=== PATIENT | male | born 1945 | race Caucasian/White ===

== ENCOUNTER 2024-10-10 15:51 | Inpatient (IN) | payer MEDICARE, SELFPAY ==
[2024-10-10] VITALS (13 sets, daily range): BP systolic 137–182; BP diastolic 63–92; PULSE 95–138; RESP 12–20; TEMP 36.1–36.6; O2SAT 92–100
--- NOTE | ~2024-10-10 | XR_ITS ---
EXAMINATION: XR UGI water soluble wo kub DATE: 10/13/2024 11:07 INDICATION: Perforated duodenal ulcer post repair TECHNIQUE: 240 mL of Gastrografin water-soluble contrast was administered due to the patient's existi ng nasogastric tube. A total of 27 fluoroscopic images and 4 radiographs of the stomach, and proximal small bowel were obtained. Fluoroscopy exposure time was 2.0 minutes. Total DAP was 22.171 Gycm^2. COMPARISON: CT dated 10/10/2024 FINDINGS: Initial deputy sheriff lieutenant fluoroscopic image demonstrates nasogastric tube with tip in proximal side port project ing over the region of the stomach. There are couple surgical drains, one extending along the expecte d region of the greater curvature of the stomach with the distal tip in the left upper quadrant and t he second grouping over the region of the stomach but with distal tip seen in the left hemipelvis on subsequent radiographs. Injected contrast fills the stomach which appears normal. There is prompt tra nsit of contrast through the duodenum and into the jejunum. The contrast opacified portions of the sm all bowel appear normal. No extraluminal leakage of contrast. IMPRESSION: 1. No evident obstruction or extra luminal leakage of contrast post recent duodenal ulcer repair. Reviewed, dictated and finalized at location B. NER OPERATOR IMPRESSION: 1. No evident obstruction or extra luminal leakage of contrast post recent duod enal ulcer repair.
--- NOTE | ~2024-10-10 | CT_ITS ---
EXAMINATION: CTA chest PE protocol DATE: 10/10/2024 17:15 BRICK BURNER HEAD INDICATION: Sudden onset of right-sided abdominal pain. TECHNIQUE: Computed tomographic angiography (CTA) of the chest was performed with 100 mL Omnipaque-35 0 intravenous contrast. The dose-length product was 246.05 mGy-cm. Maximum intensity projection 3D-re constructions of the aorta and other arteries were constructed by the technologist on a separate work station. COMPARISON: None. FINDINGS: No filling defects are identified within the main or proximal pulmonary arteries. The thoracic aorta is unremarkable, without aneurysmal dilatation or dissection. Lungs are clear. The heart is of normal size, without pericardial effusion. Within the right upper quadrant of the abdomen, is limited visualization of a hyperemic nondistended gallbladder with surrounding free fluid for which cross-sectional imaging is suggested. Additionally, multiple foci of free air are identified along the anterior lateral margin of the abdomen, limited v isualization on this CTA of the chest IMPRESSION: No pulmonary embolus. No aortic dissection. Findings within the right upper quadrant of the abdomen for which cross-sectional imaging (contrast-e nhanced CT examination of the abdomen and pelvis) for further evaluation. These findings were discussed with Dr. Tellez at 5:25 PM on 10/10/2024 Reviewed, dictated and finalized at location A. K BURNER HEAD IMPRESSION: No pulmonary embolus. No aortic dissection. Findings within the right upper quadrant of the abdomen for which cross-section al imaging (contrast-enhanced CT examination of the abdomen and pelvis) for fur ther evaluation. These findings were discussed with Dr. Tellez at 5:25 PM on 10/10/2024
--- NOTE | ~2024-10-10 | XR_ITS ---
EXAMINATION: XR chest 1V portable DATE: 10/10/2024 17:07 INDICATION: Ripping abdominal pain. TECHNIQUE: A single frontal view of the chest was obtained. COMPARISON: Chest CT 10/10/2024 FINDINGS: There is mild atelectasis in the lower lung zones. No pleural effusion or pneumothorax. The heart size is normal. IMPRESSION: 1. Mild atelectasis in the lower lung zones. Reviewed, dictated and finalized at location A. ESSOR OF HISTORY
--- NOTE | ~2024-10-10 | XR_ITS ---
Exam: Abdomen 1V HISTORY: NG tube replacement COMPARISON: 10/11/2024 TECHNIQUE: Supine images of the lower chest and upper abdomen FINDINGS: Nasogastric tube extends into the left upper quadrant, presumably within the stomach. IMPRESSION: Nasogastric tube in good position and ready for immediate use. Reviewed, dictated and finalized at location A. DER AND HONER OPERATOR AUTOMATIC
--- NOTE | ~2024-10-10 | CT_ITS ---
EXAMINATION: CT abdomen pelvis w con DATE: 10/10/2024 18:22 INDICATION: Free intraperitoneal gas. TECHNIQUE: Computed tomography (CT) of the abdomen and pelvis was performed with 100 mL Omnipaque 350 intravenous contrast. Automated exposure control and iterative reconstruction technique were employe d. The dose-length product was 369.77 mGy-cm. COMPARISON: Chest CT 10/10/24 FINDINGS: The visualized portions of the lung bases demonstrate mild atelectasis. There is mild bronc hiectasis bilaterally. No pleural effusion. The heart size is normal. No pericardial effusion. There is bilateral gynecomastia. The liver, gallbladder, spleen, pancreas, adrenal glands, and left kidney are normal. There are cysts in right kidney measuring up to 12 mm. The prostate is mildly enlarged. T here is diffuse bladder wall thickening, likely secondary to chronic outlet obstruction. The bladder is markedly distended. There is diverticulosis of the colon without evidence of diverticulitis. There is a perforated ulcer of the first portion of the duodenum. There is a small volume of ascites and f ree gas in the right upper quadrant. There are no pathologically enlarged lymph nodes. There is sever e thoracolumbar spondylosis. IMPRESSION: 1. Perforated ulcer of the first portion of the duodenum. 2. Small volume of ascites and free gas in the right upper quadrant of the abdomen. Reviewed, dictated and finalized at location A. ER CHAINSTITCH IMPRESSION: 1. Perforated ulcer of the first portion of the duodenum. 2. Small volume of ascites and free gas in the right upper quadrant of the abdo men.
--- NOTE | ~2024-10-10 | XR_ITS ---
EXAMINATION: XR abdomen gastric tube insert DATE: 10/10/2024 22:13 INDICATION: Nasogastric tube placement. TECHNIQUE: A semierect view of the abdomen was obtained. COMPARISON: CT abdomen and pelvis 10/10/2024 FINDINGS: The lower abdomen is excluded. The nasogastric tube tip is at the gastroesophageal junction . There are surgical drains in the abdomen. Body wall gas is noted. IMPRESSION: 1. Nasogastric tube tip at the gastroesophageal junction. Reviewed, dictated and finalized at location A. NSIC ANALYST
--- NOTE | ~2024-10-10 | XR_ITS ---
Exam: Abdomen 1V HISTORY: tube placement verification, repositioned COMPARISON: 10/10/2024 at 10:05 PM TECHNIQUE: Supine images of the lower chest and upper abdomen FINDINGS: Nasogastric tube extends into the left upper quadrant, presumably within the stomach. Additional drains projecting over the left upper quadrant, and the pelvis, presumably postoperative. IMPRESSION: Nasogastric tube in good position and ready for immediate use. Reviewed, dictated and finalized at location [] MANAGER
--- NOTE | 2024-10-10 16:37 | ECG_ITS ---
Test Date: 2024-10-10 17:12:31 Measurements Intervals [place] Rate: 107 P: 83 MD: 171 QRS: 84 QRSD: 85 T: 69 QT: 331 QTc: 442 Interpretive Statements SINUS TACHYCARDIA WITH OCCASIONAL SUPRAVENTRICULAR PREMATURE COMPLEXES POSSIBLE LEFT ATRIAL ENLARGEMENT [-0.1mV P-WAVE IN V1/V2] No previous ECG available for comparison Electronically Signed On 10-11-2024 15:51:11 [employer]ODUCE [employer]TER by Lesly Schroeder M.D.
--- NOTE | 2024-10-10 16:46 | ED_ITS ---
HPI - General Adult General Chief complaint: Abdominal Pain Stated complaint: abd pain History of Present Illness HPI narrative: This is a 79-year-old male with BPH presenting for repeating abdominal pain. Patient was exercising in his basement when he felt a ripping pain on the right side of his abdomen. He then developed severe abdominal pain and came to the emergency room. Patient denies fevers chills chest pain difficulty breathing or weakness to any extremity. Related Data Home Medications ?Medication ?Instructions ?Recorded ?Confirmed ?Last Taken ?Type aspirin 81 mg capsule 81 mg PO DAILY 10/11/24 10/11/24 Unknown History sulfamethoxazole 800 1 tablet PO Q12H 10/11/24 10/11/24 10/09/24 History mg-trimethoprim 160 mg tablet Allergies Allergy/AdvReac Type Severity Reaction Status Date / Time No Known Allergies Allergy Verified 10/10/24 17:17 [facility] Past Medical History Medical History BPH (benign prostatic hyperplasia) Social History Social History (Updated 10/10/24 @ 20:20 by Christian Corley DO) Smoking status: Never smoker Alcohol intake: never Substance use: never Do You Feel Safe in your Home?: Yes Lack of Transportation: No Lack of Food: Never True Current Housing: I Have Housing Concerned About Future Housing: No Difficulty Paying Gas/Electric Bills: No Difficulty Paying for Meds: No Currently Unemployed: No Education: Master's Degree or Higher Difficulty w/ Childcare or Family Care: No Spiritual care concerns: No Exam 2 Narrative: APPEARANCE: No apparent distress. Head: atraumatic. EYES: EOMI, NOSE: Atraumatic NECK: Trachea midline RESPIRATORY: No increased rate of breathing, CTAB CARDIOVASCULAR: Tachycardic ABDOMINAL: Abdomen is rigid and diffusely tender MUSCULOSKELETAl: No obvious deformities NEURO: Alert. Moving 4/4 extremities SKIN:: Warm, dry. Normal color PSYCHIATRIC: Normal affect Course Vital Signs Vital signs: Vital Signs Pulse Rate 97 10/10/24 16:00 Respiratory Rate 18 10/10/24 16:00 Blood Pressure 182/92 H 10/10/24 16:00 Pulse Oximetry 98 10/10/24 16:00 Temperature 98.0 F 10/11/24 08:01 Pulse Rate 97 10/11/24 08:01 Respiratory Rate 14 10/11/24 08:01 Blood Pressure 144/70 H 10/11/24 08:01 Pulse Oximetry 99 10/11/24 08:01 Oxygen Delivery Room Air 10/11/24 00:22 Oxygen Flow Rate 6 10/10/24 22:25 Medical Decision Making MDM Narrative Medical decision making narrative: -Course: 79-year-old male presenting with a ripping pain in his abdomen. CT abdomen pelvis showed a perforated duodenal ulcer. Patient given fluid resuscitation, pain medication and Zosyn. Dr. Corley was contacted and will take the patient to the OR. When the patient 1st arrived I had attempted to order a CTA - chest/abdomen/pelvis unfortunately selected CTA Chest. A CT abdomen pelvis had to be added and he was rescanned. I explained the error the the patient and apologized for the delay in care. Vital Signs Vital Signs: Vital Signs Pulse Rate 97 10/10/24 16:00 Respiratory Rate 18 10/10/24 16:00 Blood Pressure 182/92 H 10/10/24 16:00 Pulse Oximetry 98 10/10/24 16:00 Temperature 98.0 F 10/11/24 08:01 Pulse Rate 97 10/11/24 08:01 Respiratory Rate 14 10/11/24 08:01 Blood Pressure 144/70 H 10/11/24 08:01 Pulse Oximetry 99 10/11/24 08:01 Oxygen Delivery Room Air 10/11/24 00:22 Oxygen Flow Rate 6 10/10/24 22:25 Lab Data 10/11/24 05:12 10/11/24 05:12 Labs: Lab Results 10/10/24 10/10/24 10/10/24 Range/Units 16:54 16:55 19:33 WBC 6.7 (4.5-10.0) K/mm3 RBC 4.32 L (4.6-6.20) M/mm3 Hgb 13.0 L (14.0-18.0) g/dL Hct 40.0 L (42.0-52.0) % MCV 92.6 (80-100) fl MCH 30.1 (26-34) pg MCHC 32.5 (32-36) g/dl RDW 12.3 (11.5-14.5) % Plt Count 327 (150-375) k/mm3 MPV 9.5 (7.4-10.4) fl Immature Gran % (Auto) 0.3 (0-0.5) % Neut % (Auto) 71.7 (45.5-73.1) % Lymph % (Auto) 18.8 (18.3-44.2) % [place] % (Auto) 6.8 (2.6-8.5) % Eos % (Auto) 1.8 (0-4.4) % Baso % (Auto) 0.6 (0.2-1.2) % Lymph # (Auto) 1.27 (0.9-3.2) K/mm3 [place] # (Auto) 0.5 (0.1-0.6) K/mm3 Eos # (Auto) 0.1 (0-0.3) K/mm3 Baso # (Auto) 0.0 (0.0-0.1) K/mm3 Abs Immat Gran (auto) 0.02 (0.00-0.031) K/mm3 Absolute Neuts (auto) 4.8 (1.3-6.7) K/mm3 Absolute Nucleated RBC 0.000 (0.0-0.012) K/mm3 Nucleated RBC % 0.0 (0.0-0.2) % PT 14.2 (11.1-14.7) Seconds INR 1.1 APTT 22.5 (22.3-36.8) Seconds Sodium 137 (137-145) mmol/L Potassium 4.6 (3.4-5.0) mmol/L Chloride 104 (98-107) mmol/L Carbon Dioxide 26 (22-30) mmol/L Anion Gap 7 (4-12) mmol/L BUN 25 H (9-20) mg/dL Creatinine 1.10 (0.7-1.3) mg/dL Estim Creat Clear Calc 41 ml/min Estimated GFR > 60 (59 - ) Glucose 102 (65-110) mg/dL Lactic Acid 1.5 (0.7-2.0) mmol/L Calcium 8.1 L (8.4-10.2) mg/dL Phosphorus 3.4 (2.5-4.5) mg/dL Magnesium 2.2 (1.6-2.3) mg/dL Total Bilirubin 0.7 (0.2-1.3) mg/dL AST 32 (17-59) U/L ALT 12 (6-50) U/L Alkaline Phosphatase 133 H (38-126) U/L Troponin I < 0.012 (0.000-0.034) ng/mL Total Protein 7.0 (6.3-8.2) g/dL Albumin 3.5 (3.5-5.1) g/dL Lipase 127 (23-300) U/L Urine Color Yellow (Yellow) Urine Appearance Clear (Clear) Urine pH 8.0 (5.0-9.0) Ur Specific [place] 1.043 H (1.001-1.035) Urine Protein Negative (Negative) mg/dL Urine Glucose (UA) Negative (Negative) mg/dL Urine Ketones Trace H (Negative) mg/dL Ur Blood (Man) Negative (Negative) Urine Nitrate Negative (Negative) Urine Bilirubin Negative (Negative) Urine Urobilinogen 0.2 (<2.0) mg/dL Leukocyte Esterase Rfl Negative (Negative) JONAH/UL Salicylates < 1.0 L (2-20) mg/dL Blood Type A Positive Antibody Screen Negative Critical Care Time Critical Care Time Critical Care Time: Yes Total Critical Care Time: 35 Discharge Plan Discharge Clinical Impression: Duodenal ulcer, perforated Patient Disposition: Still a Patient Condition: Guarded Prognosis
[2024-10-10 17:00] LABS: Basophils Percent Auto 0.6 % (0.2-1.2); Eosinophils Absolute Auto 0.1 K/mm3 (0-0.3); Eosinophils Percent Auto 1.8 % (0-4.4); Immature Granulocyte Absolute 0.02 K/mm3 (0.00-0.031); Immature Granulocyte Percent A 0.3 % (0-0.5); Lymphocytes Absolute Auto 1.27 K/mm3 (0.9-3.2); Lymphocytes Percent Auto 18.8 % (18.3-44.2); Mean Corpuscular HGB Conc 32.5 g/dl (32-36); Mean Corpuscular Hemoglobin 30.1 pg (26-34); Mean Corpuscular Volume 92.6 fl (80-100); Mean Platelet Volume 9.5 fl (7.4-10.4); Monocytes Absolute Auto 0.5 K/mm3 (0.1-0.6); Monocytes Percent Auto 6.8 % (2.6-8.5); Neutrophils Absolute Auto 4.8 K/mm3 (1.3-6.7); Neutrophils Percent Auto 71.7 % (45.5-73.1); Platelet Count Result 327 k/mm3 (150-375); Red Blood Count 4.32 M/mm3 (4.6-6.20); Red Cell Distribution Width 12.3 % (11.5-14.5); White Blood Count 6.7 K/mm3 (4.5-10.0)
[2024-10-10 17:10] LABS: Salicylate < 1.0 mg/dL (2-20)
[2024-10-10 17:10] LABS: Lactic Acid Reflex 1.5 mmol/L (0.7-2.0)
[2024-10-10 17:12] LABS: INR 1.1; Prothrombin Time 14.2 Seconds (11.1-14.7)
[2024-10-10 17:13] LABS: Partial Thromboplastin Time 22.5 Seconds (22.3-36.8)
[2024-10-10] MEDS: HYDROmorphone HCL INJ (*CRX) 1 MG/ML SYR IV PUSH (17:16)
[2024-10-10 17:27] LABS: Alanine Aminotransferase 12 U/L (6-50); Albumin Level 3.5 g/dL (3.5-5.1); Alkaline Phosphatase 133 U/L (38-126); Anion Gap 7 mmol/L (4-12); Aspartate Amino Transferase 32 U/L (17-59); Bilirubin,Total 0.7 mg/dL (0.2-1.3); Blood Urea Nitrogen 25 mg/dL (9-20); Calcium 8.1 mg/dL (8.4-10.2); Carbon Dioxide 26 mmol/L (22-30); Chloride 104 mmol/L (98-107); Estimated CRCL calculation 41 ml/min; Estimated Glomerular Filt Rate > 60; Glucose 102 mg/dL (65-110); Lipase 127 U/L (23-300); Magnesium 2.2 mg/dL (1.6-2.3); Phosphorus 3.4 mg/dL (2.5-4.5); Potassium 4.6 mmol/L (3.4-5.0); Sodium 137 mmol/L (137-145)
[2024-10-10 17:39] LABS: Troponin I < 0.012 ng/mL (0.000-0.034)
[2024-10-10] MEDS: SODIUM CHLORIDE 0.9% IV 2,000 ML 999 ML IV CONT (18:45)
[2024-10-10] MEDS: PIPERACILLN/TAZ 3.375GM/NS50ML 3.375 GM/50 ML BAG IVPB (18:45)
--- OUTSIDE RECORDS SUMMARY | 2024-10-10 19:09 | XMS_ITS | Continuity of Care Document ---
Author Organization [facility] Address [address] [facility] [address] [place] [address] Phone Care Team Providers Care Senior Office Assistant Name Role Phone Mary Cabrales Unavailable Unavailable Procedures Procedure Date Eye Exam & Treatment Eye Exam & Treatment Refraction Eye Exam Established Pt SV Plastic Sphcyl Rupert +/-4d, .12-2d De Frames Deluxe Tax - Medical Eye Exam & Treatment Refraction Advance Directives Directive Yes / No Effective Date File Name No Information Encounters Encounter Description Practice Location Reason(s) For Visit Diagnoses Date Provider Providers Copied on Encounter [facility], [address] [place] [address] [address], [place], [place], [id number], tel:[phone] [facility] No Information 2 2-201 0 Samra Leggett [address] [facility] , [address], [place], [address], [place]. tel:[phone] [facility], [address] [place] [address] [address], [place], [place], [address], [place] tel:[phone] [facility] [place] No Information Willis-0 4-200 9 Samra Leggett [address] , [address], [place], [address], [place]. tel:[phone] [facility], [address] [place] [address] [address], [place], [place], [address], [place] tel:[phone] [facility] No Information Aug- 8 Samra Hernandez. [address] [facility] , [address], [place], [address], [place]. tel:[phone] [facility], [address], [place], [place], [id number], [place] tel:[phone] [facility] No Information Aug-0 [address] [employer] [facility] [employer] . [address] [facility] [address], [address], [place], [place], [address], [place]. tel:[phone] Referring Provider: Mary Brown, [address] [place] [address] [address], [place], [place], [facility]. tel:[phone] sulting Provider: Freddie Cruz [address] [place] [address], [place], [place], [facility]. tel:[phone] [facility], [address], [place], [place], [address], [place] tel:[phone] [facility] No Information 8 Samra Hernandez. [address] [place] [address] , [address], [place], [address], [place]. tel:[phone] Family History Family Member Type Diagnosis Age At Onset No Information Payers Payer name Insurance type Covered republican ID Authorrejia tiomar(s) [place] [id number] Social History Type Description Quantity Date Captured Comments Sex Male Smoking Status No Information Chief Complaint And Reason For Visit No Information Reason For Referral Reason For Referral No Information History Of Present Illness Encounter Date Complaint History Of Prese nt Illness No Information Functional Status Date Functional Assessmen t No Information Instructions Date Instruction Additional Infor mation No Information Assessments Type Assessment Date No Information Patient Care Teams Name Effective Dates (start - stop) Status Members No Information
--- OUTSIDE RECORDS SUMMARY | 2024-10-10 19:09 | XMS_ITS | Encounter Summary ---
Author Organization [facility] Address [address] [place] [address] Phone Care Team Providers Care Laborer Golf Course Name Role Phone Keanu Anthony MD Primary Care Provider [phone] Francesco Barahona MD Primary Care Provider Encounter Details Date Type Department Care Team (Latest Contact Info) Description 03/24/2017 Orders Only [facility] CONVERSION Scanning, Provider Social History Tobacco Use Types Packs/Day Years Used Date Smoking Tobacco: Never Sex and Gender Information Value Date Recorded Sex Assigned at Not on file Legal Sex Male 12:31 PM TECHNICAL MGR Gender Identity Male 11/09/2022 8:29 PM TECHNICAL MGR Sexual Orientation Straight 11/09/2022 8: 29 PM TECHNICAL MGR documented as of this encounter Plan of Treatment Not on file documented as of this encounter Procedures Procedure Name Priority Date/Time Associated Diagnosis Comments VASCULAR LABORATORY REPORT 03/24/2017 8:37 AM CDT documented in this encounter Results * VASCULAR LABORATORY REPORT (03/24/2017 8:37 AM CDT) Anatomical Region Laterality Modality Ultrasound us Provider Scanning CV VASCULAR PROCEDURES Final R esult documented in this encounter Visit Diagnoses Not on filedocumented in this encounter Care Teams Laborer Golf Course Relationship Specialty Start Date End Date Keanu Anthony MD [address] [facility] [address] [place] [address] PCP - General 03/30/17 06/15/21 Francesco Barahona MD [address] [address] PCP - General Endocrinology Diabetes & Metabolism 06/16/21 documented as of this encounter
--- OUTSIDE RECORDS SUMMARY | 2024-10-10 19:09 | XMS_ITS | Encounter Summary ---
Author Organization [facility] Address [address] [place] [address] Phone Care Team Providers Care Veterinarian Epidemiologist Name Role Phone Keanu Anthony MD Primary Care Provider [phone] Francesco Barahona MD Primary Care Provider Encounter Details Date Type Department Care Team (Latest Contact Info) Description 05/02/2017 Orders Only [facility] CONVERSION Scanning, Provider Social History Tobacco Use Types Packs/Day Years Used Date Smoking Tobacco: Never Sex and Gender Information Value Date Recorded Sex Assigned at Not on file Legal Sex Male 12:31 PM PARALEGAL INSTRUCTOR Gender Identity Male 11/09/2022 8:29 PM PARALEGAL INSTRUCTOR Sexual Orientation Straight 11/09/2022 8: 29 PM PARALEGAL INSTRUCTOR documented as of this encounter Plan of Treatment Not on file documented as of this encounter Procedures Procedure Name Priority Date/Time Associated Diagnosis Comments VASCULAR LABORATORY REPORT 05/02/2017 10:14 AM CDT documented in this encounter Results * VASCULAR LABORATORY REPORT (05/02/2017 10:14 AM CDT) Anatomical Region Laterality Modality Ultrasound us Provider Scanning CV VASCULAR PROCEDURES Final R esult documented in this encounter Visit Diagnoses Not on filedocumented in this encounter Care Teams Veterinarian Epidemiologist Relationship Specialty Start Date End Date Keanu Anthony MD [address] [facility] [address] [place] [address] PCP - General 03/30/17 06/15/21 Francesco Barahona MD [address] [address] PCP - General Endocrinology Diabetes & Metabolism 06/16/21 documented as of this encounter
--- OUTSIDE RECORDS SUMMARY | 2024-10-10 19:09 | XMS_ITS | Clinical Summary ---
Author Organization [facility] Address [address] [place] [address] Care Team Providers Care Dryland Farmer Name Role Phone Francesco Barahona MD Primary Care Provider Allergies No known active allergies Medications aspirin 81 mg tablet Take 1 tablet (81 mg total) by mouth Active multivitamin tabletIndicatio ns:Vitamin Deficiency Prevention Men's One per Day Active scopolamine 1 mg over 3 days patch 3 day APPLY 1 PATCH TOPICALLY TO THE SKIN EVERY 72 HOURS 4 patch 4 Active sulfamethoxazol e-trimethoprim (BACTRIM DS) 800-160 mg per tablet Take 1 tablet by mouth 2 (two) times a day for 7 days 14 tablet 5 10/16/19 25 Active Active Problems Problem Noted Date Diagnosed Date Imbalance 03/07/2024 PVD (peripheral vascular disease) 01/11/2023 Assessment & Plan (01/11/2023 1:06 PM CDT): Compression socks Venous duplex Vascular Referral Medicare annual wellness visit, subsequent 06/22 Assessment & Plan (07/07/2024 6:42 PM CDT): Overall excellent health. Colonoscopy is due in 2024. I recommended COVID, flu, RSV, and [id number] vaccinations. Assessment & Plan (07/02/2023 10:27 AM CDT): Overall good health. Check PSA today. Colonoscopy due in 2024. I recommended that he get a COVID shot and Kibkacp19 vaccine. He declines a flu shot. Assessment & Plan (06/22/2022 10:00 AM CDT): Overall good health. [place] due in 2024. Recommended the following vaccines: Shingrix New COVID booster Flu shot [id number] Hyperlipidemia 06/22/2022 Assessment & Plan (07/07/2024 6:40 PM CDT): Mildly elevated in the past. Not on statin. Repeat today. Assessment & Plan (07/02/2023 9:49 AM CDT): LDL mildly elevated. No indication for statin at this time. Recommend low fat diet. Assessment & Plan (06/22/2022 10:00 AM CDT): Check lipids. Elevated PSA 06/22/2022 Encounter for preventive care 06/16/2021 Assessment & Plan (06/16/2021 1:10 PM CDT): Continue current healthy lifestyle. Encourage annual flu shot and getting Shingrix vaccine as he had received Zostavax in the past. Next colonoscopy due in 2024 if he chooses to continue screening. Checking PSA today, along with general labs. Screen for HCV per USPSTF guidelines. 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 Sensorineural hearing loss, asymmetrical 018 Assessment & Plan (06/22/2019 2:23 PM CDT): Check MRI to r/o retrocochlear path. Resolved Problems Problem Noted Date Diagnosed Date Resolved Date Dysfunction of both eustachian tubes 04/25/2018 02/11/2022 Assessment & Plan (06/22/2019 2:23 PM CDT): Ok to continue scopalamine patches for vertigo with air travel. Encounters Date Type Department Care Team Description 10/09/2024 Orders Only [facility] [address] [place] [address] [address] [place] [phone] Ubaldo Rose MD 10/05/2024 9:40 AM TAX DIRECTOR Lab [facility] [address] [place] [address] UTI symptoms 10/04/2024 Orders Only [facility] [address] [place] [address] [address] [place] [phone] Ubaldo Rose MD UTI symptoms (Primary Dx) 10/04/2024 Telephone [facility] [address] [place] [address] [address] [place] [phone] Ubaldo Rose MD 09/19/2024 Telephone [facility] [address] [place] [address] [address] [place] [phone] Dina Benitez CMA 09/18/2024 Telephone [facility] [address] [place] [address] [address] [place] [phone] Dina Benitez, WILMER 07/10/2024 [facility] [address] [facility] [address] [facility] [place] [address] Amparo Covarrubias from Last 3 Months Immunizations Name Administration Dates Next Due Tdap 06/16/2021 Surgical History Surgery Date Site/Laterality Comments LASER OF PROSTATE W/ GREEN LIGHT PVP Medical History Medical History Date Comments Retention of urine Urinary reten tion with incomplete bladder emptying - (Added by TW Conv) Retention of urine Urinary reten tion with incomplete bladder emptying - (Added by TW Conv) HL (hearing loss) Family History Medical History Relation Name Comments Heart disease Brother Family history of cardiac disorder - (Added by TW Conv) Heart disease Father Family history of cardiac disorder - (Added by TW Conv) Alzheimer's disease Mother Family h istory of Alzheimer's disease - (Added by TW Conv) Relation Name Status Comments Brother Father Mother Social History Tobacco Use Types Packs/Day Years Used Date Smoking Tobacco: Never Smokeless Tobacco: Never Tobacco Cessation:Counseling Given: Not Answered Alcohol Use Standard Drinks/Week Comments Never 0 (1 standard drink = 0.6 oz pur e alcohol) AUDIT-C Answer Date Recorded Q1: How often do you have a drink containing alc ohol? Never 06/16/2021 Q2: How many drinks containi ng alcohol do you have on a typical day when you are drinking? 1 or 2 06/16/2021 Q3: How often do you have six or more drinks on one occasion? Never 06/16/2021 PHQ-2 Answer Date Recorded PHQ-2 Total Score (If total score is 3 or more points, staff should administer the PHQ-9) 0 07/07/2024 Exercise Vital Sign Answer Date Recorde d On average, how many days pe r week do you engage in moderate to strenuous exercise (like a brisk walk)? 7 days 06/16/2021 On average, how many minutes do you engage in exercise at this level? 40 min 06/16/2021 Personal Safety Answer Date Recorded Getting School Help Needed Not on file 09/09 Sex and Gender Information Value Date Recorded Sex Assigned at Not on file Legal Sex Male 12:31 PM TAX DIRECTOR Gender Identity Male 11/09/2022 8:29 PM TAX DIRECTOR Sexual Orientation Straight 11/09/2022 8: 29 PM TAX DIRECTOR Obstetrics History Last Filed Vital Signs Vital Sign Reading Time Taken Comments Blood Pressure 130/73 07/07/2024 10:10 AM CDT Pulse 66 07/07/2024 10:10 AM CDT Temperature - - Respiratory Rate - - Oxygen Saturation 99% 02/15/2023 1:31 PM CDT Inhaled Oxygen Concentration - - Weight 66.4 kg (146 lb 6.4 oz) 07/07/2024 10:10 AM CDT Height 175.3 cm (5' 9 ) 07/07/2024 10:10 AM CDT Body Mass Index 21.62 07/07/2024 10:10 AM CDT Plan of Treatment Health Maintenance Due Date Last Done Comments Hepatitis B Screening 1963 Zoster Vaccine (1 of 2) 1995 Pneumococcal vaccine 65+ (1 of 1 - PCV) 2010 Covid-19 Vaccine (3 - 2023-2 5 season) 2024 12/09/2020, 11/11/2020 Influenza Vaccine (#1) 2024 Depression Screening 07/07/2025 07/07/2024, 07/02/2023, 06/22/2022, Additional history exists Fall Risk Assessment 07/07/2025 07/07/2024, 07/02/2023, 06/22/2022, Additional history exists Well Visit 65+ 07/07/2025 07/07/2024, 06/14, 06/22/2022, Additional history exists DTaP/Tdap/Td Vaccine (2 - Td or Tdap) 06/16/2031 06/16/2021 Colon Cancer Screening-CT Colonography Discontinued 07/22/2015 Colon Cancer Screening-Colonoscopy Discontinued 07/22/2015 Colon Cancer Screening-DNA Stool Discontinued 07/22/20 Colon Cancer Screening-FIT Discontinued 07/22/2015 Colon Cancer Screening-FOBT Discontinued 07/22/2015 Colon Cancer Screening-Sigmoidoscopy Discontinued 07/22/2015 Colorectal Cancer Screening Discontinued Hepatitis C Screening Completed 06/16/2021 Procedures Procedure Name Priority Date/Time Associated Diagnosis Comments URINE CULTURE Routine 10/05/2024 9:43 AM TAX DIRECTOR UTI symptoms HEPATITIS C ANTIBODY Routine 06/16/2021 10:33 AM CDT Encounter for hepatitis C screening test for low risk patient COLONOSCOPY REPORT 07/22/2015 from Last 3 Months or Most Recently Relevant to Health Maintenance Results * (ABNORMAL) Urine culture Urine, clean voided (10/05/2024 9:43 AM TAX DIRECTOR) Report Final Report: Greater than or equal to 100,000 colonies/mL of Staphylococcus lugdunensis Plus growth of clinically insignificant bacterial alexei. (.) Organism STAPHYLOCOCCUS LUGDUNENSIS [facility] Organism PLUS GROWTH OF CLINICALLY INSIGNIFICANT ALEXEI. [facility] Urine, clean voided 10/05/2024 9:43 AM TAX DIRECTOR 10/05/2024 10:27 AM TAX DIRECTOR Narrative ERMA ALAS - 10/08/2024 1:07 PM TAX DIRECTOR Testing performed by [facility] ([phone]) Organism Antibiotic Method Susceptibility Staphylococcus lugdunensis Vancomycin INTERPRETATION Susceptible Staphylococcus lugdunensis Trimethoprim with Sulfamethoxazole INTERPRETATION Susceptible Staphylococcus lugdunensis Linezolid INTERPRETATION Susceptible Staphylococcus lugdunensis Doxycycline INTERPRETATION Susceptible Staphylococcus lugdunensis Nitrofurantoin INTERPRETATI ON Susceptible Staphylococcus lugdunensis Oxacillin INTERPRETATION Susceptible Staphylococcus lugdunensis Cefazolin INTERPRETATION Susceptible Staphylococcus lugdunensis Ceftriaxone INTERPRETATION Susceptible Ubaldo Rose MD LAB MICROBIOLOGY - G ENERAL ORDERABLES Final Result Performing Organization Address City/State/[facility] Co de Phone Number [facility] [place] Department [place] [address] * Hepatitis C antibody (06/16/2021 10:33 AM CDT) Hep C Ab 0.2 0.0 - 0.9 s/co ratio [facility] - 01 Comment: ?Negative: ? < 0.8 ? Indeterminate: 0.8 - 0.9 ?Positive: ? > 0.9 The CDC recommends that a positive HCV antibody result be followed up with a HCV Nucleic Acid Amplification test ([id number]). Blood specimen (specimen) 06/16/2021 10:33 AM CDT 06/16/2021 Narrative [facility] - 06/17/2021 9:10 AM CDT Performed at: ??01 - [facility] [address] ??[id number] Metal Pickling Equipment Operator: Glenn Aquino PhD, Phone: ??[phone] us Francesco Barahona MD LAB MICROBIOLOGY - GENE RAL ORDERABLES Final Result [facility] - 01 * COLONOSCOPY REPORT (07/22/2015) Anatomical Region Laterality Modality Other Narrative 07/22/2015 Ordered by an unspecified provider. us Historical Provider GI PROCEDURE ORDERABLES F inal Result from Last 3 Months or Most Recently Relevant to Health Maintenance Insurance MEDICARE [employer] MEDICARE [employer] MEDICARE [facility] MEDICARE Advance Directives For more information, please contact: [phone] Documents on File Type Date Recorded Patient History Card Clerk Expl anation ADVANCE DIRECTIVE 10/01/2017 12:18 PM Care Teams Dryland Farmer Relationship Specialty Start Date End Date Francesco Barahona MD [address] [address] PCP - General Endocrinology Diabetes & Metabolism 06/16/21
--- OUTSIDE RECORDS SUMMARY | 2024-10-10 19:09 | XMS_ITS | Encounter Summary ---
Author Organization [facility] Address [address] [place] [address] Phone Care Team Providers Care Model Maker Scale Name Role Phone Francesco Barahona MD Primary Care Provider Encounter Details Date Type Department Care Team (Late st Contact Info) Description 10/09/2024 Orders Only [facility] [address] [facility] Medical Office Building [address] [place] [address] Ubaldo Rose MD [address] [facility]OLOGY, [facility] [address] [place] [address] Social History Tobacco Use Types Packs/Day Years Used Date Smoking Tobacco: Never Smokeless Tobacco: Never Alcohol Use Standard Drinks/Week Comments Never 0 [...] on file Legal Sex Male 12:31 PM AQUATIC CENTRE MANAGER Gender Identity Male 11/09/2022 8:29 PM AQUATIC CENTRE MANAGER Sexual Orientation Straight 11/09/2022 8: 29 PM AQUATIC CENTRE MANAGER documented as of this encounter Ordered Prescriptions Prescription Sig Dispense Quantity Refills Last Filled Start Date End Date sulfamethoxazole-t rimethoprim (BACTRIM DS) 800-160 mg per tablet Take 1 tablet by mouth 2 (two) times a day for 7 days 14 tablet 10/09/2024 10/16/2024 documented in this encounter Plan of Treatment Not on file documented as of this encounter Visit Diagnoses Not on filedocumented in this encounter Care Teams Model Maker Scale Relationship Specialty Start Date End Date Francesco Barahona MD [address] [facility] [address] [place] [address] PCP - General Endocrinology Diabetes & Metabolism 06/16/21 documented as of this encounter
--- OUTSIDE RECORDS SUMMARY | 2024-10-10 19:09 | XMS_ITS | Referral Summary ---
Author Organization [facility] Address [address] [place] [address] Care Team Providers Care Industrial Hygienist Name Role Phone Francesco Barahona MD Primary Care Provider Encounters Date Type Department Care Team Description 10/09/2024 Orders Only [facility] [address] [place] [address] Office [facility] [address] [place] [phone] Ubaldo Rose MD 10/05/2024 9:40 AM BAD CLOTH CHECKER Lab [facility] ([facility]) [address] [place] [phone] UTI symptoms 10/04/2024 Orders Only [facility] [address] [place] [address] Office [facility] [address] [place] [phone] Ubaldo Rose MD UTI symptoms (Primary Dx) 10/04/2024 Telephone [facility] [address] [place] [address] Office [facility] [address] [place] [phone] Ubaldo Rose MD 09/19/2024 Telephone [facility] [address] [place] [address] Office [facility] [address] [place] [phone] Dina Benitez CMA 09/18/2024 Telephone [facility] [address] [facility] Building [address] [place] [phone] Dina Benitez CMA 07/10/2024 [facility] [address] [place] [address] [address] [facility] for [facility] [place] [address] Amparo Covarrubias from Last 3 Months Allergies No known active allergies Medications aspirin [...] for 7 days 14 tablet 5 10/16/19 Active Active Problems Problem Noted Date Diagnosed Date Imbalance 03/07/2024 PVD (peripheral vascular disease) 01/11/2023 Assessment & Plan (01/11/2023 1:06 PM CDT): Compression socks Venous duplex Vascular Referral Medicare annual wellness visit, subsequent 06/22 Assessment & Plan (07/07/2024 6:42 PM CDT): Overall excellent health. Colonoscopy is due in 2024. I recommended COVID, flu, RSV, and [id number] vaccinations. Assessment & Plan (07/02/2023 10:27 AM CDT): Overall good health. Check PSA today. Colonoscopy due in 2024. I recommended that he get a COVID shot and [id number] vaccine. He declines a flu shot. Assessment & Plan (06/22/2022 10:00 AM CDT): Overall good health. Proctor due in 2024. Recommended the following vaccines: Shingrix New COVID booster Flu shot [id number] Hyperlipidemia 06/22/2022 Assessment & Plan (07/07/2024 6:40 [...] scopalamine patches for vertigo with air travel. Immunizations Name Administration Dates Next Due Tdap 06/16/2021 Social History Tobacco Use Types Packs/Day Years [...] on file Legal Sex Male 12:31 PM BAD CLOTH CHECKER Gender Identity Male 11/09/2022 8:29 PM BAD CLOTH CHECKER Sexual Orientation Straight 11/09/2022 8: 29 PM BAD CLOTH CHECKER Last Filed Vital Signs Vital Sign Reading [...] 07/07/2024 10:10 AM CDT Plan of Treatment Not on file Procedures Procedure Name Priority Date/Time Associated Diagnosis Comments URINE CULTURE Routine 10/05/2024 9:43 AM BAD CLOTH CHECKER UTI symptoms HEPATITIS C ANTIBODY Routine 06/16/2021 10:33 AM CDT Encounter for hepatitis C screening test for low risk patient COLONOSCOPY REPORT 07/22/2015 from Last 3 Months or Most Recently Relevant to Health Maintenance Results * (ABNORMAL) Urine culture Urine, clean voided (10/05/2024 9:43 AM BAD CLOTH CHECKER) Report Final Report: Greater than or equal to 100,000 colonies/mL of Staphylococcus lugdunensis Plus growth of clinically insignificant bacterial alexei. (.) Organism STAPHYLOCOCCUS LUGDUNENSIS [facility] Organism PLUS GROWTH OF CLINICALLY INSIGNIFICANT ALEXEI. [facility] Urine, clean voided 10/05/2024 9:43 AM BAD CLOTH CHECKER 10/05/2024 10:27 AM BAD CLOTH CHECKER Narrative [facility] - 10/08/2024 1:07 PM BAD CLOTH CHECKER Testing performed by [facility] ([phone]) Organism Antibiotic Method Susceptibility Staphylococcus lugdunensis Vancomycin INTERPRETATION Susceptible Staphylococcus lugdunensis Trimethoprim with Sulfamethoxazole INTERPRETATION Susceptible Staphylococcus lugdunensis Linezolid INTERPRETATION Susceptible Staphylococcus lugdunensis Doxycycline INTERPRETATION Susceptible Staphylococcus lugdunensis Nitrofurantoin INTERPRETATI ON Susceptible Staphylococcus lugdunensis Oxacillin INTERPRETATION Susceptible Staphylococcus lugdunensis Cefazolin INTERPRETATION Susceptible Staphylococcus lugdunensis Ceftriaxone INTERPRETATION Susceptible Ubaldo Rose MD LAB MICROBIOLOGY - G ENERAL ORDERABLES Final Result [facility] [place] [address] * Hepatitis C antibody (06/16/2021 10:33 AM CDT) Hep C Ab 0.2 0.0 - 0.9 s/co ratio [facility] - 01 Comment: ?Negative: ? < 0.8 ? Indeterminate: 0.8 - 0.9 ?Positive: ? > 0.9 The CDC recommends that a positive HCV antibody result be followed up with a HCV Nucleic Acid Amplification test ([id number]). Blood specimen (specimen) 06/16/2021 10:33 AM CDT 06/16/2021 Narrative [facility] - 06/17/2021 9:10 AM CDT Performed at: ??01 - [facility] [address] ??[id number] Leveling Machine Operator: Glenn Aquino PhD, Phone: ??[phone] Francesco Barahona MD LAB MICROBIOLOGY - GENE RAL ORDERABLES Final Result [facility] - 01 * COLONOSCOPY REPORT (07/22/2015) Anatomical Region Laterality Modality Other Narrative 07/22/2015 Ordered by an unspecified provider. Historical Provider GI PROCEDURE ORDERABLES F inal Result from Last 3 Months or Most Recently Relevant to Health Maintenance Insurance [facility] MEDICARE MEDICARE [employer] MEDIC[facility] Address: [address] [address] [place] [address] MEDICARE [facility]LY [facility] MEDICARE AET MEDICARE Advance Directives For more information, please contact: [phone] Documents on File Type Date Recorded Patient Bar Tender Expl anation ADVANCE DIRECTIVE 10/01/2017 12:18 PM Care Teams Industrial Hygienist Relationship Specialty Start Date End Date Francesco Barahona MD [address] [address] PCP - General Endocrinology Diabetes & Metabolism 06/16/21
[2024-10-10] MEDS: HYDROmorphone HCL INJ (*CRX) 1 MG/ML SYR 0.5 MG IV PUSH (19:22)
[2024-10-10 19:41] LABS: Add Urine Microscopic? NO; Appearance Urine Clear (Clear); Bilirubin Urine Negative (Negative); Blood Urine Negative (Negative); Color Urine Yellow (Yellow); Glucose Urine UA Negative (Negative); Ketones Urine Trace mg/dL (Negative); Leukocyte Esterase Ur Negative LEU/UL (Negative); Nitrate Urine Negative (Negative); Protein Urine Negative (Negative); Specific Grav Ur 1.043 (1.001-1.035); Urobilinogen Urine 0.2 mg/dL (<2.0)
--- NOTE | 2024-10-10 20:11 | WPDANESEPPF ---
Anes - Initial Pre Proc Eval Procedure: Operation Date: 10/10/24 20:30 Proposed Procedures p Lap Repair of Gastric Ulcer - Christian Corley DO Date/Time: 10/10/24 20:11 Pre Op Diagnosis: abd pain Patient Data Age: 79 Gender: M Height: 1.75 m Weight: 60 kg Last Vital Signs Temp 97.6 F 10/10/24 18:58 Pulse 116 H 10/10/24 19:50 Resp 20 10/10/24 19:50 BP 158/77 H 10/10/24 19:50 Pulse Ox 97 10/10/24 19:50 O2 Del Method Room Air 10/10/24 16:09 Allergies Allergy/AdvReac Type Severity Reaction Status Date / Time No Known Allergies Allergy Verified 10/10/24 17:17 Laboratory Tests 10/10/24 10/10/24 10/10/24 16:54 16:55 19:33 WBC 6.7 K/mm3 (4.5-10.0) RBC 4.32 L M/mm3 (4.6-6.20) Hgb 13.0 L g/dL (14.0-18.0) Hct 40.0 L % (42.0-52.0) MCV 92.6 fl (80-100) MCH 30.1 pg (26-34) MCHC 32.5 g/dl (32-36) RDW 12.3 % (11.5-14.5) Plt Count 327 k/mm3 (150-375) MPV 9.5 fl (7.4-10.4) Immature Gran % (Auto) 0.3 % (0-0.5) Neut % (Auto) 71.7 % (45.5-73.1) Lymph % (Auto) 18.8 % (18.3-44.2) [place] % (Auto) 6.8 % (2.6-8.5) Eos % (Auto) 1.8 % (0-4.4) Baso % (Auto) 0.6 % (0.2-1.2) Lymph # (Auto) 1.27 K/mm3 (0.9-3.2) Sherman # (Auto) 0.5 K/mm3 (0.1-0.6) Eos # (Auto) 0.1 K/mm3 (0-0.3) Baso # (Auto) 0.0 K/mm3 (0.0-0.1) Abs Immat Gran (auto) 0.02 K/mm3 (0.00-0.031) Absolute Neuts (auto) 4.8 K/mm3 (1.3-6.7) Absolute Nucleated RBC 0.000 K/mm3 (0.0-0.012) Nucleated RBC % 0.0 % (0.0-0.2) PT 14.2 Seconds (11.1-14.7) INR 1.1 APTT 22.5 Seconds (22.3-36.8) Sodium 137 mmol/L (137-145) Potassium 4.6 mmol/L (3.4-5.0) Chloride 104 mmol/L (98-107) Carbon Dioxide 26 mmol/L (22-30) Anion Gap 7 mmol/L (4-12) BUN 25 H mg/dL (9-20) Creatinine 1.10 mg/dL (0.7-1.3) Estim Creat Clear Calc 41 ml/min Estimated GFR > 60 (59 - ) Glucose 102 mg/dL (65-110) Lactic Acid 1.5 mmol/L (0.7-2.0) Calcium 8.1 L mg/dL (8.4-10.2) Phosphorus 3.4 mg/dL (2.5-4.5) Magnesium 2.2 mg/dL (1.6-2.3) Total Bilirubin 0.7 mg/dL (0.2-1.3) AST 32 U/L (17-59) ALT 12 U/L (6-50) Alkaline Phosphatase 133 H U/L (38-126) Troponin I < 0.012 ng/mL (0.000-0.034) Total Protein 7.0 g/dL (6.3-8.2) Albumin 3.5 g/dL (3.5-5.1) Lipase 127 U/L (23-300) Urine Color Yellow (Yellow) Urine Appearance Clear (Clear) Urine pH 8.0 (5.0-9.0) Ur Specific [place] 1.043 H (1.001-1.035) Urine Protein Negative mg/dL (Negative) Urine Glucose (UA) Negative mg/dL (Negative) Urine Ketones Trace H mg/dL (Negative) Ur Blood (Man) Negative (Negative) Urine Nitrate Negative (Negative) Urine Bilirubin Negative (Negative) Urine Urobilinogen 0.2 mg/dL (<2.0) Leukocyte Esterase Rfl Negative JONAH/UL (Negative) Salicylates < 1.0 L mg/dL (2-20) Blood Type A Positive Antibody Screen Negative Patient hx anesthesia problems: none Family hx anesthesia problems: none Results Review: All pre-operative results and documents have been reviewed as part of the pre-operative evaluation. [facility] Past Medical History Medical History BPH (benign prostatic hyperplasia) Anes - Eval Final PreProcedure Day of Procedure 10/10/24 20:11 Patient weight: normal and thin Heart: regular rate and rhythm Lungs: normal air movement Airway: Mallampati scale class II Neurological: alert and oriented Last oral intake: >/= 8 hours ASA classification: II Emergent: yes Anesthetic plan: proceed Anesthesia type and monitoring: general ETT and standard monitoring Results Review: All pre-operative results and documents have been reviewed as part of the pre-operative evaluation. Pt in overall excellent health, exercises vigorously. States that he does see a PCP yearly and does not take any meds. Informed Consent: The patient's anesthetic plan and its attendant risks and benefits were discussed with the patient/family/POA. Questions were solicited and answers provided to the satisfaction of the patient/family/POA.
--- NOTE | 2024-10-10 20:14 | P.HP_ITS ---
H&P: HPI History of Present Illness Date/Time: 10/10/24 20:14 Chief Complaint: Epigastric abdominal pain Narrative: This is a 79-year-old man who presented to the emergency department today with epigastric abdominal pain that occurred suddenly after exercising today. He was having severe pain and this brought him to the ground and he was unable to get up. He states that he has had some intermittent upper abdominal pains over the past couple years but nothing this severe. He denies a history of alcohol use, NSAID use, or tobacco use. He denies prior history of acid reflux or heartburn. He has never had abdominal surgery in the past. Review of Systems Review of Systems: All systems reviewed & are unremarkable except as noted in HPI and below Eyes: Eyes: Denies change in vision ENT: Denies hearing loss, Denies neck pain and Denies sore throat Cardiovascular: Cardiovascular: Denies chest pain and Denies dyspnea Respiratory: Respiratory: Denies cough, Denies dyspnea and Denies wheezing Gastrointestinal: Gastrointestinal: Reports as per HPI Genitourinary: Genitourinary: Denies hematuria and Denies dysuria Musculoskeletal: Musculoskeletal: Denies arthralgias, Denies joint swelling and Denies neck pain Allergic/Immunologic: Allergic/Immunologic: Denies wheezing PMFSH Past Medical History Medical History BPH (benign prostatic hyperplasia) Social History Social History (Updated 10/10/24 @ 20:20 by Christian Corley DO) Smoking status: Never smoker Alcohol intake: never Meds Home Medications and Allergies Allergies Allergy/AdvReac Type Severity Reaction Status Date / Time No Known Allergies Allergy Verified 10/10/24 17:17 Vital Signs Vital Signs - 24 hr 10/10/24 16:00 10/10/24 16:09 10/10/24 16:30 Temperature 97.8 F 97.6 F Pulse Rate 97 95 95 Respiratory Rate 18 18 18 Blood Pressure 182/92 H 182/92 H 144/68 H Pulse Oximetry 98 100 100 Oxygen Delivery Room Air 10/10/24 16:46 10/10/24 16:47 10/10/24 18:58 Temperature 97.8 F 97.8 F 97.6 F Pulse Rate 95 100 116 H Respiratory Rate 18 20 16 Blood Pressure 162/76 H 151/90 H 173/80 H Pulse Oximetry 100 100 98 Oxygen Delivery 10/10/24 19:50 Temperature Pulse Rate 116 H Respiratory Rate 20 Blood Pressure 158/77 H Pulse Oximetry 97 Oxygen Delivery Exam Const: General: alert; No acute distress Orientation/consciousness: patient oriented x3 Limitations: no limitations HENMT: Head: normocephalic and atraumatic Ears: hearing grossly normal bilaterally Face/Nose/Sinus: Normal external nose present and Normal nares present Mouth: Yes Normal oral and palatal mucosa present and Yes moist mucous membranes Eyes: General: appearance normal, both eyes and all related structures Co njunctivae: conjunctivae normal Sclera: sclerae normal Pupils: Equal, round and reactive pupils present EOM: EOMs intact bilaterally Neck: Neck: normal visual inspection, full ROM, no lymphadenopathy, supple and no JVD Lymphatic: no lymphadenopathy noted Chest: Chest palpation & inspection: normal inspection of the chest Resp: Effort & Inspection: normal respiratory effort and able to speak in complete sentences Auscultation: clear to auscultation bilaterally Percussion: percussion normal Cardio: Jugular venous distension: no JVD Rate: regular rate Rhythm: regular rhythm Heart sounds: S1 normal heart sound present and S2 normal heart sound present Peripheral pulses: Peripheral pulses 2+ throughout GI: Inspection: normal to inspection GI Palp: Yes Firmness to palpation present (GI), Yes Tenderness to palpation present (GI) and Yes Guarding due to palpation present (GI) (Epigastric) Auscultation: normal bowel sounds : General: Yes no CVA tenderness Back/Spine/Pelvis: Back: no CVA tenderness Skin: General skin exam: normal color and dry skin Neuro: General: patient oriented x3, gait normal, moves all extremities, no focal motor deficits and CN's II-XI intact bilaterally Cranial nerves: Yes Equal, round and reactive pupils present Speech: normal speech Extrem: General: normal to inspection and capillary refill normal H&P: Results Labs Labs: Short CBC 10/10/24 Range/Units 16:54 WBC 6.7 (4.5-10.0) K/mm3 Hgb 13.0 L (14.0-18.0) g/dL Hct 40.0 L (42.0-52.0) % Plt Count 327 (150-375) k/mm3 [facility] 10/10/24 16:54 Sodium 137 Potassium 4.6 Chloride 104 Carbon Dioxide 26 BUN 25 H Creatinine 1.10 Glucose 102 Calcium 8.1 L Cardiac Enzymes 10/10/24 Range/Units 16:54 Troponin I < 0.012 (0.000-0.034) ng/mL Liver Function 10/10/24 Range/Units 16:54 Total Bilirubin 0.7 (0.2-1.3) mg/dL AST 32 (17-59) U/L ALT 12 (6-50) U/L Alkaline Phosphatase 133 H (38-126) U/L Albumin 3.5 (3.5-5.1) g/dL Urine 10/10/24 Range/Units 19:33 Urine Color Yellow (Yellow) Urine Appearance Clear (Clear) Urine pH 8.0 (5.0-9.0) Ur Specific [place] 1.043 H (1.001-1.035) Urine Protein Negative (Negative) mg/dL Urine Glucose (UA) Negative (Negative) mg/dL Imaging CT scan - abdomen: Radiologist's impression: ITS Impressions Chest X-Ray 10/10/24 17:08 IMPRESSION: 1. Mild atelectasis in the lower lung zones. Chest CTA 10/10/24 17:14 IMPRESSION: No pulmonary embolus. No aortic dissection. Findings within the right upper quadrant of the abdomen for which cross- sectional imaging (contrast-enhanced CT examination of the abdomen and pelvis) for further evaluation. These findings were discussed with Dr. Tellez at 5:25 PM on 10/10/2024 Abdomen/Pelvis CT 10/10/24 18:25 IMPRESSION: 1. Perforated ulcer of the first portion of the duodenum. 2. Small volume of ascites and free gas in the right upper quadrant of the abdomen. Assessment and Plan Assessment and plan (1) Duodenal ulcer, perforated: Code(s): K26.5 - Chronic or unspecified duodenal ulcer with perforation Status: Acute Assessment and Plan: * I have reviewed the CT and discussed the findings with the patient. He has evidence of a perforated duodenal ulcer and has signs of peritonitis on exam. I have recommended proceeding with emergent laparoscopic repair of perforated duodenal ulcer, possible open. I discussed the procedure, risks, benefits, and alternatives. He was started on Zosyn in the emergency department. Will continue this postoperatively along with PPI. (2) BPH (benign prostatic hyperplasia): Code(s): N40.0 - Benign prostatic hyperplasia without lower urinary tract symptoms Status: Acute
--- NOTE | 2024-10-10 20:14 | WPDHPUPDATE1 ---
History and Physical Update Update Date/Time: 10/10/24 20:14 History and Physical has been reviewed, including an updated exam of the patient. There are NO changes in the patient's condition. Risks, benefits, and alternatives have been discussed and questions answered. Patient agrees to proceed with procedure.
--- OUTSIDE RECORDS SUMMARY | 2024-10-10 21:00 | XMS_ITS | Referral Summary ---
Author Organization [facility] Address [address] [place] [address] Care Team Providers Care Back Tender Name Role Phone Francesco Barahona MD Primary Care Provider Encounters Date Type Department Care Team Description 10/09/2024 Orders Only [facility] [address] [place] [address] Office [facility] [address] [place] [address] Ubaldo Rose MD 10/05/2024 9:40 AM SPICE CLEANER Lab [facility] Advanced Medicine [facility] Advanced Medicine ([facility]) [address] [place] [phone] UTI symptoms 10/04/2024 Orders Only [facility] [address] [place] [address] Office [facility] [address] [place] [address] Ubaldo Rose MD UTI symptoms (Primary Dx) 10/04/2024 Telephone [facility] [address] [place] [address] Office [facility] [address] [place] [address] Ubaldo Rose MD 09/19/2024 Telephone [facility] [address] [place] [address] Office [facility] [address] [place] [address] Dina Benitez CMA 09/18/2024 Telephone [facility] [address] [facility] Medical Office Building [address] [place] [address] Dina Benitez CMA 07/10/2024 [facility] [address] [place] [address] [address] [place] [facility] [place] [address] Amparo Covarrubias from Last 3 Months Allergies [...] 2024. I recommended COVID, flu, RSV, and [id number] vaccinations. Assessment & Plan (07/02/2023 10:27 AM CDT): Overall good health. Check PSA today. Colonoscopy due in 2024. I recommended that he get a COVID shot and Drnuckt21 vaccine. He declines a flu shot. Assessment & Plan (06/22/2022 10:00 AM CDT): Overall good health. [place] due in 2024. Recommended the following vaccines: Shingrix New COVID booster Flu shot [id number] Hyperlipidemia 06/22/2022 Assessment & Plan (07/07/2024 6:40 [...] on file Legal Sex Male 12:31 PM SPICE CLEANER Gender Identity Male 11/09/2022 8:29 PM SPICE CLEANER Sexual Orientation Straight 11/09/2022 8: 29 PM SPICE CLEANER Last Filed Vital Signs Vital Sign Reading [...] Comments URINE CULTURE Routine 10/05/2024 9:43 AM SPICE CLEANER UTI symptoms HEPATITIS C ANTIBODY Routine 06/16/2021 10:33 AM CDT Encounter for hepatitis C screening test for low risk patient COLONOSCOPY REPORT 07/22/2015 from Last 3 Months or Most Recently Relevant to Health Maintenance Results * (ABNORMAL) Urine culture Urine, clean voided (10/05/2024 9:43 AM SPICE CLEANER) Report Final Report: Greater than or equal to 100,000 colonies/mL of Staphylococcus lugdunensis Plus growth of clinically insignificant bacterial alexei. (.) Organism STAPHYLOCOCCUS LUGDUNENSIS [facility] Organism PLUS GROWTH OF CLINICALLY INSIGNIFICANT [facility]LEXEI. [facility] Urine, clean voided 10/05/2024 9:43 AM SPICE CLEANER 10/05/2024 10:27 AM SPICE CLEANER Narrative [facility] AL[facility] - 10/08/2024 1:07 PM SPICE CLEANER Testing performed by [facility] Microbiology Laboratory ([phone]) Organism Antibiotic Method Susceptibility Staphylococcus lugdunensis Vancomycin INTERPRETATION Susceptible Staphylococcus lugdunensis Trimethoprim with Sulfamethoxazole INTERPRETATION Susceptible Staphylococcus lugdunensis Linezolid INTERPRETATION Susceptible Staphylococcus lugdunensis Doxycycline INTERPRETATION Susceptible Staphylococcus lugdunensis Nitrofurantoin INTERPRETATI ON Susceptible Staphylococcus lugdunensis Oxacillin INTERPRETATION Susceptible Staphylococcus lugdunensis Cefazolin INTERPRETATION Susceptible Staphylococcus lugdunensis Ceftriaxone INTERPRETATION Susceptible Ubaldo Rose MD LAB MICROBIOLOGY - G ENERAL ORDERABLES Final Result [facility] [place] [address] * Hepatitis C antibody (06/16/2021 10:33 AM CDT) Hep C Ab 0.2 0.0 - 0.9 s/co ratio [facility] - 01 Comment: ?Negative: ? < 0.8 ? Indeterminate: 0.8 - 0.9 ?Positive: ? > 0.9 The CDC recommends that a positive HCV antibody result be followed up with a HCV Nucleic Acid Amplification test (577822). Blood specimen (specimen) 06/16/2021 10:33 AM CDT 06/16/2021 Narrative [facility] - 06/17/2021 9:10 AM CDT Performed at: ??01 - [facility] [address] ??[id number] Thermal Cutting Tracer Machine Operator: Glenn Aquino PhD, Phone: ??[phone] Francesco Barahona MD LAB MICROBIOLOGY - GENE RAL ORDERABLES Final Result [facility] - 01 * COLONOSCOPY REPORT (07/22/2015) Anatomical Region Laterality Modality Other Narrative 07/22/2015 Ordered by an unspecified provider. Historical Provider GI PROCEDURE ORDERABLES F inal Result from Last 3 Months or Most Recently Relevant to Health Maintenance Insurance [facility] MEDICARE MEDICARE SOLUTIONS MEDICARE [facility] MEDICARE AET MEDICARE Advance Directives For more information, please contact: [phone] Documents on File Type Date Recorded Patient Burning Machine Operator Expl anation ADVANCE DIRECTIVE 10/01/2017 12:18 PM Care Teams Back Tender Relationship Specialty Start Date End Date Francesco Barahona MD [address] [address] PCP - General Endocrinology Diabetes & Metabolism 06/16/21
--- OUTSIDE RECORDS SUMMARY | 2024-10-10 21:00 | XMS_ITS | Clinical Summary ---
Author Organization [facility] Address [address] [place] [address] Care Team Providers Care Airport Location Manager Name Role Phone Francesco Barahona MD Primary [...] 2024. I recommended COVID, flu, RSV, and [id number] vaccinations. Assessment & Plan (07/02/2023 10:27 AM CDT): Overall good health. Check PSA today. Colonoscopy due in 2024. I recommended that he get a COVID shot and [id number] vaccine. He declines a flu shot. Assessment & Plan (06/22/2022 10:00 AM CDT): Overall good health. [place] due in 2024. Recommended the following vaccines: Shingrix New COVID booster Flu shot [id number] Hyperlipidemia 06/22/2022 Assessment & Plan (07/07/2024 6:40 [...] Department Care Team Description 10/09/2024 Orders Only [facility]rology [address] [place] [address] [place] [address] Ubaldo Rose MD 10/05/2024 9:40 AM CARRY OUT CLERK Lab [facility] Advanced [facility]) [address] [place] [address] UTI symptoms 10/04/2024 Orders Only [facility] [address] [place] [address] [place] [address] Ubaldo Rose MD UTI symptoms (Primary Dx) 10/04/2024 Telephone [facility] [address] [place] [address] [place] [phone] Ubaldo Rose MD 09/19/2024 Telephone [facility] [address] [place] [address] [place] [address] Dina Benitez CMA 09/18/2024 Telephone [facility] [address] [place] [address] [place] [address] Dina Benitez, WILMER 07/10/2024 [facility] [address] [facility] [address] [facility] [place] [address] Amparo Covarrubias from Last 3 Months Immunizations [...] on file Legal Sex Male 12:31 PM CARRY OUT CLERK Gender Identity Male 11/09/2022 8:29 PM CARRY OUT CLERK Sexual Orientation Straight 11/09/2022 8: 29 PM CARRY OUT CLERK Obstetrics History Last Filed Vital Signs Vital [...] Comments URINE CULTURE Routine 10/05/2024 9:43 AM CARRY OUT CLERK UTI symptoms HEPATITIS C ANTIBODY Routine 06/16/2021 10:33 AM CDT Encounter for hepatitis C screening test for low risk patient COLONOSCOPY REPORT 07/22/2015 from Last 3 Months or Most Recently Relevant to Health Maintenance Results * (ABNORMAL) Urine culture Urine, clean voided (10/05/2024 9:43 AM CARRY OUT CLERK) Report Final Report: Greater than or equal to 100,000 colonies/mL of Staphylococcus lugdunensis Plus growth of clinically insignificant bacterial alexei. (.) Organism STAPHYLOCOCCUS LUGDUNENSIS [facility] Organism PLUS GROWTH OF CLINICALLY INSIGNIFICANT ALEXEI. [facility] Urine, clean voided 10/05/2024 9:43 AM CARRY OUT CLERK 10/05/2024 10:27 AM CARRY OUT CLERK Narrative [facility] - 10/08/2024 1:07 PM CARRY OUT CLERK Testing performed by [facility] Microbiology Laboratory ([phone]) Organism Antibiotic Method Susceptibility Staphylococcus lugdunensis Vancomycin INTERPRETATION Susceptible Staphylococcus lugdunensis Trimethoprim with Sulfamethoxazole INTERPRETATION Susceptible Staphylococcus lugdunensis Linezolid INTERPRETATION Susceptible Staphylococcus lugdunensis Doxycycline INTERPRETATION Susceptible Staphylococcus lugdunensis Nitrofurantoin INTERPRETATI ON Susceptible Staphylococcus lugdunensis Oxacillin INTERPRETATION Susceptible Staphylococcus lugdunensis Cefazolin INTERPRETATION Susceptible Staphylococcus lugdunensis Ceftriaxone INTERPRETATION Susceptible Ubaldo Rose MD LAB MICROBIOLOGY - G ENERAL ORDERABLES Final Result Performing Organization Address City/State/[facility] [[email or web address]] Co de Phone Number [facility] One [facility] [place] [address] * Hepatitis C antibody (06/16/2021 10:33 AM CDT) Hep C Ab 0.2 0.0 - 0.9 s/co ratio [facility] - 01 Comment: ?Negative: ? < 0.8 ? Indeterminate: 0.8 - 0.9 ?Positive: ? > 0.9 The CDC recommends that a positive HCV antibody result be followed up with a HCV Nucleic Acid Amplification test ([id number]). Blood specimen (specimen) 06/16/2021 10:33 AM CDT 06/16/2021 Narrative [facility] - 06/17/2021 9:10 AM CDT Performed at: ??01 - [facility] [address] ??[id number] Coding Spec: Glenn Aquino PhD, Phone: ??[phone] us Francesco Barahona MD LAB MICROBIOLOGY - GENE RAL ORDERABLES Final Result [facility] - 01 * COLONOSCOPY REPORT (07/22/2015) Anatomical Region Laterality Modality Other Narrative 07/22/2015 Ordered by an unspecified provider. us Historical Provider GI PROCEDURE ORDERABLES F inal Result from Last 3 Months or Most Recently Relevant to Health Maintenance Insurance MEDICARE SOLUTIONS [facility] MEDICARE Address: [address] [address] [place] [address] MEDICARE AET[employer] MEDICARE [facility] MEDICARE Advance Directives For more information, please contact: [phone] Documents on File Type Date Recorded Patient Bed Laborer Expl anation ADVANCE DIRECTIVE 10/01/2017 12:18 PM Care Teams Airport Location Manager Relationship Specialty Start Date End Date Francesco Barahona MD [address] [address] PCP - General Endocrinology Diabetes & Metabolism 06/16/21
--- OUTSIDE RECORDS SUMMARY | 2024-10-10 21:00 | XMS_ITS | Encounter Summary ---
Author Organization [facility] Address [address] [place] [address] Phone Care Team Providers Care Clothing Consultant Name Role Phone Francesco Barahona MD Primary Care Provider Encounter Details Date Type Department Care Team (Late st Contact Info) Description 10/09/2024 Orders Only [facility] Urology [address] [facility] Medical Office Building [address] [place] [address] Ubaldo Rose MD [address] [facility] DIV SURG UROLOGY, [facility] [address] [place] [address] Social History Tobacco Use Types [...] on file Legal Sex Male 12:31 PM PAYMENT SPECIALIST Gender Identity Male 11/09/2022 8:29 PM PAYMENT SPECIALIST Sexual Orientation Straight 11/09/2022 8: 29 PM PAYMENT SPECIALIST documented as of this encounter Ordered Prescriptions [...] on filedocumented in this encounter Care Teams Clothing Consultant Relationship Specialty Start Date End Date Francesco Barahona MD [address] [facility] [address] [place] [address] PCP - General Endocrinology Diabetes & Metabolism 06/16/21 documented as of this encounter
--- OUTSIDE RECORDS SUMMARY | 2024-10-10 21:00 | XMS_ITS | Continuity of Care Document ---
Author Organization [facility] Address [address] [facility] [address] [place] [address] Phone Care Team Providers Care Rod Mill Tender Name Role Phone Mary Cabrales Unavailable Unavailable Procedures Procedure Date Eye Exam & Treatment Eye Exam & Treatment Refraction Eye Exam Established Pt SV Plastic Sphcyl [place] +/-4d, .12-2d De Frames Deluxe Tax - Medical Eye Exam & Treatment Refraction Advance Directives Directive Yes / No Effective Date File Name No Information Encounters Encounter Description Practice Location Reason(s) For Visit Diagnoses Date Provider Providers Copied on Encounter Merged with [facility], [address] [place] [address] [address], [place], [place], [id number], tel:[phone] [facility] No Information 2 2-201 0 Samra Leggett [address] [facility] , [address], [place], [address], [place]. tel:[phone] Merged with [facility], [address] [place] [address] [address], [place], [place], [id number], [place] tel:[phone] [facility] [place] No Information Willis-0 4-200 9 Samra Leggett [address] , [address], [place], [address], [place]. tel:[phone] Merged with [facility], [address] [place] [address] [address], [place], [place], [id number], [place] tel:[phone] [facility] No Information Aug- 8 Samra Hernandez. [address] [facility] , [address], [place], [address], [place]. tel:[phone] [facility], [address], [place], [place], [id number], [place] tel:[phone] [facility] No Information Aug-0 [address] [employer] [facility] [employer] . [address] [facility], [address], [place], [place], [id number], [place]. tel:[phone] Referring Provider: Mary Brown, [address] [place] [address] [address], [place], [place], [facility]. tel:[phone] sulting Provider: Freddie Cruz [address] [place] [address], [place], [place], [facility]. tel:[phone] [facility] [place], [address] [address], [place], [place], [id number], [place] tel:[phone] [facility] No Information 8 Samra Hernandez. [address] [place] [address] , [address], [place], [address], [place]. tel:[phone] Family History Family Member Type Diagnosis Age At Onset No Information Payers Payer name Insurance type Covered constitution party ID Authorrejia tiomar(s) [place] [id number] Social History Type Description Quantity Date Captured [...]
--- OUTSIDE RECORDS SUMMARY | 2024-10-10 21:00 | XMS_ITS | Encounter Summary ---
Author Organization [facility] Address [address] [place] [address] Phone Care Team Providers Care Finishing And Shipping Supervisor Name Role Phone Keanu Anthony MD Primary Care Provider [phone] Francesco Barahona MD Primary Care Provider Encounter Details Date Type Department Care Team (Latest Contact Info) Description 05/02/2017 Orders Only [facility] CONVERSION Scanning, Provider Social History Tobacco Use Types Packs/Day Years Used Date Smoking Tobacco: Never Sex and Gender Information Value Date Recorded Sex Assigned at Not on file Legal Sex Male 12:31 PM ELECTRONIC WARFARE SPECIALIST Gender Identity Male 11/09/2022 8:29 PM ELECTRONIC WARFARE SPECIALIST Sexual Orientation Straight 11/09/2022 8: 29 PM ELECTRONIC WARFARE SPECIALIST documented as of this encounter Plan of [...] on filedocumented in this encounter Care Teams Finishing And Shipping Supervisor Relationship Specialty Start Date End Date Keanu Anthony MD [address] [facility] [address] [place] [address] PCP - General 03/30/17 06/15/21 Francesco Barahona MD [address] [address] PCP - General Endocrinology Diabetes & Metabolism 06/16/21 documented as of this encounter
--- OUTSIDE RECORDS SUMMARY | 2024-10-10 21:00 | XMS_ITS | Encounter Summary ---
Author Organization [facility] Address [address] [place] [address] Phone Care Team Providers Care Urban Renewal Manager Name Role Phone Keanu Anthony MD Primary Care Provider [phone] Francesco Barahona MD Primary Care Provider Encounter Details Date Type Department Care Team (Latest Contact Info) Description 03/24/2017 Orders Only [facility] CONVERSION Scanning, Provider Social History Tobacco Use Types Packs/Day Years Used Date Smoking Tobacco: Never Sex and Gender Information Value Date Recorded Sex Assigned at Not on file Legal Sex Male 12:31 PM PAYABLE MANAGER Gender Identity Male 11/09/2022 8:29 PM PAYABLE MANAGER Sexual Orientation Straight 11/09/2022 8: 29 PM PAYABLE MANAGER documented as of this encounter Plan of [...] on filedocumented in this encounter Care Teams Urban Renewal Manager Relationship Specialty Start Date End Date Keanu Anthony MD [address] [facility] [address] [place] [address] PCP - General 03/30/17 06/15/21 Francesco Barahona MD [address] [address] PCP - General Endocrinology Diabetes & Metabolism 06/16/21 documented as of this encounter
--- OUTSIDE RECORDS SUMMARY | 2024-10-10 21:01 | XMS_ITS | Continuity of Care Document ---
Author Organization [facility] Address [address] [facility] [address] [place] [address] Phone Care Team Providers Care Wire Worker Name Role Phone Mary Cabrales Unavailable Unavailable Procedures Procedure Date Eye Exam & Treatment Eye Exam & Treatment Refraction Eye Exam Established Pt SV Plastic Sphcyl [place] +/-4d, .12-2d De Frames Deluxe Tax - Medical Eye Exam & Treatment Refraction Advance Directives Directive Yes / No Effective Date File Name No Information Encounters Encounter Description Practice Location Reason(s) For Visit Diagnoses Date Provider Providers Copied on Encounter [facility], [address] [place] [address] [address], [place], [place], [id number], tel:[phone] [facility] No Information 2 2-201 0 Samra Leggett [address] [facility] , [address], [place], [address], [place]. tel:[phone] [facility], [address] [place] [address] [address], [place], [place], [id number], [place] tel:[phone] [facility] [place] No Information Willis-0 4-200 9 Samra Leggett [address] , [address], [place], [address], [place]. tel:[phone] [facility], [address] [place] [address] [address], [place], [place], [id number], [place] tel:[phone] [facility] No Information Aug- 8 Samra Hernandez. [address] [facility] , [address], [place], [address], [place]. tel:[phone] [facility], [address], [place], [place], [address], [place] tel:[phone] [facility] No Information Aug-0 [address] [facility] [employer] . [address] [facility], [address], [place], [place], [address], [place]. tel:[phone] Referring Provider: Mary Brown, [address] [place] [address] [address], [place], [place], [facility]. tel:[phone] sulting Provider: Freddie Cruz [address] [place] [address], [place], [place], [facility]. tel:[phone] [facility], [address], [place], [place], [id number], [place] tel:[phone] [facility] No Information 8 Samra Hernandez. [address] [place] [address] , [address], [place], [address], [place]. tel:[phone] Family History Family Member Type Diagnosis Age At Onset No Information Payers Payer name Insurance type Covered republican ID Authorrejia tiomar(s) [place] [id number] Social History Type Description Quantity Date Captured [...]
[2024-10-10] MEDS: LACTATED RINGERS 1,000 ML 30 ML IV CONT ×2 (21:56→23:00)
--- NOTE | 2024-10-10 21:57 | P.OP_ITS ---
Procedure Note - Detailed Date of Procedure 10/10/24 Pre-op Diagnosis Perforated duodenal ulcer Post-op Diagnosis Same Procedure Performed Laparoscopic repair of perforated duodenal ulcer with omental Hasmukh patch Surgeon Christian Corley, DO Anesthesia General and Local (0.5% bupivacaine with epinephrine) Indications This is a 79-year-old man who presented to the emergency department with acute onset of epigastric abdominal pain that started today after exercising at home. He had been having some intermittent pains and some generalized abdominal pain leading up to this, but nothing this severe. He denied any weight loss. He denied use of NSAIDs, alcohol, tobacco. He denied any significant GERD or he artburn. In the emergency department he was noted to have evidence of peritonitis and CT showed evidence of a perforated duodenal ulcer. Discussions were made with the patient about treatment options and decision was made to proceed with emergent laparoscopic repair of perforated duodenal ulcer, possible open. Findings Laparoscopic repair perforated duodenal ulcer was performed. The patient was found to have a perforation on the anterior surface of the 1st portion of the duodenum just beyond the pylorus. There was evidence of some gastric fluid in the upper abdominal cavity. The perforation only appeared to be 2-3 mm in size. This was repaired using 2-0 Vicryl simple interrupted sutures and then an omental Hasmukh patch was performed using 2-0 silk sutures to pexy the omentum over the repair. The abdomen was then irrigated with 2 L of sterile saline a 19 round Vladimir drain and 15 round Vladimir drain were placed. Description of Procedure Procedure as well as risks, benefits, and alternatives were discussed with the patient. Written consent was obtained and placed in chart prior to procedure. Patient was brought back to surgical suite. He was placed supine on operating table. Time-out was done to confirm patient and procedure. He was then intubated by the anesthesia department. His abdomen was prepped and draped in sterile fashion using chlorhexidine prep. A 5 mm incision was made in the left upper quadrant and a 5 mm Optiview trocar was advanced through the abdominal l naqvi under direct visualization. Once inside the abdominal cavity, carbon dioxide insufflation was used to create a pneumoperitoneum. The camera was inserted in the abdomen was inspected. There was evidence of a perforation in the duodenum with some gastric contents in the upper abdomen. The patient was placed in reverse Trendelenburg position. 5 mm incision was made in the right upper quadrant a 5 mm trocar was inserted under direct visualization 11 mm incision was made in the right mid abdomen and 11 mm trocar was inserted under direct visualization. One more 5 mm incision was made in the periumbilical region and a 5 mm trocar was inserted under direct visualization. The upper abdomen was then carefully inspected. The pylorus was identified and then just beyond this on the anterior surface of the duodenum there was a 2-3 mm perforation with clean edges. The surrounding tissue appeared very firm and indurated. The perforation was closed using 2-0 Vicryl simple interrupted s utures. Two sutures were placed to approximate the edges of the ulcer. I then identified a piece of omentum coming from the transverse colon and lifted this up and over the duodenum. The omentum appeared to come up without tension. The omentum was then secured over the repair using 2-0 silk simple interrupted sutures. Two sutures were placed to approximate the omentum around the repair. I then irrigated the entire abdomen with 2 L of sterile saline. A 19 round Vladimir drain was then placed through the right lateral port site. This drain was placed overlying the upper abdomen where the perforation was and going all the way across to the left upper quadrant. I then placed a 15 round Vladimir drain through the left lateral port site and positioned this along the left lower quadrant and pelvis. Both drains were secured in place using 3-0 nylon drain stitches. One final inspection was made around the abdominal cavity and no other abnormalities were noted. The remaining ports were then removed under direct visualization and the pneumoperitoneum was released. The fascia of the 11 mm port site was reapproximated using an 0 Vicryl simple interrupted suture. 0.5% bupivacaine with epinephrine was infiltrated locally around each of incisions. The skin of the incisions was then approximated using 4-0 Monocryl running subcuticular suture. Exofin glue was then applied on. Drain sponges and tape were placed around the drain sites. The patient was then awakened from anesthesia, extubated, and transferred to recovery. Estimated Blood Loss 10 Drains Yes (19 round Vladimir drain upper abdomen, 15 round Vladimir drain lower abdomen) Complications No immediate complications Condition Stable Disposition Floor [facility] Billing Surgery - Charge Forward: Surgery Billing
[2024-10-10] MEDS: fentaNYL CITRATE INJ (*CRX) 100 MCG/2 ML VIAL 25 MCG IV PUSH ×2 (22:10→22:15)
--- NOTE | 2024-10-10 22:10 | SUR.PHASEI ---
NG advanced in PACU per x-ray results and Dr. Corley's order. Now at 75. New placement marked on NG tube as well.
--- NOTE | 2024-10-10 23:38 | ADMGEN ---
This patient, Drew Trinidad, was admitted to 2 Medical Room 260-. Patient/family oriented to hospital policies and general routines including ID bracelet, bed and alarms, visiting hours, pain management, procedures, bathroom and other care routines, personal items, smoking policy, room service/diet, and visiting hours. Information on how to activate the Rapid Response Team has been discussed. Patient/Family are encouraged to report perceived risks to care and to ask questions if they do not understand what they are told or what they should do.
[2024-10-11] VITALS (7 sets, daily range): BP systolic 119–144; BP diastolic 58–72; PULSE 87–107; RESP 14–18; TEMP 36.6–36.9; O2SAT 94–99; BMI 21.8
[2024-10-11] MEDS: PIPERACILLN/TAZ 3.375GM/NS50ML 3.375 GM/50 ML BAG IVPB ×4 (00:01→17:16)
[2024-10-11] MEDS: HYDROmorphone HCL INJ (*CRX) 1 MG/ML SYR IV PUSH (05:35)
[2024-10-11 05:49] LABS: Hematocrit 37.3 % (42.0-52.0); Hemoglobin 12.2 g/dL (14.0-18.0); Mean Corpuscular HGB Conc 32.7 g/dl (32-36); Mean Corpuscular Hemoglobin 30.6 pg (26-34); Mean Corpuscular Volume 93.5 fl (80-100); Mean Platelet Volume 9.5 fl (7.4-10.4); Platelet Count Result 311 k/mm3 (150-375); Red Blood Count 3.99 M/mm3 (4.6-6.20); Red Cell Distribution Width 12.4 % (11.5-14.5); White Blood Count 26.3 K/mm3 (4.5-10.0)
[2024-10-11 06:04] LABS: Anion Gap 6 mmol/L (4-12); Blood Urea Nitrogen 19 mg/dL (9-20); Calcium 8.4 mg/dL (8.4-10.2); Carbon Dioxide 25 mmol/L (22-30); Chloride 104 mmol/L (98-107); Estimated CRCL calculation 49 ml/min; Estimated Glomerular Filt Rate > 60; Glucose 137 mg/dL (65-110); Sodium 135 mmol/L (137-145)
[2024-10-11] MEDS: LACTATED RINGERS 1,000 ML 150 ML IV CONT ×4 (06:27→20:19)
[2024-10-11] MEDS: ENOXAPARIN 40 MG/0.4 ML SYRINGE SUB-Q (08:47)
[2024-10-11] MEDS: PANTOPRAZOLE SODIUM IV 40 MG VIAL IV PUSH ×3 (08:47→20:18)
--- NOTE | 2024-10-11 09:46 | PM.PNGS ---
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 Patient typically self catheterizes, so will leave Hamm in until activity level improves. Subjective Subjective Date/Time Seen: 10/11/24 09:46 Interval history: Pain a little better today. Has irritation in throat from NG. Exam GI: Inspection: incision (intact with glue) GI Palp: Yes Tenderness to palpation present (GI) and No Guarding due to palpation present (GI) Auscultation: Hypoactive bowel sounds present Other: SOCORRO's serosanguinous with slight cloudiness. No signs of gastric contents in tubing. Objective Data Vital Signs Vital Signs: Vital Signs - 24 hr 10/10/24 16:00 10/10/24 16:09 10/10/24 16:30 Temperature 97.8 F 97.6 F Pulse Rate 97 95 95 Respiratory Rate 18 18 18 Blood Pressure 182/92 H 182/92 H 144/68 H Pulse Oximetry 98 100 100 Oxygen Delivery Room Air Oxygen Flow Rate 10/10/24 16:46 10/10/24 16:47 10/10/24 18:58 Temperature 97.8 F 97.8 F 97.6 F Pulse Rate 95 100 116 H Respiratory Rate 18 20 16 Blood Pressure 162/76 H 151/90 H 173/80 H Pulse Oximetry 100 100 98 Oxygen Delivery Oxygen Flow Rate 10/10/24 19:50 10/10/24 21:56 10/10/24 22:10 Temperature 97.0 F L Pulse Rate 116 H 138 H 115 H Respiratory Rate 20 18 14 Blood Pressure 158/77 H 166/91 H 174/87 H Pulse Oximetry 97 98 100 Oxygen Delivery Simple Face Mask Simple Face Mask Oxygen Flow Rate 8 8 10/10/24 22:25 10/10/24 22:40 10/10/24 22:55 Temperature Pulse Rate 111 H 115 H 112 H Respiratory Rate 12 12 12 Blood Pressure 171/82 H 153/78 H 144/63 H Pulse Oximetry 100 94 92 Oxygen Delivery Simple Face Mask Room Air Room Air Oxygen Flow Rate 6 10/10/24 23:10 10/11/24 00:01 10/11/24 00:22 Temperature 98.5 F Pulse Rate 111 H 104 H Respiratory Rate 12 16 Blood Pressure 137/70 124/58 L Pulse Oximetry 92 94 Oxygen Delivery Room Air Room Air Oxygen Flow Rate 10/11/24 00:58 10/11/24 05:01 10/11/24 05:23 Temperature 98.5 F 97.9 F 97.9 F Pulse Rate 107 H 94 94 Respiratory Rate 16 18 18 Blood Pressure 124/61 138/72 138/72 Pulse Oximetry 98 97 97 Oxygen Delivery Oxygen Flow Rate Intake/Output Intake/Output: Intake & Output 10/08/24 10/09/24 10/10/24 10/11/24 23:59 23:59 23:59 23:59 Intake Total 2550 1067.5 Output Total 40 540 Balance 2510 527.5 Meds/Results Medications: Active Medications Generic Name Dose Route Start Last Admin Trade Name Freq PRN Reason Stop Dose Admin Enoxaparin Sodium 40 mg 10/11/24 09:00 10/11/24 08:47 Enoxaparin 40 Mg/0.4 Ml Syringe SUB-Q 40 mg DAILY KEVON Administration Hydromorphone HCl 1 mg 10/10/24 23:16 10/11/24 05:35 Hydromorphone Hcl Inj (*Crx) 1 Mg/Ml Syr IV PUSH 1 mg Q2H PRN Administration Breakthrough Pain Rated 7-10 or NPO Hydromorphone HCl 0.5 mg 10/10/24 23:16 Hydromorphone Hcl Inj (*Crx) 1 Mg/Ml Syr IV PUSH Q2H PRN Breakthrough Pain Rated 4-6 or NPO Lactated Ringer's 1,000 mls @ 150 mls/hr 10/10/24 23:16 10/11/24 06:27 Lr - Lactated Ringers Iv IV CONT 150 mls/hr .Q6H40M KEVON Administration Piperacillin/Tazobactam/Dextrose 3.375 gm in 50 mls @ 100 mls/hr 10/11/24 00:00 10/11/24 06:05 Zosyn 3.375 Gm/Ns 50 Ml IVPB Infused Q6HR KEVON Infusion Naloxone HCl 0.1 mg 10/10/24 23:16 Naloxone Hcl 0.4 Mg/Ml Vial IV PUSH Q2M PRN Opiate Reversal Ondansetron HCl 4 mg 10/10/24 23:16 Ondansetron Inj 4 Mg/2 Ml Vial IV PUSH Q4H PRN Nausea And Vomiting Pantoprazole Sodium 40 mg 10/10/24 23:16 10/11/24 08:47 Pantoprazole Sodium Iv 40 Mg Vial IV PUSH 40 mg Q12HR KEVON Administration Radiology Results: ITS Impressions Chest X-Ray 10/10/24 17:08 IMPRESSION: 1. Mild atelectasis in the lower lung zones. Chest CTA 10/10/24 17:14 IMPRESSION: No pulmonary embolus. No aortic dissection. Findings within the right upper quadrant of the abdomen for which cross-sectional imaging (contrast-enhanced CT examination of the abdomen and pelvis) for further evaluation. These findings were discussed with Dr. Tellez at 5:25 PM on 10/10/2024 Abdomen/Pelvis CT 10/10/24 18:25 IMPRESSION: 1. Perforated ulcer of the first portion of the duodenum. 2. Small volume of ascites and free gas in the right upper quadrant of the abdomen. Abdomen X-Ray 10/11/24 09:34 IMPRESSION: Nasogastric tube in good position and ready for immediate use. Labs Labs: Laboratory Results - last 24 hr 10/10/24 10/10/24 10/10/24 16:54 16:55 19:33 WBC 6.7 RBC 4.32 L Hgb 13.0 L Hct 40.0 L MCV 92.6 MCH 30.1 MCHC 32.5 RDW 12.3 Plt Count 327 MPV 9.5 Immature Gran % (Auto) 0.3 Neut % (Auto) 71.7 Lymph % (Auto) 18.8 [place] % (Auto) 6.8 Eos % (Auto) 1.8 Baso % (Auto) 0.6 Lymph # (Auto) 1.27 [place] # (Auto) 0.5 Eos # (Auto) 0.1 Baso # (Auto) 0.0 Abs Immat Gran (auto) 0.02 Absolute Neuts (auto) 4.8 Absolute Nucleated RBC 0.000 Nucleated RBC % 0.0 PT 14.2 INR 1.1 APTT 22.5 Sodium 137 Potassium 4.6 Chloride 104 Carbon Dioxide 26 Anion Gap 7 BUN 25 H Creatinine 1.10 Estim Creat Clear Calc 41 Estimated GFR > 60 Glucose 102 Lactic Acid 1.5 Calcium 8.1 L Phosphorus 3.4 Magnesium 2.2 Total Bilirubin 0.7 AST 32 ALT 12 Alkaline Phosphatase 133 H Troponin I < 0.012 Total Protein 7.0 Albumin 3.5 Lipase 127 Urine Color Yellow Urine Appearance Clear Urine pH 8.0 Ur Specific [place] 1.043 H Urine Protein Negative Urine Glucose (UA) Negative Urine Ketones Trace H Ur Blood (Man) Negative Urine Nitrate Negative Urine Bilirubin Negative Urine Urobilinogen 0.2 Leukocyte Esterase Rfl Negative Salicylates < 1.0 L Blood Type A Positive Antibody Screen Negative 10/11/24 05:12 WBC 26.3 H RBC 3.99 L Hgb 12.2 L Hct 37.3 L MCV 93.5 MCH 30.6 MCHC 32.7 RDW 12.4 Plt Count 311 MPV 9.5 Immature Gran % (Auto) Neut % (Auto) Lymph % (Auto) [place] % (Auto) Eos % (Auto) Baso % (Auto) Lymph # (Auto) [place] # (Auto) Eos # (Auto) Baso # (Auto) Abs Immat Gran (auto) Absolute Neuts (auto) Absolute Nucleated RBC Nucleated RBC % PT INR APTT Sodium 135 L Potassium 5.0 Chloride 104 Carbon Dioxide 25 Anion Gap 6 BUN 19 Creatinine 1.03 Estim Creat Clear Calc 49 Estimated GFR > 60 Glucose 137 H Lactic Acid Calcium 8.4 Phosphorus Magnesium Total Bilirubin AST ALT Alkaline Phosphatase Troponin I Total Protein Albumin Lipase Urine Color Urine Appearance Urine pH Ur Specific [place] Urine Protein Urine Glucose (UA) Urine Ketones Ur Blood (Man) Urine Nitrate Urine Bilirubin Urine Urobilinogen Leukocyte Esterase Rfl Salicylates Blood Type Antibody Screen
--- NOTE | 2024-10-11 15:36 | WPDANESPN ---
Anes - Prog Note Post-Op Date/Time: 10/11/24 15:36 Cardiovascular status: normal Respiratory status: normal Airway patency: baseline Mental status: baseline Post-Op hydration status: normal Vital Signs: Last Vital Signs Temp 36.7 C 10/11/24 14:00 Pulse 87 10/11/24 14:00 Resp 14 10/11/24 14:00 BP 130/65 10/11/24 14:00 Pulse Ox 97 10/11/24 14:00 O2 Del Method Room Air 10/11/24 08:00 O2 Flow Rate 6 10/10/24 22:25 Pain Score (VAS): 1 I/O: Intake & Output 10/10/24 10/11/24 10/11/24 23:59 07:59 15:59 Intake Total 2550 1067.5 920 Output Total 40 540 50 Balance 2510 527.5 870 Laboratory Tests 10/11/24 05:12 10/11/24 05:12 10/10/24 10/10/24 10/10/24 16:54 16:55 19:33 WBC 6.7 RBC 4.32 L Hgb 13.0 L Hct 40.0 L MCV 92.6 MCH 30.1 MCHC 32.5 RDW 12.3 Plt Count 327 MPV 9.5 Immature Gran % (Auto) 0.3 Neut % (Auto) 71.7 Lymph % (Auto) 18.8 [place] % (Auto) 6.8 Eos % (Auto) 1.8 Baso % (Auto) 0.6 Lymph # (Auto) 1.27 [place] # (Auto) 0.5 Eos # (Auto) 0.1 Baso # (Auto) 0.0 Abs Immat Gran (auto) 0.02 Absolute Neuts (auto) 4.8 Absolute Nucleated RBC 0.000 Nucleated RBC % 0.0 PT 14.2 INR 1.1 APTT 22.5 Sodium 137 Potassium 4.6 Chloride 104 Carbon Dioxide 26 Anion Gap 7 BUN 25 H Creatinine 1.10 Estim Creat Clear Calc 41 Estimated GFR > 60 Glucose 102 Lactic Acid 1.5 Calcium 8.1 L Phosphorus 3.4 Magnesium 2.2 Total Bilirubin 0.7 AST 32 ALT 12 Alkaline Phosphatase 133 H Troponin I < 0.012 Total Protein 7.0 Albumin 3.5 Lipase 127 Urine Color Yellow Urine Appearance Clear Urine pH 8.0 Ur Specific [place] 1.043 H Urine Protein Negative Urine Glucose (UA) Negative Urine Ketones Trace H Ur Blood (Man) Negative Urine Nitrate Negative Urine Bilirubin Negative Urine Urobilinogen 0.2 Leukocyte Esterase Rfl Negative Salicylates < 1.0 L Blood Type A Positive Antibody Screen Negative 10/11/24 05:12 WBC 26.3 H RBC 3.99 L Hgb 12.2 L Hct 37.3 L MCV 93.5 MCH 30.6 MCHC 32.7 RDW 12.4 Plt Count 311 MPV 9.5 Immature Gran % (Auto) Neut % (Auto) Lymph % (Auto) [place] % (Auto) Eos % (Auto) Baso % (Auto) Lymph # (Auto) [place] # (Auto) Eos # (Auto) Baso # (Auto) Abs Immat Gran (auto) Absolute Neuts (auto) Absolute Nucleated RBC Nucleated RBC % PT INR APTT Sodium 135 L Potassium 5.0 Chloride 104 Carbon Dioxide 25 Anion Gap 6 BUN 19 Creatinine 1.03 Estim Creat Clear Calc 49 Estimated GFR > 60 Glucose 137 H Lactic Acid Calcium 8.4 Phosphorus Magnesium Total Bilirubin AST ALT Alkaline Phosphatase Troponin I Total Protein Albumin Lipase Urine Color Urine Appearance Urine pH Ur Specific [place] Urine Protein Urine Glucose (UA) Urine Ketones Ur Blood (Man) Urine Nitrate Urine Bilirubin Urine Urobilinogen Leukocyte Esterase Rfl Salicylates Blood Type Antibody Screen Post-procedural complaints: none Patient Feedback: Patient satisfied with anesthetic care.
[2024-10-11] MEDS: HYDROmorphone HCL INJ (*CRX) 1 MG/ML SYR 0.5 MG IV PUSH (20:18)
[2024-10-12] MEDS: PIPERACILLN/TAZ 3.375GM/NS50ML 3.375 GM/50 ML BAG IVPB ×5 (00:33→23:54)
[2024-10-12 01:50] VITALS: BP 133/68; PULSE 100; RESP 18; TEMP 36.5; O2SAT 95
[2024-10-12] MEDS: LACTATED RINGERS 1,000 ML 150 ML IV CONT (05:05)
[2024-10-12] MEDS: HYDROmorphone HCL INJ (*CRX) 1 MG/ML SYR 0.5 MG IV PUSH (05:10)
[2024-10-12 05:24] VITALS: BP 132/65; PULSE 98; RESP 16; TEMP 36.4; O2SAT 95
--- NOTE | 2024-10-12 06:16 | PC.NURSE ---
DOCUMENTATION AND MEDICATION ADMINISTRATION PERFORMED BY GRADUATE NURSE TROY RUBI AND CHECKED BY JARROD SAENZ RN
[2024-10-12 06:20] LABS: Hematocrit 34.7 % (42.0-52.0); Hemoglobin 11.2 g/dL (14.0-18.0); Mean Corpuscular HGB Conc 32.3 g/dl (32-36); Mean Corpuscular Hemoglobin 30.4 pg (26-34); Mean Platelet Volume 9.8 fl (7.4-10.4); Platelet Count Result 286 k/mm3 (150-375); Red Blood Count 3.69 M/mm3 (4.6-6.20); Red Cell Distribution Width 12.4 % (11.5-14.5); White Blood Count 20.2 K/mm3 (4.5-10.0)
[2024-10-12 06:26] LABS: Anion Gap 4 mmol/L (4-12); Blood Urea Nitrogen 22 mg/dL (9-20); Calcium 7.8 mg/dL (8.4-10.2); Carbon Dioxide 25 mmol/L (22-30); Chloride 102 mmol/L (98-107); Estimated CRCL calculation 49 ml/min; Estimated Glomerular Filt Rate > 60; Glucose 98 mg/dL (65-110); Potassium 4.4 mmol/L (3.4-5.0); Sodium 131 mmol/L (137-145)
[2024-10-12] MEDS: PANTOPRAZOLE SODIUM IV 40 MG VIAL IV PUSH ×2 (08:23→20:19)
[2024-10-12] MEDS: ENOXAPARIN 40 MG/0.4 ML SYRINGE SUB-Q (08:24)
--- NOTE | 2024-10-12 10:12 | P.PNGS_ITS ---
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 He is going to get up to the chair this morning and will try ambulating, could possibly remove the Hamm later today or tomorrow. Plan I have discussed the patient's case and plan of care with Dr. Corley. Subjective Subjective Date/Time Seen: 10/12/24 10:12 Post Op day: 2 (Laparoscopic repair perforated gastric ulcer) Patient reports: no flatus, no bowel movement and afebrile Interval history: Patient sitting up in bed and feeling well today. He reports having abdominal pain near his incisions that is currently being controlled with IV Dilaudid. He reports the pain is usually when he has been sitting up a while. Denies any flatus or BM. He has not been out of bed yet, but nursing staff is at the bedside to take him for a walk. Minimal output from the NG tube. Exam Const: General: comfortable and no acute distress Orientation/consciousness: patient oriented x3 GI: Inspection: non-distended, incision (Dry and healing well with glue intact, no erythema) and other (SOCORRO drains with serous drainage, one of which is slightly cloudy) GI Palp: Yes Soft to palpation, Yes Tenderness to palpation present (GI) (expected incisional tenderness) and No Guarding due to palpation present (GI) Auscultation: Hypoactive bowel sounds present Urinary Catheter: Urinary Catheter: patent and draining and urine clear Objective Data Vital Signs Vital Signs: Vital Signs - 24 hr 10/11/24 14:00 10/11/24 20:00 10/11/24 22:27 Temperature 98.0 F 97.9 F Pulse Rate 87 93 Respiratory Rate 14 16 Blood Pressure 130/65 119/67 Pulse Oximetry 97 95 Oxygen Delivery Room Air 10/12/24 01:50 10/12/24 05:24 Temperature 97.7 F 97.6 F Pulse Rate 100 98 Respiratory Rate 18 16 Blood Pressure 133/68 132/65 Pulse Oximetry 95 95 Oxygen Delivery Intake/Output Intake/Output: Intake & Output 10/09/24 10/10/24 10/11/24 10/12/24 23:59 23:59 23:59 23:59 Intake Total 2550 3087.5 1100 Output Total 40 2270 1565 Balance 2510 817.5 -465 Meds/Results Medications: Active Medications Generic Name Dose Route Start Last Admin Trade Name Freq PRN Reason Stop Dose Admin Enoxaparin Sodium 40 mg 10/11/24 09:00 10/12/24 08:24 Enoxaparin 40 Mg/0.4 Ml Syringe SUB-Q 40 mg DAILY KEVON Administration Hydromorphone HCl 1 mg 10/10/24 23:16 10/11/24 05:35 Hydromorphone Hcl Inj (*Crx) 1 Mg/Ml Syr IV PUSH 1 mg Q2H PRN Administration Breakthrough Pain Rated 7-10 or NPO Hydromorphone HCl 0.5 mg 10/10/24 23:16 10/12/24 05:10 Hydromorphone Hcl Inj (*Crx) 1 Mg/Ml Syr IV PUSH 0.5 mg Q2H PRN Administration Breakthrough Pain Rated 4-6 or NPO Piperacillin/Tazobactam/Dextrose 3.375 gm in 50 mls @ 100 mls/hr 10/11/24 00:00 10/12/24 05:36 Zosyn 3.375 Gm/Ns 50 Ml IVPB Infused Q6HR KEVON Infusion Potassium Chloride/Dextrose/Sod Cl 1,000 mls @ 110 mls/hr 10/12/24 10:05 Kcl 20 Meq/D5/0.45% Sod Chl IV CONT .Q9H6M KEVON Naloxone HCl 0.1 mg 10/10/24 23:16 Naloxone Hcl 0.4 Mg/Ml Vial IV PUSH Q2M PRN Opiate Reversal Ondansetron HCl 4 mg 10/10/24 23:16 Ondansetron Inj 4 Mg/2 Ml Vial IV PUSH Q4H PRN Nausea And Vomiting Pantoprazole Sodium 40 mg 10/10/24 23:16 10/12/24 08:23 Pantoprazole Sodium Iv 40 Mg Vial IV PUSH 40 mg Q12HR KEVON Administration Radiology Results: ITS Impressions Chest X-Ray 10/10/24 17:08 IMPRESSION: 1. Mild atelectasis in the lower lung zones. Chest CTA 10/10/24 17:14 IMPRESSION: No pulmonary embolus. No aortic dissection. Findings within the right upper quadrant of the abdomen for which cross- sectional imaging (contrast-enhanced CT examination of the abdomen and pelvis) for further evaluation. These findings were discussed with Dr. Tellez at 5:25 PM on 10/10/2024 Abdomen/Pelvis CT 10/10/24 18:25 IMPRESSION: 1. Perforated ulcer of the first portion of the duodenum. 2. Small volume of ascites and free gas in the right upper quadrant of the abdomen. Abdomen X-Ray 10/11/24 09:34 IMPRESSION: Nasogastric tube in good position and ready for immediate use. Labs Labs: Laboratory Results - last 24 hr 10/12/24 05:29 WBC 20.2 H RBC 3.69 L Hgb 11.2 L Hct 34.7 L MCV 94.0 MCH 30.4 MCHC 32.3 RDW 12.4 Plt Count 286 MPV 9.8 Sodium 131 L Potassium 4.4 Chloride 102 Carbon Dioxide 25 Anion Gap 4 BUN 22 H Creatinine 1.03 Estim Creat Clear Calc 49 Estimated GFR > 60 Glucose 98 Calcium 7.8 L
[2024-10-12] MEDS: KCL 20 MEQ/D5/0.45% SOD CHL 1,000 ML 110 ML IV CONT ×2 (10:32→20:25)
[2024-10-12 14:00] VITALS: BP 136/66; PULSE 97; RESP 20; TEMP 36.6; O2SAT 100
[2024-10-12 23:00] VITALS: BP 146/81; PULSE 99; RESP 14; TEMP 36.8; O2SAT 96
[2024-10-13] MEDS: PIPERACILLN/TAZ 3.375GM/NS50ML 3.375 GM/50 ML BAG IVPB ×4 (05:46→23:38)
[2024-10-13 06:03] LABS: Hematocrit 36.5 % (42.0-52.0); Mean Corpuscular HGB Conc 32.9 g/dl (32-36); Mean Corpuscular Hemoglobin 30.4 pg (26-34); Mean Corpuscular Volume 92.4 fl (80-100); Mean Platelet Volume 9.6 fl (7.4-10.4); Platelet Count Result 295 k/mm3 (150-375); Red Blood Count 3.95 M/mm3 (4.6-6.20); Red Cell Distribution Width 12.1 % (11.5-14.5); White Blood Count 14.1 K/mm3 (4.5-10.0)
[2024-10-13 06:15] LABS: Anion Gap 3 mmol/L (4-12); Blood Urea Nitrogen 16 mg/dL (9-20); Calcium 8.2 mg/dL (8.4-10.2); Carbon Dioxide 27 mmol/L (22-30); Chloride 106 mmol/L (98-107); Estimated CRCL calculation 52 ml/min; Estimated Glomerular Filt Rate > 60; Glucose 115 mg/dL (65-110); Potassium 4.4 mmol/L (3.4-5.0); Sodium 136 mmol/L (137-145)
[2024-10-13 06:53] VITALS: BP 123/77; PULSE 77; RESP 16; TEMP 36.7; O2SAT 96
[2024-10-13] MEDS: ENOXAPARIN 40 MG/0.4 ML SYRINGE SUB-Q (08:32)
[2024-10-13] MEDS: KCL 20 MEQ/D5/0.45% SOD CHL 1,000 ML 110 ML IV CONT (08:32)
[2024-10-13] MEDS: PANTOPRAZOLE SODIUM IV 40 MG VIAL IV PUSH (08:32)
[2024-10-13 12:13] VITALS: BMI 21.8
--- NOTE | 2024-10-13 12:18 | P.PNGS_ITS ---
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 * Continue monitoring SOCORRO output while advancing diet (2) BPH (benign prostatic hyperplasia): Code(s): N40.0 - Benign prostatic hyperplasia without lower urinary tract symptoms Status: Acute Assessment and Plan: * Patient typically self catheterizes, so will leave Hamm in until activity level improves. Could possibly remove the Hamm later today or tomorrow per [facility] protocol. Subjective Subjective Date/Time Seen: 10/13/24 12:18 Interval history: Pain controlled. Moving bowels. No fevers. Exam GI: Inspection: non-distended, incision (intact with glue) and other (SOCORRO's serosanguinous) GI Palp: Yes Soft to palpation, No Tenderness to palpation present (GI) and No Guarding due to palpation present (GI) Auscultation: normal bowel sounds Urinary Catheter: Urinary Catheter: urine clear Objective Data Vital Signs Vital Signs: Vital Signs - 24 hr 10/12/24 14:00 10/12/24 23:00 10/13/24 06:53 Temperature 97.8 F 98.3 F 98.0 F Pulse Rate 97 99 77 Respiratory Rate 20 14 16 Blood Pressure 136/66 146/81 H 123/77 Pulse Oximetry 100 96 96 Intake/Output Intake/Output: Intake & Output 10/10/24 10/11/24 10/12/24 10/13/24 23:59 23:59 23:59 23:59 Intake Total 2550 3087.5 2200 1100 Output Total 40 2270 2675 2250 Balance 2510 817.5 -789 -1150 Meds/Results Medications: Active Medications Generic Name Dose Route Start Last Admin Trade Name Freq PRN Reason Stop Dose Admin Acetaminophen 1,000 mg 10/13/24 12:16 Acetaminophen 500 Mg Tablet PO Q6H PRN Mild Pain (1-3) or Fever Enoxaparin Sodium 40 mg 10/11/24 09:00 10/13/24 08:32 Enoxaparin 40 Mg/0.4 Ml Syringe SUB-Q 40 mg DAILY KEVON Administration Hydromorphone HCl 1 mg 10/10/24 23:16 10/11/24 05:35 Hydromorphone Hcl Inj (*Crx) 1 Mg/Ml Syr IV PUSH 1 mg Q2H PRN Administration Breakthrough Pain Rated 7-10 or NPO Hydromorphone HCl 0.5 mg 10/10/24 23:16 10/12/24 05:10 Hydromorphone Hcl Inj (*Crx) 1 Mg/Ml Syr IV PUSH 0.5 mg Q2H PRN Administration Breakthrough Pain Rated 4-6 or NPO Piperacillin/Tazobactam/Dextrose 3.375 gm in 50 mls @ 100 mls/hr 10/11/24 00:00 10/13/24 12:07 Zosyn 3.375 Gm/Ns 50 Ml IVPB 100 mls/hr Q6HR KEVON Administration Naloxone HCl 0.1 mg 10/10/24 23:16 Naloxone Hcl 0.4 Mg/Ml Vial IV PUSH Q2M PRN Opiate Reversal Ondansetron HCl 4 mg 10/10/24 23:16 Ondansetron Inj 4 Mg/2 Ml Vial IV PUSH Q4H PRN Nausea And Vomiting Oxycodone HCl 2.5 mg 10/13/24 12:17 Oxycodone Hcl (*Crx) 2.5 Mg Tab Ir PO Q4H PRN Pain Rated 4-6 Oxycodone HCl 5 mg 10/13/24 12:17 Oxycodone Hcl (*Crx) 5 Mg Tab Ir PO Q4H PRN Pain Rated 7-10 Pantoprazole Sodium 40 mg 10/13/24 21:00 Pantoprazole 40 Mg Tablet PO Q12HR [facility] Sucralfate 1,000 mg 10/13/24 16:30 Sucralfate Susp 100 Mg/Ml 10 Ml Udc PO ACHS [facility] Radiology Results: ITS Impressions Chest X-Ray 10/10/24 17:08 IMPRESSION: 1. Mild atelectasis in the lower lung zones. Chest CTA 10/10/24 17:14 IMPRESSION: No pulmonary embolus. No aortic dissection. Findings within the right upper quadrant of the abdomen for which cross- sectional imaging (contrast-enhanced CT examination of the abdomen and pelvis) for further evaluation. These findings were discussed with Dr. Tellez at 5:25 PM on 10/10/2024 Abdomen/Pelvis CT 10/10/24 18:25 IMPRESSION: 1. Perforated ulcer of the first portion of the duodenum. 2. Small volume of ascites and free gas in the right upper quadrant of the abdomen. Abdomen X-Ray 10/12/24 14:03 IMPRESSION: Nasogastric tube in good position and ready for immediate use. Upper GI Series 10/13/24 11:50 IMPRESSION: 1. No evident obstruction or extra luminal leakage of contrast post recent duodenal ulcer repair. Labs Labs: Laboratory Results - last 24 hr 10/13/24 05:37 WBC 14.1 H RBC 3.95 L Hgb 12.0 L Hct 36.5 L MCV 92.4 MCH 30.4 MCHC 32.9 RDW 12.1 Plt Count 295 MPV 9.6 Sodium 136 L Potassium 4.4 Chloride 106 Carbon Dioxide 27 Anion Gap 3 L BUN 16 Creatinine 0.97 Estim Creat Clear Calc 52 Estimated GFR > 60 Glucose 115 H Calcium 8.2 L
[2024-10-13 14:00] VITALS: BP 128/89; PULSE 72; RESP 18; TEMP 36.4; O2SAT 98
[2024-10-13] MEDS: SUCRALFATE SUSP 100 MG/ML 10 ML UDC 1000 MG PO ×2 (17:18→20:10)
[2024-10-13] MEDS: PANTOPRAZOLE 40 MG TABLET PO (20:10)
[2024-10-13 22:00] VITALS: BP 127/71; PULSE 81; RESP 20; TEMP 36.6; O2SAT 90
[2024-10-14 05:29] VITALS: BP 138/77; PULSE 94; RESP 16; TEMP 36.6; O2SAT 97
[2024-10-14 05:39] LABS: Hematocrit 37.6 % (42.0-52.0); Hemoglobin 12.1 g/dL (14.0-18.0); Mean Corpuscular HGB Conc 32.2 g/dl (32-36); Mean Corpuscular Hemoglobin 29.7 pg (26-34); Mean Corpuscular Volume 92.2 fl (80-100); Mean Platelet Volume 9.4 fl (7.4-10.4); Platelet Count Result 318 k/mm3 (150-375); Red Blood Count 4.08 M/mm3 (4.6-6.20); White Blood Count 10.4 K/mm3 (4.5-10.0)
[2024-10-14 05:52] LABS: Anion Gap 5 mmol/L (4-12); Blood Urea Nitrogen 18 mg/dL (9-20); Calcium 8.3 mg/dL (8.4-10.2); Carbon Dioxide 25 mmol/L (22-30); Chloride 106 mmol/L (98-107); Estimated CRCL calculation 52 ml/min; Estimated Glomerular Filt Rate > 60; Glucose 84 mg/dL (65-110); Potassium 3.9 mmol/L (3.4-5.0); Sodium 136 mmol/L (137-145)
[2024-10-14] MEDS: SUCRALFATE SUSP 100 MG/ML 10 ML UDC 1000 MG PO ×4 (06:35→20:15)
[2024-10-14] MEDS: PIPERACILLN/TAZ 3.375GM/NS50ML 3.375 GM/50 ML BAG IVPB ×4 (06:35→23:30)
[2024-10-14] MEDS: PANTOPRAZOLE 40 MG TABLET PO ×2 (09:18→20:15)
[2024-10-14] MEDS: ENOXAPARIN 40 MG/0.4 ML SYRINGE SUB-Q (09:18)
--- NOTE | 2024-10-14 12:21 | P.PNGS_ITS ---
Progress Note: A&P Assessment and Plan (1) Duodenal ulcer, perforated: Code(s): K26.5 - Chronic or unspecified duodenal ulcer with perforation Status: Acute Assessment and Plan: doing well, will ADAT, cont PPK, Carafate, abx, OOB/IS Subjective Subjective Date/Time Seen: 10/14/24 12:21 Interval history: feels pretty good, masoud clears Review of Systems Review of Systems: All systems reviewed & are unremarkable except as noted in HPI and below Exam Const: General: cooperative, comfortable and no acute distress Resp: Auscultation: clear to auscultation bilaterally Cardio: Rate: regular rate Rhythm: regular rhythm GI: Inspection: normal to inspection and incision GI Palp: Yes abdominal tenderness, Yes Soft to palpation, No Guarding due to palpation present (GI) and No Rigid due to palpation Objective Data Vital Signs Vital Signs: Vital Signs - 24 hr 10/13/24 13:00 10/13/24 14:00 10/13/24 20:00 Temperature 36.4 C L Pulse Rate 72 Respiratory Rate 18 Blood Pressure 128/89 Pulse Oximetry 98 Oxygen Delivery Room Air Room Air 10/13/24 22:00 10/14/24 05:29 Temperature 36.6 C 36.6 C Pulse Rate 81 94 Respiratory Rate 20 16 Blood Pressure 127/71 138/77 Pulse Oximetry 90 97 Oxygen Delivery Intake/Output Intake/Output: Intake & Output 10/11/24 10/12/24 10/13/24 10/14/24 23:59 23:59 23:59 23:59 Intake Total 3087.5 2200 1680 780 Output Total 2270 2675 3000 550 Balance 817.5 475 -1320 230 Meds/Results Medications: Active Medications Generic Name Dose Route Start Last Admin Trade Name Freq PRN Reason Stop Dose Admin Acetaminophen 1,000 mg 10/13/24 12:16 Acetaminophen 500 Mg Tablet PO Q6H PRN Mild Pain (1-3) or Fever Enoxaparin Sodium 40 mg 10/11/24 09:00 10/14/24 09:18 Enoxaparin 40 Mg/0.4 Ml Syringe SUB-Q 40 mg DAILY KEVON Administration Hydromorphone HCl 1 mg 10/10/24 23:16 10/11/24 05:35 Hydromorphone Hcl Inj (*Crx) 1 Mg/Ml Syr IV PUSH 1 mg Q2H PRN Administration Breakthrough Pain Rated 7-10 or NPO Hydromorphone HCl 0.5 mg 10/10/24 23:16 10/12/24 05:10 Hydromorphone Hcl Inj (*Crx) 1 Mg/Ml Syr IV PUSH 0.5 mg Q2H PRN Administration Breakthrough Pain Rated 4-6 or NPO Piperacillin/Tazobactam/Dextrose 3.375 gm in 50 mls @ 100 mls/hr 10/11/24 00:00 10/14/24 12:05 Zosyn 3.375 Gm/Ns 50 Ml IVPB 100 mls/hr Q6HR KEVON Administration Naloxone HCl 0.1 mg 10/10/24 23:16 Naloxone Hcl 0.4 Mg/Ml Vial IV PUSH Q2M PRN Opiate Reversal Ondansetron HCl 4 mg 10/10/24 23:16 Ondansetron Inj 4 Mg/2 Ml Vial IV PUSH Q4H PRN Nausea And Vomiting Oxycodone HCl 2.5 mg 10/13/24 12:17 Oxycodone Hcl (*Crx) 2.5 Mg Tab Ir PO Q4H PRN Pain Rated 4-6 Oxycodone HCl 5 mg 10/13/24 12:17 Oxycodone Hcl (*Crx) 5 Mg Tab Ir PO Q4H PRN Pain Rated 7-10 Pantoprazole Sodium 40 mg 10/13/24 21:00 10/14/24 09:18 Pantoprazole 40 Mg Tablet PO 40 mg Q12HR KEVON Administration Sucralfate 1,000 mg 10/13/24 16:30 10/14/24 12:05 Sucralfate Susp 100 Mg/Ml 10 Ml Udc PO 1,000 mg ACHS KEVON Administration Radiology Results: ITS Impressions Chest X-Ray 10/10/24 17:08 IMPRESSION: 1. Mild atelectasis in the lower lung zones. Chest CTA 10/10/24 17:14 IMPRESSION: No pulmonary embolus. No aortic dissection. Findings within the right upper quadrant of the abdomen for which cross- sectional imaging (contrast-enhanced CT examination of the abdomen and pelvis) for further evaluation. These findings were discussed with Dr. Tellez at 5:25 PM on 10/10/2024 Abdomen/Pelvis CT 10/10/24 18:25 IMPRESSION: 1. Perforated ulcer of the first portion of the duodenum. 2. Small volume of ascites and free gas in the right upper quadrant of the abdomen. Abdomen X-Ray 10/12/24 14:03 IMPRESSION: Nasogastric tube in good position and ready for immediate use. Upper GI Series 10/13/24 11:50 IMPRESSION: 1. No evident obstruction or extra luminal leakage of contrast post recent duodenal ulcer repair. Labs Labs: Laboratory Results - last 24 hr 10/14/24 05:26 WBC 10.4 H RBC 4.08 L Hgb 12.1 L Hct 37.6 L MCV 92.2 MCH 29.7 MCHC 32.2 RDW 12.0 Plt Count 318 MPV 9.4 Sodium 136 L Potassium 3.9 Chloride 106 Carbon Dioxide 25 Anion Gap 5 BUN 18 Creatinine 0.97 Estim Creat Clear Calc 52 Estimated GFR > 60 Glucose 84 Calcium 8.3 L
[2024-10-14 14:00] VITALS: BP 105/62; PULSE 82; RESP 17; TEMP 36.6; O2SAT 100
[2024-10-14 21:55] VITALS: BP 123/70; PULSE 87; RESP 20; TEMP 36.6; O2SAT 99
[2024-10-15 06:00] VITALS: BP 92/58; PULSE 100; RESP 20; TEMP 36.4; O2SAT 91
[2024-10-15] MEDS: PIPERACILLN/TAZ 3.375GM/NS50ML 3.375 GM/50 ML BAG IVPB ×2 (06:04→12:09)
[2024-10-15] MEDS: SUCRALFATE SUSP 100 MG/ML 10 ML UDC 1000 MG PO ×2 (06:05→12:09)
[2024-10-15 06:13] LABS: Hematocrit 40.6 % (42.0-52.0); Hemoglobin 13.4 g/dL (14.0-18.0); Mean Corpuscular Hemoglobin 30.3 pg (26-34); Mean Corpuscular Volume 91.9 fl (80-100); Mean Platelet Volume 9.3 fl (7.4-10.4); Platelet Count Result 364 k/mm3 (150-375); Red Blood Count 4.42 M/mm3 (4.6-6.20); Red Cell Distribution Width 12.2 % (11.5-14.5); White Blood Count 10.1 K/mm3 (4.5-10.0)
[2024-10-15 06:28] LABS: Anion Gap 8 mmol/L (4-12); Blood Urea Nitrogen 21 mg/dL (9-20); Calcium 8.5 mg/dL (8.4-10.2); Carbon Dioxide 26 mmol/L (22-30); Chloride 103 mmol/L (98-107); Estimated CRCL calculation 45 ml/min; Estimated Glomerular Filt Rate > 60; Glucose 93 mg/dL (65-110); Potassium 3.8 mmol/L (3.4-5.0); Sodium 137 mmol/L (137-145)
[2024-10-15] MEDS: PANTOPRAZOLE 40 MG TABLET PO (08:18)
[2024-10-15] MEDS: ENOXAPARIN 40 MG/0.4 ML SYRINGE SUB-Q (08:18)
--- NOTE | 2024-10-15 12:21 | P.DS_ITS ---
DS: Admitting Diagnosis Discharge Date 10/15/24 Admitting Diagnosis perforated duodenal ulcer DS: Discharge Diagnosis Discharge Diagnosis (1) Duodenal ulcer, perforated: Code(s): K26.5 - Chronic or unspecified duodenal ulcer with perforation Status: Acute Assessment and Plan: status post repair, routine postoperative care, home with PPI, carafate, antibiotics, analgesia, follow-up 2 weeks (2) BPH (benign prostatic hyperplasia): Code(s): N40.0 - Benign prostatic hyperplasia without lower urinary tract symptoms Status: Acute Assessment and Plan: continue straight cath at home DS: Summary Hospital Course Reason for hospitalization: perforated duodenal ulcer Hospital Course: The patient is a 79-year-old male presenting to the emergency department complaining of severe abdominal pain. Workup, including imaging, significant for perforated viscus. The patient emergently taken to the operating room and repair of perforated duodenal ulcer was performed by Dr. Corley on 10/10. Please see full operative report for details of that procedure. Postoperatively the patient did well and was transferred to the surgical floor. Over the next few days, the patient had NG tube decompression and bowel rest. On 10/13, the patient underwent upper GI that showed the leak was resolved. At that point the NG was removed and he was started on a clear liquid diet. Over the next few days he was advanced to a regular diet which he tolerated without issue. Today, I removed both his SOCORRO drains at the bedside. He will be discharged home with p.o. antibiotics, ppi, Carafate, analgesia. He will follow up with Dr. Corley in 2 weeks. Status at Discharge Functional status at discharge: independent ambulation Overall status at discharge: patient is progressing back to baseline Time Spent with Patient Time attestation: Total time spent providing and/or coordinating discharge services: Time spent: Less than 30 minutes Exam Const: General: cooperative, comfortable and no acute distress Resp: Auscultation: clear to auscultation bilaterally Cardio: Rate: regular rate Rhythm: regular rhythm GI: Inspection: normal to inspection, non-distended and incision GI Palp: No abdominal tenderness and Yes Soft to palpation DS: Data Data Completed and Pending Labs on day of discharge: Labs from last 24 hours 10/15/24 05:50 WBC 10.1 H RBC 4.42 L Hgb 13.4 L Hct 40.6 L MCV 91.9 MCH 30.3 MCHC 33.0 RDW 12.2 Plt Count 364 MPV 9.3 Sodium 137 Potassium 3.8 Chloride 103 Carbon Dioxide 26 Anion Gap 8 BUN 21 H Creatinine 1.13 Estim Creat Clear Calc 45 Estimated GFR > 60 Glucose 93 Calcium 8.5 Discharge Plan Discharge Attending physician on discharge: Christian Corley Discharging Clinician: Betty Hargrove Anticipated Discharge Date/Time: 10/15/24 12:16 Patient Disposition: Home, Self-Care Activity: may shower Diet: as tolerated Wound Care Instructions: incision open to air Patient Instructions: Antibiotic Form Patient Language: Kyrgyz Stand Alone Forms: General Discharge Information Follow-up/Referrals: Christian Corley DO [Physician] - 2 Weeks Discharge Medications: New hydrocodone-acetaminophen 5-325 mg tablet 1 tablet PO Q6H PRN (Reason: pain) Qty: 14 0RF amoxicillin-pot clavulanate 875-125 mg tablet 1 tablet PO Q12H 10 Days Qty: 20 0RF metronidazole 500 mg tablet 500 mg PO Q8H 10 Days Qty: 30 0RF pantoprazole 40 mg tablet,delayed release (DR/EC) 40 mg PO BID Qty: 60 2RF sucralfate 1 gram tablet 1 g PO ACHS Qty: 120 0RF Continued aspirin 81 mg capsule 81 mg PO DAILY Discontinued sulfamethoxazole-trimethoprim 800-160 mg tablet 1 tablet PO Q12H Date of admission: 10/10/24 23:16 Primary Care Provider: UNKNOWN,DOCTOR Admitting Provider: Christian Corley Attending physician on admission: Christian Corley Condition: Guarded Prognosis
== END 2024-10-15 14:00 | disposition home or self-care (01) | DRG 328 ==
LOC: ANHED 21:00 → ANHSURGERY 21:00 → ANH2MED 23:22
PROVIDERS: Admitting Provider Surgery; Emergency Provider Emergency Medicine; Visit Provider Surgery
PROC: 0DQ64ZZ Repair Stomach, Percutaneous Endoscopic Approach (ICD-10-PCS; CPT 43659; principal; 2024-10-10 20:30)
DX: K26.5 Chronic or unspecified duodenal ulcer with perforation (principal); N40.0 Benign prostatic hyperplasia without lower urinary tract symptoms; Z79.82 Long term (current) use of aspirin
CPT/HCPCS: 36415; 71045; 71275; 74177; 74240; 80048; 80053; 80179; 81003; 83605; 83690; 83735; 84100; 84484; 85025; 85027; 85610; 85730; 86850; 86900; 86901; 93005; 96361; 96365; 96366; 96375; 96376; 99285; A9270; J1100; J1171; J1650; J2003; J2405; J2470; J2543; J2704; J3010; J3480; J7030; J7120; Q9967

== ENCOUNTER 2024-11-03 12:59 | Inpatient (IN) | payer MEDICARE, SELFPAY ==
[2024-11-03] VITALS (8 sets, daily range): BP systolic 108–171; BP diastolic 60–92; PULSE 97–120; RESP 16–19; TEMP 36.8–37.2; O2SAT 97–100; BMI 21.6
--- NOTE | ~2024-11-03 | CT_ITS ---
EXAMINATION: CT brain wo con DATE: 11/03/2024 15:57 INDICATION: Dizziness. Fall. TECHNIQUE: Computed tomography (CT) of the head was performed without intravenous contrast. The mA wa s adjusted according to patient size. Iterative reconstruction technique was employed. The dose-lengt h product was 605.33 mGy-cm. COMPARISON: None FINDINGS: There is no intracranial hemorrhage, acute infarction, or abnormal intracranial mass lesion . The ventricles are normal in size. The orbits are normal. There is mild mucosal thickening in the p aranasal sinuses. The mastoid air cells are normal. IMPRESSION: 1. Moderate nonspecific cerebral white matter disease, which likely represents chronic small vessel i schemic disease. Reviewed, dictated and finalized at location A. TRUCTION DIRECTOR IMPRESSION: 1. Moderate nonspecific cerebral white matter disease, which likely represents chronic small vessel ischemic disease.
--- NOTE | ~2024-11-03 | CT_ITS ---
EXAMINATION: CTA chest PE abdomen pel DATE: 11/03/2024 19:57 INDICATION: Presyncope. TECHNIQUE: Computed tomography angiography (CTA) of the chest was performed with 100 mL Omnipaque-350 intravenous contrast timed to evaluate the pulmonary arteries. Coronal maximum intensity projection 3D-reconstructions were created by the technologist. Computed tomography (CT) of the abdomen and pelv is was performed with intravenous contrast. Automated exposure control and iterative reconstruction t echnique were employed. The dose-length product was 459.39 mGy-cm. COMPARISON: CT abdomen and pelvis 10/10/24 FINDINGS: CTA chest: There is mild scarring at the lung apices. There is mild atelectasis bilaterally. 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 No pleural effusion. The heart size is normal. No pericardial effusion. There are coronary artery calcifications. There is no pulmonary embolus. Th ere is bilateral gynecomastia. There is severe thoracic spondylosis. CT abdomen and pelvis: The liver, gallbladder, spleen, pancreas, and adrenal glands are normal. There are cysts in the kidneys measuring up to 12 mm on the right. There are no dilated loops of bowel. Th ere is wall thickening of the left colon. There is wall thickening of the bladder likely secondary to chronic outlet obstruction from the moderately enlarged prostate. There are no pathologically enlarg ed lymph nodes. There is trace perihepatic ascites. There is severe lumbar spondylosis. IMPRESSION: 1. No pulmonary embolus. 2. Wall thickening of the left colon, which may be interstitial edema or colitis. Reviewed, dictated and finalized at location A. HETER HAND IMPRESSION: 1. No pulmonary embolus. 2. Wall thickening of the left colon, which may be interstitial edema or coliti s.
--- NOTE | ~2024-11-03 | XR_ITS ---
EXAMINATION: XR chest 2V DATE: 11/03/2024 16:09 INDICATION: Syncope. Dizziness. TECHNIQUE: Frontal and lateral views of the chest were obtained. COMPARISON: Chest single view 10/10/24 FINDINGS: There is no pneumonia, pleural effusion, or pneumothorax. The heart size is normal. IMPRESSION: 1. No acute cardiopulmonary disease. Reviewed, dictated and finalized at location A. OR STAFF CONSULTANT
--- OUTSIDE RECORDS SUMMARY | 2024-11-03 13:03 | XMS_ITS | Encounter Summary ---
Author Organization [facility] Address [address] [place] [address] Phone Care Team Providers Care Chemical Processor Name Role Phone Keanu Anthony MD Primary Care Provider Francesco Barahona MD Primary Care Provider Encounter Details Date Type Department Care Team (Latest Contact Info) Description 05/02/2017 Orders Only [facility] CONVERSION Scanning, Provider Social History Tobacco Use Types Packs/Day Years Used Date Smoking Tobacco: Never Sex and Gender Information Value Date Recorded Sex Assigned at Not on file Legal Sex Male 12:31 PM OFFICE SUPPORT Gender Identity Male 11/09/2022 8:29 PM OFFICE SUPPORT Sexual Orientation Straight 11/09/2022 8: 29 PM OFFICE SUPPORT documented as of this encounter Plan of [...] on filedocumented in this encounter Care Teams Chemical Processor Relationship Specialty Start Date End Date Keanu Anthony MD [address] [facility] [address] [place] [address] PCP - General 03/30/17 06/15/21 Francesco Barahona MD [address] [address] PCP - General Endocrinology Diabetes & Metabolism 06/16/21 documented as of this encounter
--- OUTSIDE RECORDS SUMMARY | 2024-11-03 13:03 | XMS_ITS | Referral Summary ---
Author Organization [facility] Address [address] [place] [address] Care Team Providers Care Environmental Compliance Manager Name Role Phone Francesco Barahona MD Primary Care Provider Encounters Date Type Department Care Team Description 10/18/2024 11:00 AM SALESPERSON PARTS Office Visit [facility] [address] [place] [address] Office [facility] [address] [place] [phone] Ubaldo Rose MD Retention of urine 10/09/2024 Orders Only [facility] [address] [place] [address] Office [facility] [address] [place] [phone] Ubaldo Rose MD 10/05/2024 9:40 AM SALESPERSON PARTS Lab [facility] [address] [place] [phone] UTI symptoms 10/04/2024 Orders Only [facility] [address] [place] [address] Office [address] [place] [phone] Ubaldo Rose MD UTI symptoms (Primary Dx) 10/04/2024 Telephone [facility] [address] [place] [address] Office [facility] [address] [place] [phone] Ubaldo Rose MD 09/19/2024 Telephone [facility] [address] [facility] Office Building [address] [place] [address] Dina Benitez CMA 09/18/2024 Telephone [facility] [address] [facility] Office Building [address] [place] [phone] Dina Benitez CMA from Last 3 Months Allergies No known active allergies Medications aspirin 81 mg tablet Take 1 tablet (81 mg total) by mouth Active multivitamin tabletIndicatio ns:Vitamin Deficiency Prevention Men's One per Day Active scopolamine 1 mg over 3 days patch 3 day APPLY 1 PATCH TOPICALLY TO THE SKIN EVERY 72 HOURS 4 patch 4 Active amoxicillin-cla vulanate (AUGMENTIN) 875-125 mg per tablet Take 1 tablet by mouth every 12 (twelve) hours for 10 days 5 Active metroNIDAZOLE (FLAGYL) 500 mg tablet 1 tablet (500 mg total) [address] (PROTONIX) 40 mg EC tablet Take 1 tablet (40 mg total) by mouth 2 (two) times a day 5 Active sucralfate (CARAFATE) 1 gram tablet 1 tablet (1 g total) 5 Active sulfamethoxazol e-trimethoprim (BACTRIM DS) 800-160 mg per tablet Take 1 tablet by mouth 2 (two) times a day for 7 days 14 tablet 5 10/16/19 25 Active Problems Problem Noted Date Diagnosed Date Imbalance 03/07/2024 PVD (peripheral vascular disease) 01/11/2023 Assessment & Plan (01/11/2023 1:06 PM CDT): Compression socks Venous duplex Vascular Referral Medicare annual wellness visit, subsequent 06/22 Assessment & Plan (07/07/2024 6:42 PM CDT): Overall excellent health. Colonoscopy is due in 2024. I recommended COVID, flu, RSV, and Tycacfl67 vaccinations. Assessment & Plan (07/02/2023 10:27 AM CDT): Overall good health. Check PSA today. Colonoscopy due in 2024. I recommended that he get a COVID shot and [id number] vaccine. He declines a flu shot. Assessment & Plan (06/22/2022 10:00 AM CDT): Overall good health. [place] due in 2024. Recommended the following vaccines: Shingrix New COVID booster Flu shot [id number] Hyperlipidemia 06/22/2022 Assessment & Plan (07/07/2024 6:40 [...] patches for vertigo with air travel. Immunizations Immunization Administration Dates Next Due Tdap 06/16/2021 Social [...] exercise at this level? 40 min 06/16/2021 Sex and Gender Information Value Date Recorded Sex Assigned at Not on file Legal Sex Male 12:31 PM SALESPERSON PARTS Gender Identity Male 11/09/2022 8:29 PM SALESPERSON PARTS Sexual Orientation Straight 11/09/2022 8: 29 PM SALESPERSON PARTS Last Filed Vital Signs Vital Sign Reading [...] Comments URINE CULTURE Routine 10/05/2024 9:43 AM SALESPERSON PARTS UTI symptoms HEPATITIS C ANTIBODY Routine 06/16/2021 10:33 AM CDT Encounter for hepatitis C screening test for low risk patient COLONOSCOPY REPORT 07/22/2015 from Last 3 Months or Most Recently Relevant to Health Maintenance Results * (ABNORMAL) Urine culture Urine, clean voided (10/05/2024 9:43 AM SALESPERSON PARTS) Report Final Report: Greater than or equal to 100,000 colonies/mL of Staphylococcus lugdunensis Plus growth of clinically insignificant bacterial alexei. (.) Organism STAPHYLOCOCCUS LUGDUNENSIS [facility] Organism PLUS GROWTH OF CLINICALLY INSIGNIFICANT ALEXEI. [facility] Urine, clean voided 10/05/2024 9:43 AM SALESPERSON PARTS 10/05/2024 10:27 AM SALESPERSON PARTS Narrative [facility] - 10/08/2024 1:07 PM SALESPERSON PARTS Testing performed by [facility] Laboratory ([phone]) Organism Antibiotic Method Susceptibility Staphylococcus lugdunensis Vancomycin INTERPRETATION Susceptible Staphylococcus lugdunensis Trimethoprim with Sulfamethoxazole INTERPRETATION Susceptible Staphylococcus lugdunensis Linezolid INTERPRETATION Susceptible Staphylococcus lugdunensis Doxycycline INTERPRETATION Susceptible Staphylococcus lugdunensis Nitrofurantoin INTERPRETATI ON Susceptible Staphylococcus lugdunensis Oxacillin INTERPRETATION Susceptible Staphylococcus lugdunensis Cefazolin INTERPRETATION Susceptible Staphylococcus lugdunensis Ceftriaxone INTERPRETATION Susceptible us Ubaldo Rose MD LAB MICROBIOLOGY - G ENERAL ORDERABLES Final Result [facility] Department [place] [address] * Hepatitis C antibody (06/16/2021 10:33 AM CDT) Hep C Ab 0.2 0.0 - 0.9 s/co ratio [facility] - 01 Comment: Negative: < 0.8 Indeterminate: 0.8 - 0.9 Positive: > 0.9 The CDC recommends that a positive HCV antibody result be followed up with a HCV Nucleic Acid Amplification test (416088). Blood specimen (specimen) 06/16/2021 10:33 AM CDT 06/16/2021 Narrative [facility] - 06/17/2021 9:10 AM CDT Performed at: - [address] [id number] Office Messenger Helper: Glenn Aquino PhD, Phone: [phone] Francesco Barahona MD LAB MICROBIOLOGY - GENE RAL ORDERABLES Final Result [facility] - * COLONOSCOPY REPORT (07/22/2015) Anatomical Region Laterality Modality Other Narrative 07/22/2015 Ordered by an unspecified provider. Historical Provider GI PROCEDURE ORDERABLES F inal Result from Last 3 Months or Most Recently Relevant to Health Maintenance Insurance [employer] MEDICARE MEDICARE SOLUTIONS MEDICARE [facility] MEDICARE [facility] MEDICARE Advance Directives For more information, please contact: [phone] Documents on File Type Date Recorded Patient Drafting Technician Expl anation ADVANCE DIRECTIVE 10/01/2017 12:18 PM Care Teams Environmental Compliance Manager Relationship Specialty Start Date End Date Francesco Barahona MD [address] [address] PCP - General Endocrinology Diabetes & Metabolism 06/16/21
--- OUTSIDE RECORDS SUMMARY | 2024-11-03 13:03 | XMS_ITS | Encounter Summary ---
Author Organization [facility] Address [address] [place] [address] Phone Care Team Providers Care Band Tier Name Role Phone Keanu Anthony MD Primary Care Provider [phone] Francesco Barahona MD Primary Care Provider Encounter Details Date Type Department Care Team (Latest Contact Info) Description 03/24/2017 Orders Only [facility] CONVERSION Scanning, Provider Social History Tobacco Use Types Packs/Day Years Used Date Smoking Tobacco: Never Sex and Gender Information Value Date Recorded Sex Assigned at Not on file Legal Sex Male 12:31 PM SENIOR RESERVOIR ENGINEER Gender Identity Male 11/09/2022 8:29 PM SENIOR RESERVOIR ENGINEER Sexual Orientation Straight 11/09/2022 8: 29 PM SENIOR RESERVOIR ENGINEER documented as of this encounter Plan of [...] on filedocumented in this encounter Care Teams Band Tier Relationship Specialty Start Date End Date Keanu Anthony MD [address] [facility] [address] [place] [address] PCP - General 03/30/17 06/15/21 Francesco Barahona MD [address] [address] PCP - General Endocrinology Diabetes & Metabolism 06/16/21 documented as of this encounter
--- OUTSIDE RECORDS SUMMARY | 2024-11-03 13:03 | XMS_ITS | Clinical Summary ---
Author Organization [facility] Address [address] [place] [address] Care Team Providers Care Travel Director Name Role Phone Francesco Barahona MD Primary [...] 2024. I recommended COVID, flu, RSV, and [id number] vaccinations. Assessment & Plan (07/02/2023 10:27 AM CDT): Overall good health. Check PSA today. Colonoscopy due in 2024. I recommended that he get a COVID shot and [id number] vaccine. He declines a flu shot. Assessment & Plan (06/22/2022 10:00 AM CDT): Overall good health. [place] due in 2024. Recommended the following vaccines: Shingrix New COVID booster Flu shot [id number] Hyperlipidemia 06/22/2022 Assessment & Plan (07/07/2024 6:40 [...] Department Care Team Description 10/18/2024 11:00 AM SUPERVISOR WATER TREATMENT PLANT Office Visit [facility] [address] [place] [address] [place] [phone] Ubaldo Rose MD Retention of urine 10/09/2024 Orders Only [facility] [address] [place] [address] [place] [phone] Ubaldo Rose MD 10/05/2024 9:40 AM SUPERVISOR WATER TREATMENT PLANT Lab [facility] ([facility]) [address] [place] [phone] UTI symptoms 10/04/2024 Orders Only [facility] [address] [place] [address] Office [place] [address] [place] [phone] Ubaldo Rose MD UTI symptoms (Primary Dx) 10/04/2024 Telephone [facility] [address] [place] [address] [phone] Ubaldo Rose MD 09/19/2024 Telephone [facility] [address] [place] [address] Office [place] [address] [place] [phone] Dina Benitez CMA 09/18/2024 Telephone [facility] [address] [facility] Office Building [address] [place] [address] Dina Benitez CMA from Last 3 Months Immunizations Immunization Administration Dates Next Due Tdap 06/16/2021 Surgical [...] on file Legal Sex Male 12:31 PM SUPERVISOR WATER TREATMENT PLANT Gender Identity Male 11/09/2022 8:29 PM SUPERVISOR WATER TREATMENT PLANT Sexual Orientation Straight 11/09/2022 8: 29 PM SUPERVISOR WATER TREATMENT PLANT Obstetrics History Last Filed Vital Signs Vital [...] Last Done Comments Hepatitis B Screening 1963 Pneumococcal vaccine 65+ (1 of 1 - PCV) 1995 Zoster Vaccine (1 of 2) 1995 Covid-19 Vaccine (3 - 2023-2 5 season) [...] Comments URINE CULTURE Routine 10/05/2024 9:43 AM SUPERVISOR WATER TREATMENT PLANT UTI symptoms HEPATITIS C ANTIBODY Routine 06/16/2021 10:33 AM CDT Encounter for hepatitis C screening test for low risk patient COLONOSCOPY REPORT 07/22/2015 from Last 3 Months or Most Recently Relevant to Health Maintenance Results * (ABNORMAL) Urine culture Urine, clean voided (10/05/2024 9:43 AM SUPERVISOR WATER TREATMENT PLANT) Report Final Report: Greater than or equal to 100,000 colonies/mL of Staphylococcus lugdunensis Plus growth of clinically insignificant bacterial alexei. (.) Organism STAPHYLOCOCCUS LUGDUNENSIS [facility] Organism PLUS GROWTH OF CLINICALLY INSIGNIFICANT ALEXEI. [facility] Urine, clean voided 10/05/2024 9:43 AM SUPERVISOR WATER TREATMENT PLANT 10/05/2024 10:27 AM SUPERVISOR WATER TREATMENT PLANT Narrative [facility] - 10/08/2024 1:07 PM SUPERVISOR WATER TREATMENT PLANT Testing performed by [facility] Microbiology Laboratory ([phone]) Organism Antibiotic Method Susceptibility Staphylococcus lugdunensis Vancomycin INTERPRETATION Susceptible Staphylococcus lugdunensis Trimethoprim with Sulfamethoxazole INTERPRETATION Susceptible Staphylococcus lugdunensis Linezolid INTERPRETATION Susceptible Staphylococcus lugdunensis Doxycycline INTERPRETATION Susceptible Staphylococcus lugdunensis Nitrofurantoin INTERPRETATI ON Susceptible Staphylococcus lugdunensis Oxacillin INTERPRETATION Susceptible Staphylococcus lugdunensis Cefazolin INTERPRETATION Susceptible Staphylococcus lugdunensis Ceftriaxone INTERPRETATION Susceptible Ubaldo Rose MD LAB MICROBIOLOGY - G ENERAL ORDERABLES Final Result [facility] Department [place] [address] * Hepatitis C antibody (06/16/2021 10:33 AM CDT) Hep C Ab 0.2 0.0 - 0.9 s/co ratio [facility] - 01 Comment: Negative: < 0.8 Indeterminate: 0.8 - 0.9 Positive: > 0.9 The CDC recommends that a positive HCV antibody result be followed up with a HCV Nucleic Acid Amplification test ([id number]). Blood specimen (specimen) 06/16/2021 10:33 AM CDT 06/16/2021 Narrative [facility] - 06/17/2021 9:10 AM CDT Performed at: - [address] [id number] Loading Unit Operator Crimping: Glenn Aquino PhD, Phone: [phone] Francesco Barahona MD LAB MICROBIOLOGY - GENE RAL ORDERABLES Final Result [facility] - 01 * COLONOSCOPY REPORT (07/22/2015) Anatomical Region Laterality Modality Other Narrative 07/22/2015 Ordered by an unspecified provider. us Historical Provider GI PROCEDURE ORDERABLES F inal Result from Last 3 Months or Most Recently Relevant to Health Maintenance Insurance MEDICARE MEDICARE SOLUTIONS MEDICARE [facility] MEDICARE [facility] MEDICARE Advance Directives For more information, please contact: [phone] Documents on File Type Date Recorded Patient Adjusto Writer Operator Expl anation ADVANCE DIRECTIVE 10/01/2017 12:18 PM Care Teams Travel Director Relationship Specialty Start Date End Date Francesco Barahona MD [address] [facility] [address], [place] [address] PCP - General Endocrinology Diabetes & Metabolism 06/16/21
--- OUTSIDE RECORDS SUMMARY | 2024-11-03 13:03 | XMS_ITS | Continuity of Care Document ---
Author Organization [facility] Address [address] [place] [address] Phone Care Team Providers Care Outpatient Therapist Name Role Phone Mary Cabrales Unavailable Unavailable Procedures Procedure Date Eye Exam & Treatment Eye Exam & Treatment Refraction Eye Exam Established Pt SV Plastic Sphcyl [place] +/-4d, .12-2d De Frames Deluxe Tax - Medical Eye Exam & Treatment Refraction Advance Directives Directive Yes / No Effective Date File Name No Information Encounters Encounter Description Practice Location Reason(s) For Visit Diagnoses Date Provider Providers Copied on Encounter [facility], [address] [place] [address] [address], [place], [place], [id number], tel:[phone] SEC [facility] No Information 2 2-201 0 Samra Leggett [address] [facility] , [address], [place], [address], [place]. tel:[phone] [facility], [address] [place] [address] [address], [place], [place], [id number], [place] tel:[phone] [facility] No Information Willis-0 4-200 9 Samra Leggett [address] , [address], [place], [address], [place]. tel:[phone] [facility], [address] [place] [address] [address], [place], [place], [id number], [place] tel:[phone] SEC [facility] No Information Aug- 8 Samra Hernandez. [address] [facility] , [address], [place], [address], [place]. tel:[phone] [facility], [address], [place], [place], [id number], [place] tel:[phone] SEC [facility] No Information Aug-0 [address] [employer] . [address] [facility], [address], [place], [place], [id number], [place]. tel:[phone] Referring Provider: Mary Brown, [address] [place] [address] [address], [place], [place], [facility]. tel:[phone] sulting Provider: Freddie Cruz [address] [place] [address], [place], [place], [facility]. tel:[phone] [facility], [address], [place], [place], [id number], [place] tel:[phone] SEC [facility] No Information 8 Samra Hernandez. [address] [place] [address] , [address], [place], [address], [place]. tel:[phone] Family History Family Member Type Diagnosis Age At Onset No Information Payers Payer name Insurance type Covered libertarian ID Authorrejia tiomar(s) [place] [id number] Social History Type Description Quantity Date Captured [...]
--- NOTE | 2024-11-03 15:28 | ED.DIZZY ---
HPI - Dizziness General Chief Complaint: Dizziness <ALDO Diaz Last Filed: 11/03/24 15:44> Stated Complaint: dizziness, falls, weakness in the legs, fever <ALDO Diaz Last Filed: 11/03/24 15:44> Time Seen by Provider: 11/03/24 15:28 <ALDO Diaz Last Filed: 11/03/24 15:44> Focused HPI: Patient is a 79 y/o male who presents to the ED with c/o dizziness. Patient reports on 10/11 he underwent emergency surgery for perforated ulcer, performed here by Dr. Corley. Was started on 4 new medications after the surgery - 2 for acid reflux (pantoprazole/sucralfate), 2 antibiotics which he has since finished. Reports over the past couple days, he has been having trouble with his balance. Reports he feels dizzy, groggy, heaviness in his legs, has fallen 3 times at home. He notes two of the falls occurred when he stood up out of bed and became dizzy. Today, was in the bathroom getting ready to shave when the next thing he knew, he was sitting on the floor. Does not remember feeling dizzy or lightheaded before this event. States he slid down the wall onto his bottom. Denies HI. He then prompted here for further evaluation. Denies vision changes, CP, SOB, palpitations, focal weakness or numbness, N/V, ABD pain. GENERAL: Well-appearing, well-nourished, and in no acute distress. HEAD: Normocephalic, atraumatic. CHEST: Clear to auscultation. ?No respiratory distress. HEART: Regular rate and rhythm.? ABD: No tenderness, nondistended, normoactive BS NEURO: ?Alert and oriented x3. No pronator drift. Equal research quality assurance analyst strength bilaterally. No focal deficits. PERRL/EOMI, conjunctiva clear. No nystagmus. Patient screened in triage and initial orders placed.? ?Additional care and disposition to be based upon?diagnostic testing and treatment. <ALDO Diaz Last Filed: 11/03/24 15:44> Source: patient and old records reviewed <Betty Agrawal PA-C - Last Filed: 11/03/24 15:44> Mode of arrival: ambulatory <Betty Agrawal PA-C - Last Filed: 11/03/24 15:44> Limitations: no limitations <ALDO Diaz Last Filed: 11/03/24 15:44> Related Data Home Medications: Home Medications ?Medication ?Instructions ?Recorded ?Confirmed ?Last Taken ?Type aspirin 81 mg capsule 81 mg PO DAILY 10/11/24 11/04/24 11/03/24 History <ALDO Diaz Last Filed: 11/03/24 15:44> Allergies/Adverse Reactions: Allergies Allergy/AdvReac Type Severity Reaction Status Date / Time No Known Allergies Allergy Verified 11/03/24 18:47 <ALDO Diaz Last Filed: 11/03/24 15:44> [facility] Past Medical History Medical History: Medical History (Updated 11/04/24 @ 03:28 by Kasandra Munroe DO) Duodenal ulcer, perforated BPH (benign prostatic hyperplasia) With intermittent straight catheterization <ALDO Diaz Last Filed: 11/03/24 15:44> Surgical History Surgical History: Surgical History (Updated 11/04/24 @ 03:38 by Kasandra Munroe DO) Status post laparoscopic procedure (10/10/24) Duodenal ulcer <ALDO Diaz Last Filed: 11/03/24 15:44> Social History Social History: Social History Smoking status: Never smoker Alcohol intake: never Substance use: never Substance use type: does not use Do You Feel Safe in your Home?: Yes Lack of Transportation: No Lack of Food: Never True Current Housing: I Have Housing Concerned About Future Housing: No Difficulty Paying Gas/Electric Bills: No Difficulty Paying for Meds: No Currently Unemployed: No Education: Master's Degree or Higher Difficulty w/ Childcare or Family Care: No Spiritual care concerns: No <Betty Agrawal PA-C - Last Filed: 11/03/24 15:44> Course Course Emergency Course: Patient and family updated on workup and recommendation for admission <Isabela Castro PA-C - Last Filed: 11/03/24 22:50> COMMUNITY PLANNING TECHNICIAN/PA Physician Supervision For this patient encounter, I reviewed the COMMUNITY PLANNING TECHNICIAN or PA documentation, treatment plan, and medical decision making and had [id number] time with this patient. I performed all aspects of the MDM as documented. <Joss Jaeger MD - Last Filed: 11/04/24 06:59> Consultations Consultation #1: Spoke with hospitalist about patient and workup who accepts admission <Isabela Castro PA-C - Last Filed: 11/03/24 22:50> Date: 11/03/24 <Isabela Castro PA-C - Last Filed: 11/03/24 22:50> Vital Signs Vital signs: Vital Signs Temperature 98.3 F 11/03/24 13:04 Pulse Rate 103 H 11/03/24 13:04 Respiratory Rate 16 11/03/24 13:04 Blood Pressure 120/60 11/03/24 13:04 Pulse Oximetry 100 11/03/24 13:04 Temperature 97.7 F 11/04/24 05:25 Pulse Rate 82 11/04/24 05:25 Respiratory Rate 20 11/04/24 05:25 Blood Pressure 131/68 11/04/24 05:25 Pulse Oximetry 93 11/04/24 05:25 Oxygen Delivery Room Air 11/03/24 23:30 <Betty Agrawal PA-C - Last Filed: 11/03/24 15:44> Vital Signs Temperature 98.3 F 11/03/24 13:04 Pulse Rate 103 H 11/03/24 13:04 Respiratory Rate 16 11/03/24 13:04 Blood Pressure 120/60 11/03/24 13:04 Pulse Oximetry 100 11/03/24 13:04 Temperature 97.7 F 11/04/24 05:25 Pulse Rate 82 11/04/24 05:25 Respiratory Rate 20 11/04/24 05:25 Blood Pressure 131/68 11/04/24 05:25 Pulse Oximetry 93 11/04/24 05:25 Oxygen Delivery Room Air 11/03/24 23:30 <Isabela Castro PA-C - Last Filed: 11/03/24 22:50> Vital Signs Temperature 98.3 F 11/03/24 13:04 Pulse Rate 103 H 11/03/24 13:04 Respiratory Rate 16 11/03/24 13:04 Blood Pressure 120/60 11/03/24 13:04 Pulse Oximetry 100 11/03/24 13:04 Temperature 97.7 F 11/04/24 05:25 Pulse Rate 82 11/04/24 05:25 Respiratory Rate 20 11/04/24 05:25 Blood Pressure 131/68 11/04/24 05:25 Pulse Oximetry 93 11/04/24 05:25 Oxygen Delivery Room Air 11/03/24 23:30 <Joss Jaeger MD - Last Filed: 11/04/24 06:59> MDM - Dizziness MDM Narrative Medical decision making narrative: MSE by TRUE in triage. <Betty Agrawal PA-C - Last Filed: 11/03/24 15:44> MSE by TRUE in triage. Patient presents to the emergency department for generalized weakness, lightheadedness, fevers, diarrhea. Patient is afebrile and nontoxic appearing. Tachycardic upon arrival, this did improve after IV fluids. CBC with leukocytosis to 11.5. Metabolic panel without concerning findings. Urine with evidence of infection. This was sent for culture. Influenza, RSV and COVID screens are negative. CT brain without acute findings. CTA chest PE with abdomen and pelvis obtained for further evaluation due to patient's symptoms and recent surgery. No PE. Does show colitis. Blood cultures drawn, patient started on IV antibiotics. Given 30 cc/kilos bolus. Spoke with hospitalist about patient and workup who accepts admission <Isabela Castro PA-C - Last Filed: 11/03/24 22:50> MSE by TRUE in triage. Patient presents to the emergency department for generalized weakness, lightheadedness, fevers, diarrhea. Patient is afebrile and nontoxic appearing. Tachycardic upon arrival, this did improve after IV fluids. CBC with leukocytosis to 11.5. Metabolic panel without concerning findings. Urine with evidence of infection. This was sent for culture. Influenza, RSV and COVID screens are negative. CT brain without acute findings. CTA chest PE with abdomen and pelvis obtained for further evaluation due to patient's symptoms and recent surgery. No PE. Does show colitis. Blood cultures drawn, patient started on IV antibiotics. Given 30 cc/kilos bolus. Spoke with hospitalist about patient and workup who accepts admission. <Joss Jaeger MD - Last Filed: 11/04/24 06:59> Differential Diagnosis Differential diagnosis: Likely benign paroxysmal positional vertigo, orthostatic hypotension and other (Colitis, UTI, dehydration, PE, postop infection) <Isabela Castro PA-C - Last Filed: 11/03/24 22:50> Lab Data Attestation: I reviewed the patient's lab results. <Isabela Castro PA-C - Last Filed: 11/03/24 22:50> Result diagrams: 11/03/24 15:40 11/03/24 15:40 <Betty Agrawal PA-C - Last Filed: 11/03/24 15:44> Labs: Lab Results 11/03/24 11/03/24 11/03/24 Range/Units 15:40 18:50 19:13 WBC 11.5 H (4.5-10.0) K/mm3 RBC 3.94 L (4.6-6.20) M/mm3 Hgb 11.9 L (14.0-18.0) g/dL Hct 36.2 L (42.0-52.0) % MCV 91.9 (80-100) fl MCH 30.2 (26-34) pg MCHC 32.9 (32-36) g/dl RDW 13.4 (11.5-14.5) % Plt Count 240 (150-375) k/mm3 MPV 9.5 (7.4-10.4) fl Immature Gran % (Auto) 0.3 (0-0.5) % Neut % (Auto) 83.6 H (45.5-73.1) % Lymph % (Auto) 9.0 L (18.3-44.2) % [place] % (Auto) 6.9 (2.6-8.5) % Eos % (Auto) 0.0 (0-4.4) % Baso % (Auto) 0.2 (0.2-1.2) % Lymph # (Auto) 1.04 (0.9-3.2) K/mm3 [place] # (Auto) 0.8 H (0.1-0.6) K/mm3 Eos # (Auto) 0.0 (0-0.3) K/mm3 Baso # (Auto) 0.0 (0.0-0.1) K/mm3 Abs Immat Gran (auto) 0.03 (0.00-0.031) K/mm3 Absolute Neuts (auto) 9.6 H (1.3-6.7) K/mm3 Absolute Nucleated RBC 0.000 (0.0-0.012) K/mm3 Nucleated RBC % 0.0 (0.0-0.2) % PT 15.4 H (11.1-14.7) Seconds INR 1.2 APTT 30.6 (22.3-36.8) Seconds Sodium 135 L (137-145) mmol/L Potassium 4.6 (3.4-5.0) mmol/L Chloride 103 (98-107) mmol/L Carbon Dioxide 24 (22-30) mmol/L Anion Gap 8 (4-12) mmol/L BUN 21 H (9-20) mg/dL Creatinine 1.02 (0.7-1.3) mg/dL Estim Creat Clear Calc 46 ml/min Estimated GFR > 60 (59 - ) Glucose 106 (65-110) mg/dL Calcium 8.4 (8.4-10.2) mg/dL Magnesium 2.0 (1.6-2.3) mg/dL Total Bilirubin 1.1 (0.2-1.3) mg/dL AST 31 (17-59) U/L ALT 13 (6-50) U/L Alkaline Phosphatase 114 (38-126) U/L Total Creatine Kinase 147 (55-170) U/L Troponin I < 0.012 (0.000-0.034) ng/mL Total Protein 7.0 (6.3-8.2) g/dL Albumin 3.3 L (3.5-5.1) g/dL Urine Color Dark yellow (Yellow) Urine Appearance Cloudy H (Clear) Urine pH 5.5 (5.0-9.0) Ur Specific [place] 1.021 (1.001-1.035) Urine Protein 2+ H (Negative) mg/dL Urine Glucose (UA) Negative (Negative) mg/dL Urine Ketones Trace H (Negative) mg/dL Ur Blood (Man) 1+ H (Negative) Urine Nitrate Positive H (Negative) Urine Bilirubin Negative (Negative) Urine Urobilinogen 0.2 (<2.0) mg/dL Add Ur Microanalysis Reviewed Leukocyte Esterase Rfl 2+ H (Negative) JONAH/UL Urine RBC 3-5 H (0-2) /hpf Urine WBC >100 H (0-3) /hpf Ur Squamous Epith Cells None seen (Few) /hpf Urine Bacteria 4+ H /hpf Urine Casts 6-10 Influenza A (RT-PCR) Negative (Negative) Influenza B (RT-PCR) Negative (Negative) RSV (RT-PCR) Negative (Negative) SARS-CoV-2 RNA (RT-PCR) Negative (Negative) <Betty Agrawal PA-C - Last Filed: 11/03/24 15:44> Lab Results 11/03/24 11/03/24 11/03/24 Range/Units 15:40 18:50 19:13 WBC 11.5 H (4.5-10.0) K/mm3 RBC 3.94 L (4.6-6.20) M/mm3 Hgb 11.9 L (14.0-18.0) g/dL Hct 36.2 L (42.0-52.0) % MCV 91.9 (80-100) fl MCH 30.2 (26-34) pg MCHC 32.9 (32-36) g/dl RDW 13.4 (11.5-14.5) % Plt Count 240 (150-375) k/mm3 MPV 9.5 (7.4-10.4) fl Immature Gran % (Auto) 0.3 (0-0.5) % Neut % (Auto) 83.6 H (45.5-73.1) % Lymph % (Auto) 9.0 L (18.3-44.2) % [place] % (Auto) 6.9 (2.6-8.5) % Eos % (Auto) 0.0 (0-4.4) % Baso % (Auto) 0.2 (0.2-1.2) % Lymph # (Auto) 1.04 (0.9-3.2) K/mm3 [place] # (Auto) 0.8 H (0.1-0.6) K/mm3 Eos # (Auto) 0.0 (0-0.3) K/mm3 Baso # (Auto) 0.0 (0.0-0.1) K/mm3 Abs Immat Gran (auto) 0.03 (0.00-0.031) K/mm3 Absolute Neuts (auto) 9.6 H (1.3-6.7) K/mm3 Absolute Nucleated RBC 0.000 (0.0-0.012) K/mm3 Nucleated RBC % 0.0 (0.0-0.2) % PT 15.4 H (11.1-14.7) Seconds INR 1.2 APTT 30.6 (22.3-36.8) Seconds Sodium 135 L (137-145) mmol/L Potassium 4.6 (3.4-5.0) mmol/L Chloride 103 (98-107) mmol/L Carbon Dioxide 24 (22-30) mmol/L Anion Gap 8 (4-12) mmol/L BUN 21 H (9-20) mg/dL Creatinine 1.02 (0.7-1.3) mg/dL Estim Creat Clear Calc 46 ml/min Estimated GFR > 60 (59 - ) Glucose 106 (65-110) mg/dL Calcium 8.4 (8.4-10.2) mg/dL Magnesium 2.0 (1.6-2.3) mg/dL Total Bilirubin 1.1 (0.2-1.3) mg/dL AST 31 (17-59) U/L ALT 13 (6-50) U/L Alkaline Phosphatase 114 (38-126) U/L Total Creatine Kinase 147 (55-170) U/L Troponin I < 0.012 (0.000-0.034) ng/mL Total Protein 7.0 (6.3-8.2) g/dL Albumin 3.3 L (3.5-5.1) g/dL Urine Color Dark yellow (Yellow) Urine Appearance Cloudy H (Clear) Urine pH 5.5 (5.0-9.0) Ur Specific [place] 1.021 (1.001-1.035) Urine Protein 2+ H (Negative) mg/dL Urine Glucose (UA) Negative (Negative) mg/dL Urine Ketones Trace H (Negative) mg/dL Ur Blood (Man) 1+ H (Negative) Urine Nitrate Positive H (Negative) Urine Bilirubin Negative (Negative) Urine Urobilinogen 0.2 (<2.0) mg/dL Add Ur Microanalysis Reviewed Leukocyte Esterase Rfl 2+ H (Negative) JONAH/UL Urine RBC 3-5 H (0-2) /hpf Urine WBC >100 H (0-3) /hpf Ur Squamous Epith Cells None seen (Few) /hpf Urine Bacteria 4+ H /hpf Urine Casts 6-10 Influenza A (RT-PCR) Negative (Negative) Influenza B (RT-PCR) Negative (Negative) RSV (RT-PCR) Negative (Negative) SARS-CoV-2 RNA (RT-PCR) Negative (Negative) <Isabela Castro PA-C - Last Filed: 11/03/24 22:50> Lab Results 11/03/24 11/03/24 11/03/24 Range/Units 15:40 18:50 19:13 WBC 11.5 H (4.5-10.0) K/mm3 RBC 3.94 L (4.6-6.20) M/mm3 Hgb 11.9 L (14.0-18.0) g/dL Hct 36.2 L (42.0-52.0) % MCV 91.9 (80-100) fl MCH 30.2 (26-34) pg MCHC 32.9 (32-36) g/dl RDW 13.4 (11.5-14.5) % Plt Count 240 (150-375) k/mm3 MPV 9.5 (7.4-10.4) fl Immature Gran % (Auto) 0.3 (0-0.5) % Neut % (Auto) 83.6 H (45.5-73.1) % Lymph % (Auto) 9.0 L (18.3-44.2) % [place] % (Auto) 6.9 (2.6-8.5) % Eos % (Auto) 0.0 (0-4.4) % Baso % (Auto) 0.2 (0.2-1.2) % Lymph # (Auto) 1.04 (0.9-3.2) K/mm3 [place] # (Auto) 0.8 H (0.1-0.6) K/mm3 Eos # (Auto) 0.0 (0-0.3) K/mm3 Baso # (Auto) 0.0 (0.0-0.1) K/mm3 Abs Immat Gran (auto) 0.03 (0.00-0.031) K/mm3 Absolute Neuts (auto) 9.6 H (1.3-6.7) K/mm3 Absolute Nucleated RBC 0.000 (0.0-0.012) K/mm3 Nucleated RBC % 0.0 (0.0-0.2) % PT 15.4 H (11.1-14.7) Seconds INR 1.2 APTT 30.6 (22.3-36.8) Seconds Sodium 135 L (137-145) mmol/L Potassium 4.6 (3.4-5.0) mmol/L Chloride 103 (98-107) mmol/L Carbon Dioxide 24 (22-30) mmol/L Anion Gap 8 (4-12) mmol/L BUN 21 H (9-20) mg/dL Creatinine 1.02 (0.7-1.3) mg/dL Estim Creat Clear Calc 46 ml/min Estimated GFR > 60 (59 - ) Glucose 106 (65-110) mg/dL Calcium 8.4 (8.4-10.2) mg/dL Magnesium 2.0 (1.6-2.3) mg/dL Total Bilirubin 1.1 (0.2-1.3) mg/dL AST 31 (17-59) U/L ALT 13 (6-50) U/L Alkaline Phosphatase 114 (38-126) U/L Total Creatine Kinase 147 (55-170) U/L Troponin I < 0.012 (0.000-0.034) ng/mL Total Protein 7.0 (6.3-8.2) g/dL Albumin 3.3 L (3.5-5.1) g/dL Urine Color Dark yellow (Yellow) Urine Appearance Cloudy H (Clear) Urine pH 5.5 (5.0-9.0) Ur Specific [place] 1.021 (1.001-1.035) Urine Protein 2+ H (Negative) mg/dL Urine Glucose (UA) Negative (Negative) mg/dL Urine Ketones Trace H (Negative) mg/dL Ur Blood (Man) 1+ H (Negative) Urine Nitrate Positive H (Negative) Urine Bilirubin Negative (Negative) Urine Urobilinogen 0.2 (<2.0) mg/dL Add Ur Microanalysis Reviewed Leukocyte Esterase Rfl 2+ H (Negative) JONAH/UL Urine RBC 3-5 H (0-2) /hpf Urine WBC >100 H (0-3) /hpf Ur Squamous Epith Cells None seen (Few) /hpf Urine Bacteria 4+ H /hpf Urine Casts 6-10 Influenza A (RT-PCR) Negative (Negative) Influenza B (RT-PCR) Negative (Negative) RSV (RT-PCR) Negative (Negative) SARS-CoV-2 RNA (RT-PCR) Negative (Negative) <Joss Jaeger MD - Last Filed: 11/04/24 06:59> Imaging Data Radiologist's impression: ITS Impressions Head CT 11/03/24 15:58 IMPRESSION: 1. Moderate nonspecific cerebral white matter disease, which likely represents chronic small vessel ischemic disease. Chest X-Ray 11/03/24 16:10 IMPRESSION: 1. No acute cardiopulmonary disease. ITS Impressions Head CT 11/03/24 15:58 IMPRESSION: 1. Moderate nonspecific cerebral white matter disease, which likely represents chronic small vessel ischemic disease. Chest X-Ray 11/03/24 16:10 IMPRESSION: 1. No acute cardiopulmonary disease. Chest/Abdomen/Pelvis CTA 11/03/24 20:10 IMPRESSION: 1. No pulmonary embolus. 2. Wall thickening of the left colon, which may be interstitial edema or colitis. <Isabela Castro PA-C - Last Filed: 11/03/24 22:50> ECG Data EKG #1: ECG completion date: 11/03/24 <ALDO Girard Last Filed: 11/03/24 22:50> EKG Interpretation: normal rate, sinus rhythm, no ST changes and normal QT <ALDO Girard Last Filed: 11/03/24 22:50> Critical Care Time Critical Care Time Critical Care Time: No <ALDO Girard Last Filed: 11/03/24 22:50> Discharge Plan Discharge Clinical Impression: Colitis, Acute UTI <ALDO Diaz Last Filed: 11/03/24 15:44> Patient Disposition: Still a Patient <Betty Agrawal PA-C - Last Filed: 11/03/24 15:44> Condition: Stable <Betty Agrawal PA-C - Last Filed: 11/03/24 15:44>
--- NOTE | 2024-11-03 15:34 | ECG_ITS ---
Test Date: 2024-11-03 15:45:01 Measurements Intervals [place] Rate: 90 P: 75 WI: 145 QRS: 63 QRSD: 86 T: 70 QT: 363 QTc: 446 Interpretive Statements SINUS RHYTHM WITH OCCASIONAL SUPRAVENTRICULAR PREMATURE COMPLEXES BASELINE ARTIFACT- I, II, III, AVR, AVL, AVF, V1-V6 BORDERLINE ECG Compared to ECG 10/10/2024 17:12:31 HEART RATE HAS DECREASED Electronically Signed On 11-03-2024 15:55:41 MUSIC AUTOGRAPHER by Rcihy Ashley D.O.
[2024-11-03 15:52] LABS: Basophils Percent Auto 0.2 % (0.2-1.2); Hematocrit 36.2 % (42.0-52.0); Hemoglobin 11.9 g/dL (14.0-18.0); Immature Granulocyte Absolute 0.03 K/mm3 (0.00-0.031); Immature Granulocyte Percent A 0.3 % (0-0.5); Lymphocytes Absolute Auto 1.04 K/mm3 (0.9-3.2); Mean Corpuscular HGB Conc 32.9 g/dl (32-36); Mean Corpuscular Hemoglobin 30.2 pg (26-34); Mean Corpuscular Volume 91.9 fl (80-100); Mean Platelet Volume 9.5 fl (7.4-10.4); Monocytes Absolute Auto 0.8 K/mm3 (0.1-0.6); Monocytes Percent Auto 6.9 % (2.6-8.5); Neutrophils Absolute Auto 9.6 K/mm3 (1.3-6.7); Neutrophils Percent Auto 83.6 % (45.5-73.1); Platelet Count Result 240 k/mm3 (150-375); Red Blood Count 3.94 M/mm3 (4.6-6.20); Red Cell Distribution Width 13.4 % (11.5-14.5); White Blood Count 11.5 K/mm3 (4.5-10.0)
[2024-11-03 16:04] LABS: INR 1.2; Prothrombin Time 15.4 Seconds (11.1-14.7)
[2024-11-03 16:05] LABS: Partial Thromboplastin Time 30.6 Seconds (22.3-36.8)
[2024-11-03 16:18] LABS: Alanine Aminotransferase 13 U/L (6-50); Albumin Level 3.3 g/dL (3.5-5.1); Alkaline Phosphatase 114 U/L (38-126); Anion Gap 8 mmol/L (4-12); Aspartate Amino Transferase 31 U/L (17-59); Bilirubin,Total 1.1 mg/dL (0.2-1.3); Blood Urea Nitrogen 21 mg/dL (9-20); Calcium 8.4 mg/dL (8.4-10.2); Carbon Dioxide 24 mmol/L (22-30); Chloride 103 mmol/L (98-107); Estimated CRCL calculation 46 ml/min; Estimated Glomerular Filt Rate > 60; Glucose 106 mg/dL (65-110); Potassium 4.6 mmol/L (3.4-5.0); Sodium 135 mmol/L (137-145)
[2024-11-03 16:30] LABS: Troponin I < 0.012 ng/mL (0.000-0.034)
--- NOTE | 2024-11-03 16:42 | PC.NURSE ---
Lab called to add on ordered CK.
[2024-11-03 18:27] LABS: Creatine Kinase 147 U/L (55-170)
--- OUTSIDE RECORDS SUMMARY | 2024-11-03 18:53 | XMS_ITS | Encounter Summary ---
Author Organization [facility] Address [address] [place] [address] Phone Care Team Providers Care Textile Science Technician Name Role Phone Keanu Anthony MD Primary Care Provider [phone] Francesco Barahona MD Primary Care Provider Encounter Details Date Type Department Care Team (Latest Contact Info) Description 05/02/2017 Orders Only [facility] CONVERSION Scanning, Provider Social History Tobacco Use Types Packs/Day Years Used Date Smoking Tobacco: Never Sex and Gender Information Value Date Recorded Sex Assigned at Not on file Legal Sex Male 12:31 PM UX DEVELOPER Gender Identity Male 11/09/2022 8:29 PM UX DEVELOPER Sexual Orientation Straight 11/09/2022 8: 29 PM UX DEVELOPER documented as of this encounter Plan of [...] on filedocumented in this encounter Care Teams Textile Science Technician Relationship Specialty Start Date End Date Keanu Anthony MD [address] [facility] [address] [place] [address] PCP - General 03/30/17 06/15/21 Francesco Barahona MD [address] [address] PCP - General Endocrinology Diabetes & Metabolism 06/16/21 documented as of this encounter
--- OUTSIDE RECORDS SUMMARY | 2024-11-03 18:53 | XMS_ITS | Referral Summary ---
Author Organization [facility] Address [address] [place] [address] Care Team Providers Care Vineyard Supervisor Name Role Phone Francesco Barahona MD Primary Care Provider Encounters Date Type Department Care Team Description 10/18/2024 11:00 AM [employer]OVER AND TURNER Office Visit [facility] Urology [address] [place] [address] [facility] [address] [place] [phone] Ubaldo Rose MD Retention of urine 10/09/2024 Orders Only [facility]rology [address] [place] [address] [facility] [address] [place] [phone] Ubaldo Rose MD 10/05/2024 9:40 AM [facility] AND TURNER Lab [facility] ([facility]) [address] [place] [id number] UTI symptoms 10/04/2024 Orders Only [facility] Urology [address] [place] [address] Office [address] [place] [phone] Ubaldo Rose MD UTI symptoms (Primary Dx) 10/04/2024 Telephone [facility]rology [address] [place] [address] [facility] [address] [place] [phone] Ubaldo Rose MD 09/19/2024 Telephone [facility]rology [address] [facility] Office Building [address] [place] [address] Dina Benitez CMA 09/18/2024 Telephone [facility]rology [address] [facility] Office Building [address] [place] [phone] Dina Benitez CMA from Last 3 Months [...] 2024. I recommended COVID, flu, RSV, and Decioth11 vaccinations. Assessment & Plan (07/02/2023 10:27 AM CDT): Overall good health. Check PSA today. Colonoscopy due in 2024. I recommended that he get a COVID shot and [id number] vaccine. He declines a flu shot. Assessment & Plan (06/22/2022 10:00 AM CDT): Overall good health. [place] due in 2024. Recommended the following vaccines: Shingrix New COVID booster Flu shot [id number] Hyperlipidemia 06/22/2022 Assessment & Plan (07/07/2024 6:40 [...] on file Legal Sex Male 12:31 PM GROOVER AND TURNER Gender Identity Male 11/09/2022 8:29 PM [employer]OVER AND TURNER Sexual Orientation Straight 11/09/2022 8: 29 PM [employer]OVER AND TURNER Last Filed Vital Signs Vital Sign Reading [...] Comments URINE CULTURE Routine 10/05/2024 9:43 AM [employer] [employer] UTI symptoms HEPATITIS C ANTIBODY Routine 06/16/2021 10:33 AM CDT Encounter for hepatitis C screening test for low risk patient COLONOSCOPY REPORT 07/22/2015 from Last 3 Months or Most Recently Relevant to Health Maintenance Results * (ABNORMAL) Urine culture Urine, clean voided (10/05/2024 9:43 AM [employer]OVER AND TURNER) Report Final Report: Greater than or equal to 100,000 colonies/mL of Staphylococcus lugdunensis Plus growth of clinically insignificant bacterial alexei. (.) Organism STAPHYLOCOCCUS LUGDUNENSIS [facility] Organism PLUS GROWTH OF CLINICALLY INSIGNIFICANT ALEXEI. [facility] Urine, clean voided 10/05/2024 9:43 AM [facility] [employer] TURNER 10/05/2024 10:27 AM [facility] [employer] [facility]URNER Narrative [facility] - 10/08/2024 1:07 PM [employer] [employer]URNER Testing performed by [facility] ([phone]) Organism Antibiotic Method Susceptibility Staphylococcus lugdunensis Vancomycin INTERPRETATION Susceptible Staphylococcus lugdunensis Trimethoprim with Sulfamethoxazole INTERPRETATION Susceptible Staphylococcus lugdunensis Linezolid INTERPRETATION Susceptible Staphylococcus lugdunensis Doxycycline INTERPRETATION Susceptible Staphylococcus lugdunensis Nitrofurantoin INTERPRETATI ON Susceptible Staphylococcus lugdunensis Oxacillin INTERPRETATION Susceptible Staphylococcus lugdunensis Cefazolin INTERPRETATION Susceptible Staphylococcus lugdunensis Ceftriaxone INTERPRETATION Susceptible us Ubaldo Rose MD LAB MICROBIOLOGY - G ENERAL ORDERABLES Final Result [facility] Department [place] [address] * Hepatitis C antibody (06/16/2021 10:33 AM CDT) Hep C Ab 0.2 0.0 - 0.9 s/co ratio [facility] - 01 Comment: Negative: < 0.8 Indeterminate: 0.8 - 0.9 Positive: > 0.9 The CDC recommends that a positive HCV antibody result be followed up with a HCV Nucleic Acid Amplification test (219011). Blood specimen (specimen) 06/16/2021 10:33 AM CDT 06/16/2021 Narrative [facility] - 06/17/2021 9:10 AM CDT Performed at: - [address] [id number] Lumber Stacker: Glenn Aquino PhD, Phone: [phone] Francesco Barahona MD LAB MICROBIOLOGY - GENE RAL ORDERABLES Final Result [facility] - * COLONOSCOPY REPORT (07/22/2015) Anatomical Region Laterality Modality Other Narrative 07/22/2015 Ordered by an unspecified provider. Historical Provider GI PROCEDURE ORDERABLES F inal Result from Last 3 Months or Most Recently Relevant to Health Maintenance Insurance [employer] MEDICARE MEDICARE SOLUTIONS MEDICARE [facility] MEDICARE [facility] MEDICARE Advance Directives For more information, please contact: [phone] Documents on File Type Date Recorded Patient Plan Nurse Expl anation ADVANCE DIRECTIVE 10/01/2017 12:18 PM Care Teams Vineyard Supervisor Relationship Specialty Start Date End Date Francesco Barahona MD [address] [address] PCP - General Endocrinology Diabetes & Metabolism 06/16/21
--- OUTSIDE RECORDS SUMMARY | 2024-11-03 18:53 | XMS_ITS | Continuity of Care Document ---
Author Organization [facility] Address [address] [facility] [address] [place] [address] Phone Care Team Providers Care Offbearer Name Role Phone Mary Cabrales Unavailable Unavailable Procedures Procedure Date Eye Exam & Treatment Eye Exam & Treatment Refraction Eye Exam Established Pt SV Plastic Sphcyl [place] +/-4d, .12-2d De Frames Deluxe Tax - Medical Eye Exam & Treatment Refraction Advance Directives Directive Yes / No Effective Date File Name No Information Encounters Encounter Description Practice Location Reason(s) For Visit Diagnoses Date Provider Providers Copied on Encounter [facility], [address] [place] [address] [address], [place], [place], [id number], tel:[phone] SEC [facility] No Information 2 2-201 0 Samra Leggett [address] [facility] , [address], [place], [address], [place]. tel:[phone] [facility], [address] [place] [address] [address], [place], [place], [id number], [place] tel:[phone] SEC [facility] [place] No Information Willis-0 4-200 9 Samra Leggett [address] , [address], [place], [address], [place]. tel:[phone] [facility], [address] [place] [address] [address], [place], [place], [id number], [place] tel:[phone] SEC [facility] No Information Aug- 8 Samra Hernandez. [address] [facility] , [address], [place], [address], [place]. tel:[phone] [facility], [address], [place], [place], [id number], [place] tel:[phone] SEC [facility] No Information Aug-0 3200 8 [employer] . [address] [facility], [address], [place], [place], [id number], [place]. tel:[phone] Referring Provider: Mary Brown, [address] [place] [address] [address], [place], [place], [facility]. tel:[phone] sulting Provider: Freddie Cruz [address] [place] [address], [place], [facility]. tel:[phone] [facility], [address], [place], [place], [id number], [place] tel:[phone] SEC [facility] No Information 8 Samra Hernandez. [address] [place] [address] , [address], [place], [address], [place]. tel:[phone] Family History Family Member Type Diagnosis Age At Onset No Information Payers Payer name Insurance type Covered constitution party ID Authorrejia tiomar(s) [place] [id number] Social History Type Description Quantity Date Captured [...]
--- OUTSIDE RECORDS SUMMARY | 2024-11-03 18:53 | XMS_ITS | Clinical Summary ---
Author Organization [facility] Address [address] [place] [address] Care Team Providers Care Fish Machine Feeder Name Role Phone Francesco Barahona MD Primary [...] 2024. I recommended COVID, flu, RSV, and Igcbgcu19 vaccinations. Assessment & Plan (07/02/2023 10:27 AM CDT): Overall good health. Check PSA today. Colonoscopy due in 2024. I recommended that he get a COVID shot and [id number] vaccine. He declines a flu shot. Assessment & Plan (06/22/2022 10:00 AM CDT): Overall good health. [place] due in 2024. Recommended the following vaccines: Shingrix New COVID booster Flu shot [id number] Hyperlipidemia 06/22/2022 Assessment & Plan (07/07/2024 6:40 [...] Department Care Team Description 10/18/2024 11:00 AM DISTILLERY SUPERVISOR Office Visit [facility] [address] [place] [address] [place] [phone] Ubaldo Rose MD Retention of urine 10/09/2024 Orders Only [facility] [address] [place] [address] [place] [phone] Ubaldo Rose MD 10/05/2024 9:40 AM DISTILLERY SUPERVISOR Lab [facility] ([facility]) [address] [place] [address] UTI symptoms 10/04/2024 Orders Only [facility] [address] [place] [address] Office [place] [address] [place] [phone] Ubaldo Rose MD UTI symptoms (Primary Dx) 10/04/[address] [facility] [address] [place] [address] [address] Ubaldo Rose MD 09/19/[address] [facility] [address] [place] [address] Office [place] [address] [place] [address] Dina Benitez CMA 09/18/[address] [facility] [address] [facility] Office Building [address] [place] [address] Dina Benitez CMA from Last 3 Months [...] on file Legal Sex Male 12:31 PM DISTILLERY SUPERVISOR Gender Identity Male 11/09/2022 8:29 PM DISTILLERY SUPERVISOR Sexual Orientation Straight 11/09/2022 8: 29 PM DISTILLERY SUPERVISOR Obstetrics History Last Filed Vital Signs Vital [...] Comments URINE CULTURE Routine 10/05/2024 9:43 AM DISTILLERY SUPERVISOR UTI symptoms HEPATITIS C ANTIBODY Routine 06/16/2021 10:33 AM CDT Encounter for hepatitis C screening test for low risk patient COLONOSCOPY REPORT 07/22/2015 from Last 3 Months or Most Recently Relevant to Health Maintenance Results * (ABNORMAL) Urine culture Urine, clean voided (10/05/2024 9:43 AM DISTILLERY SUPERVISOR) Report Final Report: Greater than or equal to 100,000 colonies/mL of Staphylococcus lugdunensis Plus growth of clinically insignificant bacterial alexei. (.) Organism STAPHYLOCOCCUS LUGDUNENSIS [facility] Organism PLUS GROWTH OF CLINICALLY INSIGNIFICANT ALEXEI. [facility] Urine, clean voided 10/05/2024 9:43 AM DISTILLERY SUPERVISOR 10/05/2024 10:27 AM DISTILLERY SUPERVISOR Narrative [facility] - 10/08/2024 1:07 PM DISTILLERY SUPERVISOR Testing performed by [facility] ([phone]) Organism Antibiotic Method Susceptibility Staphylococcus lugdunensis Vancomycin INTERPRETATION Susceptible Staphylococcus lugdunensis Trimethoprim with Sulfamethoxazole INTERPRETATION Susceptible Staphylococcus lugdunensis Linezolid INTERPRETATION Susceptible Staphylococcus lugdunensis Doxycycline INTERPRETATION Susceptible Staphylococcus lugdunensis Nitrofurantoin INTERPRETATI ON Susceptible Staphylococcus lugdunensis Oxacillin INTERPRETATION Susceptible Staphylococcus lugdunensis Cefazolin INTERPRETATION Susceptible Staphylococcus lugdunensis Ceftriaxone INTERPRETATION Susceptible Ubaldo Rose MD LAB MICROBIOLOGY - G ENERAL ORDERABLES Final Result [facility] [place] [address] * Hepatitis C antibody (06/16/2021 10:33 AM CDT) Hep C Ab 0.2 0.0 - 0.9 s/co ratio [facility] - 01 Comment: Negative: < 0.8 Indeterminate: 0.8 - 0.9 Positive: > 0.9 The CDC recommends that a positive HCV antibody result be followed up with a HCV Nucleic Acid Amplification test (535778). Blood specimen (specimen) 06/16/2021 10:33 AM CDT 06/16/2021 Narrative [facility] - 06/17/2021 9:10 AM CDT Performed at: - [address] [id number] [address] Pressman: Glenn Aquino PhD, Phone: [phone] Francesco Barahona MD LAB MICROBIOLOGY - GENE RAL ORDERABLES Final Result [facility] - 01 * COLONOSCOPY REPORT (07/22/2015) Anatomical Region Laterality Modality Other Narrative 07/22/2015 Ordered by an unspecified provider. us Historical Provider GI PROCEDURE ORDERABLES F inal Result from Last 3 Months or Most Recently Relevant to Health Maintenance Insurance MEDICARE MEDICARE [facility] MEDIC[facility] Address: [address] [address] [place] [address] MEDICARE [facility] MEDICARE [facility] Advance Directives For more information, please contact: [phone] Documents on File Type Date Recorded Patient Structures Mechanic Expl anation ADVANCE DIRECTIVE 10/01/2017 12:18 PM Care Teams Fish Machine Feeder Relationship Specialty Start Date End Date Francesco Barahona MD [address] [facility] [address] [address] PCP - General Endocrinology Diabetes & Metabolism 06/16/21
--- OUTSIDE RECORDS SUMMARY | 2024-11-03 18:53 | XMS_ITS | Encounter Summary ---
Author Organization [facility] Address [address] [place] [address] Phone Care Team Providers Care Car Body Inspector Name Role Phone Keanu Anthony MD Primary Care Provider [phone] Francesco Barahona MD Primary Care Provider Encounter Details Date Type Department Care Team (Latest Contact Info) Description 03/24/2017 Orders Only [facility] CONVERSION Scanning, Provider Social History Tobacco Use Types Packs/Day Years Used Date Smoking Tobacco: Never Sex and Gender Information Value Date Recorded Sex Assigned at Not on file Legal Sex Male 12:31 PM CASHIER PAYMENTS RECEIVED Gender Identity Male 11/09/2022 8:29 PM CASHIER PAYMENTS RECEIVED Sexual Orientation Straight 11/09/2022 8: 29 PM CASHIER PAYMENTS RECEIVED documented as of this encounter Plan of [...] on filedocumented in this encounter Care Teams Car Body Inspector Relationship Specialty Start Date End Date Kenau Anthony MD [address] [facility] [address] [place] [address] PCP - General 03/30/17 06/15/21 Francesco Barahona MD [address] [address] PCP - General Endocrinology Diabetes & Metabolism 06/16/21 documented as of this encounter
[2024-11-03 19:30] LABS: Influenza A QL RT-PCR Negative (Negative); Influenza B QL RT-PCR Negative (Negative); RSV RNA, RT-PCR Negative (Negative); SARS-CoV-2 RNA PCR Negative (Negative)
[2024-11-03] MEDS: SODIUM CHLORIDE 0.9% IV 1,000 ML 999 ML IV CONT ×2 (19:33→20:41)
[2024-11-03 19:49] LABS: Add Urine Microscopic? YES; Appearance Urine Cloudy (Clear); Bacteria Urine 4+ /hpf; Bilirubin Urine Negative (Negative); Blood Urine 1+ (Negative); Color Urine Dark Yellow (Yellow); Glucose Urine UA Negative (Negative); Ketones Urine Trace mg/dL (Negative); Leukocyte Esterase Ur 2+ LEU/UL (Negative); Need Manual Microscopic Reviewed; Nitrate Urine Positive (Negative); Protein Urine 2+ mg/dL (Negative); Specific Grav Ur 1.021 (1.001-1.035); Squamous Epithelial Cell Urine None Seen /hpf (Few); Urobilinogen Urine 0.2 mg/dL (<2.0); WBC Urine >100 /hpf (0-3); pH Urine 5.5 (5.0-9.0)
[2024-11-03] MEDS: metroNIDAZOLE 500 MG/ISO 100ML 500 MG/100 ML BAG 100 MG IVPB (21:17)
--- OUTSIDE RECORDS SUMMARY | 2024-11-03 22:47 | XMS_ITS | Clinical Summary ---
Author Organization [facility] Address [address] [place] [address] Care Team Providers Care Outside Sales Name Role Phone Francesco Barahona MD Primary [...] 2024. I recommended COVID, flu, RSV, and [id number] vaccinations. Assessment & Plan (07/02/2023 10:27 AM CDT): Overall good health. Check PSA today. Colonoscopy due in 2024. I recommended that he get a COVID shot and Zizddvd42 vaccine. He declines a flu shot. Assessment & Plan (06/22/2022 10:00 AM CDT): Overall good health. [place] due in 2024. Recommended the following vaccines: Shingrix New COVID booster Flu shot [id number] Hyperlipidemia 06/22/2022 Assessment & Plan (07/07/2024 6:40 [...] Department Care Team Description 10/18/2024 11:00 AM MERCHANDISE PLANNING MANAGER Office Visit [facility] [address] [place] [address] [place] [phone] Ubaldo Rose MD Retention of urine 10/09/2024 Orders Only [facility] [address] [place] [address] [place] [phone] Ubaldo Rose MD 10/05/2024 9:40 AM MERCHANDISE PLANNING MANAGER Lab [facility] ([facility]) [address] [place] [phone] UTI symptoms 10/04/2024 Orders Only [facility] [address] [place] [address] Office [place] [address] [address] [place] [phone] Ubaldo Rose MD UTI symptoms (Primary Dx) 10/04/2024 Telephone [facility] [address] [place] [address] [address] Ubaldo Rose MD 09/19/2024 Telephone [facility] [address] [place] [address] Office [place] [address] [place] [phone] Dina Benitez CMA 09/18/2024 Telephone [facility] [address] [facility] Medical Office Building [address] [phone] Dina Benitez CMA from Last 3 Months [...] on file Legal Sex Male 12:31 PM MERCHANDISE PLANNING MANAGER Gender Identity Male 11/09/2022 8:29 PM MERCHANDISE PLANNING MANAGER Sexual Orientation Straight 11/09/2022 8: 29 PM MERCHANDISE PLANNING MANAGER Obstetrics History Last Filed Vital Signs Vital [...] Comments URINE CULTURE Routine 10/05/2024 9:43 AM MERCHANDISE PLANNING MANAGER UTI symptoms HEPATITIS C ANTIBODY Routine 06/16/2021 10:33 AM CDT Encounter for hepatitis C screening test for low risk patient COLONOSCOPY REPORT 07/22/2015 from Last 3 Months or Most Recently Relevant to Health Maintenance Results * (ABNORMAL) Urine culture Urine, clean voided (10/05/2024 9:43 AM MERCHANDISE PLANNING MANAGER) Report Final Report: Greater than or equal to 100,000 colonies/mL of Staphylococcus lugdunensis Plus growth of clinically insignificant bacterial alexei. (.) Organism STAPHYLOCOCCUS LUGDUNENSIS [facility] Organism PLUS GROWTH OF CLINICALLY INSIGNIFICANT ALEXEI. [facility] Urine, clean voided 10/05/2024 9:43 AM MERCHANDISE PLANNING MANAGER 10/05/2024 10:27 AM MERCHANDISE PLANNING MANAGER Narrative [facility] - 10/08/2024 1:07 PM MERCHANDISE PLANNING MANAGER Testing performed by [facility] ([phone]) Organism Antibiotic Method Susceptibility Staphylococcus lugdunensis Vancomycin INTERPRETATION Susceptible Staphylococcus lugdunensis Trimethoprim with Sulfamethoxazole INTERPRETATION Susceptible Staphylococcus lugdunensis Linezolid INTERPRETATION Susceptible Staphylococcus lugdunensis Doxycycline INTERPRETATION Susceptible Staphylococcus lugdunensis Nitrofurantoin INTERPRETATI ON Susceptible Staphylococcus lugdunensis Oxacillin INTERPRETATION Susceptible Staphylococcus lugdunensis Cefazolin INTERPRETATION Susceptible Staphylococcus lugdunensis Ceftriaxone INTERPRETATION Susceptible Ubaldo Rose MD LAB MICROBIOLOGY - G ENERAL ORDERABLES Final Result [facility] [place] [address] * Hepatitis C antibody (06/16/2021 10:33 AM CDT) Hep C Ab 0.2 0.0 - 0.9 s/co ratio [facility] - 01 Comment: Negative: < 0.8 Indeterminate: 0.8 - 0.9 Positive: > 0.9 The CDC recommends that a positive HCV antibody result be followed up with a HCV Nucleic Acid Amplification test ([id number]). Blood specimen (specimen) 06/16/2021 10:33 AM CDT 06/16/2021 Narrative [facility] - 06/17/2021 9:10 AM CDT Performed at: - [address] [id number] Core Manager: Glenn Aquino PhD, Phone: [phone] Francesco Barahona MD LAB MICROBIOLOGY - GENE RAL ORDERABLES Final Result [facility] - 01 * COLONOSCOPY REPORT (07/22/2015) Anatomical Region Laterality Modality Other Narrative 07/22/2015 Ordered by an unspecified provider. us Historical Provider GI PROCEDURE ORDERABLES F inal Result from Last 3 Months or Most Recently Relevant to Health Maintenance Insurance MEDICARE MEDICARE [facility] Address: [address] [address] [place] [address] MEDICARE [facility] Advance Directives For more information, please contact: [phone] Documents on File Type Date Recorded Patient Customer Advocate Expl anation ADVANCE DIRECTIVE 10/01/2017 12:18 PM Care Teams Outside Sales Relationship Specialty Start Date End Date Francesco Barahona MD [address] [facility] [address] [address] PCP - General Endocrinology Diabetes & Metabolism 06/16/21
--- OUTSIDE RECORDS SUMMARY | 2024-11-03 22:47 | XMS_ITS | Continuity of Care Document ---
Author Organization [facility] Address [address] [facility] [address] [place] [address] Phone Care Team Providers Care Ground Host/Hostess Name Role Phone Mary Cabrales Unavailable Unavailable Procedures Procedure Date Eye Exam & Treatment Eye Exam & Treatment Refraction Eye Exam Established Pt SV Plastic Sphcyl [place] +/-4d, .12-2d De Frames Deluxe Tax - Medical Eye Exam & Treatment Refraction Advance Directives Directive Yes / No Effective Date File Name No Information Encounters Encounter Description Practice Location Reason(s) For Visit Diagnoses Date Provider Providers Copied on Encounter [facility], [address] [place] [address] [address], [place], [place], [id number], tel:[phone] SEC [facility] No Information 2 2-201 0 Samra Leggett [address] [facility] , [address], [place], [address], [place]. tel:[phone] [facility], [address] [place] [address] [address], [place], [place], [id number], [place] tel:[phone] SEC [facility] [place] No Information Willis-0 4-200 9 Samra Leggett [address] , [address], [place], [address], [place]. tel:[phone] [facility], [address] [place] [address] [address], [place], [place], [id number], [place] tel:[phone] SEC [facility] No Information Aug- 8 Samar Hernandez. [address] [facility] , [address], [place], [address], [place]. tel:[phone] [facility], [address], [place], [place], [id number], [place] tel:[phone] SEC [facility] No Information Aug-0 3200 [address] [employer] . [address] [facility], [address], [place], [place], [id number], [place]. tel:[phone] Referring Provider: Mary Brown, [address] [place] [address] [address], [place], [place], [facility]. tel:[phone] sulting Provider: Freddie Cruz [address] [place] [address], [place], [place], [facility]. tel:[phone] [facility], [address], [place], [place], [id number], [place] tel:[phone] SEC [facility] No Information 8 Samra Hernandez. [address] [place] [address] , [address], [place], [address], [place]. tel:[phone] Family History Family Member Type Diagnosis Age At Onset No Information Payers Payer name Insurance type Covered libertarian ID Authorrejia tiomar(s) [place] [id number] Social History Type Description Quantity Date Captured [...]
--- OUTSIDE RECORDS SUMMARY | 2024-11-03 22:47 | XMS_ITS | Encounter Summary ---
Author Organization [facility] Address [address] [place] [address] Phone Care Team Providers Care Hammer Adjuster Name Role Phone Keanu Anthony MD Primary Care Provider [phone] Francesco Barahona MD Primary Care Provider Encounter Details Date Type Department Care Team (Latest Contact Info) Description 05/02/2017 Orders Only [facility] CONVERSION Scanning, Provider Social History Tobacco Use Types Packs/Day Years Used Date Smoking Tobacco: Never Sex and Gender Information Value Date Recorded Sex Assigned at Not on file Legal Sex Male 12:31 PM VENEER MARKER Gender Identity Male 11/09/2022 8:29 PM VENEER MARKER Sexual Orientation Straight 11/09/2022 8: 29 PM VENEER MARKER documented as of this encounter Plan of [...] on filedocumented in this encounter Care Teams Hammer Adjuster Relationship Specialty Start Date End Date Keanu Anthony MD [address] [facility] [address] [place] [address] PCP - General 03/30/17 06/15/21 Francesco Barahona MD [address] [address] PCP - General Endocrinology Diabetes & Metabolism 06/16/21 documented as of this encounter
--- OUTSIDE RECORDS SUMMARY | 2024-11-03 22:47 | XMS_ITS | Referral Summary ---
Author Organization [facility] Address [address] [place] [address] Care Team Providers Care Petrol Tanker Driver Name Role Phone Francesco Barahona MD Primary Care Provider Encounters Date Type Department Care Team Description 10/18/2024 11:00 AM RN ANESTHETIST Office Visit [facility] [address] [place] [address] Office [facility] [address] [place] [phone] Ubaldo Rose MD Retention of urine 10/09/2024 Orders Only [facility] [address] [place] [address] Office [facility] [address] [place] [phone] Ubaldo Rose MD 10/05/2024 9:40 AM RN ANESTHETIST Lab [facility] ([facility]) [address] [place] [phone] UTI symptoms 10/04/2024 Orders Only [facility] [address] [place] [address] Office [address] [place] [phone] Ubaldo Rose MD UTI symptoms (Primary Dx) 10/04/2024 Telephone [facility] [address] [place] [address] Office [facility] [address] [place] [phone] Ubaldo Rose MD 09/19/2024 Telephone [facility] [address] [facility] Office Building [address] [place] [address] Dina Benitez CMA 09/18/2024 Telephone [facility] [address] [facility] Office Building [address] [place] [phone] Dina Benitez CMA from Last 3 Months [...] 2024. I recommended COVID, flu, RSV, and [id number] vaccinations. Assessment & Plan (07/02/2023 10:27 AM CDT): Overall good health. Check PSA today. Colonoscopy due in 2024. I recommended that he get a COVID shot and [id number] vaccine. He declines a flu shot. Assessment & Plan (06/22/2022 10:00 AM CDT): Overall good health. Inyokern due in 2024. Recommended the following vaccines: Shingrix New COVID booster Flu shot [id number] Hyperlipidemia 06/22/2022 Assessment & Plan (07/07/2024 6:40 [...] on file Legal Sex Male 12:31 PM RN ANESTHETIST Gender Identity Male 11/09/2022 8:29 PM RN ANESTHETIST Sexual Orientation Straight 11/09/2022 8: 29 PM RN ANESTHETIST Last Filed Vital Signs Vital Sign Reading [...] Comments URINE CULTURE Routine 10/05/2024 9:43 AM RN ANESTHETIST UTI symptoms HEPATITIS C ANTIBODY Routine 06/16/2021 10:33 AM CDT Encounter for hepatitis C screening test for low risk patient COLONOSCOPY REPORT 07/22/2015 from Last 3 Months or Most Recently Relevant to Health Maintenance Results * (ABNORMAL) Urine culture Urine, clean voided (10/05/2024 9:43 AM RN ANESTHETIST) Report Final Report: Greater than or equal to 100,000 colonies/mL of Staphylococcus lugdunensis Plus growth of clinically insignificant bacterial alexei. (.) Organism STAPHYLOCOCCUS LUGDUNENSIS [facility] Organism PLUS GROWTH OF CLINICALLY INSIGNIFICANT ALEXEI. [facility] Urine, clean voided 10/05/2024 9:43 AM RN ANESTHETIST 10/05/2024 10:27 AM RN ANESTHETIST Narrative [facility] - 10/08/2024 1:07 PM RN ANESTHETIST Testing performed by [facility]biology Laboratory ([phone]) Organism Antibiotic Method Susceptibility Staphylococcus lugdunensis Vancomycin INTERPRETATION Susceptible Staphylococcus lugdunensis Trimethoprim with Sulfamethoxazole INTERPRETATION Susceptible Staphylococcus lugdunensis Linezolid INTERPRETATION Susceptible Staphylococcus lugdunensis Doxycycline INTERPRETATION Susceptible Staphylococcus lugdunensis Nitrofurantoin INTERPRETATI ON Susceptible Staphylococcus lugdunensis Oxacillin INTERPRETATION Susceptible Staphylococcus lugdunensis Cefazolin INTERPRETATION Susceptible Staphylococcus lugdunensis Ceftriaxone INTERPRETATION Susceptible us Ubaldo Rose MD LAB MICROBIOLOGY - G ENERAL ORDERABLES Final Result [facility] Department of [place] [address] * Hepatitis C antibody (06/16/2021 10:33 AM CDT) Hep C Ab 0.2 0.0 - 0.9 s/co ratio [facility] - 01 Comment: Negative: < 0.8 Indeterminate: 0.8 - 0.9 Positive: > 0.9 The CDC recommends that a positive HCV antibody result be followed up with a HCV Nucleic Acid Amplification test ([id number]). Blood specimen (specimen) 06/16/2021 10:33 AM CDT 06/16/2021 Narrative [facility] - 06/17/2021 9:10 AM CDT Performed at: - [address] [id number] Balance And Hairspring Assembler: Glenn Aquino PhD, Phone: [phone] Francesco Barahona MD LAB MICROBIOLOGY - GENE RAL ORDERABLES Final Result [facility] - * COLONOSCOPY REPORT (07/22/2015) Anatomical Region Laterality Modality Other Narrative 07/22/2015 Ordered by an unspecified provider. Historical Provider GI PROCEDURE ORDERABLES F inal Result from Last 3 Months or Most Recently Relevant to Health Maintenance Insurance [employer] MEDICARE MEDICARE SOLUTIONS MEDICARE [facility] MEDICARE [facility] MEDICARE Advance Directives For more information, please contact: [phone] Documents on File Type Date Recorded Patient Color Strainer Expl anation ADVANCE DIRECTIVE 10/01/2017 12:18 PM Care Teams Petrol Tanker Driver Relationship Specialty Start Date End Date Francesco Barahona MD [address] [address] PCP - General Endocrinology Diabetes & Metabolism 06/16/21
--- OUTSIDE RECORDS SUMMARY | 2024-11-03 22:47 | XMS_ITS | Encounter Summary ---
Author Organization [facility] Address [address] [place] [address] Phone Care Team Providers Care Accounts Payable Accountant Name Role Phone Keanu Anthony MD Primary Care Provider [phone] Francesco Barahona MD Primary Care Provider Encounter Details Date Type Department Care Team (Latest Contact Info) Description 03/24/2017 Orders Only [facility] CONVERSION Scanning, Provider Social History Tobacco Use Types Packs/Day Years Used Date Smoking Tobacco: Never Sex and Gender Information Value Date Recorded Sex Assigned at Not on file Legal Sex Male 12:31 PM TAX CREDIT LEASING CONSULTANT Gender Identity Male 11/09/2022 8:29 PM TAX CREDIT LEASING CONSULTANT Sexual Orientation Straight 11/09/2022 8: 29 PM TAX CREDIT LEASING CONSULTANT documented as of this encounter Plan of [...] on filedocumented in this encounter Care Teams Accounts Payable Accountant Relationship Specialty Start Date End Date Keanu Anthony MD [address] [facility] [address] [place] [address] PCP - General 03/30/17 06/15/21 Francesco Barahona MD [address] [address] PCP - General Endocrinology Diabetes & Metabolism 06/16/21 documented as of this encounter
--- NOTE | 2024-11-03 23:54 | ADMGEN ---
This patient, Drew Trinidad, was admitted to [facility] S[facility] Room 323-02. Patient/family oriented to hospital policies and general routines including ID bracelet, bed and alarms, visiting hours, pain management, procedures, bathroom and other care routines, personal items, smoking policy, room service/diet, and visiting hours. Information on how to activate the Rapid Response Team has been discussed. Patient/Family are encouraged to report perceived risks to care and to ask questions if they do not understand what they are told or what they should do.
[2024-11-04] VITALS (9 sets, daily range): BP systolic 109–131; BP diastolic 60–73; PULSE 67–97; RESP 18–20; TEMP 36.5–37.2; O2SAT 93–100
[2024-11-04] MEDS: SODIUM CHLORIDE 0.9% IV 1,000 ML 125 ML IV CONT ×3 (00:01→20:32)
--- NOTE | 2024-11-04 03:24 | P.HP_ITS ---
H&P: HPI History of Present Illness Date/Time: 11/04/24 03:24 Chief Complaint: Lightheaded, diarrhea Narrative: 79-year-old male with a past medical history of recent hospitalization for perforated duodenal ulcer and BPH with intermittent straight catheterization who presented to the ER with diarrhea since his ulcer repair October 10, 2024 and new onset lightheadedness with multiple falls. The patient had a perforated duodenal ulcer and underwent emergency laparoscopic repair of duodenal perforation on 10/10/2024. He reported that for the 1st week after surgery he had frankly watery diarrhea but then started to have some slightly more formed stools. But never returned to complete the normal stools and reports that his stools are like mush. He is having about 4 watery to mushy stools a day. He has had little interest in food and is only been eating couple of bites of each meal before he does has no appetite. He denies any epigastric pain or abdominal distension. He reports feeling extremely lightheaded groggy in feeling heaviness in his arms and legs. He reports that out of the 3 times he has fallen at home are accompanied by severe lightheadedness and dizziness feeling off balance. Yesterday prior to coming to the ER he was in the bathroom getting ready shave when the next thing he knew is sitting on the floor. He does not remember a feeling lightheaded or dizzy before that episode. He slid down the wall onto his bottom. He not hit his head. He denies any nausea or vomiting. He denies any abdominal pain. He was started on antibiotics postoperatively but completed his antibiotic course he has been continued on Protonix and Carafate. He was wondering if some of his symptoms could possibly be due to his medications. He does have a history of BPH and is had to self-catheterize himself in the past. Since about a week after surgery he has had recurrence of his urinary retention. He states that his urologist at [facility] wants to do a cystoscopy on him once his current symptoms have resolved. He denies any hematuria. He has noticed that his urine has been a little bit darker than usual. He reports he only drinks 2 bottles of water a day. He denies any palpitations or chest pain. He does have an increased frequency of stool output when he eats. Review of Systems 2 Review of Systems: 12 systems were reviewed with pertinent positives and negatives per HPI. Except as documented in the HPI, all other systems were reviewed and are negative. [facility] Past Medical History Medical History (Updated 11/04/24 @ 07:55 by Kasandra Munroe DO) Duodenal ulcer, perforated BPH (benign prostatic hyperplasia) With intermittent straight catheterization Surgical History Surgical History (Updated 11/04/24 @ 03:38 by Kasandra Mnuroe DO) Status post laparoscopic procedure (10/10/24) Duodenal ulcer Social History Social History (Updated 11/04/24 @ 07:35 by Kasandra Munroe DO) Social History: He lives at home with his of 55 years. 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 He rarely drinks alcohol and only in small amounts. He is a lifelong nonsmoker and does not use illicit substances. Code status: Full code Surrogate decision maker: Kalyani () Smoking status: Never smoker Alcohol intake: never Substance use: never Substance use type: does not use Do You Feel Safe in your Home?: Yes Lack of Transportation: No Lack of Food: Never True Current Housing: I Have Housing Concerned About Future Housing: No Difficulty Paying Gas/Electric Bills: No Difficulty Paying for Meds: No Currently Unemployed: No Education: Master's Degree or Higher Difficulty w/ Childcare or Family Care: No Spiritual care concerns: No Meds Home Medications and Allergies Home Medications ?Medication ?Instructions ?Recorded ?Confirmed ?Type aspirin 81 mg capsule 81 mg PO DAILY 10/11/24 11/04/24 History pantoprazole 40 mg tablet,delayed 40 mg PO BID #60 tabs 10/13/24 11/04/24 Rx release sucralfate 1 gram tablet 1 g PO ACHS #120 tabs 10/13/24 11/04/24 Rx Allergies Allergy/AdvReac Type Severity Reaction Status Date / Time No Known Allergies Allergy Verified 11/03/24 18:47 Vital Signs Vital Signs - 24 hr 11/03/24 13:04 11/03/24 18:45 11/03/24 18:46 Temperature 98.3 F Pulse Rate 103 H 120 H 115 H Respiratory Rate 16 Blood Pressure 120/60 156/85 H 156/83 H Pulse Oximetry 100 Oxygen Delivery 11/03/24 18:46 11/03/24 18:47 11/03/24 20:49 Temperature Pulse Rate 115 H 120 H 110 H Respiratory Rate 19 18 Blood Pressure 171/92 H 125/84 144/84 H Pulse Oximetry 100 100 Oxygen Delivery 11/03/24 23:00 11/03/24 23:20 11/03/24 23:30 Temperature 98.9 F 98.4 F Pulse Rate 99 97 Respiratory Rate 16 16 Blood Pressure 108/66 119/63 Pulse Oximetry 97 98 98 Oxygen Delivery Room Air 11/04/24 00:02 Temperature Pulse Rate 97 Respiratory Rate Blood Pressure Pulse Oximetry Oxygen Delivery Exam 2 Narrative: Weight 64.6 kg BMI 21.7 Const: Other: No acute distress, well-developed well-nourished HENMT: Other: Head is normocephalic atraumatic, mucous membranes are tacky, no oral pharyngeal erythema Eyes: Other: Pupils are equal and reactive, no scleral icterus Neck: Other: No lymphadenopathy, trachea midline Resp: Other: Clear to auscultation bilaterally, no increased work of breathing Cardio: Other: Regular rate, regular rhythm, 2+ bilateral radial and pedal pulses GI: Other: Soft, nontender, nondistended, hyperactive bowel sounds Skin: Other: No jaundice, no pallor Neuro: Other: Alert oriented, speech is clear, no facial asymmetry, normal gait Extrem: Other: No clubbing, no cyanosis, no edema, normal strength H&P: Results Labs Labs: Laboratory Tests 11/03/24 15:40 11/03/24 15:40 11/03/24 11/03/24 11/03/24 15:40 18:50 19:13 WBC 11.5 H RBC 3.94 L Hgb 11.9 L Hct 36.2 L MCV 91.9 MCH 30.2 MCHC 32.9 RDW 13.4 Plt Count 240 MPV 9.5 Immature Gran % (Auto) 0.3 Neut % (Auto) 83.6 H Lymph % (Auto) 9.0 L [place] % (Auto) 6.9 Eos % (Auto) 0.0 Baso % (Auto) 0.2 Lymph # (Auto) 1.04 [place] # (Auto) 0.8 H Eos # (Auto) 0.0 Baso # (Auto) 0.0 Abs Immat Gran (auto) 0.03 Absolute Neuts (auto) 9.6 H Absolute Nucleated RBC 0.000 Nucleated RBC % 0.0 PT 15.4 H INR 1.2 APTT 30.6 Sodium 135 L Potassium 4.6 Chloride 103 Carbon Dioxide 24 Anion Gap 8 BUN 21 H Creatinine 1.02 Estim Creat Clear Calc 46 Estimated GFR > 60 Glucose 106 Calcium 8.4 Magnesium 2.0 Total Bilirubin 1.1 AST 31 ALT 13 Alkaline Phosphatase 114 Total Creatine Kinase 147 Troponin I < 0.012 Total Protein 7.0 Albumin 3.3 L Urine Color Dark yellow Urine Appearance Cloudy H Urine pH 5.5 Ur Specific [place] 1.021 Urine Protein 2+ H Urine Glucose (UA) Negative Urine Ketones Trace H Ur Blood (Man) 1+ H Urine Nitrate Positive H Urine Bilirubin Negative Urine Urobilinogen 0.2 Add Ur Microanalysis Reviewed Leukocyte Esterase Rfl 2+ H Urine RBC 3-5 H Urine WBC >100 H Ur Squamous Epith Cells None seen Urine Bacteria 4+ H Urine Casts 6-10 C. difficile (PCR) Influenza A (RT-PCR) Negative Influenza B (RT-PCR) Negative RSV (RT-PCR) Negative SARS-CoV-2 RNA (RT-PCR) Negative 11/04/24 06:11 WBC RBC Hgb Hct MCV MCH MCHC RDW Plt Count MPV Immature Gran % (Auto) Neut % (Auto) Lymph % (Auto) [place] % (Auto) Eos % (Auto) Baso % (Auto) Lymph # (Auto) [place] # (Auto) Eos # (Auto) Baso # (Auto) Abs Immat Gran (auto) Absolute Neuts (auto) Absolute Nucleated RBC Nucleated RBC % PT INR APTT Sodium Potassium Chloride Carbon Dioxide Anion Gap BUN Creatinine Estim Creat Clear Calc Estimated GFR Glucose Calcium Magnesium Total Bilirubin AST ALT Alkaline Phosphatase Total Creatine Kinase Troponin I Total Protein Albumin Urine Color Urine Appearance Urine pH Ur Specific [place] Urine Protein Urine Glucose (UA) Urine Ketones Ur Blood (Man) Urine Nitrate Urine Bilirubin Urine Urobilinogen Add Ur Microanalysis Leukocyte Esterase Rfl Urine RBC Urine WBC Ur Squamous Epith Cells Urine Bacteria Urine Casts C. difficile (PCR) Pending Influenza A (RT-PCR) Influenza B (RT-PCR) RSV (RT-PCR) SARS-CoV-2 RNA (RT-PCR) Impressions Head CT 11/03/24 15:58 IMPRESSION: 1. Moderate nonspecific cerebral white matter disease, which likely represents chronic small vessel ischemic disease. Chest X-Ray 11/03/24 16:10 IMPRESSION: 1. No acute cardiopulmonary disease. Chest/Abdomen/Pelvis CTA 11/03/24 20:10 IMPRESSION: 1. No pulmonary embolus. 2. Wall thickening of the left colon, which may be interstitial edema or colitis. [id number] 15:45:01 Measurements Intervals Brandon Rate: 90 P: 75 SD: 145 QRS: 63 QRSD: 86 T: 70 QT: 363 QTc: 446 Interpretive Statements SINUS RHYTHM WITH OCCASIONAL SUPRAVENTRICULAR PREMATURE COMPLEXES BASELINE ARTIFACT- I, II, III, AVR, AVL, AVF, V1-V6 BORDERLINE ECG Compared to ECG 10/10/2024 17:12:31 HEART RATE HAS DECREASED Assessment and Plan Assessment and plan (1) Diarrhea: Qualifiers: Diarrhea type: presumed infectious Qualified Code(s): R19.7 - Diarrhea, unspecified Code(s): R19.7 - Diarrhea, unspecified Status: Acute (2) Colitis: Code(s): K52.9 - Noninfective gastroenteritis and colitis, unspecified Status: Acute (3) Abnormal finding on urinalysis: Code(s): R82.90 - Unspecified abnormal findings in urine Status: Acute (4) Orthostatic hypotension: Code(s): I95.1 - Orthostatic hypotension Status: Acute (5) Duodenal ulcer, perforated: Code(s): K26.5 - Chronic or unspecified duodenal ulcer with perforation Status: Acute Plan Patient is having diarrhea with evidence of possible colitis on CT scan presumed to be infectious given leukocytosis. Patient is at higher risk of C diff given recent antibiotic administration. Will check C diff PCR and stool cultures. The patient has been started on empiric antibiotic therapy with Rocephin and Flagyl. Patient's UA is also abnormal although he is not having much in the way of urinary symptoms he could have underlying UTI. Urine cultures have been obtained and are pending. Patient is at higher risk for UTI given that he straight caths every 8 hours. He is already on Rocephin part of treatment for possible colitis. He did have significant change in his vital signs with a 25 point drop in systolic pressures with going from sitting to standing. He received 2 L fluid bolus in the ER. Will continue maintenance fluids at 125 mL an hour will repeat orthostatic vital signs this a.m.. Will repeat CBC and electrolyte panel as well. Given patient's recent history of perforated duodenal ulcer will continue Protonix and Carafate. Patient has been admitted as observation status. Quality If No VTE Prophylaxis Answer both mechanical and pharmacologic: Reason no mechanical VTE proph: low risk/not indicated (Patient is up and walking) Reason no pharmacologic proph: medical contraindication active bleeding/bleeding risk Hospitalist MIPS Advance Care Plan I have confirmed that the patient's Advanced Care Plan is present, code status is documented, or surrogate decision maker is listed in patient medical record.: Yes Medication Reconciliation I have utilized all available resources to obtain, update and review the patients current medications (includes all prescriptions, OTC, herbals, cannabis, and nutritional supplements).: Yes
[2024-11-04] MEDS: metroNIDAZOLE 500 MG/ISO 100ML 500 MG/100 ML BAG 100 MG IVPB (05:58)
[2024-11-04] MEDS: SUCRALFATE 1 GM TABLET PO ×4 (06:02→20:33)
[2024-11-04 08:15] LABS: Toxigenic C. Diff POSITIVE (NEGATIVE)
[2024-11-04 08:46] LABS: Hematocrit 37.2 % (42.0-52.0); Hemoglobin 11.8 g/dL (14.0-18.0); Mean Corpuscular HGB Conc 31.7 g/dl (32-36); Mean Corpuscular Hemoglobin 29.4 pg (26-34); Mean Corpuscular Volume 92.8 fl (80-100); Mean Platelet Volume 9.4 fl (7.4-10.4); Platelet Count Result 231 k/mm3 (150-375); Red Blood Count 4.01 M/mm3 (4.6-6.20); Red Cell Distribution Width 13.5 % (11.5-14.5); White Blood Count 6.9 K/mm3 (4.5-10.0)
[2024-11-04 08:55] LABS: Anion Gap 5 mmol/L (4-12); Blood Urea Nitrogen 18 mg/dL (9-20); Calcium 8.2 mg/dL (8.4-10.2); Carbon Dioxide 25 mmol/L (22-30); Chloride 107 mmol/L (98-107); Estimated CRCL calculation 56 ml/min; Estimated Glomerular Filt Rate > 60; Glucose 89 mg/dL (65-110); Sodium 137 mmol/L (137-145)
--- NOTE | 2024-11-04 09:52 | P.PNIM_ITS ---
Progress Note: A&P Assessment and Plan (1) Diarrhea: Qualifiers: Diarrhea type: presumed infectious Qualified Code(s): R19.7 - Diarrhea, unspecified Code(s): R19.7 - Diarrhea, unspecified Status: Acute (2) Colitis: Code(s): K52.9 - Noninfective gastroenteritis and colitis, unspecified Status: Acute (3) Abnormal finding on urinalysis: Code(s): R82.90 - Unspecified abnormal findings in urine Status: Acute (4) Orthostatic hypotension: Code(s): I95.1 - Orthostatic hypotension Status: Acute (5) Duodenal ulcer, perforated: Code(s): K26.5 - Chronic or unspecified duodenal ulcer with perforation Status: Acute Plan C diff colitis Presented with diarrhea and syncope CT AP showed colitis Now on Fidaxomicin monitor Syncope From dehydration from diarrhea Continue above IVF and above care BPH s/p TURP Continue home meds Hx of Duodenal ulcer on protonix DVT prophylaxis on Sq Lovenox Subjective Date/time seen: 11/04/24 09:52 Interval history: Patient comfortable at bedside Patient had syncope at home prior to presenting to the ER Will monitor one more day even though the patient requested to be discharged today Review of Systems Review of Systems: 12 systems were reviewed with pertinent positives and negatives per HPI. Except as documented in the HPI, all other systems were reviewed and are negative. Exam Narrative: Weight 64.6 kg BMI 21.7 Const: Other: No acute distress, well-developed well-nourished HENMT: Other: Head is normocephalic atraumatic, mucous membranes are tacky, no oral pharyngeal erythema Eyes: Other: Pupils are equal and reactive, no scleral icterus Neck: Other: No lymphadenopathy, trachea midline Resp: Other: Clear to auscultation bilaterally, no increased work of breathing Cardio: Other: Regular rate, regular rhythm, 2+ bilateral radial and pedal pulses GI: Other: Soft, nontender, nondistended, hyperactive bowel sounds Skin: Other: No jaundice, no pallor Neuro: Other: Alert oriented, speech is clear, no facial asymmetry, normal gait Extrem: Other: No clubbing, no cyanosis, no edema, normal strength Objective Data Vital Signs Vital Signs: Vital Signs - 24 hr 11/03/24 13:04 11/03/24 18:45 11/03/24 18:46 Temperature 98.3 F Pulse Rate 103 H 120 H 115 H Respiratory Rate 16 Blood Pressure 120/60 156/85 H 156/83 H Pulse Oximetry 100 Oxygen Delivery 11/03/24 18:46 11/03/24 18:47 11/03/24 20:49 Temperature Pulse Rate 115 H 120 H 110 H Respiratory Rate 19 18 Blood Pressure 171/92 H 125/84 144/84 H Pulse Oximetry 100 100 Oxygen Delivery 11/03/24 23:00 11/03/24 23:20 11/03/24 23:30 Temperature 98.9 F 98.4 F Pulse Rate 99 97 Respiratory Rate 16 16 Blood Pressure 108/66 119/63 Pulse Oximetry 97 98 98 Oxygen Delivery Room Air 11/04/24 00:02 11/04/24 04:02 11/04/24 05:25 Temperature 97.7 F Pulse Rate 97 95 82 Respiratory Rate 20 Blood Pressure 131/68 Pulse Oximetry 93 Oxygen Delivery Intake/Output Intake/Output: Intake & Output 11/01/24 11/02/24 11/03/24 11/04/24 23:59 23:59 23:59 23:59 Intake Total 2150 660 Output Total 575 Balance 2150 85 Meds/Results Medications: Active Medications Generic Name Dose Route Start Last Admin Trade Name Freq PRN Reason Stop Dose Admin Acetaminophen 650 mg 11/04/24 03:23 Acetaminophen 325 Mg Tablet PO Q4H PRN Mild Pain (1-3) or Fever Aspirin 81 mg 11/04/24 09:00 Aspirin 81 Mg Enteric Tablet PO QAM KEVON Calcium Carbonate 200 mg 11/04/24 03:23 Calcium Carbonate (Tums) 500 Mg (200 Mg Elemental) PO Q6H PRN Indigestion Fidaxomicin 200 mg 11/04/24 09:00 Fidaxomicin 200 Mg Tablet PO 11/14/24 08:59 Q12HR KEVON Sodium Chloride 1,000 mls @ 125 mls/hr 11/03/24 21:35 11/04/24 00:01 Normal Saline Iv IV CONT 125 mls/hr .Q8H KEVON Administration Ceftriaxone Sodium 1 gm in 50 mls @ 100 mls/hr 11/04/24 21:00 Rocephin 1 Gm/Ns 50 Ml IVPB Q24H KEVON Ondansetron HCl 4 mg 11/04/24 03:23 Ondansetron Inj 4 Mg/2 Ml Vial IV PUSH Q6H PRN Nausea And Vomiting Pantoprazole Sodium 40 mg 11/04/24 09:00 Pantoprazole 40 Mg Tablet PO BID [facility] Sucralfate 1 gm 11/04/24 07:00 11/04/24 06:02 Sucralfate 1 Gm Tablet PO 1 gm 0700,1100,1600,2100 [facility] Administration Vancomycin HCl 125 mg 11/04/24 09:00 Vancomycin Hcl 125 Mg Oral Capsule PO Q6HR [facility] Radiology Results: ITS Impressions Head CT 11/03/24 15:58 IMPRESSION: 1. Moderate nonspecific cerebral white matter disease, which likely represents chronic small vessel ischemic disease. Chest X-Ray 11/03/24 16:10 IMPRESSION: 1. No acute cardiopulmonary disease. Chest/Abdomen/Pelvis CTA 11/03/24 20:10 IMPRESSION: 1. No pulmonary embolus. 2. Wall thickening of the left colon, which may be interstitial edema or colitis. Labs Labs: Laboratory Results - last 24 hr 11/03/24 11/03/24 11/03/24 15:40 18:50 19:13 WBC 11.5 H RBC 3.94 L Hgb 11.9 L Hct 36.2 L MCV 91.9 MCH 30.2 MCHC 32.9 RDW 13.4 Plt Count 240 MPV 9.5 Immature Gran % (Auto) 0.3 Neut % (Auto) 83.6 H Lymph % (Auto) 9.0 L H[place] % (Auto) 6.9 Eos % (Auto) 0.0 Baso % (Auto) 0.2 Lymph # (Auto) 1.04 [place] # (Auto) 0.8 H Eos # (Auto) 0.0 Baso # (Auto) 0.0 Abs Immat Gran (auto) 0.03 Absolute Neuts (auto) 9.6 H Absolute Nucleated RBC 0.000 Nucleated RBC % 0.0 PT 15.4 H INR 1.2 APTT 30.6 Sodium 135 L Potassium 4.6 Chloride 103 Carbon Dioxide 24 Anion Gap 8 BUN 21 H Creatinine 1.02 Estim Creat Clear Calc 46 Estimated GFR > 60 Glucose 106 Calcium 8.4 Magnesium 2.0 Total Bilirubin 1.1 AST 31 ALT 13 Alkaline Phosphatase 114 Total Creatine Kinase 147 Troponin I < 0.012 Total Protein 7.0 Albumin 3.3 L Urine Color Dark yellow Urine Appearance Cloudy H Urine pH 5.5 Ur Specific [place] 1.021 Urine Protein 2+ H Urine Glucose (UA) Negative Urine Ketones Trace H Ur Blood (Man) 1+ H Urine Nitrate Positive H Urine Bilirubin Negative Urine Urobilinogen 0.2 Add Ur Microanalysis Reviewed Leukocyte Esterase Rfl 2+ H Urine RBC 3-5 H Urine WBC >100 H Ur Squamous Epith Cells None seen Urine Bacteria 4+ H Urine Casts 6-10 C. difficile (PCR) Influenza A (RT-PCR) Negative Influenza B (RT-PCR) Negative RSV (RT-PCR) Negative SARS-CoV-2 RNA (RT-PCR) Negative 11/04/24 11/04/24 06:11 08:36 WBC 6.9 RBC 4.01 L Hgb 11.8 L Hct 37.2 L MCV 92.8 MCH 29.4 MCHC 31.7 L RDW 13.5 Plt Count 231 MPV 9.4 Immature Gran % (Auto) Neut % (Auto) Lymph % (Auto) [place] % (Auto) Eos % (Auto) Baso % (Auto) Lymph # (Auto) [place] # (Auto) Eos # (Auto) Baso # (Auto) Abs Immat Gran (auto) Absolute Neuts (auto) Absolute Nucleated RBC Nucleated RBC % PT INR APTT Sodium 137 Potassium 4.0 Chloride 107 Carbon Dioxide 25 Anion Gap 5 BUN 18 Creatinine 0.85 Estim Creat Clear Calc 56 Estimated GFR > 60 Glucose 89 Calcium 8.2 L Magnesium Total Bilirubin AST ALT Alkaline Phosphatase Total Creatine Kinase Troponin I Total Protein Albumin Urine Color Urine Appearance Urine pH Ur Specific [place] Urine Protein Urine Glucose (UA) Urine Ketones Ur Blood (Man) Urine Nitrate Urine Bilirubin Urine Urobilinogen Add Ur Microanalysis Leukocyte Esterase Rfl Urine RBC Urine WBC Ur Squamous Epith Cells Urine Bacteria Urine Casts C. difficile (PCR) Positive A* Influenza A (RT-PCR) Influenza B (RT-PCR) RSV (RT-PCR) SARS-CoV-2 RNA (RT-PCR)
[2024-11-04] MEDS: PANTOPRAZOLE 40 MG TABLET PO ×2 (09:58→17:25)
[2024-11-04] MEDS: VANCOMYCIN HCL 125 MG ORAL CAPSULE PO (09:58)
[2024-11-04] MEDS: FIDAXOMICIN 200 MG TABLET PO ×2 (09:58→20:33)
[2024-11-04] MEDS: ASPIRIN 81 MG ENTERIC TABLET PO (09:59)
[2024-11-05 00:03] VITALS: PULSE 72
[2024-11-05 04:03] VITALS: PULSE 70
[2024-11-05] MEDS: SODIUM CHLORIDE 0.9% IV 1,000 ML 125 ML IV CONT (05:29)
[2024-11-05 05:51] VITALS: BP 144/85; PULSE 91; RESP 18; TEMP 36.6; O2SAT 99
[2024-11-05] MEDS: SUCRALFATE 1 GM TABLET PO (07:04)
[2024-11-05 08:00] VITALS: PULSE 69
[2024-11-05 08:45] LABS: Basophils Percent Auto 0.5 % (0.2-1.2); Eosinophils Absolute Auto 0.1 K/mm3 (0-0.3); Eosinophils Percent Auto 2.4 % (0-4.4); Hematocrit 39.6 % (42.0-52.0); Hemoglobin 12.9 g/dL (14.0-18.0); Immature Granulocyte Absolute 0.01 K/mm3 (0.00-0.031); Immature Granulocyte Percent A 0.2 % (0-0.5); Lymphocytes Absolute Auto 1.03 K/mm3 (0.9-3.2); Lymphocytes Percent Auto 25.2 % (18.3-44.2); Mean Corpuscular HGB Conc 32.6 g/dl (32-36); Mean Corpuscular Volume 92.1 fl (80-100); Mean Platelet Volume 9.4 fl (7.4-10.4); Monocytes Absolute Auto 0.4 K/mm3 (0.1-0.6); Monocytes Percent Auto 10.8 % (2.6-8.5); Neutrophils Absolute Auto 2.5 K/mm3 (1.3-6.7); Neutrophils Percent Auto 60.9 % (45.5-73.1); Platelet Count Result 258 k/mm3 (150-375); Red Cell Distribution Width 13.5 % (11.5-14.5); White Blood Count 4.1 K/mm3 (4.5-10.0)
[2024-11-05] MEDS: ASPIRIN 81 MG ENTERIC TABLET PO (08:48)
[2024-11-05] MEDS: FIDAXOMICIN 200 MG TABLET PO (08:49)
[2024-11-05] MEDS: PANTOPRAZOLE 40 MG TABLET PO (08:49)
[2024-11-05 08:54] LABS: Alanine Aminotransferase 15 U/L (6-50); Albumin Level 3.4 g/dL (3.5-5.1); Alkaline Phosphatase 104 U/L (38-126); Anion Gap 7 mmol/L (4-12); Aspartate Amino Transferase 36 U/L (17-59); Bilirubin,Total 0.6 mg/dL (0.2-1.3); Blood Urea Nitrogen 16 mg/dL (9-20); Calcium 8.7 mg/dL (8.4-10.2); Carbon Dioxide 26 mmol/L (22-30); Chloride 106 mmol/L (98-107); Estimated CRCL calculation 65 ml/min; Estimated Glomerular Filt Rate > 60; Glucose 96 mg/dL (65-110); Magnesium 1.7 mg/dL (1.6-2.3); Potassium 3.9 mmol/L (3.4-5.0); Sodium 139 mmol/L (137-145)
--- NOTE | 2024-11-05 11:47 | P.DS_ITS ---
DS: Admitting Diagnosis Discharge Date 11/05/24 Admitting Diagnosis Lightheaded, diarrhea DS: Discharge Diagnosis Discharge Diagnosis (1) C. difficile colitis: Code(s): A04.72 - Enterocolitis due to Clostridium difficile, not specified as recurrent Status: Acute DS: Summary Hospital Course Hospital Course: 79-year-old male with a past medical history of recent hospitalization for perforated duodenal ulcer and BPH with intermittent straight catheterization who presented to the ER with diarrhea since his ulcer repair October 10, 2024 and new onset lightheadedness with multiple falls. The patient had a perforated duodenal ulcer and underwent emergency laparoscopic repair of duodenal perforation on 10/10/2024. He reported that for the 1st week after surgery he had frankly watery diarrhea but then started to have some slightly more formed stools. But never returned to complete the normal stools and reports that his stools are like mush. He is having about 4 watery to mushy stools a day. He has had little interest in food and is only been eating couple of bites of each meal before he does has no appetite. He denies any epigastric pain or abdominal distension. He reports feeling extremely lightheaded groggy in feeling heaviness in his arms and legs. He reports that out of the 3 times he has fallen at home are accompanied by severe lightheadedness and dizziness feeling off balance. Yesterday prior to coming to the ER he was in the bathroom getting ready shave when the next thing he knew is sitting on the floor. He does not remember a feeling lightheaded or dizzy before that episode. He slid down the wall onto his bottom. He not hit his head. He denies any nausea or vomiting. He denies any abdominal pain. He was started on antibiotics postoperatively but completed his antibiotic course he has been continued on Protonix and Carafate. He was wondering if some of his symptoms could possibly be due to his medications. He does have a history of BPH and is had to self-catheterize himself in the past. Since about a week after surgery he has had recurrence of his urinary retention. He states that his urologist at [place] wants to do a cystoscopy on him once his current symptoms have resolved. He denies any hematu bijan. He has noticed that his urine has been a little bit darker than usual. He reports he only drinks 2 bottles of water a day. Patient tested positive for C diff, started on Fidoxamicin noted his diarrhea is improving and less watery. Vital signs are wnl. Patient denies any dysuria and thus urine culture growing klebsiella pneumoniae and thus this is asymptomatic bacteriuria. No treatment needed. Patient discharged on total of 10 days of Fidaxomicin and continue follow up with PCP. F/u with PCP in 3-5 days Time Spent with Patient Time attestation: Total time spent providing and/or coordinating discharge services: DS: Data Data Completed and Pending Labs on day of discharge: Labs from last 24 hours 11/05/24 08:32 WBC 4.1 L RBC 4.30 L Hgb 12.9 L Hct 39.6 L MCV 92.1 MCH 30.0 MCHC 32.6 RDW 13.5 Plt Count 258 MPV 9.4 Immature Gran % (Auto) 0.2 Neut % (Auto) 60.9 Lymph % (Auto) 25.2 [place] % (Auto) 10.8 H Eos % (Auto) 2.4 Baso % (Auto) 0.5 Lymph # (Auto) 1.03 [place] # (Auto) 0.4 Eos # (Auto) 0.1 Baso # (Auto) 0.0 Abs Immat Gran (auto) 0.01 Absolute Neuts (auto) 2.5 Absolute Nucleated RBC 0.000 Nucleated RBC % 0.0 Sodium 139 Potassium 3.9 Chloride 106 Carbon Dioxide 26 Anion Gap 7 BUN 16 Creatinine 0.73 Estim Creat Clear Calc 65 Estimated GFR > 60 Glucose 96 Calcium 8.7 Magnesium 1.7 Total Bilirubin 0.6 AST 36 ALT 15 Alkaline Phosphatase 104 Total Protein 7.0 Albumin 3.4 L Preliminary micro results at discharge 11/03/24 20:42 Blood Culture - Preliminary Blood 11/03/24 20:42 Blood Culture - Preliminary Blood Discharge Plan Discharge Attending physician on discharge: Aurora Hewitt Discharging Clinician: Aurora Hewitt Anticipated Discharge Date/Time: 11/04/24 09:47 Activity: as tolerated Diet: regular Patient Instructions: Antibiotic Form Patient Language: Slovenian Stand Alone Forms: General Discharge Information Follow-up/Referrals: UNKNOWN,DOCTOR [Primary Care Provider] - (F/u with PCP in 3-5 days ) Discharge Medications: New Dificid 200 mg Tablet 200 mg PO Q12HR 9 Days Qty: 18 0RF Continued aspirin 81 mg capsule 81 mg PO DAILY pantoprazole 40 mg tablet,delayed release (DR/EC) 40 mg PO BID Qty: 60 2RF sucralfate 1 gram tablet 1 g PO ACHS Qty: 120 0RF Date of admission: 11/04/24 10:32 Primary Care Provider: UNKNOWN,DOCTOR Admitting Provider: Kasandra Munroe Attending physician on admission: Kasandra Munroe Condition: Stable
[2024-11-05 12:00] VITALS: PULSE 80
== END 2024-11-05 13:00 | disposition home or self-care (01) | DRG 372 ==
LOC: ANHED 18:52 → ANH3MEDSUR 22:46
PROVIDERS: Physician Assistant; Admitting Provider Internal Medicine; Emergency Provider Physician Assistant; Visit Provider Internal Medicine
DX: A04.72 Enterocolitis due to Clostridium difficile, not specified as recurrent (principal); N39.0 Urinary tract infection, site not specified; I95.1 Orthostatic hypotension; N40.1 Benign prostatic hyperplasia with lower urinary tract symptoms; R33.8 Other retention of urine; R29.6 Repeated falls; Z20.822 Contact with and (suspected) exposure to COVID-19; Z79.82 Long term (current) use of aspirin; Z87.11 Personal history of peptic ulcer disease
CPT/HCPCS: 36415; 70450; 71046; 71275; 74177; 80048; 80053; 81001; 82550; 83735; 84484; 85025; 85027; 85610; 85730; 87040; 87045; 87086; 87186; 87427; 87449; 87493; 87637; 93005; 96361; 96365; 96367; 96375; 99285; A9270; G0378; J0696; J1836; J7030; Q9967

== ENCOUNTER 2024-11-14 13:41 | Emergency (ER) | payer MEDICARE, SELFPAY ==
--- NOTE | ~2024-11-14 | XR_ITS ---
EXAMINATION: XR finger 2nd LT min 2V DATE: 11/14/2024 14:15 INDICATION: Laceration to the left second digit TECHNIQUE: Dorsal palmar, lateral and 2 oblique views of the left second digit were obtained COMPARISON: None FINDINGS: There is prominent and material about the mid to distal left second digit which obscures fine bone an d soft tissue detail. There is a defect extending obliquely across the radial side of the tuft of the left second distal phalanx. There is probably 2 mm separation of at least a couple tiny bone fragmen ts. There is severe osteoarthritis with minimal palmar/radial subluxation at the third metacarpophala ngeal joint. Moderate osteoarthritis with minimal palmar subluxation at the second metacarpophalangea l joint. Additional polyarticular osteoarthritis, moderate at the triscaphe joint and mild at the fir st carpometacarpal, first metacarpophalangeal and at the analyzed interphalangeal joints. IMPRESSION: 1. Likely open/compound tuft fracture of the left second distal phalanx with 2 mm displacement of a c ouple tiny bone fragments. 2. 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 Reviewed, dictated and finalized at location B. SWARE VERIFIER IMPRESSION: 1. Likely open/compound tuft fracture of the left second distal phalanx with 2 mm displacement of a couple tiny bone fragments. 2. Moderate to severe osteoarthritis at a few joints in the visualized left mayfield d as detailed above.
[2024-11-14 13:43] VITALS: BP 162/84; PULSE 73; RESP 15; TEMP 36.5; O2SAT 100
--- NOTE | 2024-11-14 14:00 | ED.WOUNDLAC ---
HPI - Wound/Laceration General Chief Complaint: Wound/Laceration Stated Complaint: finger lac Time Seen by Provider: 11/14/24 13:45 Source: patient Mode of arrival: ambulatory Limitations: no limitations History of Present Illness HPI narrative: This is a 79 year old male that presents to the ER for laceration to the left 2nd finger sustained just prior to arrival. Reports he cut the tip of his finger attempting to cut a board with a power saw. Reports bleeding to the area. Denies decreased ROM. Related Data Home Medications ?Medication ?Instructions ?Recorded ?Confirmed ?Last Taken ?Type aspirin 81 mg capsule 81 mg PO DAILY 10/11/24 11/08/24 11/03/24 History Allergies Allergy/AdvReac Type Severity Reaction Status Date / Time No Known Allergies Allergy Verified 11/14/24 13:43 Review of Systems Review of Systems: CONSTITUTIONAL: Denies fever SKIN: Reports laceration All systems reviewed & are unremarkable except as noted in HPI and below PMFSH Past Medical History Medical History (Updated 11/14/24 @ 16:34 by Isabela Castro PA-C) Duodenal ulcer, perforated BPH (benign prostatic hyperplasia) With intermittent straight catheterization Surgical History Surgical History (Updated 11/04/24 @ 03:38 by Kasandra Munroe DO) Status post laparoscopic procedure (10/10/24) Duodenal ulcer Social History Social History (Updated 11/04/24 @ 07:35 by Kasandra Munroe DO) Social History: He lives at home with his of 55 years. 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 He rarely drinks alcohol and only in small amounts. He is a lifelong nonsmoker and does not use illicit substances. Code status: Full code Surrogate decision maker: Kalyani () Smoking status: Never smoker Alcohol intake: never Substance use: never Substance use type: does not use Do You Feel Safe in your Home?: Yes Lack of Transportation: No Lack of Food: Never True Current Housing: I Have Housing Concerned About Future Housing: No Difficulty Paying Gas/Electric Bills: No Difficulty Paying for Meds: No Currently Unemployed: No Education: Master's Degree or Higher Difficulty w/ Childcare or Family Care: No Living arrangements: with family Spiritual care concerns: No Exam Narrative: GENERAL: Well-appearing, well-nourished, and in no acute distress. HEAD: Normocephalic, atraumatic. EYES: EOMI. EXTREMITIES: Normal range of motion. No edema. Irregular laceration to the left 2nd finger tip with skin missing SKIN: Warm, dry, no rash. NEURO: No focal deficits. Alert and oriented x3. PSYCH: Normal mood and affect Course Course Emergency Course: patient updated on his workup. Educated on further wound care Vital Signs Vital signs: Vital Signs Temperature 97.7 F 11/14/24 13:43 Pulse Rate 73 11/14/24 13:43 Respiratory Rate 15 11/14/24 13:43 Blood Pressure 162/84 H 11/14/24 13:43 Pulse Oximetry 100 11/14/24 13:43 Oxygen Delivery Room Air 11/14/24 13:43 Temperature 97.7 F 11/14/24 13:43 Pulse Rate 73 11/14/24 13:43 Respiratory Rate 15 11/14/24 13:43 Blood Pressure 162/84 H 11/14/24 13:43 Pulse Oximetry 100 11/14/24 13:43 Oxygen Delivery Room Air 11/14/24 13:43 Procedures Laceration Laceration 1: Date: 11/14/24 Time: 16:42 Site: upper extremity Side (If applicable): left Size (cm): 2 Description: flap and irregular Depth: simple, single layer Local Anesthetic: lidocaine 1% Amount of anesthesia used (mL): 2 Pre-repair: irrigated extensively and minor debridement ====== Skin Level ====== Skin layer closed with: nylon Size (cm): 4-0 Number of sutures: 4 Technique: simple, interrupted ====== Subcutaneous Layer ====== Subcutaneous layer closed with: chromic gut Size: 4-0 Number of sutures: 2 Technique: simple, interrupted ====== Muscle Layer ====== ====== Tendon Layer ====== MDM - Wound/Laceration MDM Narrative Medical decision making narrative: Patient presents to the emergency department for a complex laceration to the left 2nd finger. Wound was thoroughly irrigated. Patient updated on tetanus vaccination. Given a dose of Ancef. Finger x-ray shows an open tuft fracture. Laceration closed with sutures. patient updated on his workup. Educated on further wound care. Will be given follow-up with Hand surgery. He was given warnings to return to the ER Differential Diagnosis Differential diagnosis: Likely laceration, abrasion and avulsion of skin Imaging Data Radiologist's impression: ITS Impressions Finger X-Ray 11/14/24 14:20 IMPRESSION: 1. Likely open/compound tuft fracture of the left second distal phalanx with 2 mm displacement of a couple tiny bone fragments. 2. 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 Critical Care Time Critical Care Time Critical Care Time: No Discharge Plan Discharge Clinical Impression: Open finger fracture Qualifiers: Encounter type: initial encounter Finger: index finger Phalanx: distal Fracture alignment: displaced Laterality: left Qualified Code(s): S62.631B - Displaced fracture of distal phalanx of left index finger, initial encounter for open fracture Patient Disposition: Home, Self-Care Condition: Stable Instructions: Antibiotic Form, Care For Your Stitches (ED), Laceration (ED) Additional Instructions: Return to the emergency department if you experience fever, redness or swelling of your wound, abnormal drainage from your wound, or any other symptoms that are concerning to you. Apply antibiotic ointment daily. Do not soak the wound. Clean with mild soap and water daily. Take oral antibiotic as prescribed Follow-up with hand surgery Patient Language: Kuwaiti Prescriptions: New cephalexin 500 mg capsule 500 mg PO Q8H 4 Days Qty: 12 0RF No Action aspirin 81 mg capsule 81 mg PO DAILY pantoprazole 40 mg tablet,delayed release (DR/EC) 40 mg PO BID Qty: 60 2RF sucralfate 1 gram tablet 1 g PO ACHS Qty: 120 0RF Dificid 200 mg Tablet 200 mg PO Q12HR 9 Days Qty: 18 0RF Follow-up/Referrals: Evangelista Kaplan MD [Physician] - UNKNOWN,DOCTOR [Primary Care Provider] -
[2024-11-14] MEDS: TETANUS,DIPHTHERIA,AC PERTUSSIS ADULT (0.5 ML) BOOSTRIX IM (14:18)
--- OUTSIDE RECORDS SUMMARY | 2024-11-14 15:43 | XMS_ITS | Encounter Summary ---
Author Organization [facility] Address [address] [place] [address] Phone Care Team Providers Care Radio Station Operator Name Role Phone Keanu Anthony MD Primary Care Provider [phone] Francesco Barahona MD Primary Care Provider Encounter Details Date Type Department Care Team (Latest Contact Info) Description 03/24/2017 Orders Only [facility] CONVERSION Scanning, Provider Social History Tobacco Use Types Packs/Day Years Used Date Smoking Tobacco: Never Sex and Gender Information Value Date Recorded Sex Assigned at Not on file Legal Sex Male 12:31 PM ROLL TENDER Gender Identity Male 11/09/2022 8:29 PM ROLL TENDER Sexual Orientation Straight 11/09/2022 8: 29 PM ROLL TENDER documented as of this encounter Plan of [...] on filedocumented in this encounter Care Teams Radio Station Operator Relationship Specialty Start Date End Date Keanu Anthony MD [address] [facility] [address] [place] [address] PCP - General 03/30/17 06/15/21 Francesco Barahona MD [address] [address] PCP - General Endocrinology Diabetes & Metabolism 06/16/21 documented as of this encounter
--- OUTSIDE RECORDS SUMMARY | 2024-11-14 15:43 | XMS_ITS | Continuity of Care Document ---
Author Organization [facility] Address [address] [facility] [address] [place] [address] Phone Care Team Providers Care Clinical Psychologist Licensed Name Role Phone Mary Cabrales Unavailable Unavailable Procedures Procedure Date Eye Exam & Treatment Eye Exam & Treatment Refraction Eye Exam Established Pt SV Plastic Sphcyl [place] +/-4d, .12-2d De Frames Deluxe Tax - Medical Eye Exam & Treatment Refraction Advance Directives Directive Yes / No Effective Date File Name No Information Encounters Encounter Description Practice Location Reason(s) For Visit Diagnoses Date Provider Providers Copied on Encounter [facility], [address] [place] [address] [address], [place], [place], [id number], tel:[phone] [facility] No Information 2 2-201 0 Samra Leggett [address] , [address], [place], [address], [place]. tel:[phone] [facility], [address] [place] [address] [address], [place], [place], [id number], [place] tel:[phone] [facility] No Information Feb-0 4-200 9 Samra Leggett [address] , [address], [place], [address], [place]. tel:[phone] [facility], [address] [place] [address] [address], [place], [place], [id number], [place] tel:[phone] [facility] No Information Aug- 8 Samra Hernandez. [address] [facility] , [address], [place], [address], [place]. tel:[phone] [facility], [address], [place], [place], [id number], [place] tel:[phone] [facility] No Information Aug-0 [address] [employer] . [address] [facility], [address], [place], [place], [id number], [place]. tel:[phone] Referring Provider: Mary Brown, [address] [place] [address] [address], [place], [place], [facility]. tel:[phone] sulting Provider: Freddie Cruz [address] [place] [address], [place], [place], [facility]. tel:[phone] [facility], [address], [place], [place], [id number], [place] tel:[phone] [facility] No Information 8 Samra Hernandez. [address] [place] [address] , [address], [place], [address], [place]. tel:[phone] Family History Family Member Type Diagnosis Age At Onset No Information Payers Payer name Insurance type Covered democrat ID Authorrejia tiomar(s) [place] [id number] Social History Type Description Quantity Date Captured [...]
--- OUTSIDE RECORDS SUMMARY | 2024-11-14 15:43 | XMS_ITS | Clinical Summary ---
Author Organization [facility] Address [address] [place] [address] Care Team Providers Care Answering Service Operator Name Role Phone Francesco Barahona MD Primary Care Provider Allergies No known active allergies Medications aspirin 81 mg tablet Take 1 tablet (81 mg total) by mouth Active multivitamin tabletIndicati ons:Vitamin Deficiency Prevention Men's One per Day Active scopolamine 1 mg over 3 days patch 3 day APPLY 1 PATCH TOPICALLY TO THE SKIN EVERY 72 HOURS 4 patch 11/09/[address] (PROTONIX) 40 mg EC tablet Take 1 tablet (40 mg total) by mouth 2 (two) times a day 10/15/19 25 Active sucralfate (CARAFATE) 1 gram tablet 1 tablet (1 g total) 10/15/19 25 Active sulfamethoxazo le-trimethopri m (BACTRIM DS) 800-160 mg per tablet Take 1 tablet by mouth 2 (two) times a day for 7 days 14 tablet 10/09/19 25 025 amoxicillin-cl avulanate (AUGMENTIN) 875-125 mg per tablet Take 1 tablet by mouth every 12 (twelve) hours for 10 days 10/15/19 25 025 Discontinued metroNIDAZOLE (FLAGYL) 500 mg tablet 1 tablet (500 mg total) 10/15/19 25 025 Discontinued Active Problems Problem Noted Date Diagnosed Date Localized swelling of lower extremity 11/08/2024 Assessment & Plan (11/08/2024 7:47 PM FOOD EXPEDITOR): Symmetric edema, so DVT is unlikely. Continue compression stockings and leg elevation. C. difficile colitis 11/08/2024 Assessment & Plan (11/08/2024 7:47 PM FOOD EXPEDITOR): Complete fidaxomicin course. Check labs. Perforated ulcer 11/08/2024 Assessment & Plan (11/08/2024 7:48 PM FOOD EXPEDITOR): S/p surgery. Antibiotics completed. He will follow up with Dr. Corley. Urinary retention 11/08/2024 Assessment & Plan (11/08/2024 7:48 PM FOOD EXPEDITOR): Per urology. Imbalance 03/07/2024 PVD (peripheral vascular disease) 01/11/2023 Assessment & Plan (01/11/2023 1:06 PM CDT): Compression socks Venous duplex Vascular Referral Medicare annual wellness visit, subsequent 06/22 Assessment & Plan (07/07/2024 6:42 PM CDT): Overall excellent health. Colonoscopy is due in 2024. I recommended COVID, flu, RSV, and [id number] vaccinations. Assessment & Plan (07/02/2023 10:27 AM CDT): Overall good health. Check PSA today. Colonoscopy due in 2024. I recommended that he get a COVID shot and [id number] vaccine. He declines a flu shot. Assessment & Plan (06/22/2022 10:00 AM CDT): Overall good health. [place] due in 2024. Recommended the following vaccines: Shingrix New COVID booster Flu shot [id number] Hyperlipidemia 06/22/2022 Assessment & Plan (07/07/2024 6:40 [...] Encounters Date Type Department Care Team Description 11/09/2024 Telephone [facility] Urology [address] [place] [address] Dina Benitez CMA 11/08/2024 6:30 PM FOOD EXPEDITOR Lab [facility] [address] [place] [id number] Perforated ulcer (HCC); C. difficile colitis 11/08/2024 2:15 PM FOOD EXPEDITOR Office Visit [facility] [address] [facility] [address] [place] [address] Francesco Barahona MD Perforated ulcer (HCC) (Primary Dx); C. difficile colitis; Localized swelling of lower extremity; Urinary retention 11/08/2024 Results Follow-Up [facility] [address] [place] [address] Francesco Barahona MD 11/06/2024 Telephone [facility] [address] [place] [address] Francesco Barahona MD Medical Records Request 10/18/2024 11:00 AM FOOD EXPEDITOR Office Visit [facility] Urology [address] [place] [address] Office [facility] [address] [place] [address] Ubaldo Rose MD Retention of urine 10/09/2024 Orders Only [facility] Urology [address] [place] [address] [address] [place] [address] Ubaldo Rose MD 10/05/2024 9:40 AM FOOD EXPEDITOR Lab [facility] ([facility] [address] [place] [address] UTI symptoms 10/04/2024 Orders Only [facility] Urology [address] [place] [address] Office [address] [place] [address] Ubaldo Rose MD UTI symptoms (Primary Dx) 10/04/2024 Telephone [facility] Urology [address] [place] [address] Medical Office Building [address] [place] [address] Ubaldo Rose MD 09/19/2024 Telephone [facility] Urology [address] [place] [address] Medical Office Building [address] [place] [address] Dina Benitez CMA 09/18/2024 Telephone [facility] Urology [address] [facility] [address] [place] [address] Dina Benitez CMA from Last 3 Months [...] on file Legal Sex Male 12:31 PM FOOD EXPEDITOR Gender Identity Male 11/09/2022 8:29 PM FOOD EXPEDITOR Sexual Orientation Straight 11/09/2022 8: 29 PM FOOD EXPEDITOR Obstetrics History Last Filed Vital Signs Vital Sign Reading Time Taken Comments Blood Pressure 145/76 11/08/2024 1:45 PM FOOD EXPEDITOR Pulse 78 11/08/2024 1:45 PM FOOD EXPEDITOR Temperature - - Respiratory Rate - - Oxygen Saturation 99% 02/15/2023 1:31 PM CDT Inhaled Oxygen Concentration - - Weight 65.6 kg (144 lb 9.6 oz) 11/08/2024 1:45 P M FOOD EXPEDITOR Height 175.3 cm (5' 9 ) 11/08/2024 1:45 PM FOOD EXPEDITOR Body Mass Index 21.35 11/08/2024 1:45 PM FOOD EXPEDITOR Plan of Treatment Health Maintenance Due Date [...] 07/22/2015 Colon Cancer Screening-DNA Stool Discontinued 07/22/20 15 Colon Cancer Screening-FIT Discontinued 07/22/2015 Colon Cancer Screening-FOBT Discontinued 07/22/2015 Colon Cancer Screening-Sigmoidoscopy Discontinued 07/22/2015 Colorectal Cancer Screening Discontinued Hepatitis C Screening Completed 06/16/2021 Procedures Procedure Name Priority Date/Time Associated Diagnosis Comments EGFR Routine 11/08/2024 3:02 PM FOOD EXPEDITOR Perforated ulcer (HCC) C. difficile colitis DIFFERENTIAL AUTO Routine 11/08/2024 3:0 2 PM FOOD EXPEDITOR Perforated ulcer (HCC) C. difficile colitis CBC WITH AUTO DIFFERENTIAL Routine 11/08/2024 3:02 PM FOOD EXPEDITOR Perforated ulcer (HCC) C. difficile colitis COMPREHENSIVE METABOLIC PANEL Routine 11/08/2024 3:02 PM FOOD EXPEDITOR Perforated ulcer (HCC) C. difficile colitis URINE CULTURE Routine 10/05/2024 9:43 AM FOOD EXPEDITOR UTI symptoms HEPATITIS C ANTIBODY Routine 06/16/2021 10:33 AM CDT Encounter for hepatitis C screening test for low risk patient COLONOSCOPY REPORT 07/22/2015 from Last 3 Months or Most Recently Relevant to Health Maintenance Results * eGFR (11/08/2024 3:02 PM FOOD EXPEDITOR) eGFR 75 >=60 mL/min/1. 73 m2 Comment: Interpretive Data Reference Interval Normal >/= 90 mL/min/1.73m2 Mildly decreased* 60 - 89 mL/min/1.73m2 Mildly to moderately decreased 45 - 59 mL/min/1.73m2 Moderately to severely decreased 30 - 44 mL/min/1.73m2 Severely decreased 15 - 29 mL/min/1.73m2 Kidney Failure < 15 mL/min/1.73m2 *Relative to young adult level Estimated glomerular filtration rate is determined by the 2020 CKD-EPI equation recommended by the National Kidney Foundation (A Unifying Approach to GFR Estimation: Recommendations of the NKF-ASK Task Force on Reassessing the Inclusion of Race in Diagnosing Kidney Disease, JASN 202). The CKD-EPI equation should not be used for patients with unstable renal function and has not been validated in children and those over 70. Current interpretive data was last reviewed 2021. Blood 11/08/2024 3:02 PM FOOD EXPEDITOR 11/08/2024 3:25 PM FOOD EXPEDITOR us Francesco Barahona MD LAB BLOOD ORDERABLES nal Result [facility] [place] [address] * Differential, auto (11/08/2024 3:02 PM FOOD EXPEDITOR) Neutrophil abs 3.9 1.5 - 6.5 K/cumm Imm gran abs 0.1 0.0 - 0.1 K/cumm [facility] Lymphocyte abs 2.0 0.8 - 3.3 K/cumm [facility] Monocyte abs 0.7 0.2 - 0.8 K/cumm [facility] Eosinophil abs 0.3 0.0 - 0.5 K/cumm [facility] Basophil abs 0.0 0.0 - 0.1 K/cumm [facility] Neutrophil pct 56.2 % [facility] Comment: Interpretive Data Percent cell count reference ranges are not reported, since discordance with absolute values may lead to misinterpretation of CBC data. Current Interpretive Data was last revised on 2017. Imm gran pct 0.7 % [facility] Comment: Interpretive Data Percent cell count reference ranges are not reported, since discordance with absolute values may lead to misinterpretation of CBC data. Current Interpretive Data was last revised on 2017. Lymphocyte pct 28.9 % [facility] Comment: Interpretive Data Percent cell count reference ranges are not reported, since discordance with absolute values may lead to misinterpretation of CBC data. Current Interpretive Data was last revised on 2017. Monocyte pct 9.7 % [facility] Comment: Interpretive Data Percent cell count reference ranges are not reported, since discordance with absolute values may lead to misinterpretation of CBC data. Current Interpretive Data was last revised on 2017. Eosinophil pct 3.9 % [facility] Comment: Interpretive Data Percent cell count reference ranges are not reported, since discordance with absolute values may lead to misinterpretation of CBC data. Current Interpretive Data was last revised on 2017. Basophil pct 0.6 % [facility] Comment: Interpretive Data Percent cell count reference ranges are not reported, since discordance with absolute values may lead to misinterpretation of CBC data. Current Interpretive Data was last revised on 2017. Blood 11/08/2024 3:02 PM FOOD EXPEDITOR 11/08/2024 3:20 PM FOOD EXPEDITOR Francesco Barahona MD LAB BLOOD ORDERABLES Fi nal Result Performing Organization Address [facility] Co de Phone Number [facility] [place] [address] * (ABNORMAL) CBC with auto differential (11/08/2024 3:02 PM FOOD EXPEDITOR) [facility] WBC 6.9 3.8 - 9.9 K/cumm Hgb 11.8(L) 13.0 - 17.5 g/dL [facility] Hct 35.9(L) 38.9 - 50.3 % [facility] Plt 268 150 - 400 K/cumm [facility] MPV 9.4 9.1 - 12.3 fL [facility] RBC 3.98(L) 4.30 - 5.80 M/cumm [facility] MCV 90.2 81.3 - 96.4 fL [facility] MCH 29.6 27.1 - 33.3 pg [facility] MCHC 32.9 32.3 - 35.7 g/dL [facility] RDW CV 13.2 11.1 - 14.9 % [facility] RDW SD 43.9 35.7 - 48.1 fL [facility] NRBC abs 0.00 0.00 - 0.01 K/cumm [facility] Blood 11/08/2024 3:02 PM FOOD EXPEDITOR 11/08/2024 3:20 PM FOOD EXPEDITOR Francesco Barahona MD LAB BLOOD ORDERABLES Fi nal Result Performing Organization Address [facility] Co de Phone Number [facility] [place] [address] * Comprehensive metabolic panel (11/08/2024 3:02 PM FOOD EXPEDITOR) Sodium 143 135 - 145 mmol/L Potassium, pl 4.2 3.3 - 4.9 mmol/L [facility] Chloride 105 97 - 110 mmol/L [facility] CO2 31 22 - 32 mmol/L [facility] Anion gap 7 2 - 15 mmol/L [facility] BUN 16 6 - 25 mg/dL [facility] Creatinine 1.02 0.80 - 1.30 mg/dL [facility] Glucose 95 70 - 199 mg/dL [facility] Comment: Interpretive Data Fasting glucose >/= 126 mg/dl is diagnostic for diabetes. Fasting is defined as no caloric intake for at least 8 hours. Fasting glucose between 100 mg/dl to 125 mg/dl is diagnostic of prediabetes. In a patient with classic symptoms of hyperglycemia or hyperglycemic crisis, a random glucose >/= 200 mg/dl is diagnostic for diabetes. In the absence of unequivocal hyperglycemia, results should be confirmed by repeat testing. The classification and Diagnosis of Diabetes Diabetes Care 2021; 46: S19-S40. Current interpretive data was last revised 2022. Calcium 8.6 8.5 - 10.3 mg/dL [facility] Bilirubin, total 0.4 0.1 - 1.2 mg/dL [facility] Protein, pl 6.8 6.5 - 8.5 g/dL [facility] Albumin 3.6 3.5 - 5.0 g/dL [facility] Alk phos 107 40 - 130 Units/L [facility] ALT 14 7 - 55 Units/L [facility] AST 32 10 - 50 Units/L [facility] Blood 11/08/2024 3:02 PM FOOD EXPEDITOR 11/08/2024 3:20 PM FOOD EXPEDITOR us Francesco Barahona MD LAB BLOOD ORDERABLES Fi nal Result [facility] [place] [address] * (ABNORMAL) Urine culture Urine, clean voided (10/05/2024 9:43 AM FOOD EXPEDITOR) Pathologist [facility] Report Final Report: Greater than or equal to 100,000 colonies/mL of Staphylococcus lugdunensis Plus growth of clinically insignificant bacterial alexei. (.) Organism STAPHYLOCOCCUS LUGDUNENSIS [facility] Organism PLUS GROWTH OF CLINICALLY INSIGNIFICANT ALEXEI. [facility] Urine, clean voided 10/05/2024 9:43 AM FOOD EXPEDITOR 10/05/2024 10:27 AM FOOD EXPEDITOR Narrative [facility] - 10/08/2024 1:07 PM FOOD EXPEDITOR Testing performed by [facility] Microbiology Laboratory ([phone]) Organism Antibiotic Method Susceptibility Staphylococcus lugdunensis Vancomycin INTERPRETATION Susceptible Staphylococcus lugdunensis Trimethoprim with Sulfamethoxazole INTERPRETATION Susceptible Staphylococcus lugdunensis Linezolid INTERPRETATION Susceptible Staphylococcus lugdunensis Doxycycline INTERPRETATION Susceptible Staphylococcus lugdunensis Nitrofurantoin INTERPRETATI ON Susceptible Staphylococcus lugdunensis Oxacillin INTERPRETATION Susceptible Staphylococcus lugdunensis Cefazolin INTERPRETATION Susceptible Staphylococcus lugdunensis Ceftriaxone INTERPRETATION Susceptible Ubaldo Rose MD LAB MICROBIOLOGY - [facility] ORDERABLES Final Result [facility] [place] [address] * Hepatitis C antibody (06/16/2021 10:33 AM CDT) [facility] Hep C Ab 0.2 0.0 - 0.9 s/co ratio [facility] - 01 Comment: Negative: < 0.8 Indeterminate: 0.8 - 0.9 Positive: > 0.9 The CDC recommends that a positive HCV antibody result be followed up with a HCV Nucleic Acid Amplification test (630731). Blood specimen (specimen) 06/16/2021 10:33 AM CDT 06/16/2021 Narrative [facility] - 06/17/2021 9:10 AM CDT Performed at: [facility] [id number] Molder Offbearer: Glenn Aquino PhD, Phone: [phone] Francesco Barahona MD LAB MICROBIOLOGY - GENE RAL ORDERABLES Final Result [facility] - 01 * COLONOSCOPY REPORT (07/22/2015) Anatomical Region Laterality Modality Other Narrative 07/22/2015 Ordered by an unspecified provider. 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
--- OUTSIDE RECORDS SUMMARY | 2024-11-14 15:43 | XMS_ITS | Encounter Summary ---
Author Organization [facility] Address [address] [place] [address] Phone Care Team Providers Care Tableau Analyst Name Role Phone Keanu Anthony MD Primary Care Provider [phone] Francesco Barahona MD Primary Care Provider Encounter Details Date Type Department Care Team (Latest Contact Info) Description 05/02/2017 Orders Only [facility] CONVERSION Scanning, Provider Social History Tobacco Use Types Packs/Day Years Used Date Smoking Tobacco: Never Sex and Gender Information Value Date Recorded Sex Assigned at Not on file Legal Sex Male 12:31 PM CROSSING GUARD Gender Identity Male 11/09/2022 8:29 PM CROSSING GUARD Sexual Orientation Straight 11/09/2022 8: 29 PM CROSSING GUARD documented as of this encounter Plan of [...] on filedocumented in this encounter Care Teams Tableau Analyst Relationship Specialty Start Date End Date Keanu Anthony MD [address] [facility] [address] [place] [address] PCP - General 03/30/17 06/15/21 Francesco Barahona MD [address] [address] PCP - General Endocrinology Diabetes & Metabolism 06/16/21 documented as of this encounter
--- OUTSIDE RECORDS SUMMARY | 2024-11-14 15:43 | XMS_ITS | Referral Summary ---
Author Organization [facility] Address [address] [place] [address] Care Team Providers Care Occupational Therapy Aide Name Role Phone Francesco Barahona MD Primary Care Provider Encounters Date Type Department Care Team Description 11/09/2024 Telephone [facility] Building [address] [place] [address] Dina Benitez CMA 11/08/2024 Results Follow-Up [facility] [address] [place] [phone] Francesco Barahona MD 11/08/2024 6:30 PM HOUSE WORKER GENERAL Lab [facility] [address] [place] [phone] Perforated ulcer (HCC); C. difficile colitis 11/08/2024 2:15 PM HOUSE WORKER GENERAL Office Visit [facility] [address] [place] [address] [place] [address] Francesco Barahona MD Perforated ulcer (HCC) (Primary Dx); C. difficile colitis; Localized swelling of lower extremity; Urinary retention 11/06/2024 Telephone [facility] [address] [phone] Francesco Barahona MD Medical Records Request 10/18/2024 11:00 AM HOUSE WORKER GENERAL Office Visit [facility] Office [facility] [address] [place] [phone] Ubaldo Rose MD Retention of urine 10/09/2024 Orders Only [facility] Office [facility] [address] [place] [phone] Ubaldo Rose MD 10/05/2024 9:40 AM HOUSE WORKER GENERAL Lab [facility] ([facility]) [address] [place] [phone] UTI symptoms 10/04/2024 Orders Only [facility] [address] [place] [address] Office [place] [address] [place] [phone] Ubaldo Rose MD UTI symptoms (Primary Dx) 10/04/2024 Telephone [facility] [address] [place] [address] Office [facility] [address] [place] [phone] Ubaldo Rose MD 09/19/2024 Telephone [facility] [address] [place] [address] Office [facility] [address] [place] [phone] Dina Benitez CMA 09/18/2024 Telephone [facility] [address] [place] [address] Office [place] [address] [place] [phone] Dina Benitez CMA from Last 3 Months [...] tablet 1 tablet (500 mg total) 10/15/19 025 Discontinued Active Problems Problem Noted Date Diagnosed Date Localized swelling of lower extremity 11/08/2024 Assessment & Plan (11/08/2024 7:47 PM HOUSE WORKER GENERAL): Symmetric edema, so DVT is unlikely. Continue compression stockings and leg elevation. C. difficile colitis 11/08/2024 Assessment & Plan (11/08/2024 7:47 PM HOUSE WORKER GENERAL): Complete fidaxomicin course. Check labs. Perforated ulcer 11/08/2024 Assessment & Plan (11/08/2024 7:48 PM HOUSE WORKER GENERAL): S/p surgery. Antibiotics completed. He will follow up with Dr. Corley. Urinary retention 11/08/2024 Assessment & Plan (11/08/2024 7:48 PM HOUSE WORKER GENERAL): Per urology. Imbalance 03/07/2024 PVD (peripheral vascular disease) 01/11/2023 Assessment & Plan (01/11/2023 1:06 PM CDT): Compression socks Venous duplex Vascular Referral Medicare annual wellness visit, subsequent 06/22 Assessment & Plan (07/07/2024 6:42 PM CDT): Overall excellent health. Colonoscopy is due in 2024. I recommended COVID, flu, RSV, and [id number] vaccinations. Assessment & Plan (07/02/2023 10:27 AM CDT): Overall good health. Check PSA today. Colonoscopy due in 2024. I recommended that he get a COVID shot and [id number] vaccine. He declines a flu shot. Assessment & Plan (06/22/2022 10:00 AM CDT): Overall good health. [place] due in 2024. Recommended the following vaccines: Shingrix New COVID booster Flu shot [id number] Hyperlipidemia 06/22/2022 Assessment & Plan (07/07/2024 6:40 [...] on file Legal Sex Male 12:31 PM HOUSE WORKER GENERAL Gender Identity Male 11/09/2022 8:29 PM HOUSE WORKER GENERAL Sexual Orientation Straight 11/09/2022 8: 29 PM HOUSE WORKER GENERAL Last Filed Vital Signs Vital Sign Reading Time Taken Comments Blood Pressure 145/76 11/08/2024 1:45 PM HOUSE WORKER GENERAL Pulse 78 11/08/2024 1:45 PM HOUSE WORKER GENERAL Temperature - - Respiratory Rate - - Oxygen Saturation 99% 02/15/2023 1:31 PM CDT Inhaled Oxygen Concentration - - Weight 65.6 kg (144 lb 9.6 oz) 11/08/2024 1:45 P M HOUSE WORKER GENERAL Height 175.3 cm (5' 9 ) 11/08/2024 1:45 PM HOUSE WORKER GENERAL Body Mass Index 21.35 11/08/2024 1:45 PM HOUSE WORKER GENERAL Plan of Treatment Not on file Procedures Procedure Name Priority Date/Time Associated Diagnosis Comments EGFR Routine 11/08/2024 3:02 PM HOUSE WORKER GENERAL Perforated ulcer (HCC) C. difficile colitis DIFFERENTIAL AUTO Routine 11/08/2024 3:0 2 PM HOUSE WORKER GENERAL Perforated ulcer (HCC) C. difficile colitis CBC WITH AUTO DIFFERENTIAL Routine 11/08/2024 3:02 PM HOUSE WORKER GENERAL Perforated ulcer (HCC) C. difficile colitis COMPREHENSIVE METABOLIC PANEL Routine 11/08/2024 3:02 PM HOUSE WORKER GENERAL Perforated ulcer (HCC) C. difficile colitis URINE CULTURE Routine 10/05/2024 9:43 AM HOUSE WORKER GENERAL UTI symptoms HEPATITIS C ANTIBODY Routine 06/16/2021 10:33 AM CDT Encounter for hepatitis C screening test for low risk patient COLONOSCOPY REPORT 07/22/2015 from Last 3 Months or Most Recently Relevant to Health Maintenance Results * eGFR (11/08/2024 3:02 PM HOUSE WORKER GENERAL) eGFR 75 >=60 mL/min/1. 73 m2 Comment: [...] of Race in Diagnosing Kidney Disease, JASN 2020). The CKD-EPI equation should not be used for patients with unstable renal function and has not been validated in children and those over 70. Current interpretive data was last reviewed 2021. Blood 11/08/2024 3:02 PM HOUSE WORKER GENERAL 11/08/2024 3:25 PM HOUSE WORKER GENERAL Francesco Barahona MD LAB BLOOD ORDERABLES Fi nal Result [facility] [place] [address] * Differential, auto (11/08/2024 3:02 PM HOUSE WORKER GENERAL) Neutrophil abs 3.9 1.5 - 6.5 K/cumm Imm gran abs 0.1 0.0 - 0.1 K/cumm [facility] Lymphocyte abs 2.0 0.8 - 3.3 K/cumm [facility] Monocyte abs 0.7 0.2 - 0.8 K/cumm [facility] Eosinophil abs 0.3 0.0 - 0.5 K/cumm [facility] Basophil abs 0.0 0.0 - 0.1 K/cumm [facility] Neutrophil pct 56.2 % [facility] Comment: Interpretive Data Percent cell count reference ranges are not reported, since discordance with absolute values may lead to misinterpretation of CBC data. Current Interpretive Data was last revised on 2017. Imm gran pct 0.7 % [facility] Comment: Interpretive Data Percent cell count reference ranges are not reported, since discordance with absolute values may lead to misinterpretation of CBC data. Current Interpretive Data was last revised on 2017. Lymphocyte pct 28.9 % [facility] Comment: Interpretive Data Percent cell count reference ranges are not reported, since discordance with absolute values may lead to misinterpretation of CBC data. Current Interpretive Data was last revised on 2017. Monocyte pct 9.7 % [facility] Comment: Interpretive Data Percent cell count reference ranges are not reported, since discordance with absolute values may lead to misinterpretation of CBC data. Current Interpretive Data was last revised on 2017. Eosinophil pct 3.9 % [facility] Comment: Interpretive Data Percent cell count reference ranges are not reported, since discordance with absolute values may lead to misinterpretation of CBC data. Current Interpretive Data was last revised on 2017. Basophil pct 0.6 % [facility] Comment: Interpretive Data Percent cell count reference ranges are not reported, since discordance with absolute values may lead to misinterpretation of CBC data. Current Interpretive Data was last revised on 2017. Blood 11/08/2024 3:02 PM HOUSE WORKER GENERAL 11/08/2024 3:20 PM HOUSE WORKER GENERAL Francesco Barahona MD LAB BLOOD ORDERABLES Fi nal Result [facility] [place] [address] * (ABNORMAL) CBC with auto differential (11/08/2024 3:02 PM HOUSE WORKER GENERAL) WBC 6.9 3.8 - 9.9 K/cumm Hgb 11.8(L) 13.0 - 17.5 g/dL [facility] Hct 35.9(L) 38.9 - 50.3 % [facility] Plt 268 150 - 400 K/cumm [facility] MPV 9.4 9.1 - 12.3 fL [facility] RBC 3.98(L) 4.30 - 5.80 M/cumm [facility] MCV 90.2 81.3 - 96.4 fL [facility] MCH 29.6 27.1 - 33.3 pg [facility] MCHC 32.9 32.3 - 35.7 g/dL [facility] RDW CV 13.2 11.1 - 14.9 % [facility] RDW SD 43.9 35.7 - 48.1 fL [facility] NRBC abs 0.00 0.00 - 0.01 K/cumm [facility] Blood 11/08/2024 3:02 PM HOUSE WORKER GENERAL 11/08/2024 3:20 PM HOUSE WORKER GENERAL Francesco Barahona MD LAB BLOOD ORDERABLES Fi nal Result [facility] [place] [address] * Comprehensive metabolic panel (11/08/2024 3:02 PM HOUSE WORKER GENERAL) Sodium 143 135 - 145 mmol/L Potassium, pl 4.2 3.3 - 4.9 mmol/L [facility] Chloride 105 97 - 110 mmol/L [facility] CO2 31 22 - 32 mmol/L [facility] Anion gap 7 2 - 15 mmol/L [facility] BUN 16 6 - 25 mg/dL [facility] Creatinine 1.02 0.80 - 1.30 mg/dL [facility] Glucose 95 70 - 199 mg/dL [facility] Comment: Interpretive Data Fasting glucose >/= 126 [...] classification and Diagnosis of Diabetes Diabetes Care 202; 46: S19-S40. Current interpretive data was last revised 2022. Calcium 8.6 8.5 - 10.3 mg/dL [facility] Bilirubin, total 0.4 0.1 - 1.2 mg/dL [facility] Protein, pl 6.8 6.5 - 8.5 g/dL [facility] Albumin 3.6 3.5 - 5.0 g/dL [facility] Alk phos 107 40 - 130 Units/L [facility] ALT 14 7 - 55 Units/L [facility] AST 32 10 - 50 Units/L [facility] Blood 11/08/2024 3:02 PM HOUSE WORKER GENERAL 11/08/2024 3:20 PM HOUSE WORKER GENERAL us Francesco Barahona MD LAB BLOOD ORDERABLES Fi nal Result Performing Organization Address City/[facility]/ZIP Co de Phone Number [facility] Department [place] [address] * (ABNORMAL) Urine culture Urine, clean voided (10/05/2024 9:43 AM HOUSE WORKER GENERAL) Report Final Report: Greater than or equal to 100,000 colonies/mL of Staphylococcus lugdunensis Plus growth of clinically insignificant bacterial alexei. (.) Organism STAPHYLOCOCCUS LUGDUNENSIS [facility] Organism PLUS GROWTH OF CLINICALLY INSIGNIFICANT ALEXEI. [facility] Urine, clean voided 10/05/2024 9:43 AM HOUSE WORKER GENERAL 10/05/2024 10:27 AM HOUSE WORKER GENERAL Narrative [facility] - 10/08/2024 1:07 PM HOUSE WORKER GENERAL Testing performed by [facility] Microbiology Laboratory ([phone]) Organism Antibiotic Method Susceptibility Staphylococcus lugdunensis Vancomycin INTERPRETATION Susceptible Staphylococcus lugdunensis Trimethoprim with Sulfamethoxazole INTERPRETATION Susceptible Staphylococcus lugdunensis Linezolid INTERPRETATION Susceptible Staphylococcus lugdunensis Doxycycline INTERPRETATION Susceptible Staphylococcus lugdunensis Nitrofurantoin INTERPRETATI ON Susceptible Staphylococcus lugdunensis Oxacillin INTERPRETATION Susceptible Staphylococcus lugdunensis Cefazolin INTERPRETATION Susceptible Staphylococcus lugdunensis Ceftriaxone INTERPRETATION Susceptible Ubaldo Rose MD LAB MICROBIOLOGY - [facility] ORDERABLES Final Result [facility] [place] [address] * Hepatitis C antibody (06/16/2021 10:33 AM CDT) Hep C Ab 0.2 0.0 - 0.9 s/co ratio [facility] - 01 Comment: Negative: < 0.8 Indeterminate: 0.8 - 0.9 Positive: > 0.9 The CDC recommends that a positive HCV antibody result be followed up with a HCV Nucleic Acid Amplification test (379179). Blood specimen (specimen) 06/16/2021 10:33 AM CDT 06/16/2021 Narrative [facility] - 06/17/2021 9:10 AM CDT Performed at: [facility] [address] [id number] Play Writer: Glenn Aquino PhD, Phone: [phone] Francesco Barahona MD LAB MICROBIOLOGY - GENE RAL ORDERABLES Final Result [facility] - 01 * COLONOSCOPY REPORT (07/22/2015) Anatomical Region Laterality Modality Other Narrative 07/22/2015 Ordered by an unspecified provider. us Historical Provider GI PROCEDURE ORDERABLES F inal Result from Last 3 Months or Most Recently Relevant to Health Maintenance Insurance MEDICARE [employer] MEDICARE [employer] MEDICARE [facility] MEDICARE Advance Directives For more information, please contact: [phone] Documents on File Type Date Recorded Patient Soaking Pits Supervisor Expl anation ADVANCE DIRECTIVE 10/01/2017 12:18 PM Care Teams Occupational Therapy Aide Relationship Specialty Start Date End Date Francesco Barahona MD [address] [facility] [address] [place] [address] PCP - General Endocrinology Diabetes & Metabolism 06/16/21
--- OUTSIDE RECORDS SUMMARY | 2024-11-14 16:01 | XMS_ITS | Continuity of Care Document ---
Author Organization [facility] Address [address] [facility] [address] [place] [address] Phone Care Team Providers Care Sales Systems Engineer Name Role Phone Mary Cabrales Unavailable Unavailable Procedures Procedure Date Eye Exam & Treatment Eye Exam & Treatment Refraction Eye Exam Established Pt SV Plastic Sphcyl Jansen +/-4d, .12-2d De Frames Deluxe Tax - Medical Eye Exam & Treatment Refraction Advance Directives Directive Yes / No Effective Date File Name No Information Encounters Encounter Description Practice Location Reason(s) For Visit Diagnoses Date Provider Providers Copied on Encounter [facility], [address] [place] [address] [address], [place], [place], [id number], tel:[phone] [facility] No Information 2 2-201 0 Samra Leggett [address] [facility] , [address], [place], [address], [place]. tel:[phone] [facility], [address] [place] [address] [address], [place], [place], [id number], [place] tel:[phone] [facility] No Information Feb-0 4-200 9 Samra Leggett [address] , [address], [place], [address], [place]. tel:[phone] [facility], [address] [place] [address] [address], [place], [place], [id number], [place] tel:[phone] [facility] No Information Aug- 8 Samra Hernandez. [address] [facility] , [address], [place], [address], [place]. tel:[phone] [facility], [address], [place], [place], [id number], [place] tel:[phone] [facility] No Information Aug-0 3[address] [employer] . [address] [facility], [address], [place], [place], [id number], [place]. tel:[phone] Referring Provider: Mary Brown, [address] [place] [address] [address], [place], [place], [facility]. tel:[phone] sulting Provider: Freddie Cruz [address] [place] [address], [place], [place], [facility]. tel:[phone] [facility], [address], [place], [place], [id number], [place] tel:[phone] [facility] No Information 8 Samra Hernandez. [address] [place] [address] , [address], [place], [address], [place]. tel:[phone] Family History Family Member Type Diagnosis Age At Onset No Information Payers Payer name Insurance type Covered alliance party ID Authorrejia tiomar(s) [place] [id number] Social History Type Description Quantity Date Captured [...]
[2024-11-14] MEDS: ceFAZolin SODIUM 1 GM VIAL IM (17:33)
[2024-11-14 17:42] VITALS: BP 157/93; PULSE 80; RESP 15; TEMP 36.6; O2SAT 99
[2024-11-14] MEDS: WATER, STERILE FOR INJECTION 10 ML VIAL XX (17:42)
== END 2024-11-14 17:46 | disposition home or self-care (01) ==
PROVIDERS: Emergency Provider Physician Assistant
DX: S62.631B Displaced fracture of distal phalanx of left index finger, initial encounter for open fracture (principal); N40.0 Benign prostatic hyperplasia without lower urinary tract symptoms; W27.0XXA Contact with workbench tool, initial encounter; Z23 Encounter for immunization
CPT/HCPCS: 12041; 73140; 90471; 90715; 96372; 99283; J0690

== ENCOUNTER 2024-11-20 00:56 | Day surgery (SDC) | payer MEDICARE, SELFPAY ==
[2024-11-08 15:24] VITALS: BMI 21.2
--- OUTSIDE RECORDS SUMMARY | 2024-11-20 00:59 | XMS_ITS | Referral Summary ---
Author Organization [facility] Address [address] [place] [address] Care Team Providers Care Hydrator Operator Name Role Phone Francesco Barahona MD Primary Care Provider Encounters Date Type Department Care Team Description 11/09/2024 Telephone [facility] Urology [facility] Medical Office Building [address] [place] [address] Dina Benitez CMA 11/08/2024 Results Follow-Up [facility] [address] [place] [phone] Francesco Barahona MD 11/08/2024 6:30 PM FREIGHT BROKER AGENT Lab [facility] [address] [place] [phone] Perforated ulcer (HCC); C. difficile colitis 11/08/2024 2:15 PM FREIGHT BROKER AGENT Office Visit [facility] [address] [place] [address] [place] [address] Francesco Barahona MD Perforated ulcer (HCC) (Primary Dx); C. difficile colitis; Localized swelling of lower extremity; Urinary retention 11/06/2024 Telephone [facility] [address] [phone] Francesco Barahona MD Medical Records Request 10/18/2024 11:00 AM FREIGHT BROKER AGENT Office Visit [facility] Urology [facility] [address] [place] [phone] Ubaldo Rose MD Retention of urine 10/09/2024 Orders Only [facility] Urology [facility] [address] [place] [phone] Ubaldo Rose MD 10/05/2024 9:40 AM FREIGHT BROKER AGENT Lab [facility] Advanced Medicine [facility] Advanced [facility] ([facility]) [address] [place] [phone] UTI symptoms 10/04/2024 Orders Only [facility] Urology [address] [place] [address] Office [place] [address] [place] [phone] Ubaldo Rose MD UTI symptoms (Primary Dx) 10/04/2024 Telephone [facility] Urology [address] [place] [address] [facility] [address] [place] [phone] Ubaldo Rose MD 09/19/2024 Telephone [facility] Urology [address] [place] [address] [facility] [address] [place] [phone] Dina Benitez CMA 09/18/2024 Telephone [facility]rology [address] [place] [address] Office [place] [address] [place] [phone] Dina Benitez CMA from Last 3 Months [...] mouth 2 (two) times a day 10/15/19 Active sucralfate (CARAFATE) 1 gram tablet 1 tablet (1 g total) 10/15/19 25 Active amoxicillin-cl avulanate (AUGMENTIN) 875-125 mg per tablet Take 1 tablet by mouth every 12 (twelve) hours for 10 days 10/15/19 025 Discontinued metroNIDAZOLE (FLAGYL) 500 mg tablet 1 tablet (500 mg total) 10/15/19 025 Discontinued Active Problems Problem Noted Date Diagnosed Date Localized swelling of lower extremity 11/08/2024 Assessment & Plan (11/08/2024 7:47 PM FREIGHT BROKER AGENT): Symmetric edema, so DVT is unlikely. Continue compression stockings and leg elevation. C. difficile colitis 11/08/2024 Assessment & Plan (11/08/2024 7:47 PM FREIGHT BROKER AGENT): Complete fidaxomicin course. Check labs. Perforated ulcer 11/08/2024 Assessment & Plan (11/08/2024 7:48 PM FREIGHT BROKER AGENT): S/p surgery. Antibiotics completed. He will follow up with Dr. Corley. Urinary retention 11/08/2024 Assessment & Plan (11/08/2024 7:48 PM FREIGHT BROKER AGENT): Per urology. Imbalance 03/07/2024 PVD (peripheral vascular disease) 01/11/2023 Assessment & Plan (01/11/2023 1:06 PM CDT): Compression socks Venous duplex Vascular Referral Medicare annual wellness visit, subsequent 06/22 Assessment & Plan (07/07/2024 6:42 PM CDT): Overall excellent health. Colonoscopy is due in 2024. I recommended COVID, flu, RSV, and Nofhmqu20 vaccinations. Assessment & Plan (07/02/2023 10:27 AM CDT): Overall good health. Check PSA today. Colonoscopy due in 2024. I recommended that he get a COVID shot and Daoyqsp08 vaccine. He declines a flu shot. Assessment & Plan (06/22/2022 10:00 AM CDT): Overall good health. [place] due in 2024. Recommended the following vaccines: Shingrix New COVID booster Flu shot [id number] Hyperlipidemia 06/22/2022 Assessment & Plan (07/07/2024 6:40 [...] on file Legal Sex Male 12:31 PM FREIGHT BROKER AGENT Gender Identity Male 11/09/2022 8:29 PM FREIGHT BROKER AGENT Sexual Orientation Straight 11/09/2022 8: 29 PM FREIGHT BROKER AGENT Last Filed Vital Signs Vital Sign Reading Time Taken Comments Blood Pressure 145/76 11/08/2024 1:45 PM FREIGHT BROKER AGENT Pulse 78 11/08/2024 1:45 PM FREIGHT BROKER AGENT Temperature - - Respiratory Rate - - Oxygen Saturation 99% 02/15/2023 1:31 PM CDT Inhaled Oxygen Concentration - - Weight 65.6 kg (144 lb 9.6 oz) 11/08/2024 1:45 P M FREIGHT BROKER AGENT Height 175.3 cm (5' 9 ) 11/08/2024 1:45 PM FREIGHT BROKER AGENT Body Mass Index 21.35 11/08/2024 1:45 PM FREIGHT BROKER AGENT Plan of Treatment Not on file Procedures Procedure Name Priority Date/Time Associated Diagnosis Comments EGFR Routine 11/08/2024 3:02 PM FREIGHT BROKER AGENT Perforated ulcer (HCC) C. difficile colitis DIFFERENTIAL AUTO Routine 11/08/2024 3:0 2 PM FREIGHT BROKER AGENT Perforated ulcer (HCC) C. difficile colitis CBC WITH AUTO DIFFERENTIAL Routine 11/08/2024 3:02 PM FREIGHT BROKER AGENT Perforated ulcer (HCC) C. difficile colitis COMPREHENSIVE METABOLIC PANEL Routine 11/08/2024 3:02 PM FREIGHT BROKER AGENT Perforated ulcer (HCC) C. difficile colitis URINE CULTURE Routine 10/05/2024 9:43 AM FREIGHT BROKER AGENT UTI symptoms HEPATITIS C ANTIBODY Routine 06/16/2021 10:33 AM CDT Encounter for hepatitis C screening test for low risk patient COLONOSCOPY REPORT 07/22/2015 from Last 3 Months or Most Recently Relevant to Health Maintenance Results * eGFR (11/08/2024 3:02 PM FREIGHT BROKER AGENT) eGFR 75 >=60 mL/min/1. 73 m2 Comment: [...] last reviewed 2021. Blood 11/08/2024 3:02 PM FREIGHT BROKER AGENT 11/08/2024 3:25 PM FREIGHT BROKER AGENT Francesco Barahona MD LAB BLOOD ORDERABLES Fi nal Result [facility] Department [place] [address] * Differential, auto (11/08/2024 3:02 PM FREIGHT BROKER AGENT) Neutrophil abs 3.9 1.5 - 6.5 K/cumm Imm gran abs 0.1 0.0 - 0.1 K/cumm [facility] Lymphocyte abs 2.0 0.8 - 3.3 K/cumm [facility] Monocyte abs 0.7 0.2 - 0.8 K/cumm [facility] Eosinophil abs 0.3 0.0 - 0.5 K/cumm [facility] Basophil abs 0.0 0.0 - 0.1 K/cumm [facility] Neutrophil pct 56.2 % [facility] Comment: Interpretive Data Percent cell count reference ranges are not reported, since discordance with absolute values may lead to misinterpretation of CBC data. Current Interpretive Data was last revised on 2017. Imm gran pct 0.7 % [facility] Comment: Interpretive Data Percent cell count reference ranges are not reported, since discordance with absolute values may lead to misinterpretation of CBC data. Current Interpretive Data was last revised on 2017. Lymphocyte pct 28.9 % [facility] Comment: Interpretive Data Percent cell count reference ranges are not reported, since discordance with absolute values may lead to misinterpretation of CBC data. Current Interpretive Data was last revised on 2017. Monocyte pct 9.7 % [facility] Comment: Interpretive Data Percent cell count reference ranges are not reported, since discordance with absolute values may lead to misinterpretation of CBC data. Current Interpretive Data was last revised on 2017. Eosinophil pct 3.9 % [facility] Comment: Interpretive Data Percent cell count reference ranges are not reported, since discordance with absolute values may lead to misinterpretation of CBC data. Current Interpretive Data was last revised on 2017. Basophil pct 0.6 % [facility] Comment: Interpretive Data Percent cell count reference ranges are not reported, since discordance with absolute values may lead to misinterpretation of CBC data. Current Interpretive Data was last revised on 2017. Blood 11/08/2024 3:02 PM FREIGHT BROKER AGENT 11/08/2024 3:20 PM FREIGHT BROKER AGENT Francesco Barahona MD LAB BLOOD ORDERABLES Fi nal Result Performing Organization Address City/[facility]/ZIP Co de Phone Number [facility] [place] [address] * (ABNORMAL) CBC with auto differential (11/08/2024 3:02 PM FREIGHT BROKER AGENT) Pathologist [facility] WBC 6.9 3.8 - 9.9 K/cumm Hgb 11.8(L) 13.0 - 17.5 g/dL [facility] Hct 35.9(L) 38.9 - 50.3 % [facility] Plt 268 150 - 400 K/cumm [facility] MPV 9.4 9.1 - 12.3 fL [facility] RBC 3.98(L) 4.30 - 5.80 M/cumm [facility] MCV 90.2 81.3 - 96.4 fL [facility] MCH 29.6 27.1 - 33.3 pg [facility] MCHC 32.9 32.3 - 35.7 g/dL [facility] RDW CV 13.2 11.1 - 14.9 % [facility] RDW SD 43.9 35.7 - 48.1 fL [facility] NRBC abs 0.00 0.00 - 0.01 K/cumm [facility] Blood 11/08/2024 3:02 PM FREIGHT BROKER AGENT 11/08/2024 3:20 PM FREIGHT BROKER AGENT Francesco Barahona MD LAB BLOOD ORDERABLES Fi nal Result Performing Organization Address City/[facility]/ZIP Co de Phone Number [facility] [place] [address] * Comprehensive metabolic panel (11/08/2024 3:02 PM FREIGHT BROKER AGENT) Sodium 143 135 - 145 mmol/L Potassium, pl 4.2 3.3 - 4.9 mmol/L [facility] Chloride 105 97 - 110 mmol/L [facility] CO2 31 22 - 32 mmol/L [facility] Anion gap 7 2 - 15 mmol/L [facility] BUN 16 6 - 25 mg/dL [facility] Creatinine 1.02 0.80 - 1.30 mg/dL [facility] Glucose 95 70 - 199 mg/dL [facility] Comment: Interpretive Data Fasting glucose >/= 126 [...] 2022. Calcium 8.6 8.5 - 10.3 mg/dL [facility] Bilirubin, total 0.4 0.1 - 1.2 mg/dL [facility] Protein, pl 6.8 6.5 - 8.5 g/dL [facility] Albumin 3.6 3.5 - 5.0 g/dL [facility] Alk phos 107 40 - 130 Units/L [facility] ALT 14 7 - 55 Units/L [facility] AST 32 10 - 50 Units/L [facility] Blood 11/08/2024 3:02 PM FREIGHT BROKER AGENT 11/08/2024 3:20 PM FREIGHT BROKER AGENT us Francesco Barahona MD LAB BLOOD ORDERABLES Fi nal Result [facility] Department [place] [address] * (ABNORMAL) Urine culture Urine, clean voided (10/05/2024 9:43 AM FREIGHT BROKER AGENT) Report Final Report: Greater than or equal to 100,000 colonies/mL of Staphylococcus lugdunensis Plus growth of clinically insignificant bacterial alexei. (.) Organism STAPHYLOCOCCUS LUGDUNENSIS [facility] Organism PLUS GROWTH OF CLINICALLY INSIGNIFICANT ALEXEI. [facility] Urine, clean voided 10/05/2024 9:43 AM FREIGHT BROKER AGENT 10/05/2024 10:27 AM FREIGHT BROKER AGENT [facility]ative [facility] - 10/08/2024 1:07 PM FREIGHT BROKER AGENT Testing performed by [facility]biology Laboratory ([phone]) Organism Antibiotic Method Susceptibility Staphylococcus lugdunensis Vancomycin INTERPRETATION Susceptible Staphylococcus lugdunensis Trimethoprim with Sulfamethoxazole INTERPRETATION Susceptible Staphylococcus lugdunensis Linezolid INTERPRETATION Susceptible Staphylococcus lugdunensis Doxycycline INTERPRETATION Susceptible Staphylococcus lugdunensis Nitrofurantoin INTERPRETATI ON Susceptible Staphylococcus lugdunensis Oxacillin INTERPRETATION Susceptible Staphylococcus lugdunensis Cefazolin INTERPRETATION Susceptible Staphylococcus lugdunensis Ceftriaxone INTERPRETATION Susceptible Ubaldo Rose MD LAB MICROBIOLOGY - G ENERAL ORDERABLES Final Result [facility] [place] [address] * Hepatitis C antibody (06/16/2021 10:33 AM CDT) Hep C Ab 0.2 0.0 - 0.9 s/co ratio [facility] - Comment: Negative: < 0.8 Indeterminate: 0.8 - 0.9 Positive: > 0.9 The CDC recommends that a positive HCV antibody result be followed up with a HCV Nucleic Acid Amplification test (415869). Blood specimen (specimen) 06/16/2021 10:33 AM CDT 06/16/2021 Narrative [facility] - 06/17/2021 9:10 AM CDT Performed at: [facility] [id number] [employer]ator: Glenn Aquino PhD, Phone: [phone] Francesco Barahona MD LAB MICROBIOLOGY - GENE RAL ORDERABLES Final Result [facility] 01 * COLONOSCOPY REPORT (07/22/2015) Anatomical Region Laterality Modality Other Narrative 07/22/2015 Ordered by an unspecified provider. Historical Provider GI PROCEDURE ORDERABLES F inal Result from Last 3 Months or Most Recently Relevant to Health Maintenance Insurance [facility] MEDICARE MEDICARE [employer] MEDIC[facility] Address: [facility] [id number] [place] [address] Advance Directives For more information, please contact: [phone] Documents on File Type Date Recorded Patient Letter Of Credit Clerk Expl anation ADVANCE DIRECTIVE 10/01/2017 12:18 PM Care Teams Hydrator Operator Relationship Specialty Start Date End Date Francesco Barahona MD [address] [facility] [address] [place] [address] PCP - General Endocrinology Diabetes & Metabolism 06/16/21
--- OUTSIDE RECORDS SUMMARY | 2024-11-20 00:59 | XMS_ITS | Continuity of Care Document ---
Author Organization [facility] [place] [address] [facility] [address] [place] [address] Phone Care Team Providers Care Managed Services Consultant Name Role Phone Mary Cabrales Unavailable Unavailable Procedures Procedure Date Eye Exam & Treatment Eye Exam & Treatment Refraction Eye Exam Established Pt SV Plastic Sphcyl [place] +/-4d, .12-2d De Frames Deluxe Tax - Medical Eye Exam & Treatment Refraction Advance Directives Directive Yes / No Effective Date File Name No Information Encounters Encounter Description Practice Location Reason(s) For Visit Diagnoses Date Provider Providers Copied on Encounter [facility], [address] [place] [address] [address], [place], [place], [id number], tel:[phone] SEC [facility] No Information 2 2-201 0 Samra Leggett [address] , [address], [place], [address], [place]. tel:[phone] [facility], [address] [place] [address] [address], [place], [place], [id number], [place] tel:[phone] [facility] [place] No Information Willis-0 4-200 9 Samra Leggett [address] , [address], [place], [address], [place]. tel:[phone] [facility], [address] [place] [address] [address], [place], [place], [id number], [place] tel:[phone] SEC [facility] No Information Aug- 8 Samra Hernandez. [address] [facility] , [address], [place], [address], [place]. tel:[phone] [facility], [address], [place], [place], [id number], [place] tel:[phone] SEC [facility] No Information Aug-0 3[address] [facility] [employer] . [address] [facility], [address], [place], [place], [id number], [place]. tel:[phone] Referring Provider: Mary Brown, [address] [place] [address] [address], [place], [place], [facility]. tel:[phone] sulting Provider: Freddie Cruz [address] [place] [address], [place], [place], [facility]. tel:[phone] [facility], [address], [place], [place], [id number], [place] tel:[phone] SEC [facility] No Information 8 Samra Hernandez. [address] [place] [address] , [address], [place], [address], [place]. tel:[phone] Family History Family Member Type Diagnosis Age At Onset No Information Payers Payer name Insurance type Covered republican ID Authorrejia tiomar(s) [place] [id number] Social History Type Description Quantity Date Captured [...]
--- OUTSIDE RECORDS SUMMARY | 2024-11-20 00:59 | XMS_ITS | Clinical Summary ---
Author Organization [facility] Address [address] [place] [address] Care Team Providers Care Ophthalmic Asst Name Role Phone Francesco Barahona MD Primary [...] 11/08/2024 Assessment & Plan (11/08/2024 7:47 PM SOIL SCIENCE PROFESSOR): Symmetric edema, so DVT is unlikely. Continue compression stockings and leg elevation. C. difficile colitis 11/08/2024 Assessment & Plan (11/08/2024 7:47 PM SOIL SCIENCE PROFESSOR): Complete fidaxomicin course. Check labs. Perforated ulcer 11/08/2024 Assessment & Plan (11/08/2024 7:48 PM SOIL SCIENCE PROFESSOR): S/p surgery. Antibiotics completed. He will follow up with Dr. Corley. Urinary retention 11/08/2024 Assessment & Plan (11/08/2024 7:48 PM SOIL SCIENCE PROFESSOR): Per urology. Imbalance 03/07/2024 PVD (peripheral vascular disease) 01/11/2023 Assessment & Plan (01/11/2023 1:06 PM CDT): Compression socks Venous duplex Vascular Referral Medicare annual wellness visit, subsequent 06/22 Assessment & Plan (07/07/2024 6:42 PM CDT): Overall excellent health. Colonoscopy is due in 2024. I recommended COVID, flu, RSV, and [id number] vaccinations. Assessment & Plan (07/02/2023 10:27 AM CDT): Overall good health. Check PSA today. Colonoscopy due in 2024. I recommended that he get a COVID shot and [id number] vaccine. He declines a flu shot. Assessment & Plan (06/22/2022 10:00 AM CDT): Overall good health. [place] due in 2024. Recommended the following vaccines: Shingrix New COVID booster Flu shot [id number] Hyperlipidemia 06/22/2022 Assessment & Plan (07/07/2024 6:40 [...] Department Care Team Description 11/09/2024 Telephone [facility] [address] [facility] Medical Office Building [address] [place] [address] Dina Benitez CMA 11/08/2024 6:30 PM SOIL SCIENCE PROFESSOR Lab [facility] ([facility]) [facility] [place] [address] Perforated ulcer (HCC); C. difficile colitis 11/08/2024 2:15 PM SOIL SCIENCE PROFESSOR Office Visit [facility] [address] [facility] [address] [place] [facility] [place] [address] Francesco Barahona MD Perforated ulcer (HCC) (Primary Dx); C. difficile colitis; Localized swelling of lower extremity; Urinary retention 11/08/2024 Results Follow-Up [facility] [address] [place] [address] Francesco Barahona MD 11/06/2024 Telephone [facility] [address] [place] [address] Francesco Barahona MD Medical Records Request 10/18/2024 11:00 AM SOIL SCIENCE PROFESSOR Office Visit [facility] [address] [place] [address] [address] [place] [address] Ubaldo Rose MD Retention of urine 10/09/2024 Orders Only [facility] [address] [place] [address] [address] [place] [id number] Ubaldo Rose MD 10/05/2024 9:40 AM SOIL SCIENCE PROFESSOR Lab [facility] ([facility]) [address] [place] [address] UTI symptoms 10/04/2024 Orders Only [facility] [address] [place] [address] 4 [address] [place] [address] Ubaldo Rose MD UTI symptoms (Primary Dx) 10/04/2024 Telephone [facility] [address] [place] [address] Office [facility] [address] [place] [address] Ubaldo Rose MD 09/19/2024 Telephone [facility] [address] [place] [address] Office [facility] [address] [place] [address] Dina Benitez CMA 09/18/2024 Telephone [facility] [address] [place] [address] 4 [address] [place] [address] Dina Benitez CMA from Last 3 Months [...] on file Legal Sex Male 12:31 PM SOIL SCIENCE PROFESSOR Gender Identity Male 11/09/2022 8:29 PM SOIL SCIENCE PROFESSOR Sexual Orientation Straight 11/09/2022 8: 29 PM SOIL SCIENCE PROFESSOR Obstetrics History Last Filed Vital Signs Vital Sign Reading Time Taken Comments Blood Pressure 145/76 11/08/2024 1:45 PM SOIL SCIENCE PROFESSOR Pulse 78 11/08/2024 1:45 PM SOIL SCIENCE PROFESSOR Temperature - - Respiratory Rate - - Oxygen Saturation 99% 02/15/2023 1:31 PM CDT Inhaled Oxygen Concentration - - Weight 65.6 kg (144 lb 9.6 oz) 11/08/2024 1:45 P M SOIL SCIENCE PROFESSOR Height 175.3 cm (5' 9 ) 11/08/2024 1:45 PM SOIL SCIENCE PROFESSOR Body Mass Index 21.35 11/08/2024 1:45 PM SOIL SCIENCE PROFESSOR Plan of Treatment Health Maintenance Due Date [...] Diagnosis Comments EGFR Routine 11/08/2024 3:02 PM SOIL SCIENCE PROFESSOR Perforated ulcer (HCC) C. difficile colitis DIFFERENTIAL AUTO Routine 11/08/2024 3:0 2 PM SOIL SCIENCE PROFESSOR Perforated ulcer (HCC) C. difficile colitis CBC WITH AUTO DIFFERENTIAL Routine 11/08/2024 3:02 PM SOIL SCIENCE PROFESSOR Perforated ulcer (HCC) C. difficile colitis COMPREHENSIVE METABOLIC PANEL Routine 11/08/2024 3:02 PM SOIL SCIENCE PROFESSOR Perforated ulcer (HCC) C. difficile colitis URINE CULTURE Routine 10/05/2024 9:43 AM SOIL SCIENCE PROFESSOR UTI symptoms HEPATITIS C ANTIBODY Routine 06/16/2021 10:33 AM CDT Encounter for hepatitis C screening test for low risk patient COLONOSCOPY REPORT 07/22/2015 from Last 3 Months or Most Recently Relevant to Health Maintenance Results * eGFR (11/08/2024 3:02 PM SOIL SCIENCE PROFESSOR) eGFR 75 >=60 mL/min/1. 73 m2 Comment: [...] last reviewed 2021. Blood 11/08/2024 3:02 PM SOIL SCIENCE PROFESSOR 11/08/2024 3:25 PM SOIL SCIENCE PROFESSOR us Francesco Barahona MD LAB BLOOD ORDERABLES Fi nal Result [facility] Department [place] [address] * Differential, auto (11/08/2024 3:02 PM SOIL SCIENCE PROFESSOR) Neutrophil abs 3.9 1.5 - 6.5 K/cumm Imm gran abs 0.1 0.0 - 0.1 K/cumm [facility] Lymphocyte abs 2.0 0.8 - 3.3 K/cumm [facility] Monocyte abs 0.7 0.2 - 0.8 K/cumm [facility] Eosinophil abs 0.3 0.0 - 0.5 K/cumm [facility] Basophil abs 0.0 0.0 - 0.1 K/cumm [facility] Neutrophil pct 56.2 % [facility] Comment: Interpretive Data Percent cell count reference ranges are not reported, since discordance with absolute values may lead to misinterpretation of CBC data. Current Interpretive Data was last revised on 2017. Imm gran pct 0.7 % [facility] Comment: Interpretive Data Percent cell count reference ranges are not reported, since discordance with absolute values may lead to misinterpretation of CBC data. Current Interpretive Data was last revised on 2017. Lymphocyte pct 28.9 % [facility] Comment: Interpretive Data Percent cell count reference ranges are not reported, since discordance with absolute values may lead to misinterpretation of CBC data. Current Interpretive Data was last revised on 2017. Monocyte pct 9.7 % [facility] Comment: Interpretive Data Percent cell count reference ranges are not reported, since discordance with absolute values may lead to misinterpretation of CBC data. Current Interpretive Data was last revised on 2017. Eosinophil pct 3.9 % [facility] Comment: Interpretive Data Percent cell count reference ranges are not reported, since discordance with absolute values may lead to misinterpretation of CBC data. Current Interpretive Data was last revised on 2017. Basophil pct 0.6 % [facility] Comment: Interpretive Data Percent cell count reference ranges are not reported, since discordance with absolute values may lead to misinterpretation of CBC data. Current Interpretive Data was last revised on 2017. Blood 11/08/2024 3:02 PM SOIL SCIENCE PROFESSOR 11/08/2024 3:20 PM SOIL SCIENCE PROFESSOR Francesco Barahona MD LAB BLOOD ORDERABLES Fi nal Result Performing Organization Address City/[facility]/ZIP Co de Phone Number [facility] Department [place] [address] * (ABNORMAL) CBC with auto differential (11/08/2024 3:02 PM SOIL SCIENCE PROFESSOR) [facility] WBC 6.9 3.8 - 9.9 K/cumm Hgb 11.8(L) 13.0 - 17.5 g/dL [facility] Hct 35.9(L) 38.9 - 50.3 % [facility] Plt 268 150 - 400 K/cumm [facility] MPV 9.4 9.1 - 12.3 fL [facility] RBC 3.98(L) 4.30 - 5.80 M/cumm [facility] MCV 90.2 81.3 - 96.4 fL [facility] MCH 29.6 27.1 - 33.3 pg [facility] MCHC 32.9 32.3 - 35.7 g/dL [facility] RDW CV 13.2 11.1 - 14.9 % [facility] RDW SD 43.9 35.7 - 48.1 fL [facility] NRBC abs 0.00 0.00 - 0.01 K/cumm [facility] Blood 11/08/2024 3:02 PM SOIL SCIENCE PROFESSOR 11/08/2024 3:20 PM SOIL SCIENCE PROFESSOR Francesco Barahona MD LAB BLOOD ORDERABLES Fi nal Result [facility] Department [place] [address] * Comprehensive metabolic panel (11/08/2024 3:02 PM SOIL SCIENCE PROFESSOR) Pathologist [facility] Sodium 143 135 - 145 mmol/L Potassium, pl 4.2 3.3 - 4.9 mmol/L [facility] Chloride 105 97 - 110 mmol/L [facility] CO2 31 22 - 32 mmol/L [facility] Anion gap 7 2 - 15 mmol/L [facility] BUN 16 6 - 25 mg/dL [facility] Creatinine 1.02 0.80 - 1.30 mg/dL [facility] Glucose 95 70 - 199 mg/dL [facility] Comment: Interpretive Data Fasting glucose >/= [...] 2022. Calcium 8.6 8.5 - 10.3 mg/dL [facility] Bilirubin, total 0.4 0.1 - 1.2 mg/dL [facility] Protein, pl 6.8 6.5 - 8.5 g/dL [facility] Albumin 3.6 3.5 - 5.0 g/dL [facility] Alk phos 107 40 - 130 Units/L [facility] ALT 14 7 - 55 Units/L [facility] AST 32 10 - 50 Units/L [facility] Blood 11/08/2024 3:02 PM SOIL SCIENCE PROFESSOR 11/08/2024 3:20 PM SOIL SCIENCE PROFESSOR Francesco Barahona MD LAB BLOOD ORDERABLES Fi nal Result [facility] Department [place] [address] * (ABNORMAL) Urine culture Urine, clean voided (10/05/2024 9:43 AM SOIL SCIENCE PROFESSOR) Report Final Report: Greater than or equal to 100,000 colonies/mL of Staphylococcus lugdunensis Plus growth of clinically insignificant bacterial alexei. (.) Organism STAPHYLOCOCCUS LUGDUNENSIS [facility] Organism PLUS GROWTH OF CLINICALLY INSIGNIFICANT ALEXEI. [facility] Urine, clean voided 10/05/2024 9:43 AM SOIL SCIENCE PROFESSOR 10/05/2024 10:27 AM SOIL SCIENCE PROFESSOR Narrative [facility] - 10/08/2024 1:07 PM SOIL SCIENCE PROFESSOR Testing performed by [facility] Microbiology Laboratory ([phone]) Organism Antibiotic Method Susceptibility Staphylococcus lugdunensis Vancomycin INTERPRETATION Susceptible Staphylococcus lugdunensis Trimethoprim with Sulfamethoxazole INTERPRETATION Susceptible Staphylococcus lugdunensis Linezolid INTERPRETATION Susceptible Staphylococcus lugdunensis Doxycycline INTERPRETATION Susceptible Staphylococcus lugdunensis Nitrofurantoin INTERPRETATI ON Susceptible Staphylococcus lugdunensis Oxacillin INTERPRETATION Susceptible Staphylococcus lugdunensis Cefazolin INTERPRETATION Susceptible Staphylococcus lugdunensis Ceftriaxone INTERPRETATION Susceptible us Ubaldo Rose MD LAB MICROBIOLOGY - [facility] ORDERABLES Final Result [facility] Department [place] [address] * Hepatitis C antibody (06/16/2021 10:33 AM CDT) [facility] Hep C Ab 0.2 0.0 - 0.9 s/co ratio [facility] - 01 Comment: Negative: < 0.8 Indeterminate: 0.8 - 0.9 Positive: > 0.9 The CDC recommends that a positive HCV antibody result be followed up with a HCV Nucleic Acid Amplification test ([id number]). Blood specimen (specimen) 06/16/2021 10:33 AM CDT 06/16/2021 Narrative [facility] - 06/17/2021 9:10 AM CDT Performed at: - [facility] [address] [id number] Transfer Clerk: Glenn Aquino PhD, Phone: [phone] us Francesco Barahona MD LAB MICROBIOLOGY - [facility] ORDERABLES Final Result [facility] - 01 * COLONOSCOPY REPORT (07/22/2015) Anatomical Region Laterality Modality Other Narrative 07/22/2015 Ordered by an unspecified provider. us Historical Provider MD MARTIN PROCEDURE ORDERABLES F inal Result from Last 3 Months or Most Recently Relevant to Health Maintenance Insurance [facility] MEDICARE MEDICARE [employer] [facility] MEDICARE Address: [address] [address] [place] [address] MEDICARE [employer] MEDICARE Advance Directives For more information, please contact: [phone] Documents on File Type Date Recorded Patient Digital Specialist Expl anation ADVANCE DIRECTIVE 10/01/2017 12:18 PM Care Teams Ophthalmic Asst Relationship Specialty Start Date End Date Francesco Barahona MD [address] [facility] [address] [place] [address] PCP - General Endocrinology Diabetes & Metabolism 06/16/21
--- OUTSIDE RECORDS SUMMARY | 2024-11-20 00:59 | XMS_ITS | Encounter Summary ---
Author Organization [facility] Address [address] [place] [address] Phone Care Team Providers Care Station Detective Name Role Phone Keanu Anthony MD Primary Care Provider [phone] Francesco Barahona MD Primary Care Provider Encounter Details Date Type Department Care Team (Latest Contact Info) Description 03/24/2017 Orders Only [facility] CONVERSION Scanning, Provider Social History Tobacco Use Types Packs/Day Years Used Date Smoking Tobacco: Never Sex and Gender Information Value Date Recorded Sex Assigned at Not on file Legal Sex Male 12:31 PM TRANSPORT OPERATIONS INSPECTOR Gender Identity Male 11/09/2022 8:29 PM TRANSPORT OPERATIONS INSPECTOR Sexual Orientation Straight 11/09/2022 8: 29 PM TRANSPORT OPERATIONS INSPECTOR documented as of this encounter Plan of [...] on filedocumented in this encounter Care Teams Station Detective Relationship Specialty Start Date End Date Keanu Anthony MD [address] [facility] [address] [place] [address] PCP - General 03/30/17 06/15/21 Francesco Barahona MD [address] [address] PCP - General Endocrinology Diabetes & Metabolism 06/16/21 documented as of this encounter
--- OUTSIDE RECORDS SUMMARY | 2024-11-20 01:00 | XMS_ITS | Encounter Summary ---
Author Organization [facility] Address [address] [place] [address] Phone Care Team Providers Care District Representative Name Role Phone Keanu Anthony MD Primary Care Provider [phone] Francesco Barahona MD Primary Care Provider Encounter Details Date Type Department Care Team (Latest Contact Info) Description 05/02/2017 Orders Only [facility] CONVERSION Scanning, Provider Social History Tobacco Use Types Packs/Day Years Used Date Smoking Tobacco: Never Sex and Gender Information Value Date Recorded Sex Assigned at Not on file Legal Sex Male 12:31 PM INSTRUMENT TESTER Gender Identity Male 11/09/2022 8:29 PM INSTRUMENT TESTER Sexual Orientation Straight 11/09/2022 8: 29 PM INSTRUMENT TESTER documented as of this encounter Plan of [...] on filedocumented in this encounter Care Teams District Representative Relationship Specialty Start Date End Date Keanu Anthony MD [address] [facility] [address] [place] [address] PCP - General 03/30/17 06/15/21 Francesco Barahona MD [address] [address] PCP - General Endocrinology Diabetes & Metabolism 06/16/21 documented as of this encounter
[2024-11-20 07:56] VITALS: BP 136/66; PULSE 67; RESP 18; TEMP 36.3; O2SAT 100; BMI 20.2
[2024-11-20] MEDS: LACTATED RINGERS 1,000 ML 150 ML IV CONT (08:16)
--- NOTE | 2024-11-20 08:58 | WPDANESEPPF ---
Anes - Initial Pre Proc Eval Procedure: Operation Date: 11/20/24 09:00 Proposed Procedures p Esophagogastroduodenoscopy - Christian Corley DO Date/Time: 11/20/24 08:58 Surgeon: Christian Corley DO Pre Op Diagnosis: Perforated duodenal Patient Data Age: 79 Gender: M Height: 1.73 m Weight: 60.2 kg Last Vital Signs Temp 36.3 C L 11/20/24 07:56 Pulse 67 11/20/24 07:56 Resp 18 11/20/24 07:56 BP 136/66 11/20/24 07:56 Pulse Ox 100 11/20/24 07:56 O2 Del Method Room Air 11/20/24 07:56 Allergies Allergy/AdvReac Type Severity Reaction Status Date / Time No Known Allergies Allergy Verified 11/20/24 08:03 Home Medications ?Medication ?Instructions ?Recorded ?Confirmed ?Type aspirin 81 mg capsule 81 mg PO DAILY 10/11/24 11/20/24 History pantoprazole 40 mg tablet,delayed 40 mg PO BID #60 tabs 10/13/24 11/20/24 Rx release sucralfate 1 gram tablet 1 g PO ACHS #120 tabs 10/13/24 11/20/24 Rx fidaxomicin 200 mg tablet (Dificid) 200 mg PO Q12HR 9 days #18 tabs 11/04/24 11/20/24 Rx cephalexin 500 mg capsule 500 mg PO Q8H 4 days #12 caps 11/14/24 11/20/24 Rx Patient hx anesthesia problems: none Family hx anesthesia problems: none Results Review: All pre-operative results and documents have been reviewed as part of the pre-operative evaluation. [facility] Past Medical History Medical History Duodenal ulcer, perforated BPH (benign prostatic hyperplasia) With intermittent straight catheterization Surgical History Surgical History Status post laparoscopic procedure (10/10/24) Duodenal ulcer Social History Social History Social History: He lives at home with his of 55 years. 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 He rarely drinks alcohol and only in small amounts. He is a lifelong nonsmoker and does not use illicit substances. Code status: Full code Surrogate decision maker: Kalyani () Smoking status: Never smoker Alcohol intake: never Substance use: never Substance use type: does not use Do You Feel Safe in your Home?: Yes Lack of Transportation: No Lack of Food: Never True Current Housing: I Have Housing Concerned About Future Housing: No Difficulty Paying Gas/Electric Bills: No Difficulty Paying for Meds: No Currently Unemployed: No Education: Master's Degree or Higher Difficulty w/ Childcare or Family Care: No Living arrangements: with family Spiritual care concerns: No Anes - Eval Final PreProcedure Day of Procedure 11/20/24 08:58 Patient weight: normal Heart: regular rate and rhythm Lungs: clear to auscultation Airway: Mallampati scale class II Neurological: alert and oriented Last oral intake: >/= 8 hours ASA classification: II Emergent: no Anesthetic plan: proceed Anesthesia type and monitoring: general GIVS and standard monitoring Results Review: All pre-operative results and documents have been reviewed as part of the pre-operative evaluation. Informed Consent: The patient's anesthetic plan and its attendant risks and benefits were discussed with the patient/family/POA. Questions were solicited and answers provided to the satisfaction of the patient/family/POA.
--- NOTE | 2024-11-20 09:02 | PM.IMHP ---
H&P: HPI History of Present Illness Date/Time: 11/20/24 09:02 Chief Complaint: duodenal ulcer Narrative: this is a 79-year-old man who presented with a perforated duodenal ulcer on 10/10/2024. He underwent surgery for that and has healed completely. He denies any epigastric pain, heartburn, or acid reflux. He denies any hematochezia or melena. Patient does state that he has been losing weight. Review of Systems Review of Systems: All systems reviewed & are unremarkable except as noted in HPI and below Constitutional: Constitutional: Denies chills, Denies fever(s), Denies headache(s) and Denies weight loss Eyes: Eyes: Denies change in vision ENT: Denies dizziness, Denies headache(s), Denies neck mass and Denies throat swelling Cardiovascular: Cardiovascular: Denies chest pain, Denies lightheadedness and Denies dyspnea Respiratory: Respiratory: Denies cough, Denies dyspnea and Denies wheezing Gastrointestinal: Gastrointestinal: Denies abdominal pain, Denies change in bowel habits, Denies nausea and Denies vomiting Genitourinary: Genitourinary: Denies hematuria and Denies dysuria Musculoskeletal: Musculoskeletal: Reports as per HPI Integumentary/Breasts: Skin/Breast: Reports as per HPI Neurologic: Denies dizziness and Denies headache(s) Allergic/Immunologic: Allergic/Immunologic: Denies throat swelling and Denies wheezing PMFSH Past Medical History Medical History Duodenal ulcer, perforated BPH (benign prostatic hyperplasia) With intermittent straight catheterization Surgical History Surgical History Status post laparoscopic procedure (10/10/24) Duodenal ulcer Social History Social History Social History: He lives at home with his of 55 years. 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 He rarely drinks alcohol and only in small amounts. He is a lifelong nonsmoker and does not use illicit substances. Code status: Full code Surrogate decision maker: Kalyani () Smoking status: Never smoker Alcohol intake: never Substance use: never Substance use type: does not use Do You Feel Safe in your Home?: Yes Lack of Transportation: No Lack of Food: Never True Current Housing: I Have Housing Concerned About Future Housing: No Difficulty Paying Gas/Electric Bills: No Difficulty Paying for Meds: No Currently Unemployed: No Education: Master's Degree or Higher Difficulty w/ Childcare or Family Care: No Living arrangements: with family Spiritual care concerns: No Meds Home Medications and Allergies Home Medications ?Medication ?Instructions ?Recorded ?Confirmed ?Type aspirin 81 mg capsule 81 mg PO DAILY 10/11/24 11/20/24 History pantoprazole 40 mg tablet,delayed 40 mg PO BID #60 tabs 10/13/24 11/20/24 Rx release sucralfate 1 gram tablet 1 g PO ACHS #120 tabs 10/13/24 11/20/24 Rx fidaxomicin 200 mg tablet (Dificid) 200 mg PO Q12HR 9 days #18 tabs 11/04/24 11/20/24 Rx cephalexin 500 mg capsule 500 mg PO Q8H 4 days #12 caps 11/14/24 11/20/24 Rx Allergies Allergy/AdvReac Type Severity Reaction Status Date / Time No Known Allergies Allergy Verified 11/20/24 08:03 Vital Signs Vital Signs - 24 hr 11/20/24 07:56 Temperature 97.3 F L Pulse Rate 67 Respiratory Rate 18 Blood Pressure 136/66 Pulse Oximetry 100 Oxygen Delivery Room Air Exam Const: General: no acute distress and alert Orientation/consciousness: patient oriented x3 HENMT: Head: normocephalic and atraumatic Ears: hearing grossly normal bilaterally Face/Nose/Sinus: Normal nares present Mouth: Yes Normal oral and palatal mucosa present Eyes: Periorbital: periorbital findings normal Sclera: sclerae normal EOM: EOMs intact bilaterally Neck: Neck: normal visual inspection, no lymphadenopathy and trachea midline Chest: Chest palpation & inspection: normal inspection of the chest Resp: Effort & Inspection: normal respiratory effort Auscultation: clear to auscultation bilaterally Cardio: Jugular venous distension: no JVD Rate: regular rate Rhythm: regular rhythm Heart sounds: S1 normal heart sound present and S2 normal heart sound present Peripheral pulses: Peripheral pulses 2+ throughout GI: Inspection: normal to inspection GI Palp: Yes Soft to palpation, No Tenderness to palpation present (GI), No Guarding due to palpation present (GI) and No Rebound tenderness present Percussion: Yes normal to percussion Auscultation: normal bowel sounds : General: Yes no CVA tenderness Back/Spine/Pelvis: Back: no CVA tenderness Neuro: General: patient oriented x3, no focal motor deficits and CN's II-XI intact bilaterally Cognition (Neuro): normal cognition Speech: normal speech Motor exam (neuro): 5/5 motor strength present throughout Extrem: General: capillary refill normal and no clubbing, cyanosis or edema Assessment and Plan Assessment and plan (1) Duodenal ulcer, perforated: Code(s): K26.5 - Chronic or unspecified duodenal ulcer with perforation Status: Acute Assessment and Plan: I have recommended EGD. I have discussed the procedure, risks, benefits, and alternatives. Questions were answered. Patient is agreeable to proceed.
[2024-11-20 09:29] VITALS: BP 121/71; PULSE 68; RESP 20; O2SAT 100
[2024-11-20 09:39] VITALS: BP 142/78; PULSE 70; RESP 18; O2SAT 100
[2024-11-20 09:49] VITALS: BP 148/97; PULSE 82; RESP 18; O2SAT 100
[2024-11-20 10:39] LABS: HPYLORIRESULT Negative (Negative)
== END 2024-11-20 10:03 | disposition home or self-care (01) ==
PROVIDERS: Visit Provider Surgery
PROC: 0DJ08ZZ Inspection of Upper Intestinal Tract, Via Natural or Artificial Opening Endoscopic (ICD-10-PCS; CPT 43239; principal; 2024-11-20 09:00)
DX: K29.80 Duodenitis without bleeding (principal)
CPT/HCPCS: 43239; 87081; 88305; J2003; J2704; J7120

== ENCOUNTER 2024-12-12 10:10 | Outpatient (CLI) | payer MEDICARE, SELFPAY ==
--- NOTE | ~2024-12-12 | US_ITS ---
EXAMINATION: US abdomen limited DATE: 12/12/2024 11:26 INDICATION: Other disorders of bilirubin metabolism TECHNIQUE: Multiple grayscale and Doppler ultrasound images of the abdomen were obtained. COMPARISON: None FINDINGS: Minimal dilation of the main pancreatic duct which measures 3 mm at the neck of the pancreas. The pritchard creatic head and body are otherwise normal in appearance. The pancreatic tail is not visualized. Vis ualized proximal to mid abdominal aorta are normal measuring up to 2.4 cm in maximal diameter. Visual ized proximal to mid inferior vena cava is also normal. Liver has normal echogenicity and contour, wi th a smooth surface. No liver lesion identified. Portal venous flow was seen in the hepatopetal, norm al direction and has normal Doppler waveform. There is mild intrahepatic biliary ductal dilation whic h appears new since 11/03/2024. Gallbladder is partially decompressed which limits evaluation. No evid ent gallbladder wall thickening Albina decompressed state with no evident shadowing cholelithiasis. The common hepatic duct is dilated to 8 mm. The common bile duct is suboptimally visualized but gisella ures up to 6 mm. The common hepatic duct and common bile duct measures 5 mm and 4 mm respectively on the prior CT. The distal common bile duct is not visualized. Sonographic Jiménez sign was reported as negative by the senior quality control technician. IMPRESSION: 1. Mild intra and extra hepatic biliary ductal dilation is new since study dated 11/03/2024. There is also borderline dilation of the main pancreatic duct which also appears new since prior CT. Consider MRCP to assess for obstructing stone or mass at the nonvisualized distal aspect of the common bile du ct. 2. Decompressed gallbladder without evident choledocholithiasis or Jiménez's on to suggest acute regina cystitis. Reviewed, dictated and finalized at location A. IMPRESSION: 1. Mild intra and extra hepatic biliary ductal dilation is new since study date d 11/03/2024. There is also borderline dilation of the main pancreatic duct whic h also appears new since prior CT. Consider MRCP to assess for obstructing ston e or mass at the nonvisualized distal aspect of the common bile duct. 2. Decompressed gallbladder without evident choledocholithiasis or Jiménez's on to suggest acute cholecystitis.
--- OUTSIDE RECORDS SUMMARY | 2024-12-12 11:08 | XMS_ITS | Encounter Summary ---
Author Organization [facility] Address [address] [place] [address] Phone Care Team Providers Care Fireproof Door Maker Name Role Phone Keanu Anthony MD Primary Care Provider [phone] Francesco Barahona MD Primary Care Provider Encounter Details Date Type Department Care Team (Latest Contact Info) Description 05/02/2017 Orders Only [facility] CONVERSION Scanning, Provider Social History Tobacco Use Types Packs/Day Years Used Date Smoking Tobacco: Never Sex and Gender Information Value Date Recorded Sex Assigned at Not on file Legal Sex Male 12:31 PM GEOPHYSICAL PROSPECTING PERMIT AGENT Gender Identity Male 11/09/2022 8:29 PM GEOPHYSICAL PROSPECTING PERMIT AGENT Sexual Orientation Straight 11/09/2022 8: 29 PM GEOPHYSICAL PROSPECTING PERMIT AGENT documented as of this encounter Plan of [...] on filedocumented in this encounter Care Teams Fireproof Door Maker Relationship Specialty Start Date End Date Keanu Anthony MD [address] [facility] [address] [place] [address] PCP - General 03/30/17 06/15/21 Francesco Barahona MD [address] [address] PCP - General Endocrinology Diabetes & Metabolism 06/16/21 documented as of this encounter
--- OUTSIDE RECORDS SUMMARY | 2024-12-12 11:08 | XMS_ITS | Clinical Summary ---
Author Organization [facility] Address [address] [place] [address] Care Team Providers Care Biomedical Equipment Specialist Name Role Phone Francesco Barahona MD Primary Care Provider Allergies No known active allergies Medications aspirin 81 mg tablet Take 1 tablet (81 mg total) by mouth Active multivitamin tabletIndicatio ns:Vitamin Deficiency Prevention Men's One per Day Active pantoprazole DR (PROTONIX) 40 mg EC tablet Take 1 tablet (40 mg total) by mouth 2 (two) times a day 5 Active sucralfate (CARAFATE) 1 gram tablet 1 tablet (1 g total) 5 Active scopolamine 1 mg over 3 days patch [address] 1 patch on the skin every third day for 72 hours 4 patch 5 Active scopolamine 1 mg over 3 days patch 3 day APPLY 1 PATCH TOPICALLY TO THE SKIN EVERY 72 HOURS 4 patch 4 12/01/19 25 Discontinu ed(Reorder ) Active Problems Problem Noted Date Diagnosed Date Localized swelling of lower extremity 11/08/2024 Assessment & Plan (11/08/2024 7:47 PM CUTTER OPERATOR BRICK): Symmetric edema, so DVT is unlikely. Continue compression stockings and leg elevation. C. difficile colitis 11/08/2024 Assessment & Plan (11/08/2024 7:47 PM CUTTER OPERATOR BRICK): Complete fidaxomicin course. Check labs. Perforated ulcer 11/08/2024 Assessment & Plan (11/08/2024 7:48 PM CUTTER OPERATOR BRICK): S/p surgery. Antibiotics completed. He will follow up with Dr. Corley. Urinary retention 11/08/2024 Assessment & Plan (11/08/2024 7:48 PM CUTTER OPERATOR BRICK): Per urology. Imbalance 03/07/2024 PVD (peripheral vascular disease) 01/11/2023 Assessment & Plan (01/11/2023 1:06 PM CDT): Compression socks Venous duplex Vascular Referral Medicare annual wellness visit, subsequent 06/22 Assessment & Plan (07/07/2024 6:42 PM CDT): Overall excellent health. Colonoscopy is due in 2024. I recommended COVID, flu, RSV, and [id number] vaccinations. Assessment & Plan (07/02/2023 10:27 AM CDT): Overall good health. Check PSA today. Colonoscopy due in 2024. I recommended that he get a COVID shot and [id number] vaccine. He declines a flu shot. Assessment & Plan (06/22/2022 10:00 AM CDT): Overall good health. Willet due in 2024. Recommended the following vaccines: Shingrix New COVID booster Flu shot [id number] Hyperlipidemia 06/22/2022 Assessment & Plan (07/07/2024 6:40 [...] Encounters Date Type Department Care Team Description 12/01/2024 Telephone [facility] Urology [facility] Office Building [address] [place] [address] Dina Benitez CMA 11/30/2024 Orders Only [facility] Otolaryngology [address] [facility] [place] [phone] Lili Myrick CMA 11/20/2024 Orders Only [facility] [address] [place] [address] [address] [facility] [place] [phone] Francesco Barahona MD 11/09/2024 Telephone [facility] Urology [address] [facility] Office Building [address] [place] [address] Dina Benitez CMA 11/08/2024 6:30 PM CUTTER OPERATOR BRICK Lab [facility] [place] [address] Perforated ulcer (HCC); C. difficile colitis 11/08/2024 2:15 PM CUTTER OPERATOR BRICK Office Visit [facility] [address] [place] [phone] Francesco Barahona MD Perforated ulcer (HCC) (Primary Dx); C. difficile colitis; Localized swelling of lower extremity; Urinary retention 11/08/2024 Results Follow-Up [facility] [address] [place] [phone] Francesco Barahona MD 11/06/2024 Telephone [facility] [address] [phone] Francesco Barahona MD Medical Records Request 10/18/2024 11:00 AM CUTTER OPERATOR BRICK Office Visit [facility] Urology [address] [place] [address] [phone] Ubaldo Rose MD Retention of urine 10/09/2024 Orders Only [facility] Urology [address] [place] [address] Office [facility] [address] [place] [phone] Ubaldo Rose MD 10/05/2024 9:40 AM CUTTER OPERATOR BRICK Lab [facility] [address] [place] [phone] UTI symptoms 10/04/2024 Orders Only [facility] Urology [address] [place] [address] Office [facility] [address] [phone] Ubaldo Rose MD UTI symptoms (Primary Dx) 10/04/2024 Telephone [facility] Urology [address] [facility] Office [facility] [address] [place] [address] Ubaldo Rose MD 09/19/2024 Telephone [facility] Urology [address] [facility] Office [facility] [address] [place] [phone] Dina Benitez CMA 09/18/2024 Telephone [facility] Urology [address] [facility] [address] [place] [phone] Dina Benitez CMA from Last 3 Months [...] on file Legal Sex Male 12:31 PM CUTTER OPERATOR BRICK Gender Identity Male 11/09/2022 8:29 PM CUTTER OPERATOR BRICK Sexual Orientation Straight 11/09/2022 8: 29 PM CUTTER OPERATOR BRICK Obstetrics History Last Filed Vital Signs Vital Sign Reading Time Taken Comments Blood Pressure 145/76 11/08/2024 1:45 PM CUTTER OPERATOR BRICK Pulse 78 11/08/2024 1:45 PM CUTTER OPERATOR BRICK Temperature - - Respiratory Rate - - Oxygen Saturation 99% 02/15/2023 1:31 PM CDT Inhaled Oxygen Concentration - - Weight 65.6 kg (144 lb 9.6 oz) 11/08/2024 1:45 P M CUTTER OPERATOR BRICK Height 175.3 cm (5' 9 ) 11/08/2024 1:45 PM CUTTER OPERATOR BRICK Body Mass Index 21.35 11/08/2024 1:45 PM CUTTER OPERATOR BRICK Plan of Treatment Health Maintenance Due Date Last Done Comments Hepatitis B Screening 1963 Pneumococcal vaccine 65+ (1 of 1 - PCV) 1995 Zoster Vaccine (1 of 2) 1995 Covid-19 Vaccine (3 - 2023-2 5 season) 2024 12/09/2020, 11/11/2020 Influenza Vaccine (Season Ended) 2025 Depression Screening 07/07/2025 07/07/2024, 07/02/2023, 06/22/2022, Additional [...] Procedure Name Priority Date/Time Associated Diagnosis Comments GI - RESULT 11/20/2024 10:02 AM CDT EGFR Routine 11/08/2024 3:02 PM CUTTER OPERATOR BRICK Perforated ulcer (HCC) C. difficile colitis DIFFERENTIAL AUTO Routine 11/08/2024 3:0 2 PM CUTTER OPERATOR BRICK Perforated ulcer (HCC) C. difficile colitis CBC WITH AUTO DIFFERENTIAL Routine 11/08/2024 3:02 PM CUTTER OPERATOR BRICK Perforated ulcer (HCC) C. difficile colitis COMPREHENSIVE METABOLIC PANEL Routine 11/08/2024 3:02 PM CUTTER OPERATOR BRICK Perforated ulcer (HCC) C. difficile colitis URINE CULTURE Routine 10/05/2024 9:43 AM CUTTER OPERATOR BRICK UTI symptoms HEPATITIS C ANTIBODY Routine 06/16/2021 10:33 AM CDT Encounter for hepatitis C screening test for low risk patient COLONOSCOPY REPORT 07/22/2015 from Last 3 Months or Most Recently Relevant to Health Maintenance Results * GI - RESULT (11/20/2024 10:02 AM CDT) Anatomical Region Laterality Modality Other Francesco Barahona MD Final R esult * eGFR (11/08/2024 3:02 PM CUTTER OPERATOR BRICK) eGFR 75 >=60 mL/min/1. 73 m2 Comment: [...] last reviewed 2021. Blood 11/08/2024 3:02 PM CUTTER OPERATOR BRICK 11/08/2024 3:25 PM CUTTER OPERATOR BRICK us Francesco Barahona MD LAB BLOOD ORDERABLES Fi nal Result [facility] Department [place] [address] * Differential, auto (11/08/2024 3:02 PM CUTTER OPERATOR BRICK) Neutrophil abs 3.9 1.5 - 6.5 K/cumm Imm gran abs 0.1 0.0 - 0.1 K/cumm [facility] Lymphocyte abs 2.0 0.8 - 3.3 K/cumm [facility] Monocyte abs 0.7 0.2 - 0.8 K/cumm [facility] Eosinophil abs 0.3 0.0 - 0.5 K/cumm [facility] Basophil abs 0.0 0.0 - 0.1 K/cumm [facility] Neutrophil pct 56.2 % [facility] Comment: Interpretive Data Percent cell count reference ranges are not reported, since discordance with absolute values may lead to misinterpretation of CBC data. Current Interpretive Data was last revised on 2017. Imm gran pct 0.7 % [facility] Comment: Interpretive Data Percent cell count reference ranges are not reported, since discordance with absolute values may lead to misinterpretation of CBC data. Current Interpretive Data was last revised on 2017. Lymphocyte pct 28.9 % [facility] Comment: Interpretive Data Percent cell count reference ranges are not reported, since discordance with absolute values may lead to misinterpretation of CBC data. Current Interpretive Data was last revised on 2017. Monocyte pct 9.7 % [facility] Comment: Interpretive Data Percent cell count reference ranges are not reported, since discordance with absolute values may lead to misinterpretation of CBC data. Current Interpretive Data was last revised on 2017. Eosinophil pct 3.9 % [facility] Comment: Interpretive Data Percent cell count reference ranges are not reported, since discordance with absolute values may lead to misinterpretation of CBC data. Current Interpretive Data was last revised on 2017. Basophil pct 0.6 % [facility] Comment: Interpretive Data Percent cell count reference ranges are not reported, since discordance with absolute values may lead to misinterpretation of CBC data. Current Interpretive Data was last revised on 2017. Blood 11/08/2024 3:02 PM CUTTER OPERATOR BRICK 11/08/2024 3:20 PM CUTTER OPERATOR BRICK us Francesco Barahona MD LAB BLOOD ORDERABLES Fi nal Result [facility] [address] [facility] Department [place] [address] * (ABNORMAL) CBC with auto differential (11/08/2024 3:02 PM CUTTER OPERATOR BRICK) WBC 6.9 3.8 - 9.9 K/cumm Hgb 11.8(L) 13.0 - 17.5 g/dL [facility] Hct 35.9(L) 38.9 - 50.3 % [facility] Plt 268 150 - 400 K/cumm [facility] MPV 9.4 9.1 - 12.3 fL [facility] RBC 3.98(L) 4.30 - 5.80 M/cumm [facility] MCV 90.2 81.3 - 96.4 fL [facility] MCH 29.6 27.1 - 33.3 pg [facility] MCHC 32.9 32.3 - 35.7 g/dL [facility] RDW CV 13.2 11.1 - 14.9 % [facility] RDW SD 43.9 35.7 - 48.1 fL [facility] NRBC abs 0.00 0.00 - 0.01 K/cumm [facility] Blood 11/08/2024 3:02 PM CUTTER OPERATOR BRICK 11/08/2024 3:20 PM CUTTER OPERATOR BRICK Francesco Barahona MD LAB BLOOD ORDERABLES Fi nal Result [facility] [address] [facility] Department [place] [address] * Comprehensive metabolic panel (11/08/2024 3:02 PM CUTTER OPERATOR BRICK) Sodium 143 135 - 145 mmol/L Potassium, pl 4.2 3.3 - 4.9 mmol/L [facility] Chloride 105 97 - 110 mmol/L [facility] CO2 31 22 - 32 mmol/L [facility] Anion gap 7 2 - 15 mmol/L [facility] BUN 16 6 - 25 mg/dL [facility] Creatinine 1.02 0.80 - 1.30 mg/dL [facility] Glucose 95 70 - 199 mg/dL [facility] Comment: Interpretive Data Fasting glucose [...] 2022. Calcium 8.6 8.5 - 10.3 mg/dL [facility] Bilirubin, total 0.4 0.1 - 1.2 mg/dL [facility] Protein, pl 6.8 6.5 - 8.5 g/dL [facility] Albumin 3.6 3.5 - 5.0 g/dL [facility] Alk phos 107 40 - 130 Units/L [facility] ALT 14 7 - 55 Units/L [facility] AST 32 10 - 50 Units/L [facility] Blood 11/08/2024 3:02 PM CUTTER OPERATOR BRICK 11/08/2024 3:20 PM CUTTER OPERATOR BRICK Francesco Barahona MD LAB BLOOD ORDERABLES Fi nal Result Performing Organization Address [facility]/ZIP Co de Phone Number [facility] Department [place] [address] * (ABNORMAL) Urine culture Urine, clean voided (10/05/2024 9:43 AM CUTTER OPERATOR BRICK) Report Final Report: Greater than or equal to 100,000 colonies/mL of Staphylococcus lugdunensis Plus growth of clinically insignificant bacterial alexei. (.) Organism STAPHYLOCOCCUS LUGDUNENSIS [facility] Organism PLUS GROWTH OF CLINICALLY INSIGNIFICANT ALEXEI. [facility] Urine, clean voided 10/05/2024 9:43 AM CUTTER OPERATOR BRICK 10/05/2024 10:27 AM CUTTER OPERATOR BRICK Narrative [facility] - 10/08/2024 1:07 PM CUTTER OPERATOR BRICK Testing performed by [facility] ([phone]) Organism Antibiotic Method Susceptibility Staphylococcus lugdunensis Vancomycin INTERPRETATION Susceptible Staphylococcus lugdunensis Trimethoprim with Sulfamethoxazole INTERPRETATION Susceptible Staphylococcus lugdunensis Linezolid INTERPRETATION Susceptible Staphylococcus lugdunensis Doxycycline INTERPRETATION Susceptible Staphylococcus lugdunensis Nitrofurantoin INTERPRETATI ON Susceptible Staphylococcus lugdunensis Oxacillin INTERPRETATION Susceptible Staphylococcus lugdunensis Cefazolin INTERPRETATION Susceptible Staphylococcus lugdunensis Ceftriaxone INTERPRETATION Susceptible Ubaldo Rose MD LAB MICROBIOLOGY - G ENERAL ORDERABLES Final Result Performing Organization Address City/[facility]/ZIP Co de Phone Number [facility] Department [place] [address] * Hepatitis C antibody (06/16/2021 10:33 AM CDT) Hep C Ab 0.2 0.0 - 0.9 s/co ratio [facility] - 01 Comment: Negative: < 0.8 Indeterminate: 0.8 - 0.9 Positive: > 0.9 The CDC recommends that a positive HCV antibody result be followed up with a HCV Nucleic Acid Amplification test ([id number]). Blood specimen (specimen) 06/16/2021 10:33 AM CDT 06/16/2021 Narrative [facility] - 06/17/2021 9:10 AM CDT Performed at: - [address] [id number] Vibratory Pile Driver: Glenn Aquino PhD, Phone: [phone] us Francesco Barahona MD LAB MICROBIOLOGY - GENE RAL ORDERABLES Final Result [facility] - 01 * COLONOSCOPY REPORT (07/22/2015) Anatomical Region Laterality Modality Other Narrative 07/22/2015 Ordered by an unspecified provider. 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
--- OUTSIDE RECORDS SUMMARY | 2024-12-12 11:08 | XMS_ITS | Referral Summary ---
Author Organization [facility] Address [address] [place] [address] Care Team Providers Care Cnc Mill And Lathe Operator Name Role Phone Francesco Barahona MD Primary Care Provider Encounters Date Type Department Care Team Description 12/01/2024 Telephone [facility] [address] [facility] Office Building [address] [place] [phone] Dina Benitez CMA 11/30/2024 Orders Only [facility] [address] [place] [address], [address] [place] [address] Lili Myrick CMA 11/20/2024 Orders Only [facility] [address] [place] [address] [place] [phone] Francesco Barahona MD 11/09/2024 Telephone [facility] [address] [place] [address] Office Building [address] [place] [phone] Dina Benitez CMA 11/08/2024 Results Follow-Up [facility] [address] [place] [phone] Francesco Barahona MD 11/08/2024 6:30 PM PLASTERER SPOT Lab [facility] Advanced [facility] [address] [place] [phone] Perforated ulcer (HCC); C. difficile colitis 11/08/2024 2:15 PM PLASTERER SPOT Office Visit [facility] [address] [place] [address] Francesco Barahona MD Perforated ulcer (HCC) (Primary Dx); C. difficile colitis; Localized swelling of lower extremity; Urinary retention 11/06/2024 Telephone [facility] [address] [place] [address] Francesco Barahona MD Medical Records Request 10/18/2024 11:00 AM PLASTERER SPOT Office Visit [facility] [address] [place] [address] Office [facility] [address] [place] [phone] Ubaldo Rose MD Retention of urine 10/09/2024 Orders Only [facility] [address] [place] [address] Office [facility] [address] [place] [phone] Ubaldo Rose MD 10/05/2024 9:40 AM PLASTERER SPOT Lab [facility] ([facility]) [address] [place] [phone] UTI symptoms 10/04/2024 Orders Only [facility] [address] [place] [address] Office [facility] [address] [place] [phone] Ubaldo Rose MD UTI symptoms (Primary Dx) 10/04/2024 Telephone [facility] [address] [place] [address] Office [facility] [address] [place] [address] Ubaldo Rose MD 09/19/2024 Telephone [facility] [address] [place] [address] Office [facility] [address] [place] [phone] Dina Benitez CMA 09/18/2024 [address]phone [facility] [address] [facility] Office Building [address] [place] [address] Dina Benitez CMA from Last 3 Months [...] 11/08/2024 Assessment & Plan (11/08/2024 7:47 PM PLASTERER SPOT): Symmetric edema, so DVT is unlikely. Continue compression stockings and leg elevation. C. difficile colitis 11/08/2024 Assessment & Plan (11/08/2024 7:47 PM PLASTERER SPOT): Complete fidaxomicin course. Check labs. Perforated ulcer 11/08/2024 Assessment & Plan (11/08/2024 7:48 PM PLASTERER SPOT): S/p surgery. Antibiotics completed. He will follow up with Dr. Corley. Urinary retention 11/08/2024 Assessment & Plan (11/08/2024 7:48 PM PLASTERER SPOT): Per urology. Imbalance 03/07/2024 PVD (peripheral vascular disease) 01/11/2023 Assessment & Plan (01/11/2023 1:06 PM CDT): Compression socks Venous duplex Vascular Referral Medicare annual wellness visit, subsequent 06/22 Assessment & Plan (07/07/2024 6:42 PM CDT): Overall excellent health. Colonoscopy is due in 2024. I recommended COVID, flu, RSV, and [id number] vaccinations. Assessment & Plan (07/02/2023 10:27 AM CDT): Overall good health. Check PSA today. Colonoscopy due in 2024. I recommended that he get a COVID shot and [id number] vaccine. He declines a flu shot. Assessment & Plan (06/22/2022 10:00 AM CDT): Overall good health. [place] due in 2024. Recommended the following vaccines: Shingrix New COVID booster Flu shot [id number] Hyperlipidemia 06/22/2022 Assessment & Plan (07/07/2024 6:40 [...] on file Legal Sex Male 12:31 PM PLASTERER SPOT Gender Identity Male 11/09/2022 8:29 PM PLASTERER SPOT Sexual Orientation Straight 11/09/2022 8: 29 PM PLASTERER SPOT Last Filed Vital Signs Vital Sign Reading Time Taken Comments Blood Pressure 145/76 11/08/2024 1:45 PM PLASTERER SPOT Pulse 78 11/08/2024 1:45 PM PLASTERER SPOT Temperature - - Respiratory Rate - - Oxygen Saturation 99% 02/15/2023 1:31 PM CDT Inhaled Oxygen Concentration - - Weight 65.6 kg (144 lb 9.6 oz) 11/08/2024 1:45 P M PLASTERER SPOT Height 175.3 cm (5' 9 ) 11/08/2024 1:45 PM PLASTERER SPOT Body Mass Index 21.35 11/08/2024 1:45 PM PLASTERER SPOT Plan of Treatment Not on file Procedures Procedure Name Priority Date/Time Associated Diagnosis Comments GI - RESULT 11/20/2024 10:02 AM CDT EGFR Routine 11/08/2024 3:02 PM PLASTERER SPOT Perforated ulcer (HCC) C. difficile colitis DIFFERENTIAL AUTO Routine 11/08/2024 3:0 2 PM PLASTERER SPOT Perforated ulcer (HCC) C. difficile colitis CBC WITH AUTO DIFFERENTIAL Routine 11/08/2024 3:02 PM PLASTERER SPOT Perforated ulcer (HCC) C. difficile colitis COMPREHENSIVE METABOLIC PANEL Routine 11/08/2024 3:02 PM PLASTERER SPOT Perforated ulcer (HCC) C. difficile colitis URINE CULTURE Routine 10/05/2024 9:43 AM PLASTERER SPOT UTI symptoms HEPATITIS C ANTIBODY Routine 06/16/2021 10:33 AM CDT Encounter for hepatitis C screening test for low risk patient COLONOSCOPY REPORT 07/22/2015 from Last 3 Months or Most Recently Relevant to Health Maintenance Results * GI - RESULT (11/20/2024 10:02 AM CDT) Anatomical Region Laterality Modality Other us Francesco Barahona MD Final R esult * eGFR (11/08/2024 3:02 PM PLASTERER SPOT) eGFR 75 >=60 mL/min/1. 73 m2 Comment: [...] last reviewed 2021. Blood 11/08/2024 3:02 PM PLASTERER SPOT 11/08/2024 3:25 PM PLASTERER SPOT us Francesco Barahona MD LAB BLOOD ORDERABLES nal Result [facility] [place] [address] * Differential, auto (11/08/2024 3:02 PM PLASTERER SPOT) Neutrophil abs 3.9 1.5 - 6.5 K/cumm Imm gran abs 0.1 0.0 - 0.1 K/cumm [facility] Lymphocyte abs 2.0 0.8 - 3.3 K/cumm [facility] Monocyte abs 0.7 0.2 - 0.8 K/cumm [facility] Eosinophil abs 0.3 0.0 - 0.5 K/cumm [facility] Basophil abs 0.0 0.0 - 0.1 K/cumm [facility] Neutrophil pct 56.2 % [facility] Comment: Interpretive Data Percent cell count reference ranges are not reported, since discordance with absolute values may lead to misinterpretation of CBC data. Current Interpretive Data was last revised on 2017. Imm gran pct 0.7 % [facility] Comment: Interpretive Data Percent cell count reference ranges are not reported, since discordance with absolute values may lead to misinterpretation of CBC data. Current Interpretive Data was last revised on 2017. Lymphocyte pct 28.9 % [facility] Comment: Interpretive Data Percent cell count reference ranges are not reported, since discordance with absolute values may lead to misinterpretation of CBC data. Current Interpretive Data was last revised on 2017. Monocyte pct 9.7 % [facility] Comment: Interpretive Data Percent cell count reference ranges are not reported, since discordance with absolute values may lead to misinterpretation of CBC data. Current Interpretive Data was last revised on 2017. Eosinophil pct 3.9 % [facility] Comment: Interpretive Data Percent cell count reference ranges are not reported, since discordance with absolute values may lead to misinterpretation of CBC data. Current Interpretive Data was last revised on 2017. Basophil pct 0.6 % [facility] Comment: Interpretive Data Percent cell count reference ranges are not reported, since discordance with absolute values may lead to misinterpretation of CBC data. Current Interpretive Data was last revised on 2017. Blood 11/08/2024 3:02 PM PLASTERER SPOT 11/08/2024 3:20 PM PLASTERER SPOT us Francesco Barahona MD LAB BLOOD ORDERABLES nal Result [facility] Department [place] [address] * (ABNORMAL) CBC with auto differential (11/08/2024 3:02 PM PLASTERER SPOT) WBC 6.9 3.8 - 9.9 K/cumm Hgb 11.8(L) 13.0 - 17.5 g/dL [facility] Hct 35.9(L) 38.9 - 50.3 % [facility] Plt 268 150 - 400 K/cumm [facility] MPV 9.4 9.1 - 12.3 fL [facility] RBC 3.98(L) 4.30 - 5.80 M/cumm [facility] MCV 90.2 81.3 - 96.4 fL [facility] MCH 29.6 27.1 - 33.3 pg [facility] MCHC 32.9 32.3 - 35.7 g/dL [facility] RDW CV 13.2 11.1 - 14.9 % [facility] RDW SD 43.9 35.7 - 48.1 fL [facility] NRBC abs 0.00 0.00 - 0.01 K/cumm [facility] Blood 11/08/2024 3:02 PM PLASTERER SPOT 11/08/2024 3:20 PM PLASTERER SPOT us Francesco Barahona MD LAB BLOOD ORDERABLES Fi nal Result [facility] Department [place] [address] * Comprehensive metabolic panel (11/08/2024 3:02 PM PLASTERER SPOT) Sodium 143 135 - 145 mmol/L Potassium, pl 4.2 3.3 - 4.9 mmol/L [facility] Chloride 105 97 - 110 mmol/L [facility] CO2 31 22 - 32 mmol/L [facility] Anion gap 7 2 - 15 mmol/L [facility] BUN 16 6 - 25 mg/dL [facility] Creatinine 1.02 0.80 - 1.30 mg/dL [facility] Glucose 95 70 - 199 mg/dL [facility] Comment: Interpretive Data Fasting glucose >/= 126 [...] 2022. Calcium 8.6 8.5 - 10.3 mg/dL [facility] Bilirubin, total 0.4 0.1 - 1.2 mg/dL [facility] Protein, pl 6.8 6.5 - 8.5 g/dL [facility] Albumin 3.6 3.5 - 5.0 g/dL [facility] Alk phos 107 40 - 130 Units/L [facility] ALT 14 7 - 55 Units/L [facility] AST 32 10 - 50 Units/L [facility] Blood 11/08/2024 3:02 PM PLASTERER SPOT 11/08/2024 3:20 PM PLASTERER SPOT Francesco Barahona MD LAB BLOOD ORDERABLES Fi nal Result Performing Organization Address [facility]/ZIP Co de Phone Number [facility] [place] [address] * (ABNORMAL) Urine culture Urine, clean voided (10/05/2024 9:43 AM PLASTERER SPOT) Report Final Report: Greater than or equal to 100,000 colonies/mL of Staphylococcus lugdunensis Plus growth of clinically insignificant bacterial alexei. (.) Organism STAPHYLOCOCCUS LUGDUNENSIS [facility] Organism PLUS GROWTH OF CLINICALLY INSIGNIFICANT ALEXEI. [facility] Urine, clean voided 10/05/2024 9:43 AM PLASTERER SPOT 10/05/2024 10:27 AM PLASTERER SPOT Narrative [facility] - 10/08/2024 1:07 PM PLASTERER SPOT Testing performed by [facility] ([phone]) Organism Antibiotic Method Susceptibility Staphylococcus lugdunensis Vancomycin INTERPRETATION Susceptible Staphylococcus lugdunensis Trimethoprim with Sulfamethoxazole INTERPRETATION Susceptible Staphylococcus lugdunensis Linezolid INTERPRETATION Susceptible Staphylococcus lugdunensis Doxycycline INTERPRETATION Susceptible Staphylococcus lugdunensis Nitrofurantoin INTERPRETATI ON Susceptible Staphylococcus lugdunensis Oxacillin INTERPRETATION Susceptible Staphylococcus lugdunensis Cefazolin INTERPRETATION Susceptible Staphylococcus lugdunensis Ceftriaxone INTERPRETATION Susceptible us Ubaldo Rose MD LAB MICROBIOLOGY - G ENERAL ORDERABLES Final Result Performing Organization Address City/[facility]/ZIP Co de Phone Number [facility] [place] [address] * Hepatitis C antibody (06/16/2021 10:33 AM CDT) Hep C Ab 0.2 0.0 - 0.9 s/co ratio [facility] - 01 Comment: Negative: < 0.8 Indeterminate: 0.8 - 0.9 Positive: > 0.9 The CDC recommends that a positive HCV antibody result be followed up with a HCV Nucleic Acid Amplification test ([id number]). Blood specimen (specimen) 06/16/2021 10:33 AM CDT 06/16/2021 Narrative [facility] - 06/17/2021 9:10 AM CDT Performed at: [facility] [id number] Shearing Machine Feeder: Glenn Aquino PhD, Phone: [phone] Francesco Barahona MD LAB MICROBIOLOGY - GENE RAL ORDERABLES Final Result Performing Organization Address City/State/[facility] Co de Phone Number LABCO [facility] - 01 * COLONOSCOPY REPORT (07/22/2015) Anatomical Region Laterality Modality Other Narrative 07/22/2015 Ordered by an unspecified provider. Historical Provider GI PROCEDURE ORDERABLES F inal Result from Last 3 Months or Most Recently Relevant to Health Maintenance Insurance T MEDICARE [facility] MEDICARE ADVANTAGE MEDICARE AET MEDICARE [facility] Address: [address] [place] [address] [facility] MEDICARE [facility] MED[facility] Address: [facility] [id number] [place] [address] Advance Directives For more information, please contact: [phone] Documents on File Type Date Recorded Patient Braided Rug Maker Expl anation ADVANCE DIRECTIVE 10/01/2017 12:18 PM Care Teams Cnc Mill And Lathe Operator Relationship Specialty Start Date End Date Francesco Barahona MD [address] [address] PCP - General Endocrinology Diabetes & Metabolism 06/16/21
--- OUTSIDE RECORDS SUMMARY | 2024-12-12 11:08 | XMS_ITS | Continuity of Care Document ---
Author Organization [facility] Address [address] [facility] [address] [place] [address] Phone Care Team Providers Care Mining Machinery Assembler Name Role Phone Mary Cabrales Unavailable Unavailable Procedures Procedure Date Eye Exam & Treatment Eye Exam & Treatment Refraction Eye Exam Established Pt SV Plastic Sphcyl Doyle +/-4d, .12-2d De Frames Deluxe Tax - Medical Eye Exam & Treatment Refraction Advance Directives Directive Yes / No Effective Date File Name No Information Encounters Encounter Description Practice Location Reason(s) For Visit Diagnoses Date Provider Providers Copied on Encounter [facility], [address] [place] [address] [address], [place], [place], [id number], tel:[phone] [facility] No Information 2 2-201 0 Samra Leggett [address] [facility] , [address], [place], [address], [place]. tel:[phone] [facility], [address] [place] [address] [address], [place], [place], [id number], [place] tel:[phone] [facility] [place] No Information Willis-0 4-200 9 Samra Leggett [address] , [address], [place], [address], [place]. tel:[phone] [facility], [address] [place] [address] [address], [place], [place], [id number], [place] tel:[phone] [facility] No Information Aug- 8 Samra Hernandez. [address] [facility] , [address], [place], [address], [place]. tel:[phone] [facility], [address], [place], [place], [id number], [place] tel:[phone] [facility] No Information Aug-0 [address] [employer] . [address] [facility], [address], [place], [place], [id number], [place]. tel:[phone] Referring Provider: Mary Brown, [address] [place] [address] [address], [place], [place], [facility]. tel:[phone] sulting Provider: Freddie Cruz [address] [place] [address], [place], [place], [facility]. tel:[phone] [facility], [address], [place], [place], [id number], [place] tel:[phone] [facility] No Information 8 Samra Hernandez. [address] [place] [address] , [address], [place], [address], [place]. tel:[phone] Family History Family Member Type Diagnosis Age At Onset No Information Payers Payer name Insurance type Covered green party ID Authorrejia tiomar(s) [place] [id number] Social History Type Description Quantity Date Captured [...]
--- OUTSIDE RECORDS SUMMARY | 2024-12-12 11:08 | XMS_ITS | Encounter Summary ---
Author Organization [facility] Address [address] [place] [address] Phone Care Team Providers Care Felt Cementer Name Role Phone Keanu Anthony MD Primary Care Provider [phone] Francesco Barahona MD Primary Care Provider Encounter Details Date Type Department Care Team (Latest Contact Info) Description 03/24/2017 Orders Only [facility] CONVERSION Scanning, Provider Social History Tobacco Use Types Packs/Day Years Used Date Smoking Tobacco: Never Sex and Gender Information Value Date Recorded Sex Assigned at Not on file Legal Sex Male 12:31 PM TREAD BUILDER Gender Identity Male 11/09/2022 8:29 PM TREAD BUILDER Sexual Orientation Straight 11/09/2022 8: 29 PM TREAD BUILDER documented as of this encounter Plan of [...] on filedocumented in this encounter Care Teams Felt Cementer Relationship Specialty Start Date End Date Keanu Anthony MD [address] [facility] [address] [place] [address] PCP - General 03/30/17 06/15/21 Francesco Barahona MD [address] [address] PCP - General Endocrinology Diabetes & Metabolism 06/16/21 documented as of this encounter
== END 2024-12-12 10:11 | disposition home or self-care (01) ==
PROVIDERS: PCP Internal Medicine; Visit Provider Internal Medicine
DX: E80.6 Other disorders of bilirubin metabolism (principal)
CPT/HCPCS: 76705

== ENCOUNTER 2024-12-13 15:12 | Outpatient (CLI) | payer MEDICARE, SELFPAY ==
--- NOTE | ~2024-12-13 | MR_ITS ---
EXAMINATION: MR MRCP wo/w con/w 3D wo ind DATE: 12/13/2024 16:20 INDICATION: Other disorders of biliary metabolism TECHNIQUE: Magnetic resonance imaging (MRI) of the abdomen was performed without and with 12 mL Multi norma intravenous contrast. Sequences included coronal T2-weighted SS-FSE, coronal T2-weighted FS SS- FSE, coronal T2-weighted FS FIESTA, axial T2-weighted FS FIESTA, axial T2-weighted FIESTA, sagittal T 2-weighted SS-FSE, axial T1-weighted dual-echo FSPGR, axial T2-weighted SS-FSE, axial T1-weighted LAV A, axial T2-weighted STIR FSE. Thick-slab T2-weighted FRFSE-XL images were obtained for magnetic reso nance cholangiopancreatography (MRCP). Rotating maximum intensity projection 3-D reconstructions of t he volumetric data were created by the technologist. Postcontrast sequences included a time course of axial T1-weighted LAVA. COMPARISON: CT dated 11/03/2024 and ultrasound dated 12/12/2024 FINDINGS: ABDOMEN MRCP: There is moderate intrahepatic biliary ductal dilation with dilation of the left hepatic duct measuri ng up to 1.2 cm and the right hepatic duct measuring up to 8 mm in maximal diameter. There is a stric ture at the confluence of the ducts. The common hepatic and common bile duct are too small to be maged rly visualized. No evident mass or abnormally enhancing lesions identified at the raeann hepatis at th e site of the biliary ductal stricture. There is irregular mild dilation of the main pancreatic duct at the body and tail of the pancreas measuring up to 4 mm and 3.5 mm respectively. There are a few di lated cholecystectomy. Pancreatic ductal side branches which along with the ductal dilation suggests sequela of chronic pancreatitis. ABDOMEN MRI: Heart size is normal. No pericardial or pleural effusion. Aside from the biliary ductal dilation the liver appears normal with no abnormally enhancing hepatic lesions identified. Small ascites in the du ctal dilation of the main pancreatic duct in the previously noted the subtalar cystic lesions along t he duct the pancreas appears normal with homogeneous parenchymal enhancement. Gallbladder is decompre ssed. Spleen and bilateral adrenal glands are normal. Bilateral T2 hyperintense nonenhancing renal cy sts the largest on the right measuring 1 cm no bowel obstruction. Small posterior bladder diverticula and trabeculated bladder mucosa likely related to chronic outlet obstruction from the enlarged prost ate which impresses upon the base of the bladder. No pathologically enlarged abdominal or pelvic lymp hadenopathy. Mild lumbar dextroscoliosis with severe lumbar and lower thoracic spondylosis. IMPRESSION: 1. Moderate intrahepatic biliary ductal dilation, new since recent CT study from 2 months prior. Ther e appears be a high-grade stricture of indeterminate etiology at the confluence of the left and right hepatic ducts with essentially indiscernible more distal common hepatic and common bile ducts and wi th decompressed gallbladder. No evident obstructing stone or enhancing mass identified at the site of stricture but would consider further evaluation with ERCP. 2. Irregular mildly dilated main pancreatic duct with several dilated sidebranches along the body and tail the pancreas likely sequela of chronic pancreatitis. 3. Trabeculated bladder and a few small bladder diverticula likely sequela of chronic outlet obstruct ion from the enlarged prostate. Reviewed, dictated and finalized at location A. IMPRESSION: 1. Moderate intrahepatic biliary ductal dilation, new since recent CT study fro m 2 months prior. There appears be a high-grade stricture of indeterminate etio logy at the confluence of the left and right hepatic ducts with essentially ind iscernible more distal common hepatic and common bile ducts and with decompress ed gallbladder. No evident obstructing stone or enhancing mass identified at th e site of stricture but would consider further evaluation with ERCP. 2. Irregular mildly dilated main pancreatic duct with several dilated sidebranc hes along the body and tail the pancreas likely sequela of chronic pancreatitis . 3. Trabeculated bladder and a few small bladder diverticula likely sequela of c hronic outlet obstruction from the enlarged prostate.
--- OUTSIDE RECORDS SUMMARY | 2024-12-13 16:29 | XMS_ITS | Clinical Summary ---
Author Organization [facility] Address [address] [place] [address] Care Team Providers Care Leather Stitcher Name Role Phone Francesco Barahona MD Primary [...] 11/08/2024 Assessment & Plan (11/08/2024 7:47 PM MIDDLE SCHOOL TUTOR): Symmetric edema, so DVT is unlikely. Continue compression stockings and leg elevation. C. difficile colitis 11/08/2024 Assessment & Plan (11/08/2024 7:47 PM MIDDLE SCHOOL TUTOR): Complete fidaxomicin course. Check labs. Perforated ulcer 11/08/2024 Assessment & Plan (11/08/2024 7:48 PM MIDDLE SCHOOL TUTOR): S/p surgery. Antibiotics completed. He will follow up with Dr. Corley. Urinary retention 11/08/2024 Assessment & Plan (11/08/2024 7:48 PM MIDDLE SCHOOL TUTOR): Per urology. Imbalance 03/07/2024 PVD (peripheral vascular disease) 01/11/2023 Assessment & Plan (01/11/2023 1:06 PM CDT): Compression socks Venous duplex Vascular Referral Medicare annual wellness visit, subsequent 06/22 Assessment & Plan (07/07/2024 6:42 PM CDT): Overall excellent health. Colonoscopy is due in 2024. I recommended COVID, flu, RSV, and [id number] vaccinations. Assessment & Plan (07/02/2023 10:27 AM CDT): Overall good health. Check PSA today. Colonoscopy due in 2024. I recommended that he get a COVID shot and [id number] vaccine. He declines a flu shot. Assessment & Plan (06/22/2022 10:00 AM CDT): Overall good health. Republic due in 2024. Recommended the following vaccines: Shingrix New COVID booster Flu shot [id number] Hyperlipidemia 06/22/2022 Assessment & Plan (07/07/2024 6:40 [...] Encounters Date Type Department Care Team Description 12/13/2024 9:00 AM CDT Office Visit [facility] Urology [facility] [facility] Office Building [address] [place] [phone] Ubaldo Rose MD Retention of urine (Primary Dx) 12/01/2024 Telephone [facility] Urology [address] [facility] Office Building [address] [place] [address] Dina Benitez CMA 11/30/2024 Orders Only [facility] Otolaryngology [address] [facility] [address] [facility], [address] [place] [phone] Lili Myrick CMA 11/20/2024 Orders Only [facility] [address] [place] [address] Francesco Barahona MD 11/09/2024 Telephone [facility] Urology [facility] Office Building [address] [place] [phone] Emmanuel Dina, WILMER 11/08/2024 6:30 PM MIDDLE SCHOOL TUTOR Lab [facility] [address] [place] [phone] Perforated ulcer (HCC); C. difficile colitis 11/08/2024 2:15 PM MIDDLE SCHOOL TUTOR Office Visit [facility] [address] [place] [phone] Francesco Barahona MD Perforated ulcer (HCC) (Primary Dx); C. difficile colitis; Localized swelling of lower extremity; Urinary retention 11/08/2024 Results Follow-Up [facility] [address] [place] [phone] Francesco Barahona MD 11/06/2024 Telephone [facility] [address] [place] [phone] Francesco Barahona MD Medical Records Request 10/18/2024 11:00 AM MIDDLE SCHOOL TUTOR Office Visit [facility] Urology [address] [place] [address] [address] [place] [phone] Ubaldo Rose MD Retention of urine 10/09/2024 Orders Only [facility] Urology [address] [place] [address] Office [address] [place] [phone] Ubaldo Rose MD 10/05/2024 9:40 AM MIDDLE SCHOOL TUTOR Lab [facility] [address] [place] [phone] UTI symptoms 10/04/2024 Orders Only [facility] Urology [address] [facility] Office Building [address] [place] [address] Ubaldo Rose MD UTI symptoms (Primary Dx) 10/04/2024 Telephone [facility] Urology [address] [facility] Office Building [address] [place] [address] Ubaldo Rose MD 09/19/2024 Telephone [facility] Urology [address] [facility] Office Building [address] [place] [address] Dina Benitez CMA 09/18/2024 Telephone [facility] Urology [address] [facility] Office Building [address] [place] [address] Dina Benitez CMA from Last [...] on file Legal Sex Male 12:31 PM MIDDLE SCHOOL TUTOR Gender Identity Male 11/09/2022 8:29 PM MIDDLE SCHOOL TUTOR Sexual Orientation Straight 11/09/2022 8: 29 PM MIDDLE SCHOOL TUTOR Obstetrics History Last Filed Vital Signs Vital Sign Reading Time Taken Comments Blood Pressure 145/76 11/08/2024 1:45 PM MIDDLE SCHOOL TUTOR Pulse 78 11/08/2024 1:45 PM MIDDLE SCHOOL TUTOR Temperature - - Respiratory Rate - - Oxygen Saturation 99% 02/15/2023 1:31 PM CDT Inhaled Oxygen Concentration - - Weight 65.6 kg (144 lb 9.6 oz) 11/08/2024 1:45 P M [employer]DLE S[employer]OL TUTOR Height 175.3 cm (5' 9 ) 11/08/2024 1:45 PM MIDDLE SCHOOL TUTOR Body Mass Index 21.35 11/08/2024 1:45 PM MIDDLE SCHOOL TUTOR Plan of Treatment Health Maintenance Due Date [...] Procedure Name Priority Date/Time Associated Diagnosis Comments POCT URINALYSIS DIPSTICK Routine 12/13/2024 9:09 AM CDT Retention of urine GI - RESULT 11/20/2024 10:02 AM CDT EGFR Routine 11/08/2024 3:02 PM MIDDLE SCHOOL T[employer]OR Perforated ulcer (HCC) C. difficile colitis DIFFERENTIAL AUTO Routine 11/08/2024 3:0 2 PM MIDDLE SCHOOL TUTOR Perforated ulcer (HCC) C. difficile colitis CBC WITH AUTO DIFFERENTIAL Routine 11/08/2024 3:02 PM MIDDLE SCHOOL TUTOR Perforated ulcer (HCC) C. difficile colitis COMPREHENSIVE METABOLIC PANEL Routine 11/08/2024 3:02 PM MIDDLE SCHOOL TUTOR Perforated ulcer (HCC) C. difficile colitis URINE CULTURE Routine 10/05/2024 9:43 AM MIDDLE SCHOOL TUTOR UTI symptoms HEPATITIS C ANTIBODY Routine 06/16/2021 10:33 AM CDT Encounter for hepatitis C screening test for low risk patient COLONOSCOPY REPORT 07/22/2015 from Last 3 Months or Most Recently Relevant to Health Maintenance Results * (ABNORMAL) POCT urinalysis dipstick (12/13/2024 9:09 AM CDT) Color, Urine, POC Brown Clarity, ur, POC Cloudy(A) Clear Blood, ur, POC Trace(A) Negative pH, ur, POC 5.0 5.0 - 8.0 Protein, ur, POC Trace(A) Negative Lot Number x Urine 12/13/2024 9:09 AM CDT Ubaldo Rose MD POINT OF CARE TEST O RDERABLES Final Result * GI - RESULT (11/20/2024 10:02 AM CDT) Anatomical Region Laterality Modality Other Francesco Barahona MD Final R esult * eGFR (11/08/2024 3:02 PM MIDDLE SCHOOL TUTOR) eGFR 75 >=60 mL/min/1. 73 m2 Comment: [...] last reviewed 2021. Blood 11/08/2024 3:02 PM MIDDLE SCHOOL TUTOR 11/08/2024 3:25 PM MIDDLE SCHOOL TUTOR Francesco Barahona MD LAB BLOOD ORDERABLES Fi nal Result [facility] Department of Laboratories [place], [place] [id number] * Differential, auto (11/08/2024 3:02 PM MIDDLE SCHOOL TUTOR) Neutrophil abs 3.9 1.5 - 6.5 K/cumm Imm gran abs 0.1 0.0 - 0.1 K/cumm [facility] Lymphocyte abs 2.0 0.8 - 3.3 K/cumm [facility] Monocyte abs 0.7 0.2 - 0.8 K/cumm [facility] Eosinophil abs 0.3 0.0 - 0.5 K/cumm [facility] Basophil abs 0.0 0.0 - 0.1 K/cumm [facility] Neutrophil pct 56.2 % [facility] Comment: Interpretive Data Percent cell count reference ranges are not reported, since discordance with absolute values may lead to misinterpretation of CBC data. Current Interpretive Data was last revised on 2017. Imm gran pct 0.7 % [facility] Comment: Interpretive Data Percent cell count reference ranges are not reported, since discordance with absolute values may lead to misinterpretation of CBC data. Current Interpretive Data was last revised on 2017. Lymphocyte pct 28.9 % [facility] Comment: Interpretive Data Percent cell count reference ranges are not reported, since discordance with absolute values may lead to misinterpretation of CBC data. Current Interpretive Data was last revised on 2017. Monocyte pct 9.7 % [facility] Comment: Interpretive Data Percent cell count reference ranges are not reported, since discordance with absolute values may lead to misinterpretation of CBC data. Current Interpretive Data was last revised on 2017. Eosinophil pct 3.9 % [facility] Comment: Interpretive Data Percent cell count reference ranges are not reported, since discordance with absolute values may lead to misinterpretation of CBC data. Current Interpretive Data was last revised on 2017. Basophil pct 0.6 % [facility] Comment: Interpretive Data Percent cell count reference ranges are not reported, since discordance with absolute values may lead to misinterpretation of CBC data. Current Interpretive Data was last revised on 2017. Blood 11/08/2024 3:02 PM MIDDLE SCHOOL TUTOR 11/08/2024 3:20 PM MIDDLE SCHOOL TUTOR us Francesco Barahona MD LAB BLOOD ORDERABLES Fi nal Result [facility] Department [place] [address] * (ABNORMAL) CBC with auto differential (11/08/2024 3:02 PM MIDDLE SCHOOL TUTOR) [facility] WBC 6.9 3.8 - 9.9 K/cumm Hgb 11.8(L) 13.0 - 17.5 g/dL [facility] Hct 35.9(L) 38.9 - 50.3 % [facility] Plt 268 150 - 400 K/cumm [facility] MPV 9.4 9.1 - 12.3 fL [facility] RBC 3.98(L) 4.30 - 5.80 M/cumm [facility] MCV 90.2 81.3 - 96.4 fL [facility] MCH 29.6 27.1 - 33.3 pg [facility] MCHC 32.9 32.3 - 35.7 g/dL [facility] RDW CV 13.2 11.1 - 14.9 % [facility] RDW SD 43.9 35.7 - 48.1 fL [facility] NRBC abs 0.00 0.00 - 0.01 K/cumm [facility] Blood 11/08/2024 3:02 PM MIDDLE SCHOOL TUTOR 11/08/2024 3:20 PM MIDDLE SCHOOL TUTOR us Francesco Barahona MD LAB BLOOD ORDERABLES Fi nal Result [facility] Department [place] [address] * Comprehensive metabolic panel (11/08/2024 3:02 PM MIDDLE SCHOOL TUTOR) [facility] Sodium 143 135 - 145 mmol/L Potassium, pl 4.2 3.3 - 4.9 mmol/L [facility] Chloride 105 97 - 110 mmol/L [facility] CO2 31 22 - 32 mmol/L [facility] Anion gap 7 2 - 15 mmol/L [facility] BUN 16 6 - 25 mg/dL [facility] Creatinine 1.02 0.80 - 1.30 mg/dL [facility] Glucose 95 70 - 199 mg/dL [facility] Comment: Interpretive Data Fasting glucose >/= 126 [...] 2022. Calcium 8.6 8.5 - 10.3 mg/dL [facility] Bilirubin, total 0.4 0.1 - 1.2 mg/dL [facility] Protein, pl 6.8 6.5 - 8.5 g/dL [facility] Albumin 3.6 3.5 - 5.0 g/dL [facility] Alk phos 107 40 - 130 Units/L [facility] ALT 14 7 - 55 Units/L [facility] AST 32 10 - 50 Units/L [facility] Blood 11/08/2024 3:02 PM MIDDLE SCHOOL TUTOR 11/08/2024 3:20 PM MIDDLE SCHOOL TUTOR Francesco Barahona MD LAB BLOOD ORDERABLES nal Result [facility] Department [place] [address] * (ABNORMAL) Urine culture Urine, clean voided (10/05/2024 9:43 AM MIDDLE SCHOOL TUTOR) Report Final Report: Greater than or equal to 100,000 colonies/mL of Staphylococcus lugdunensis Plus growth of clinically insignificant bacterial ethan. (.) Organism STAPHYLOCOCCUS LUGDUNENSIS [facility] Organism PLUS GROWTH OF CLINICALLY INSIGNIFICANT ETHAN. [facility] Urine, clean voided 10/05/2024 9:43 AM MIDDLE SCHOOL TUTOR 10/05/2024 10:27 AM MIDDLE SCHOOL TUTOR Narrative [facility] - 10/08/2024 1:07 PM MIDDLE SCHOOL TUTOR Testing performed by [facility] ([phone]) Organism Antibiotic Method Susceptibility Staphylococcus lugdunensis Vancomycin INTERPRETATION Susceptible Staphylococcus lugdunensis Trimethoprim with Sulfamethoxazole INTERPRETATION Susceptible Staphylococcus lugdunensis Linezolid INTERPRETATION Susceptible Staphylococcus lugdunensis Doxycycline INTERPRETATION Susceptible Staphylococcus lugdunensis Nitrofurantoin INTERPRETATI ON Susceptible Staphylococcus lugdunensis Oxacillin INTERPRETATION Susceptible Staphylococcus lugdunensis Cefazolin INTERPRETATION Susceptible Staphylococcus lugdunensis Ceftriaxone INTERPRETATION Susceptible us Ubaldo Rose MD LAB MICROBIOLOGY - G ENERAL ORDERABLES Final Result [facility] Department [place] [address] * Hepatitis C antibody (06/16/2021 10:33 AM CDT) [facility] Hep C Ab 0.2 0.0 - 0.9 s/co ratio [facility] - 01 Comment: Negative: < 0.8 Indeterminate: 0.8 - 0.9 Positive: > 0.9 The CDC recommends that a positive HCV antibody result be followed up with a HCV Nucleic Acid Amplification test (697389). Blood specimen (specimen) 06/16/2021 10:33 AM CDT 06/16/2021 Narrative [facility] - 06/17/2021 9:10 AM CDT Performed at: [address] [place] [id number] Basketball Player: Glenn Aquino PhD, Phone: [phone] us Francesco Barahona MD LAB MICROBIOLOGY - GENE RAL ORDERABLES Final Result [facility] - 01 * COLONOSCOPY REPORT (07/22/2015) Anatomical Region Laterality Modality Other Narrative 07/22/2015 Ordered by an unspecified provider. Historical Provider GI PROCEDURE ORDERABLES F inal Result from Last 3 Months or Most Recently Relevant to Health Maintenance Insurance [facility] MEDICARE MEDICARE AETNA MEDICARE AETNA MEDICARE Advance Directives For more information, please contact: [phone] Documents on File Type Date Recorded Patient Backup Administrator Expl anation ADVANCE DIRECTIVE 10/01/2017 12:18 PM Care Teams Leather Stitcher Relationship Specialty Start Date End Date Francesco Barahona MD [address] [facility] [address] [place] [address] PCP - General Endocrinology Diabetes & Metabolism 06/16/21
--- OUTSIDE RECORDS SUMMARY | 2024-12-13 16:29 | XMS_ITS | Encounter Summary ---
Author Organization [facility] Address [address] [place] [address] Phone Care Team Providers Care Account Liaison Name Role Phone Francesco Barahona MD Primary Care Provider Reason for Visit * Consultation (Routine) - Authorized Specialty Diagnoses / Procedures Referred By Steve tyler Referred To Contact Urology Diagnoses Retention of urine Referral, Self [facility] (All Locations) Referral ID Status Reason Start Date Expiration Date Visits Requested Visits Authorized [id number] Authorized Specialty Services Required 09/18/2024 10/18/2025 12 12 Encounter Details Date Type Department Care Team (Late st Contact Info) Description 12/13/2024 9:00 AM CDT Office Visit [facility] Urology [address] [facility] Medical Office Building [address] [place] [phone] Ubaldo Rose MD [address] [place] [address] DIV SURG UROLOGY, [facility] [address] [place] [address] Retention of urine (Primary Dx) Social History Tobacco Use Types Packs/Day Years [...] on file Legal Sex Male 12:31 PM OBSTETRICS GYNECOLOGY MD Gender Identity Male 11/09/2022 8:29 PM OBSTETRICS GYNECOLOGY MD Sexual Orientation Straight 11/09/2022 8: 29 PM OBSTETRICS GYNECOLOGY MD documented as of this encounter Patient Instructions * Patient Instructions* Ubaldo Rose MD - 12/13/2024 9:00 AM CDT Continue self cath as needed documented in this encounter Plan of Treatment Not on file documented as of this encounter Procedures Procedure Name Priority Date/Time Associated Diagnosis Comments POCT URINALYSIS DIPSTICK Routine 12/13/2024 9:09 AM CDT Retention of urine documented in this encounter Results * (ABNORMAL) POCT urinalysis dipstick (12/13/2024 9:09 AM CDT) Color, Urine, POC Brown Clarity, ur, POC Cloudy(A) Clear Blood, ur, POC Trace(A) Negative pH, ur, POC 5.0 5.0 - 8.0 Protein, ur, POC Trace(A) Negative Lot Number x Urine 12/13/2024 9:09 AM CDT Ubaldo Rose MD POINT OF CARE TEST O RDERABLES Final Result documented in this encounter Visit Diagnoses Diagnosis Retention of urine- Primary Unspecified retention of urine documented in this encounter Care Teams Account Liaison Relationship Specialty Start Date End Date Francesco Barahona MD [address] [facility] [address] [address] PCP - General Endocrinology Diabetes & Metabolism 06/16/21 documented as of this encounter
--- OUTSIDE RECORDS SUMMARY | 2024-12-13 16:29 | XMS_ITS | Continuity of Care Document ---
Author Organization [facility] Address [address] [facility] [address] [place] [address] Phone Care Team Providers Care Metal Punch Press Operator Name Role Phone Mary Cabrales Unavailable Unavailable Procedures Procedure Date Eye Exam & Treatment Eye Exam & Treatment Refraction Eye Exam Established Pt SV Plastic Sphcyl [place] +/-4d, .12-2d De Frames Deluxe Tax - Medical Eye Exam & Treatment Refraction Advance Directives Directive Yes / No Effective Date File Name No Information Encounters Encounter Description Practice Location Reason(s) For Visit Diagnoses Date Provider Providers Copied on Encounter [facility], [address] [place] [address] [address], [place], [place], [id number], tel:[phone] SEC [facility] No Information 2-201 0 Samra Leggett [address] , [address], [place], [address], [place]. tel:[phone] [facility], [id number] [place] [address] [address], [place], [place], [id number], [place] tel:[phone] [facility] [place] No Information Feb-0 4-200 9 Samra Leggett [address] , [address], [place], [address], [place]. tel:[phone] [facility], [address] [place] [address] [address], [place], [place], [id number], [place] tel:[phone] SEC [facility] No Information Aug- 8 Samra Hernandez. [address] [facility] , [address], [place], [address], [place]. tel:[phone] [facility], [address], [place], [place], [id number], [place] tel:[phone] SEC [facility] No Information Aug-0 3200 [address] [employer] . [address] [facility], [address], [place], [place], [id number], [place]. tel:[phone] Referring Provider: Mary Brown, [address] [place] [address] [address], [place], [place], [facility]. tel:[phone] sulting Provider: Freddie Cruz [address] [place] [address], [place], [place], [facility]. tel:[phone] [facility] Eye [facility], [address], [place], [place], [id number], [place] tel:[phone] SEC [facility] No Information 8 Samra Hernandez. [address] [place] [address] , [address], [place], [address], [place]. tel:[phone] Family History Family Member Type Diagnosis Age At Onset No Information Payers Payer name Insurance type Covered democrat ID Authorrejia tiomar(s) [place] [id number] Social History Type Description Quantity Date Captured [...]
--- OUTSIDE RECORDS SUMMARY | 2024-12-13 16:29 | XMS_ITS | Referral Summary ---
Author Organization [facility] Address [address] [place] [address] Care Team Providers Care Net Developer Architect Name Role Phone Francesco Barahona MD Primary Care Provider Encounters Date Type Department Care Team Description 12/13/2024 9:00 AM CDT Office Visit [facility] [address] [place] [address] Office Building [address] [place] [phone] Ubaldo Rose MD Retention of urine (Primary Dx) 12/01/2024 Telephone [facility] [address] [place] [address] Office Building [address] [place] [address] Dina Benitez CMA 11/30/2024 Orders Only [facility] Otol[facility]ology [address] [place] [address], [address] [place] [phone] Lili Myrick CMA 11/20/2024 Orders Only [facility] [address] [place] [address] [address] [facility] [place] [phone] Francesco Barahona MD 11/09/2024 Telephone [facility] [address] [place] [address] Office Building [address] [place] [phone] Dina Benitez CMA 11/08/2024 Results [facility] [address] [facility] [address] [place] [address] Francesco Barahona MD 11/08/2024 6:30 PM [employer] [employer] [facility] Lab [facility] Advanced [facility] ([facility] [address] [place] [address] Perforated ulcer (HCC); C. difficile colitis 11/08/2024 2:15 PM [employer] Office Visit [facility] [address] [address] Francesco Barahona MD Perforated ulcer (HCC) (Primary Dx); C. difficile colitis; Localized swelling of lower extremity; Urinary retention 11/06/2024 Telephone [facility] [address] [place] [phone] Francesco Barahona MD Medical Records Request 10/18/2024 11:00 AM [employer] Office Visit [facility] [address] [place] [address] Office [facility] [address] [place] [phone] Ubaldo Rose MD Retention of urine 10/09/2024 Orders Only [facility] [address] [place] [address] Office [facility] [address] [place] [phone] Ubaldo Rose MD 10/05/2024 9:40 AM [employer] [employer] [facility] Lab [facility] ([facility]) [address] [place] [address] UTI symptoms 10/04/2024 Orders Only [facility] [address] [place] [address] Office [facility] [address] [place] [phone] Ubaldo Rose MD UTI symptoms (Primary Dx) 10/04/2024 Telephone [facility] [address] [place] [address] Office [facility] [address] [place] [phone] Ubalod Rose MD 09/19/2024 Telephone [facility] [address] [facility] Office Building [address] [place] [phone] Dina Benitez CMA 09/18/2024 Telephone [facility] [address] [facility] [address] [place] [address] Dina Benitez CMA from Last [...] 11/08/2024 Assessment & Plan (11/08/2024 7:47 PM [employer]): Symmetric edema, so DVT is unlikely. Continue compression stockings and leg elevation. C. difficile colitis 11/08/2024 Assessment & Plan (11/08/2024 7:47 PM [employer]): Complete fidaxomicin course. Check labs. Perforated ulcer 11/08/2024 Assessment & Plan (11/08/2024 7:48 PM [employer]): S/p surgery. Antibiotics completed. He will follow up with Dr. Corley. Urinary retention 11/08/2024 Assessment & Plan (11/08/2024 7:48 PM [employer]): Per urology. Imbalance 03/07/2024 PVD (peripheral vascular disease) 01/11/2023 Assessment & Plan (01/11/2023 1:06 PM CDT): Compression socks Venous duplex Vascular Referral Medicare annual wellness visit, subsequent 06/22 Assessment & Plan (07/07/2024 6:42 PM CDT): Overall excellent health. Colonoscopy is due in 2024. I recommended COVID, flu, RSV, and [id number] vaccinations. Assessment & Plan (07/02/2023 10:27 AM CDT): Overall good health. Check PSA today. Colonoscopy due in 2024. I recommended that he get a COVID shot and [id number] vaccine. He declines a flu shot. Assessment & Plan (06/22/2022 10:00 AM CDT): Overall good health. Stamps due in 2024. Recommended the following vaccines: Shingrix New COVID booster Flu shot [id number] Hyperlipidemia 06/22/2022 Assessment & Plan (07/07/2024 6:40 [...] on file Legal Sex Male 12:31 PM [employer] Gender Identity Male 11/09/2022 8:29 PM [employer] Sexual Orientation Straight 11/09/2022 8: 29 PM [employer] Last Filed Vital Signs Vital Sign Reading Time Taken Comments Blood Pressure 145/76 11/08/2024 1:45 PM [employer] [facility] Pulse 78 11/08/2024 1:45 PM [employer] Temperature - - Respiratory Rate - - Oxygen Saturation 99% 02/15/2023 1:31 PM CDT Inhaled Oxygen Concentration - - Weight 65.6 kg (144 lb 9.6 oz) 11/08/2024 1:45 P M [employer] [facility] Height 175.3 cm (5' 9 ) 11/08/2024 1:45 PM [employer] Body Mass Index 21.35 11/08/2024 1:45 PM [employer] Plan of Treatment Not on file Procedures Procedure Name Priority Date/Time Associated Diagnosis Comments POCT URINALYSIS DIPSTICK Routine 12/13/2024 9:09 AM CDT Retention of urine GI - RESULT 11/20/2024 10:02 AM CDT EGFR Routine 11/08/2024 3:02 PM [employer] Perforated ulcer (HCC) C. difficile colitis DIFFERENTIAL AUTO Routine 11/08/2024 3:0 2 PM [employer] Perforated ulcer (HCC) C. difficile colitis CBC WITH AUTO DIFFERENTIAL Routine 11/08/2024 3:02 PM [employer] Perforated ulcer (HCC) C. difficile colitis COMPREHENSIVE METABOLIC PANEL Routine 11/08/2024 3:02 PM [employer] [employer] [facility] Perforated ulcer (HCC) C. difficile colitis URINE CULTURE Routine 10/05/2024 9:43 AM [employer] UTI symptoms HEPATITIS C ANTIBODY Routine 06/16/2021 [...] R esult * eGFR (11/08/2024 3:02 PM [employer]) eGFR 75 >=60 mL/min/1. 73 m2 Comment: [...] last reviewed 2021. Blood 11/08/2024 3:02 PM [employer] 11/08/2024 3:25 PM [employer] Francesco Barahona MD LAB BLOOD ORDERABLES Fi nal Result [facility] [place] [address] * Differential, auto (11/08/2024 3:02 PM [employer]) Neutrophil abs 3.9 1.5 - 6.5 K/cumm Imm gran abs 0.1 0.0 - 0.1 K/cumm [facility] Lymphocyte abs 2.0 0.8 - 3.3 K/cumm [facility] Monocyte abs 0.7 0.2 - 0.8 K/cumm [facility] Eosinophil abs 0.3 0.0 - 0.5 K/cumm [facility] Basophil abs 0.0 0.0 - 0.1 K/cumm [facility] Neutrophil pct 56.2 % [facility] Comment: Interpretive Data Percent cell count reference ranges are not reported, since discordance with absolute values may lead to misinterpretation of CBC data. Current Interpretive Data was last revised on 2017. Imm gran pct 0.7 % [facility] Comment: Interpretive Data Percent cell count reference ranges are not reported, since discordance with absolute values may lead to misinterpretation of CBC data. Current Interpretive Data was last revised on 2017. Lymphocyte pct 28.9 % [facility] Comment: Interpretive Data Percent cell count reference ranges are not reported, since discordance with absolute values may lead to misinterpretation of CBC data. Current Interpretive Data was last revised on 2017. Monocyte pct 9.7 % [facility] Comment: Interpretive Data Percent cell count reference ranges are not reported, since discordance with absolute values may lead to misinterpretation of CBC data. Current Interpretive Data was last revised on 2017. Eosinophil pct 3.9 % [facility] Comment: Interpretive Data Percent cell count reference ranges are not reported, since discordance with absolute values may lead to misinterpretation of CBC data. Current Interpretive Data was last revised on 2017. Basophil pct 0.6 % [facility] Comment: Interpretive Data Percent cell count reference ranges are not reported, since discordance with absolute values may lead to misinterpretation of CBC data. Current Interpretive Data was last revised on 2017. Blood 11/08/2024 3:02 PM [facility] [employer] [facility] 11/08/2024 3:20 PM [employer] Francesco Barahona MD LAB BLOOD ORDERABLES Fi nal Result [facility] Department [place] [employer] [place] [address] * (ABNORMAL) CBC with auto differential (11/08/2024 3:02 PM [employer] [employer] [facility]) [facility] WBC 6.9 3.8 - 9.9 K/cumm Hgb 11.8(L) 13.0 - 17.5 g/dL [facility] Hct 35.9(L) 38.9 - 50.3 % [facility] Plt 268 150 - 400 K/cumm [facility] MPV 9.4 9.1 - 12.3 fL [facility] RBC 3.98(L) 4.30 - 5.80 M/cumm [facility] MCV 90.2 81.3 - 96.4 fL [facility] MCH 29.6 27.1 - 33.3 pg [facility] MCHC 32.9 32.3 - 35.7 g/dL [facility] RDW CV 13.2 11.1 - 14.9 % [facility] RDW SD 43.9 35.7 - 48.1 fL [facility] NRBC abs 0.00 0.00 - 0.01 K/cumm [facility] Blood 11/08/2024 3:02 PM [facility] [facility] 11/08/2024 3:20 PM [facility] [facility] Francesco Barahona MD LAB BLOOD ORDERABLES Fi nal Result Performing Organization Address City/[facility]/ZIP Co de Phone Number [facility] Department [place] [employer] [place] [address] * Comprehensive metabolic panel (11/08/2024 3:02 PM [employer] [employer] [facility]) [facility] Sodium 143 135 - 145 mmol/L Potassium, pl 4.2 3.3 - 4.9 mmol/L [facility] Chloride 105 97 - 110 mmol/L [facility] CO2 31 22 - 32 mmol/L [facility] Anion gap 7 2 - 15 mmol/L [facility] BUN 16 6 - 25 mg/dL [facility] Creatinine 1.02 0.80 - 1.30 mg/dL [facility] Glucose 95 70 - 199 mg/dL [facility] Comment: Interpretive Data Fasting glucose >/= [...] 2022. Calcium 8.6 8.5 - 10.3 mg/dL [facility] Bilirubin, total 0.4 0.1 - 1.2 mg/dL [facility] Protein, pl 6.8 6.5 - 8.5 g/dL [facility] Albumin 3.6 3.5 - 5.0 g/dL [facility] Alk phos 107 40 - 130 Units/L [facility] ALT 14 7 - 55 Units/L [facility] AST 32 10 - 50 Units/L [facility] Blood 11/08/2024 3:02 PM [facility] 11/08/2024 3:20 PM [employer] Francesco Barahona MD LAB BLOOD ORDERABLES nal Result [facility] [place] [address] * (ABNORMAL) Urine culture Urine, clean voided (10/05/2024 9:43 AM [facility] [facility]) Report Final Report: Greater than or equal to 100,000 colonies/mL of Staphylococcus lugdunensis Plus growth of clinically insignificant bacterial alexei. (.) Organism STAPHYLOCOCCUS LUGDUNENSIS [facility] Organism PLUS GROWTH OF CLINICALLY INSIGNIFICANT ALEXEI. [facility] Urine, clean voided 10/05/2024 9:43 AM [facility] 10/05/2024 10:27 AM [facility] Narrative [facility] - 10/08/2024 1:07 PM [employer] [facility] Testing performed by [facility] Microbiology Laboratory ([phone]) Organism Antibiotic Method Susceptibility Staphylococcus lugdunensis Vancomycin INTERPRETATION Susceptible Staphylococcus lugdunensis Trimethoprim with Sulfamethoxazole INTERPRETATION Susceptible Staphylococcus lugdunensis Linezolid INTERPRETATION Susceptible Staphylococcus lugdunensis Doxycycline INTERPRETATION Susceptible Staphylococcus lugdunensis Nitrofurantoin INTERPRETATI ON Susceptible Staphylococcus lugdunensis Oxacillin INTERPRETATION Susceptible Staphylococcus lugdunensis Cefazolin INTERPRETATION Susceptible Staphylococcus lugdunensis Ceftriaxone INTERPRETATION Susceptible us Ubaldo Rose MD LAB MICROBIOLOGY - G ENERAL ORDERABLES Final Result [facility] [place] [address] * Hepatitis C antibody (06/16/2021 10:33 AM CDT) [facility] Hep C Ab 0.2 0.0 - 0.9 s/co ratio [facility] - 01 Comment: Negative: < 0.8 Indeterminate: 0.8 - 0.9 Positive: > 0.9 The CDC recommends that a positive HCV antibody result be followed up with a HCV Nucleic Acid Amplification test (877820). Blood specimen (specimen) 06/16/2021 10:33 AM CDT 06/16/2021 Narrative [facility] - 06/17/2021 9:10 AM CDT Performed at: [address] [id number] [employer]: Glenn Aquino PhD, Phone: [phone] us Francesco Barahona MD LAB MICROBIOLOGY - GENE RAL ORDERABLES Final [facility] - * COLONOSCOPY REPORT (07/22/2015) Anatomical Region Laterality Modality Other Narrative 07/22/2015 Ordered by an unspecified provider. us Historical Provider GI PROCEDURE ORDERABLES F inal Result from Last 3 Months or Most Recently Relevant to Health Maintenance Insurance [facility] MEDICARE [facility] MEDICARE Address: [facility] [id number] [place] [address] UHC MEDICARE ADVANTAGE MEDICARE T MEDICARE T MEDICARE Advance Directives For more information, please contact: [phone] Documents on File Type Date Recorded Patient Flight Kitchen Manager Expl anation ADVANCE DIRECTIVE 10/01/2017 12:18 PM Care Teams Net Developer Architect Relationship Specialty Start Date End Date Francesco Barahona MD [address] [facility] [address] [place] [address] PCP - General Endocrinology Diabetes & Metabolism 06/16/21
--- OUTSIDE RECORDS SUMMARY | 2024-12-13 16:29 | XMS_ITS | Encounter Summary ---
Author Organization [facility] Address [address] [place] [address] Phone Care Team Providers Care Surgical Garment Fitter Name Role Phone Keanu Anthony MD Primary Care Provider [phone] Francesco Barahona MD Primary Care Provider Encounter Details Date Type Department Care Team (Latest Contact Info) Description 05/02/2017 Orders Only [facility] CONVERSION Scanning, Provider Social History Tobacco Use Types Packs/Day Years Used Date Smoking Tobacco: Never Sex and Gender Information Value Date Recorded Sex Assigned at Not on file Legal Sex Male 12:31 PM PRE PRESS PROOFER Gender Identity Male 11/09/2022 8:29 PM PRE PRESS PROOFER Sexual Orientation Straight 11/09/2022 8: 29 PM PRE PRESS PROOFER documented as of this encounter Plan of [...] on filedocumented in this encounter Care Teams Surgical Garment Fitter Relationship Specialty Start Date End Date Keanu Anthony MD [address] [facility] [address] [place] [address] PCP - General 03/30/17 06/15/21 Francesco Barahona MD [address] [address] PCP - General Endocrinology Diabetes & Metabolism 06/16/21 documented as of this encounter
--- OUTSIDE RECORDS SUMMARY | 2024-12-13 16:29 | XMS_ITS | Encounter Summary ---
Author Organization [facility] Address [address] [place] [address] Phone Care Team Providers Care Medical Front Desk Coordinator Name Role Phone Keanu Anthony MD Primary Care Provider [phone] Francesco Barahona MD Primary Care Provider Encounter Details Date Type Department Care Team (Latest Contact Info) Description 03/24/2017 Orders Only [facility] CONVERSION Scanning, Provider Social History Tobacco Use Types Packs/Day Years Used Date Smoking Tobacco: Never Sex and Gender Information Value Date Recorded Sex Assigned at Not on file Legal Sex Male 12:31 PM LEGAL BILLER Gender Identity Male 11/09/2022 8:29 PM LEGAL BILLER Sexual Orientation Straight 11/09/2022 8: 29 PM LEGAL BILLER documented as of this encounter Plan of [...] on filedocumented in this encounter Care Teams Medical Front Desk Coordinator Relationship Specialty Start Date End Date Keanu Anthony MD [address] [facility] [address] [place] [address] PCP - General 03/30/17 06/15/21 Francesco Barahona MD [address] [address] PCP - General Endocrinology Diabetes & Metabolism 06/16/21 documented as of this encounter
== END 2024-12-13 15:13 | disposition home or self-care (01) ==
PROVIDERS: PCP Internal Medicine; Visit Provider Internal Medicine
DX: K83.8 Other specified diseases of biliary tract (principal); K83.1 Obstruction of bile duct; K82.8 Other specified diseases of gallbladder; K86.89 Other specified diseases of pancreas; N32.89 Other specified disorders of bladder; N32.3 Diverticulum of bladder; E80.6 Other disorders of bilirubin metabolism; R17 Unspecified jaundice
CPT/HCPCS: 74183; 76376; A9577

== ENCOUNTER 2025-01-08 10:27 | Outpatient (CLI) | payer MEDICARE, SELFPAY ==
--- NOTE | ~2025-01-08 | XR_ITS ---
EXAM: XR finger 2nd LT min 2V DATE: 01/08/2025 10:51 HISTORY: S62.631A - Displaced fracture of distal phalanx of left i... . COMPARISON: 11/14/2024. FINDINGS: Decreased mineralization. Redemonstration of the distal left second tuft fracture, with se veral tiny adjacent bone fragments. No new acute fracture or dislocation. No lytic or blastic lesion. Scattered degenerative changes. No erosion or periosteal change. Question of mild soft tissue swelli ng of the distal second digit. IMPRESSION: Healing left second distal tuft fracture. No definite radiographic evidence of osteomyeli tis. There are clinical signs of or concerns for infection, recommend MRI of the finger without and w ith contrast. Reviewed, dictated and finalized at [facility]. IMPRESSION: Healing left second distal tuft fracture. No definite radiographic evidence of osteomyelitis. There are clinical signs of or concerns for infectio n, recommend MRI of the finger without and with contrast.
--- OUTSIDE RECORDS SUMMARY | 2025-01-08 12:07 | XMS_ITS ---
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 Continue compression stockings and leg elevation. C. difficile colitis 11/08/2024 Assessment & Plan (11/08/2024 7:47 PM MECHANICAL DETAILER): Complete fidaxomicin course. Check labs. Perforated ulcer 11/08/2024 Assessment & Plan (11/08/2024 7:48 PM MECHANICAL DETAILER): S/p surgery. Antibiotics completed. He will follow up with Dr. Corlye. Urinary retention 11/08/2024 Assessment & Plan (11/08/2024 7:48 PM MECHANICAL DETAILER): Per urology. Imbalance 03/07/2024 PVD (peripheral vascular disease) 01/11/2023 Assessment & Plan (01/11/2023 1:06 PM CDT): Compression socks Venous duplex Vascular Referral Medicare annual wellness visit, subsequent 06/22 Assessment & Plan (07/07/2024 6:42 PM CDT): Overall excellent health. Colonoscopy is due in 2024. I recommended COVID, flu, RSV, and [id number] vaccinations. Assessment & Plan (07/02/2023 10:27 AM CDT): Overall good health. Check PSA today. Colonoscopy due in 2024. I recommended that he get a COVID shot and [id number] vaccine. He declines a flu shot. Assessment & Plan (06/22/2022 10:00 AM CDT): Overall good health. Pala due in 2024. Recommended the following vaccines: Shingrix New COVID booster Flu shot [id number] Hyperlipidemia 06/22/2022 Assessment & Plan (07/07/2024 6:40 [...] CDT): Check MRI to r/o retrocochlear path. Current Treatment and Therapy Plans No current plan information found. Past Treatment and Therapy Plans No past plan information found. Lifetime Dose Tracking * Chemical Lifetime Dose Automatic Entry Manual Entr y Fluoro Time 20.3 minutes 20.3 minutes 0 minutes Air kerma at the reference point (Ka,r) 344 mGy 3 44 mGy 0 mGy Resolved Problems Problem Noted Date Diagnosed Date Resolved Date Dysfunction of both eustachian tubes 04/25/2018 02/11/2022 Assessment & Plan (06/22/2019 2:23 PM CDT): Ok to continue scopalamine patches for vertigo with air travel.
--- OUTSIDE RECORDS SUMMARY | 2025-01-08 12:07 | XMS_ITS | Continuity of Care Document ---
Author Organization [facility] Address [address] [facility] [address] [place] [address] Phone Care Team Providers Care Spray Worker Name Role Phone Mary Cabrales Unavailable Unavailable Procedures Procedure Date Eye Exam & Treatment Eye Exam & Treatment Refraction Eye Exam Established Pt SV Plastic Sphcyl Jefferson +/-4d, .12-2d De Frames Deluxe Tax - Medical Eye Exam & Treatment Refraction Advance Directives Directive Yes / No Effective Date File Name No Information Encounters Encounter Description Practice Location Reason(s) For Visit Diagnoses Date Provider Providers Copied on Encounter [facility], [address] [place] [address] [address], [place], [place], [id number], tel:[phone] [facility] No Information 2 2-201 0 Samra Leggett [address] [facility] , [address], [place], [address], [place]. tel:[phone] [facility], [address] [place] [address] [address], [place], [place], [id number], [place] tel:[phone] [facility] No Information Willis-0 4-200 9 Samra Leggett [address] , [address], [place], [address], [place]. tel:[phone] [facility], [address] [place] [address] [address], [place], [place], [address], [place] tel:[phone] SEC [facility] No Information Aug- 8 Samra Hernandez. [address] [facility] , [address], [place], [address], [place]. tel:[phone] [facility], [address], [place], [place], [address], [place] tel:[phone] [facility] No Information Aug-0 [address] [facility] . [address] [facility], [address], [place], [place], [id number], [place]. tel:[phone] Referring Provider: Mary Brown, [address] [place] [address] [address], [place], [place], [facility]. tel:[phone] sulting Provider: Freddie Cruz [address] [place] [address], [place], [facility]. tel:[phone] [facility], [address], [place], [place], [address], [place] tel:[phone] [facility] No Information 8 Samra Hernandez. [address] [place] [address] , [address], [place], [address], [place]. tel:[phone] Family History Family Member Type Diagnosis Age At Onset No Information Payers Payer name Insurance type Covered republican ID Authorrejia tiomar(s) [place] [id number] Social History Type Description Quantity Date Captured [...]
--- OUTSIDE RECORDS SUMMARY | 2025-01-08 12:07 | XMS_ITS | Encounter Summary ---
Author Organization [facility] Address [address] [place] [address] Phone Care Team Providers Care Finishing Machine Tender Name Role Phone Keanu Anthony MD Primary Care Provider [phone] Francesco Barahona MD Primary Care Provider Oswaldo Potter DO Primary Care Provider [phone] Encounter Details Date Type Department Care Team (Latest Contact Info) Description 03/24/2017 Orders Only [facility] CONVERSION Scanning, Provider Social History Tobacco Use Types Packs/Day Years Used Date Smoking Tobacco: Never Sex and Gender Information Value Date Recorded Sex Assigned at Not on file Legal Sex Male 12:31 PM EXPERIMENTAL WELDER Gender Identity Male 11/09/2022 8:29 PM EXPERIMENTAL WELDER Sexual Orientation Straight 11/09/2022 8: 29 PM EXPERIMENTAL WELDER documented as of this encounter Plan of [...] filedocumented in this encounter Care Teams Finishing Machine Tender Relationship Specialty Start Date End Date Keanu Anthony MD [address] [address] PCP - General 03/30/17 06/15/21 Francesco Barahona MD [address] [place] [address] PCP - General Endocrinology Diabetes & Metabolism 06/16/21 12/17/24 Oswaldo Potter DO [address] [place], [place] [id number] PCP - General Internal Medicine 12/18/24 documented as of this encounter
--- OUTSIDE RECORDS SUMMARY | 2025-01-08 12:07 | XMS_ITS | Encounter Summary ---
Author Organization [facility] Address [address] [place] [address] Phone Care Team Providers Care Take Out Waiter Name Role Phone Oswaldo Potter DO Primary Care Provider Encounter Details Date Type Department Care Team (Late st Contact Info) Description 12/28/2024 Results Follow-Up [facility] Gastroenterology [address] [facility] 2nd [address] [place] [address] Gabrielle Grider MD [address] [place] [address] Social History Tobacco Use Types Packs/Day Years [...] min 06/16/2021 Personal Safety Answer Date Recorded Have you ever been in or are you currently in a harmful physical or emotional relationship or is someone making you feel afraid or unsafe? Denies 01/01/2025 Sex and Gender Information Value Date Recorded Sex Assigned at Not on file Legal Sex Male 12:31 PM CLOTHING ROOM SUPERVISOR Gender Identity Male 11/09/2022 8:29 PM CLOTHING ROOM SUPERVISOR Sexual Orientation Straight 11/09/2022 8: 29 PM CLOTHING ROOM SUPERVISOR documented as of this encounter Miscellaneous Notes * Result Encounter Note - Gabrielle Grider MD - 12/28/2024 2:13 PM CDT Reviewed, being seen in clinic with Ratna GUAJARDO. Plan for EUS/ERCP next week. documented in this encounter Plan of Treatment Not on file documented as of this encounter Visit Diagnoses Not on filedocumented in this encounter Care Teams Take Out Waiter Relationship Specialty Start Date End Date Oswaldo Potter DO [address] [id number] PCP - General Internal Medicine 12/18/24 documented as of this encounter
--- OUTSIDE RECORDS SUMMARY | 2025-01-08 12:07 | XMS_ITS | Encounter Summary ---
Author Organization [facility] Address [address] [facility] [address] [place] [address] Phone Care Team Providers Care Insulator Technician Name Role Phone Oswaldo Potter DO Primary Care Provider [phone] Reason for Referral * Consultation (Routine) - Pending Review Specialty Diagnoses / Procedures Referred By Steve tyler Referred To Contact Hepatobiliary Surgery Diagnoses Malignant neoplasm of biliary tract, unspecified (HCC) Brook Benítez MD [address] [place] [address] Phone: tel: fax: Irene Riley MD [address] [facility] [phone] [place] [address] Phone: tel: fax: Referral ID Status Reason Start Date Expiration Date Visits Requested Visits Authorized [id number] Pending Review Specialty Services Required 01/04/2025 02/03/2026 1 1 Question Answer Are you referring the patient for medical management or surgical intervention? Surgical intervention Which condition(s) need mangement or surgical intervention? Hepatobiliary Please select the performing region: [facility] (All Locations) [167] # of visits: 1 * Consultation (Routine) - Pending Review Specialty Diagnoses / Procedures Referred By Steve tyler Referred To Contact Oncology Diagnoses Malignant neoplasm of biliary tract, unspecified (HCC) Brook Benítez MD [address] [place] [address] Phone: tel: fax: [facility] Oncology [address] [facility] [address] [place] [address] Phone: tel: fax: Referral ID Status Reason Start Date Expiration Date Visits Requested Visits Authorized [id number] Pending Review Specialty Services Required 01/04/2025 02/03/2026 1 1 Question Answer Please select the performing region: [facility] (All Locations) [167] Please select the performing department: [facility] ACB5 [[id number]] Is this referral for Breast Health Multi-Disciplinary Clinic? No Does the patient have a diagnosis of a Head and Neck cancer? No # of visits: 1 Encounter Details Date Type Department Care Team (Late st Contact Info) Description 01/03/2025 Results Follow-Up [facility] Gastroenterology [address] [place] [address] Medical Office [address], [address] [place] [address] Brook Benítez MD [address] [place] [address] Malignant neoplasm of biliary tract, unspecified (HCC) (Primary Dx) Social History Tobacco Use Types [...] on file Legal Sex Male 12:31 PM COOK RAILROAD Gender Identity Male 11/09/2022 8:29 PM COOK RAILROAD Sexual Orientation Straight 11/09/2022 8: 29 PM COOK RAILROAD documented as of this encounter Miscellaneous Notes * Result Encounter Note - Brook Benítez MD - 01/03/2025 11:00 PM CDT Hi Ratna, can you let pt know that his brushing showed atypical cell which are concerning. FISH is pend, please FU his LFT on Wednesday and see if they are coming down and have him referred to [facility] and[facility]cology, if FISH positive then that will be helpful. If his FISH neg, will repeat ERCP in few weeks with cholangioscopy and bx, but need input from [facility] and Onc, see if he can be seen in next 2-3 weeks. documented in this encounter Plan of Treatment Scheduled Referrals Name Type Priority Associated Diagnoses Order Schedule Ambulatory referral to Oncology Outpatient Referral Routine Malignant neoplasm of biliary tract, unspecified (HCC) Expected: 01/04/2025 (Approximate), Expires: 01/04/2026 Ambulatory referral to Hepatobiliary Surgery Outpatient Referral Routine Malignant neoplasm of biliary tract, unspecified (HCC) Expected: 01/04/2025 (Approximate), Expires: 01/04/2026 documented as of this encounter Visit Diagnoses Diagnosis Malignant neoplasm of biliary tract, unspecified (HCC)- Primary documented in this encounter Care Teams Insulator Technician Relationship Specialty Start Date End Date Oswaldo Potter DO [address] [facility] [address] [place] [address] PCP - General Internal Medicine 12/18/24 documented as of this encounter
--- OUTSIDE RECORDS SUMMARY | 2025-01-08 12:07 | XMS_ITS | Referral Summary ---
Author Organization [facility] Address [address] [place] [address] Care Team Providers Care Capacity Planning Analyst Name Role Phone Oswaldo Potter DO Primary Care Provider [phone] Encounters Date Type Department Care Team Description 01/04/2025 Telephone [facility] Gastroenterology [address] [place] [address] Medical Office Building 4, [address] [place] [phone] Ratna Marquez PA 01/04/2025 Orders Only [facility] Gastroenterology [address] [place] [address] Office Building 4, [address] [place] [phone] Ratna Marquez PA Malignant neoplasm of biliary tract, unspecified (HCC) (Primary Dx); Jaundice 01/03/2025 Results Follow-Up [facility] Gastroenterology [address] [place] [address] Medical Office Building 4, [address] [place] [phone] Brook Benítez MD Malignant neoplasm of biliary tract, unspecified (HCC) (Primary Dx) 2025 Telephone [facility] Gastroenterology [address] [place] [address] Medical Office Building 4, [address] [place] [address] Lili Prasad RN Dental question 01/01/2025 2:17 PM CDT Anesthesia Event [facility] Digestive Disease [address] [place] [address] Jean Ibanez MD 01/01/2025 2:00 PM CDT - 01/01/2025 3:[address] [facility] Digestive Disease [address] [place] [address] Brook Benítez MD RAD S AND I BILIARY DUCTAL SYSTEM 01/01/2025 1:03 PM CDT - 01/01/2025 5:30 PM CDT Hospital [facility] Digestive Disease [address] [address] Brook Benítez MD Jaundice; Duodenal ulcer Discharge Disposition: Discharge to home or self care 12/28/2024 Results Follow-Up [facility] Gastroenterology [address] [place] [address] [place] [phone] Gabrielle Grider MD 12/28/2024 Results Follow-Up [facility] Gastroenterology [address] [place] [phone] Gabrielle Grider MD 12/28/2024 10:00 AM CDT [facility] [address] [place] [address] Intrahepatic bile duct dilation; Dilated pancreatic duct; Other disorders of bilirubin metabolism; Malignant neoplasm of biliary tract, unspecified (HCC); Carcinoma in situ of digestive organ, unspecified 12/28/2024 Telephone [facility] Gastroenterology [facility] Medical Office Building 4, [address] [place] [phone] Lili Prasad RN GI Preprocedure 12/28/2024 9:30 AM CDT Office Visit [facility] Gastroenterology [address] [place] [address] [place] [phone] Ratna Marquez PA Jaundice (Primary Dx); Intrahepatic bile duct dilation; Dilated pancreatic duct; Other disorders of bilirubin metabolism; Carcinoma in situ of digestive organ, unspecified; Malignant neoplasm of biliary tract, unspecified (HCC) 12/26/2024 1:30 PM CDT - 12/26/2024 11:59 PM CDT Hospital Encounter [facility] [address] [place] [address] Diagnosis unknown Discharge Disposition: Discharge to home or self care 12/26/2024 1:28 PM CDT - 12/26/2024 11:59 PM CDT Hospital Encounter [facility]) [address] [place] [address] Diagnosis unknown Discharge Disposition: Discharge to home or self care 12/13/2024 9:00 AM CDT Office Visit [facility] [address] [facility] Office Building 4 [address] [place] [address] Ubaldo Rose MD Retention of urine (Primary Dx) 12/01/2024 Telephone [facility] [address] [place] [address] Office [facility] [address] [place] [address] Dina Benitez CMA 11/30/2024 Orders Only [facility] Otolaryngology [address] [place] [address], [address] [place] [address] Lili Myrick CMA 11/20/2024 Orders Only [facility] Critical access hospital1 [facility] [address] [place] [address] Francesco Barahona MD 11/09/2024 Telephone [facility] [address] [place] [address] Office [facility] [address] [place] [phone] Dina Benitez CMA 11/08/2024 Results Follow-Up [facility] [address] [facility] [place] [address] Francesco Barahona MD 11/08/2024 6:30 PM CLOTHING SALES ASSISTANT Lab [facility] [address] [place] [address] Perforated ulcer (HCC); C. difficile colitis 11/08/2024 2:15 PM CLOTHING SALES ASSISTANT Office Visit [facility] [address] [place] [address] Francesco Barahona MD Perforated ulcer (HCC) (Primary Dx); C. difficile colitis; Localized swelling of lower extremity; Urinary retention 11/06/2024 Telephone [facility] Critical access hospital1 [facility] [address] [place] [address] Francesco Barahona MD Medical Records Request 10/18/2024 11:00 AM CLOTHING SALES ASSISTANT Office Visit [facility] [address] [facility] Medical Office Building 4 [address] [place] [phone] Ubaldo Rose MD Retention of urine from Last 3 Months Allergies No known active allergies Medications aspirin 81 mg tablet Take 1 tablet (81 mg total) by mouth Active multivitamin tabletIndicatio ns:Vitamin Deficiency Prevention Men's One per Day Active pantoprazole DR (PROTONIX) 40 mg EC tablet Take 1 tablet (40 mg total) by mouth 2 (two) times a day 5 Active scopolamine 1 mg over 3 days patch [address] 1 patch on the skin every third day for 72 hours 4 patch 5 Active sucralfate (CARAFATE) 1 gram tablet 1 tablet (1 g total) 5 01/02/20 25 Discontinue d(Therapy completed) ciprofloxacin (CIPRO) 250 mg tablet Take 1 tablet (250 mg total) by mouth 2 (two) times a day for 5 days 10 tablet 5 01/07/20 25 Active Problems Problem Noted Date Diagnosed Date Dilated pancreatic duct 12/29/2024 Intrahepatic bile duct dilation 12/29/2024 Malignant neoplasm of biliary tract, unspecified 12/29/2024 Jaundice 12/28/2024 Duodenal ulcer 12/28/2024 Localized swelling of lower extremity 11/08/2024 Assessment & Plan (11/08/2024 7:47 PM CLOTHING SALES ASSISTANT): Symmetric edema, so DVT is unlikely. Continue compression stockings and leg elevation. C. difficile colitis 11/08/2024 Assessment & Plan (11/08/2024 7:47 PM CLOTHING SALES ASSISTANT): Complete fidaxomicin course. Check labs. Perforated ulcer 11/08/2024 Assessment & Plan (11/08/2024 7:48 PM CLOTHING SALES ASSISTANT): S/p surgery. Antibiotics completed. He will follow up with Dr. Corley. Urinary retention 11/08/2024 Assessment & Plan (11/08/2024 7:48 PM CLOTHING SALES ASSISTANT): Per urology. Imbalance 03/07/2024 PVD (peripheral vascular disease) 01/11/2023 Assessment & Plan (01/11/2023 1:06 PM CDT): Compression socks Venous duplex Vascular Referral Medicare annual wellness visit, subsequent 06/22 Assessment & Plan (07/07/2024 6:42 PM CDT): Overall excellent health. Colonoscopy is due in 2024. I recommended COVID, flu, RSV, and [id number] vaccinations. Assessment & Plan (07/02/2023 10:27 AM CDT): Overall good health. Check PSA today. Colonoscopy due in 2024. I recommended that he get a COVID shot and [id number] vaccine. He declines a flu shot. Assessment & Plan (06/22/2022 10:00 AM CDT): Overall good health. Dry Prong due in 2024. Recommended the following vaccines: Shingrix New COVID booster Flu shot [id number] Hyperlipidemia 06/22/2022 Assessment & Plan (07/07/2024 6:40 [...] file Legal Sex Male 12:31 PM CLOTHING SALES ASSISTANT Gender Identity Male 11/09/2022 8:29 PM CLOTHING SALES ASSISTANT Sexual Orientation Straight 11/09/2022 8: 29 PM CLOTHING SALES ASSISTANT Last Filed Vital Signs Vital Sign Reading Time Taken Comments Blood Pressure 141/79 01/01/2025 5:15 PM CDT Pulse 82 01/01/2025 5:15 PM CDT Temperature 36 C (96.8 F) 01/01/2025 4:10 PM CDT Respiratory Rate 12 01/01/2025 5:15 PM CDT Oxygen Saturation 95% 01/01/2025 5:15 PM CDT Inhaled Oxygen Concentration - - Weight 59 kg (130 lb) 01/01/2025 1:23 PM CDT Height 175.3 cm (5' 9 ) 01/01/2025 1:23 PM CDT Body Mass Index 19.2 01/01/2025 1:23 PM CDT Plan of Treatment Not on file Medical Devices Implanted Type Area Sewing Machinist Device Identifier Shelf Expiration Date Model / Serial / Lot Layer Inc [employer] Zimmon 7fr 10cm Biliary Double Pigtail Stent [id number] - [id number] Implanted:Qty: 1 on 01/01/2025 by Brook Benítez MD at [facility] Stent Left: Bile Duct [employer] 02/22/2027 [id number] / / [id number] [employer] Cook Zimmon 7fr 10cm Biliary Double Pigtail Stent [id number] - [id number] Implanted:Qty: 1 on 01/01/2025 by Brook Benítez MD at [facility] Stent Right: Bile Duct [employer] 05/09/2027 [id number] / / [id number] Procedures Procedure Name Priority Date/Time Associated Diagnosis Comments US ENDOSCOPIC IP Routine 01/01/2025 4:05 PM CDT Jaundice Duodenal ulcer ERCP IP Routine 01/01/2025 4:05 PM CDT Jaundice Duodenal ulcer ERCP IP Routine 01/01/2025 4:05 PM CDT Jaundice Duodenal ulcer FL ERCP BILIARY DUCT IP Routine 01/01/2025 3:51 PM CDT CYTOLOGY Routine 01/01/2025 3:29 PM CDT CO AN PROCEDURE PLACEHOLDER Routine 12/13 2:33 PM CDT CO AN ELECTIVE ENDOTRACHEAL AIRWAY Routine 01/01/2025 2:33 PM CDT ENDO ADD ON ESOPHAGOGASTRODUODENOSCOPY BALLOON DILATION <30MM 01/01/2025 2:16 PM CDT Jaundice Duodenal ulcer RAD S AND I BILIARY DUCTAL SYSTEM 01/01/2025 2:16 PM CDT Jaundice Duodenal ulcer UPPER EUS 01/01/2025 2:01 PM CDT ERCP 01/01/2025 12:19 PM CDT EGFR Routine 12/28/2024 10:12 AM CDT Intrahepatic bile duct dilation Dilated pancreatic duct Other disorders of bilirubin metabolism CEA Routine 12/28/2024 10:12 AM CDT Intrahepatic bile duct dilation Dilated pancreatic duct 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, unspecified CANCER ANTIGEN 19-9 Routine 12/28/2024 10:12 AM CDT Intrahepatic bile duct dilation Dilated pancreatic duct 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, unspecified (HCC) CBC WITHOUT DIFFERENTIAL Routine 025 10:12 AM CDT Intrahepatic bile duct dilation Dilated pancreatic duct Other disorders of bilirubin metabolism PROTIME-INR Routine 12/28/2024 10:12 AM CDT Intrahepatic bile duct dilation Dilated pancreatic duct Other disorders of bilirubin metabolism COMPREHENSIVE METABOLIC PANEL Routine 10:12 AM CDT Intrahepatic bile duct dilation Dilated pancreatic duct Other disorders of bilirubin metabolism CT BODY OUTSIDE CONSULT Routine 12/27/19 25 1:30 PM CDT Diagnosis unknown MR BODY OUTSIDE CONSULT Routine 12/27/19 25 1:28 PM CDT Diagnosis unknown POCT URINALYSIS DIPSTICK Routine 025 9:09 AM CDT Retention of urine GI - RESULT 11/20/2024 10:02 AM CDT EGFR Routine 11/08/2024 3:02 PM CLOTHING SALES ASSISTANT Perforated ulcer (HCC) C. difficile colitis DIFFERENTIAL AUTO Routine 11/08/2024 3:02 PM CLOTHING SALES ASSISTANT Perforated ulcer (HCC) C. difficile colitis CBC WITH AUTO DIFFERENTIAL Routine 11/08 3:02 PM CLOTHING SALES ASSISTANT Perforated ulcer (HCC) C. difficile colitis COMPREHENSIVE METABOLIC PANEL Routine 3:02 PM CLOTHING SALES ASSISTANT Perforated ulcer (HCC) C. difficile colitis COLONOSCOPY REPORT 07/22/2015 from Last 3 Months or Most Recently Relevant to Health Maintenance Results * FL ERCP Biliary Duct (01/01/2025 3:51 PM CDT) Narrative RAD_PACS_[facility] - 01/01/2025 4:01 PM CDT The images from this study are not interpreted by Radiology. Please refer to the physician's procedure / OR operative note. Brook Benítez MD IMG FLUOROSCOPY PROCED URES Final Result RAD[facility]PACS[facility] * Cytology (01/01/2025 3:29 PM CDT) Brushing NOS (Cytology) 01/01/2025 3:29 PM CDT 01/01/2025 5:17 PM CDT Narrative 01/03/2025 3:05 PM CDT EPIC results best viewed via link to PDF [facility] [place] [address] Note to Patients: This report may contain a detailed description of human tissue sent by a health care provider to the laboratory for pathologic evaluation. The content of this report is essential for diagnosis and may provide important critical findings. This information may be unfamiliar to patients to review without a medical professional present. It is advised that the patient review this report in the presence of a health care provider who can answer questions and explain the details. CYTOPATHOLOGY REPORT FINAL Patient Name: DREW PROCTOR Gender: M : 1945 (Age: 80) Address: [address] [place] [address] Hospital #: [id number] Taken:01/01/2025 Received:01/01/2025 Reported: 01/03/2025 Patient Type: [facility] Service: Gastro Location: Physician(s): Brook Benítez M.D. FINAL DIAGNOSIS A. Hilar stricture brushing: - Rare atypical ductal cells 01/03/2025 11:21 By this signature, I attest that the above diagnosis is based upon my personal examination of the slides(and/or other material indicated in the diagnosis). Pedro St DO Report Electronically Reviewed and Signed Out By Pedro St DO 01/03/2025 15:05:20 Dolly Reyes, GOLDEN(ASCP) Gross Description A. Hilar stricture brushin brush tip received in 20 mL PreservCyt - 1 Pap stained ThinPrep. (vo) B. Hilar stricture brushing for fish: A second brush specimen sent for ancillary testing. specimen held for potential ancillary FISH studies, An addendum will be issued when testing performed Clinical Diagnosis and History Patient is an 80 year-old male with imaging showing intrahepatic ductal dilatation and ERCP showing a left hepatic duct obstructive lesion. REPORT IMAGES AND SCANNED DOCUMENTS, IF INCLUDED, ONLY VIEWABLE IN PDF VERSION OF REPORT The performance characteristics of some immunohistochemical stains, in-situ hybridization and fluorescence in-situ hybridization tests and immunophenotyping by flow cytometry cited in this report (if any) were determined by the Surgical Pathology and Flow Cytometry Departments at [facility] as part of an ongoing software quality assurance engineer program and in compliance with federally mandated regulations drawn from the Clinical Laboratory Improvement Act of 1988 (CLIA '88). Some of these tests rely on the use of analyte specific reagents and are subject to specific labeling requirements by the US Food and Drug Administration. Such diagnostic tests may only be performed in a facility that is certified by the Department of Health and Human Services as a high complexity laboratory under CLIA '88. The FDA has determined that such clearance or approval is not necessary. This test is used for clinical purposes. It should not be regarded as investigational or for research. Nevertheless, federal rules concerning the medical use of analyte specific reagents require that the following disclaimer be attached to the report: This test was developed and its performance characteristics determined by the Surgical Pathology and Flow Cytometry Departments of [facility]. It has not been cleared or approved by the U. S. Food and Drug Administration. Brook Benítez MD LAB CYTOLOGY ORDERABLE S Final Result * CO AN ELECTIVE ENDOTRACHEAL AIRWAY, CO AN PROCEDURE PLACEHOLDER (01/01/2025 2:33 PM CDT) Cassandra Davis CRNA - 01/01/2025 2:33 PM CDT Cassandra Grimes CRNA 01/01/2025 2:34 PM Airway Patient location: OR Urgency: elective Date/time: 01/01/2025 2:25 PM Indications for airway management: anesthesia and airway protection Difficult airway: no Staff: Placed by: SANDRA: Cassandra Grimes CRNA Emergent airway documentation: Risks and benefits discussed: yes Consent obtained: yes Consent given by: patient Airway prep: Preoxygenated: yes Patient position: sniffing Mask difficulty assessment: 0 - not attempted Spontaneous ventilation during airway: absent Sedation level during airway: GA Final airway details: Final airway type: endotracheal airway Tube type: ETT ETT size: 8.0 mm Cuffed: yes Technique used for successful ETT placement: direct laryngoscopy Devices/Methods used in placement: intubating stylet Insertion site: oral Blade type: Rick Blade size: 4 Cormack-Lehane (direct): grade I - full view of glottis Cuff volume: 8 mL Cuff inflated with: air ETT to lips: 24 cm Placement verified by: auscultation and CO2 detection Airway secured with: silk tape Number of attempts: 1no us Jean Ibanez MD ANESTHESIA ORDERABLES Final R esult * Upper EUS (01/01/2025 2:01 PM CDT) Anatomical Region Laterality Modality Other Narrative Procedure Note Brook Benítez MD - 01/01/2025 2:01 PM CDT GI ENDOSCOPY [facility] Patient Name: Drew Proctor Procedure Date: 01/01/2025 2:01 PM Date of : 1945 Admit Type: Outpatient Age: 79 Gender: Male Attending MD: Brook Benítez M.D. 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 H/o duodenal ulcer repair few months ago. Referring MD: Oswaldo Potter D.O. Providers: Brook Benítez M.D. Medicines: General Anesthesia Complications: No immediate complications. Procedure: Pre-Anesthesia Assessment: - Prior to the procedure, a History and Physicalwas performed, and patient medications, allergies and sensitivities were reviewed. The patient'stolerance of previous anesthesia was reviewed. - The risks and benefits of the procedure and the sedation options and risks were discussed with the patient. All questions were answered and informed consent was obtained. - Immediately prior to administration ofmedications, the patient was re-assessed for adequacy to receive sedatives. The risks, benefits and alternatives were discussed and informed consent was obtained.The upper EUS was accomplished without difficulty. The patienttolerated the procedure well. The Olympus curved linear array therapeutic endosonoscope [id number] wasintroduced through the mouth, and advanced to the second partof duodenum The GIF [id number] endoscope was introduced through the mouth, and advanced to the second part of duodenum Findings: ENDOSCOPIC FINDING: : The examined esophagus was normal. The entire examined stomach was normal. An acquired benign-appearing, intrinsic moderate stenosis was foundin the duodenal bulb and was traversed. However stenosis appears severeto large caliber EUS and ERCP scope and it was planned to dilate thearea. A TTS dilator was passed through the scope. Dilation with a15-16.5-18 mm pyloric balloon dilator was performed. Stenosis likely related to prior PUD, no active ulcer seen ENDOSONOGRAPHIC FINDING: : There was no sign of significant endosonographic abnormality in the ampulla. There was no sign of significant endosonographic abnormality in the common bile duct. 6mm CBD -I cannot see a definite mass in the raeann, with inadequate views There was no sign of significant endosonographic abnormality in theleft lobe of the liver. There was dilation in the left intrahepatic bile duct(s). -Gallbladder sludge noted An anechoic lesion suggestive of a cyst was identified in thepancreatic neck. The lesion measured 8 mm in maximal cross-sectional diameter. There were a few compartments thinly septated. The outer wall of the lesion was thin. There was no associated mass. There was no sign of significant endosonographic abnormality in the pancreatic head, pancreatic body, pancreatic tail and uncinateprocess of the pancreas. The pancreatic duct measured up to 3 mm indiameter. The region of the celiac plexus and celiac ganglia was visualized and showed no sign of significant endosonographic abnormality. There was no sign of significant endosonographic abnormality in the visualized portion of the spleen. NO enlarged periportal, or peripancreatic, perisplenic or celiac node seen Impression: - Normal esophagus. - Normal stomach. - Acquired duodenal stenosis. Dilated. - There was no sign of significant pathology in the ampulla. - There was no sign of significant pathology in the common bile duct. - There was no evidence of significant pathology in the left lobe of the liver. - There was dilation in the left intrahepatic bile duct(s). - A cystic lesion was seen in the pancreaticneck. - There was no sign of significant pathology in the pancreatic head, pancreatic body, pancreatic tailand uncinate process of the pancreas. - Endosonographic images of the spleen were unremarkable. -No enlarged lymph node noted Recommendation: -Proceed with ERCP Attending Participation: I personally performed the entire procedure. Electronically signed by Brook Benítez MD Brook Benítez M.D. 01/01/2025 4:12:43 PM . Number of Addenda: 0 Note Initiated On: 01/01/2025 2:01 PM Brook Benítez MD ENDOSCOPY PROCEDURES F inal Result * ERCP (01/01/2025 12:19 PM CDT) Anatomical Region Laterality Modality Other Narrative Procedure Note Brook Benítez MD - 01/01/2025 12:19 PM CDT GI ENDOSCOPY [facility] Patient Name: Drew Proctor Procedure Date: 01/01/2025 12:19 PM Date of : 1945 Admit Type: Outpatient Age: 79 Gender: Male Attending MD: Brook Benítez M.D. 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 ERCP/EUS with tissue sampling recommended..Elevated LFts, wtih Jaundice Referring MD: Oswaldo Potter D.O. Providers: Brook Benítez M.D. Medicines: General Anesthesia Ciprofloxacin 400mg IV Indomethacin 100mg CO Complications: No immediate complications. Estimated Blood Loss: Estimated blood loss was minimal. Procedure: Pre-Anesthesia Assessment: - Prior to the procedure, a History and Physicalwas performed, and patient medications, allergies and sensitivities were reviewed. The patient'stolerance of previous anesthesia was reviewed. - The risks and benefits of the procedure and the sedation options and risks were discussed with the patient. All questions were answered and informed consent was obtained. - Immediately prior to administration ofmedications, the patient was re-assessed for adequacy to receive sedatives. The benefits, risks, and alternatives to theprocedure and sedation were discussed and informed consentwas obtained. The [id number] Duodenoscope wasintroduced through the mouth, and used to inject contrast into and used to inject contrast into the bile duct. The ERCP was technically difficult and complex due to difficulty passing guidewires through biliaryductal stenosis. The patient tolerated the procedurewell. Findings: The production maintenance mechanic film was normal. The esophagus was successfully intubated under direct vision. The scope was advanced to a normal major papillain the descending duodenum without detailed examination of the pharynx, larynx and associated structures, and upper GI tract. The upper GItract was grossly normal. A 0.025 inch x 450 cm angled Visiglide wire was passed into the biliary tree. The short-nosed traction sphincterotome was passed over the guidewire and the bile duct was then deeply cannulated. Contrast was injected. I personally interpreted the bile duct images. Ductal flow of contrast was adequate. Image quality was adequate. Contrast extended to the entire biliary tree. The lefthepatic duct with secondary or tertiary branches of the left intrahepaticducts (Bismuth III) was partially obstructed by a narrowing that did not appear to be a stone or a mass. Common hepatic duct stricture noted. Right hepatic duct does not appears dilated but I cannot r/o BismuthIV lesion. Left intrahepatic duct was dilated upto 7mm, Left hepaticduct stricture length was 8-10mm with proximal dilation. Distal CBD wasnot dilated, cystic duct and partial gallbladder filling noted. A 5 mm biliary sphincterotomy was made with a traction (standard) sphincterotome using ERBE electrocautery. (Despite sphincterotomy Ihad difficulty in passing accessories later in the case includingdilators and brushes with catching of equipment at the sphincterotomy site, I decided to perform sphincteroplasty using a 8mm balloon (I used a10mm balloon and partially inflated that to do sphincteroplasty).. The sphincterotomy oozed blood but resolved spontaneously. To discover objects, the biliary tree was swept with an 8.5 mm balloon startingat the bifurcation, left intrahepatic duct(s) and right intrahepatic duct(s). Nothing was found. The hepatic duct bifurcation and the left main hepatic duct were successfully dilated with a 4 mm balloondilator, but still has quite a resistance of passing biliary balloon and therefore dilated upto 6mm serially. Cells for cytology were obtainedby brushing in the hepatic duct bifurcation and common hepatic duct.Cells for fluorescence in situ hybridization (FISH) were obtained bybrushing in the hepatic duct bifurcation and common hepatic duct. One 7 Fr by10 cm transpapillary plastic stent with a full external pigtail and afull internal pigtail was placed into the left hepatic duct. Bile flowed through the stent. The stent was in good position. One 7 Fr by 10 cm transpapillary stent with a full external pigtail and a full internal pigtail was placed into the right hepatic duct. Bile flowed throughthe stent. The stent was in good position. 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 Cannotr/o Bismuth IV lesion - A biliary sphincterotomy was performed. Biliary sphincteroplasty done - The biliary tree was swept and nothing wasfound. - The hepatic duct bifurcation and the left main hepatic duct were successfully dilated. - Cells for cytology obtained at the hepatic duct bifurcation. - Cells for fluorescence in situ hybridization(FISH) were obtained in the hepatic duct bifurcation. - One plastic stent was placed into the lefthepatic duct. - One stent was placed into the right hepaticduct. Recommendation: - - Observe clinical course status post today's intervention. - Watch for complications including bleeding, perforation, infection, and pancreatitis. -IV Ringers lactate in the post op area forhydration -Avoid NSAIDs and anticoagulation for next 10days -NPO for 4 hours and then Liquid diet today, if tolerating then resume regular diet. - Resume home medications. - Take oral Ciprofloxacin 250mg BID for 5 days (e-prescribed). - Repeat ERCP in 2 months for stent exchange. - Return to referring provider as indicated. -FU pathology - In the unusual situation that you developabdominal pain, bleeding or other significant problems in the days following this procedure please call my office [phone]). After hours and eveningsplease call [phone] and speak to the GI fellow lopez. Please tell the fellow that Dr. Benítez did your procedure and that you were instructed to have the fellow call me or the physician covering for me to discuss the management of your condition. If youhave an urgent problem, please go to the [facility] and have the ER doctor call my office duringthe day or the GI fellow after hours and weekends to arrange admission or transfer to our facility.[facility] - During your procedure a stent was placed. Thestent allows to keep the area open and allow for fluid drainage. The stent that was place is meant to beused temporarily and requires close follow up to replaceor remove. Failure to follow up in a timely manner may result in severe abdominal pain, jaundice,infection, pancreatitis or other serious complications. Itwill be your responsibility to follow the recommendation for FU and replacement as indicate per Raina. Attending Participation: I personally performed the entire procedure. Electronically signed by Brook Benítez MD Brook Benítez M.D. 01/01/2025 4:06:56 PM . Number of Addenda: 0 Note Initiated On: 01/01/2025 12:19 PM us Brook Benítez MD ENDOSCOPY PROCEDURES F inal Result * eGFR (12/28/2024 10:12 AM CDT) eGFR 80 >=60 mL/min/1. 73 m2 Comment: Interpretive Data [...] interpretive data was last reviewed 2021. Blood 12/28/2024 10:1 2 AM CDT 12/28/2024 1:50 PM CDT Ratna GUAJARDO LAB BLOOD ORDERABLES F inal Result Performing Organization Address [facility] Phone Number [facility] [email or web address] [address] * Cancer antigen 19-9 (12/28/2024 10:12 AM CDT) CA 19-9 ag 16.6 <=35.0 units/mL Comment: Interpretive Data The Calixto CA 19-9 assay procedure was used. Results from different manufacturers or methods may not be comparable. Serial testing should be performed using the same method. Blood 12/28/2024 10:1 2 AM CDT 12/28/2024 1:36 PM CDT Ratna GUAJARDO LAB BLOOD ORDERABLES F inal Result Performing Organization Address [facility] de Phone Number [facility] [place] [address] * Protime-INR (12/28/2024 10:12 AM CDT) PT 12.0 9.7 - 13.0 sec INR 1.11 0.90 - 1.20 [facility] Comment: Interpretive data Oral anticoagulant therapeutic ranges: Venous thromboembolism prophylaxis or treatment: 2.0-3.0 CARDIOLOGY Standard range: 2.0-3.0 High-intensity range: 2.5-3.5 Refer to indication-specific guidelines for appropriate target ranges for prosthetic heart valve replacement. Current interpretive data was last revised on 2019. Blood 12/28/2024 10:1 2 AM CDT 12/28/2024 1:37 PM CDT us Ratna GUAJARDO LAB BLOOD ORDERABLES F inal Result Performing Organization Address City/[facility]/ZIP Co de Phone Number [facility] [place] [address] * (ABNORMAL) CBC without differential (12/28/2024 10:12 AM CDT) Pathologist [facility] [place] WBC 4.85 3.80 - 9.90 K/cumm Hgb 10.8(L) 13.0 - 17.5 g/dL [facility] Hct 32.8(L) 38.9 - 50.3 % [facility] Plt 312 150 - 400 K/cumm [facility] MPV 11.7 9.1 - 12.3 fL [facility] RBC 3.57(L) 4.30 - 5.80 M/cumm [facility] MCV 91.9 81.3 - 96.4 fL [facility] MCH 30.3 27.1 - 33.3 pg [facility] MCHC 32.9 32.3 - 35.7 g/dL [facility] RDW CV 20.5(H) 11.1 - 14.9 % [facility] RDW SD 69.2(H) 35.7 - 48.1 fL [facility] NRBC abs 0.00 0.00 - 0.01 K/cumm [facility] Blood 12/28/2024 10:1 2 AM CDT 12/28/2024 1:35 PM CDT us Ratna GUAJARDO LAB BLOOD ORDERABLES F inal Result Performing Organization Address City/[facility]/ZIP Co de Phone Number [facility] [place] [address] * CEA (12/28/2024 10:12 AM CDT) Pathologist [facility] [place] CEA 3.6 <=5.0 ng/mL Comment: Interpretive Data: Reference Range: Non-Smokers: 0.0 5.0 ng/mL Smokers: 0.0 6.5 ng/mL The Calixto CEA assay procedure was used. Results from different manufacturers or methods may not be comparable. Serial testing should be performed using the same method. Current interpretive data was last revised 2022. Blood 12/28/2024 10:1 2 AM CDT 12/28/2024 1:36 PM CDT Ratna GUAJARDO LAB BLOOD ORDERABLES F inal Result [facility] [place] [address] * (ABNORMAL) Comprehensive metabolic panel (12/28/2024 10:12 AM CDT) [facility] Sodium 140 135 - 145 mmol/L Potassium, pl 4.5 3.3 - 4.9 mmol/L [facility] Chloride 105 97 - 110 mmol/L [facility] CO2 27 22 - 32 mmol/L [facility] Anion gap 8 2 - 15 mmol/L [facility] BUN 19 6 - 25 mg/dL [facility] Creatinine 0.96 0.80 - 1.30 mg/dL [facility] Glucose 89 70 - 199 mg/dL [facility] [...] interpretive data was last revised 2022. Calcium 9.0 8.5 - 10.3 mg/dL [facility] Bilirubin, total 12.7(H) 0.1 - 1.2 mg/dL [facility] Protein, pl 6.3(L) 6.5 - 8.5 g/dL [facility] Comment:Icteric; result may be falsely decreased Albumin 3.6 3.5 - 5.0 g/dL [facility] Alk phos 377(H) 40 - 130 Units/L [facility] ALT 65(H) 7 - 55 Units/L [facility] AST 118(H) 10 - 50 Units/L [facility] Blood 12/28/2024 10:1 2 AM CDT 12/28/2024 1:36 PM CDT us Ratna GUAJARDO LAB BLOOD ORDERABLES F inal Result [facility] [place] [address] * CT Body Outside Consult (12/26/2024 1:30 PM CDT) Anatomical Region Laterality Modality Body N/A Computed Tomogra phy 12/26/2024 4:41 PM CDT Impressions 12/26/2024 4:41 PM CDT 1. Mildly distended gallbladder without wall thickening. Note is made of mild prominence of the common bile duct with multiple thickened and mildly enhancing soft tissue surrounding the common bile duct, as well as mild pericholecystic fat stranding. These findings may be reactive in the setting of duodenal ulcer perforation and duodenal repair. 2. Diffusely thickened urinary bladder with a posterior bladder diverticulum. Findings may be due to chronic urinary bladder outlet obstruction in the setting of prostatomegaly. The bladder wall thickening can also be seen in the setting of cystitis. 3. Mild edematous wall thickening and pericolonic fat stranding within the distal colon and rectum, which may be suggestive of colitis and proctitis. Note is also made of mild inflammatory changes of the small bowel in the pelvis, likely reactive enteritis. The findings, conclusions and recommendations within this report do not replace the initial findings, conclusions and recommendations made at the facility where the study was performed based upon the imaging and clinical condition at that time. Comparison with the prior report and clinical history is necessary. The provided images may or may not represent the [place] source data set and thus may contain changes that may lower the accuracy of this second-opinion interpretation. Electronically signed by: Martine Villasenor M.D. Narrative 12/26/2024 4:41 PM CDT EXAMINATION: RADIOLOGY CONSULTATION ON OUTSIDE IMAGING STUDY STUDY INITIALLY PERFORMED: 11/03/2024 at [facility]. TYPE OF STUDY: Multiple CT images of the chest abdomen and pelvis with IV contrast are provided at the time of this interpretation. CONTRAST ROUTE: Contrast was administered via the intravenous route. The protocol was adequate to address the clinical question. The outside final report was available at the time of this second opinion interpretation. TYPE OF CONSULTATION: Consult on outside imaging study with images submitted through Outside Image Sharing Service DATE OF CONSULTATION: 12/26/2024 4:00 PM HISTORY: Duodenal ulcer with perforation status post exploratory laparoscopy and repair COMPARISON: None available. FINDINGS: The central airways are clear. No pulmonary nodule/mass, consolidation, pleural effusion or pneumothorax. Mild bibasilar atelectasis. No acute pulmonary embolism. The thoracic aorta is normal in caliber with trace atherosclerosis. There is a three-vessel arch. There are coronary artery calcifications. Heart is normal in size and without pericardial effusion. The thyroid gland is normal. The esophagus is normal. No thoracic lymphadenopathy. The liver, spleen, adrenal glands, and pancreas are within normal limits. The gallbladder is mildly distended but without wall thickening. There is mild adjacent fat stranding. There is mild prominence of the common bile duct with mildly thickened and mildly enhancing soft tissue surrounding the common bile duct (series 606, image 23). The kidneys are symmetric in size and enhancement. There are right-sided simple cysts. No hydronephrosis or nephrolithiasis. Diffuse thickening of the urinary bladder wall which is most prominent anteriorly and measures up to 1.2 cm in thickness. There is a small urinary bladder diverticulum posteriorly. Prostatomegaly. The stomach is normal. Postsurgical changes of the duodenum. The small bowel is normal in caliber and without focal wall thickening. Note is made of fluid-filled loops of small bowel in the pelvis. The cecum, ascending colon, and proximal transverse colon are within normal limits. There is edematous thickening of the distal transverse colon, descending colon, sigmoid colon, and rectum which is most significant in the sigmoid colon and rectum, with mild edematous wall thickening and pericolonic fat stranding. The appendix is normal. No ascites or pneumoperitoneum. No lymphadenopathy. The abdominal aorta is normal in caliber and with mild atherosclerosis. The IVC is within normal limits. No suspicious osseous lesions. Multilevel degenerative changes of the visualized thoracolumbar spine. Mild anasarca. Procedure Note Hamilton, Martine Davison MD - 12/26/2024 EXAMINATION: RADIOLOGY CONSULTATION ON OUTSIDE IMAGING STUDY STUDY INITIALLY PERFORMED: 11/03/2024 at [facility]. TYPE OF STUDY: Multiple CT images of the chest abdomen and pelvis with IV contrast are provided at the time of this interpretation. CONTRAST ROUTE: Contrast was administered via the intravenous route. The protocol was adequate to address the clinical question. The outside final report was available at the time of this second opinion interpretation. TYPE OF CONSULTATION: Consult on outside imaging study with images submitted through Outside Image Sharing Service DATE OF CONSULTATION: 12/26/2024 4:00 PM HISTORY: Duodenal ulcer with perforation status post exploratory laparoscopy and repair COMPARISON: None available. FINDINGS: The central airways are clear. No pulmonary nodule/mass, consolidation, pleural effusion or pneumothorax. Mild bibasilar atelectasis. No acute pulmonary embolism. The thoracic aorta is normal in caliber with trace atherosclerosis. There is a three-vessel arch. There are coronary artery calcifications. Heart is normal in size and without pericardial effusion. The thyroid gland is normal. The esophagus is normal. No thoracic lymphadenopathy. The liver, spleen, adrenal glands, and pancreas are within normal limits. The gallbladder is mildly distended but without wall thickening. There is mild adjacent fat stranding. There is mild prominence of the common bile duct with mildly thickened and mildly enhancing soft tissue surrounding the common bile duct (series 606, image 23). The kidneys are symmetric in size and enhancement. There are right-sided simple cysts. No hydronephrosis or nephrolithiasis. Diffuse thickening of the urinary bladder wall which is most prominent anteriorly and measures up to 1.2 cm in thickness. There is a small urinary bladder diverticulum posteriorly. Prostatomegaly. The stomach is normal. Postsurgical changes of the duodenum. The small bowel is normal in caliber and without focal wall thickening. Note is made of fluid-filled loops of small bowel in the pelvis. The cecum, ascending colon, and proximal transverse colon are within normal limits. There is edematous thickening of the distal transverse colon, descending colon, sigmoid colon, and rectum which is most significant in the sigmoid colon and rectum, with mild edematous wall thickening and pericolonic fat stranding. The appendix is normal. No ascites or pneumoperitoneum. No lymphadenopathy. The abdominal aorta is normal in caliber and with mild atherosclerosis. The IVC is within normal limits. No suspicious osseous lesions. Multilevel degenerative changes of the visualized thoracolumbar spine. Mild anasarca. IMPRESSION: 1. Mildly distended gallbladder without wall thickening. Note is made of mild prominence of the common bile duct with multiple thickened and mildly enhancing soft tissue surrounding the common bile duct, as well as mild pericholecystic fat stranding. These findings may be reactive in the setting of duodenal ulcer perforation and duodenal repair. 2. Diffusely thickened urinary bladder with a posterior bladder diverticulum. Findings may be due to chronic urinary bladder outlet obstruction in the setting of prostatomegaly. The bladder wall thickening can also be seen in the setting of cystitis. 3. Mild edematous wall thickening and pericolonic fat stranding within the distal colon and rectum, which may be suggestive of colitis and proctitis. Note is also made of mild inflammatory changes of the small bowel in the pelvis, likely reactive enteritis. The findings, conclusions and recommendations within this report do not replace the initial findings, conclusions and recommendations made at the facility where the study was performed based upon the imaging and clinical condition at that time. Comparison with the prior report and clinical history is necessary. The provided images may or may not represent the [place] source data set and thus may contain changes that may lower the accuracy of this second-opinion interpretation. Electronically signed by: Martine Villasenor M.D. 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 ERCP/EUS with tissue sampling recommended. The findings, conclusions and recommendations within this report do not replace the initial findings, conclusions and recommendations made at the facility where the study was performed based upon the imaging and clinical condition at that time. Comparison with the prior report and clinical history is necessary. The provided images may or may not represent the [place] source data set and thus may contain changes that may lower the accuracy of this second-opinion interpretation. Dictated by: Brett Quintanilla M.D. The radiology attending physician has personally reviewed this study, and had reviewed and/or edited this written report and agrees with it. Electronically signed by: Alcon Gonzalez M.D. Narrative 12/27/2024 6:18 AM CDT EXAMINATION: RADIOLOGY CONSULTATION ON OUTSIDE IMAGING STUDY STUDY INITIALLY PERFORMED: 12/13/2024 at [facility]. TYPE OF STUDY: Multiple MR/MRCP images of the abdomen with and without intravenous contrast are provided at the time of this interpretation. CONTRAST ROUTE: Contrast was administered via the intravenous route. The protocol was adequate to address the clinical question. The outside final report was available at the time of this second opinion interpretation. TYPE OF CONSULTATION: Consult on outside imaging study with images submitted through Outside Image Sharing Service DATE OF CONSULTATION: 12/26/2024 1:34 PM HISTORY: 79-year-old patient with history of recent duodenal ulcer perforation (first portion of the duodenum) status post repair. COMPARISON: CT from 11/03/2024. FINDINGS: Liver: No significant hepatic fat or iron deposition. 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 Mild diffuse pancreatic ductal dilatation with scattered dilated side branches within the pancreatic tail, likely representing the sequela of chronic pancreatitis. - Vasculature: Normal. Gallbladder: Normal. Pancreas: Normal. Spleen: Normal. Adrenals: Normal. Kidneys: Bilateral renal cysts. Other Findings: Lumbar dextrocurvature centered at L4. Sacral Tarlov cyst. Procedure Note Alcon Goznalez MD - 12/27/2024 EXAMINATION: RADIOLOGY CONSULTATION ON OUTSIDE IMAGING STUDY STUDY INITIALLY PERFORMED: 12/13/2024 at [facility]. TYPE OF STUDY: Multiple MR/MRCP images of the abdomen with and without intravenous contrast are provided at the time of this interpretation. CONTRAST ROUTE: Contrast was administered via the intravenous route. The protocol was adequate to address the clinical question. The outside final report was available at the time of this second opinion interpretation. TYPE OF CONSULTATION: Consult on outside imaging study with images submitted through Outside Image Sharing Service DATE OF CONSULTATION: 12/26/2024 1:34 PM HISTORY: 79-year-old patient with history of recent duodenal ulcer perforation (first portion of the duodenum) status post repair. COMPARISON: CT from 11/03/2024. FINDINGS: Liver: No significant hepatic fat or iron deposition. 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 Mild diffuse pancreatic ductal dilatation with scattered dilated side branches within the pancreatic tail, likely representing the sequela of chronic pancreatitis. - Vasculature: Normal. Gallbladder: Normal. Pancreas: Normal. Spleen: Normal. Adrenals: Normal. Kidneys: Bilateral renal cysts. Other Findings: Lumbar dextrocurvature centered at L4. Sacral Tarlov cyst. 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 ERCP/EUS with tissue sampling recommended. The findings, conclusions and recommendations within this report do not replace the initial findings, conclusions and recommendations made at the facility where the study was performed based upon the imaging and clinical condition at that time. Comparison with the prior report and clinical history is necessary. The provided images may or may not represent the [place] source data set and thus may contain changes that may lower the accuracy of this second-opinion interpretation. Dictated by: Brett Quintanilla M.D. The radiology attending physician has personally reviewed this study, and had reviewed and/or edited this written report and agrees with it. Electronically signed by: Alcon Gonzalez M.D. Gabrielle Grider MD IMG MRI PROCEDURES Fi nal Result * (ABNORMAL) POCT urinalysis dipstick (12/13/2024 9:09 [...] R esult * eGFR (11/08/2024 3:02 PM [employer]ING SAL[employer] ASSISTANT) eGFR 75 >=60 mL/min/1. 73 m2 Comment: [...] last reviewed 2021. Blood 11/08/2024 3:02 PM [employer] SALES ASSISTANT 11/08/2024 3:25 PM [employer] SAL[employer] ASSISTANT us Francesco Barahona MD LAB BLOOD ORDERABLES Fi nal Result [facility] [place] [address] * Differential, auto (11/08/2024 3:02 PM [employer]OTH[employer] SAL[employer] ASSISTANT) Pathologist [facility] [place] Neutrophil abs 3.9 1.5 - 6.5 K/cumm Imm gran abs 0.1 0.0 - 0.1 K/cumm [facility] Lymphocyte abs 2.0 0.8 - 3.3 K/cumm [facility] Monocyte abs 0.7 0.2 - [...] revised on 2017. Blood 11/08/2024 3:02 PM CLOTHING SALES ASSISTANT 11/08/2024 3:20 PM CLOTHING SALES ASSISTANT Francesco Barahona MD LAB BLOOD ORDERABLES Fi nal Result Performing Organization Address [facility] Co de Phone Number [facility] [place] [address] * (ABNORMAL) CBC with auto differential (11/08/2024 3:02 PM CLOTHING SALES ASSISTANT) WBC 6.9 3.8 - 9.9 K/cumm Hgb [...] [facility] Blood 11/08/2024 3:02 PM CLOTHING SALES ASSISTANT 11/08/2024 3:20 PM CLOTHING SALES ASSISTANT Francesco Barahona MD LAB BLOOD ORDERABLES Fi nal Result Performing Organization Address [facility]/ZIP Co de Phone Number [facility] [place] [address] * Comprehensive metabolic panel (11/08/2024 3:02 PM CLOTHING SALES ASSISTANT) Sodium 143 135 - 145 mmol/L Potassium, [...] [facility] Blood 11/08/2024 3:02 PM CLOTHING SALES ASSISTANT 11/08/2024 3:20 PM CLOTHING SALES ASSISTANT us Francesco Barahona MD LAB BLOOD ORDERABLES Fi nal Result [facility] [place] [address] * COLONOSCOPY REPORT (07/22/2015) Anatomical Region Laterality Modality Other Narrative 07/22/2015 Ordered by an unspecified provider. us Historical Provider GI PROCEDURE ORDERABLES F inal Result from Last 3 Months or Most Recently Relevant to Health Maintenance Insurance [facility] MEDICARE [facility] MEDICARE Address: [facility] [id number] [place] [address] [employer] MEDICARE ADVANTAGE MEDICARE T MEDICARE T MEDICARE Advance Directives For more information, please contact: [phone] Documents on File Type Date Recorded Patient Contracts Intern Expl anation ADVANCE DIRECTIVE 10/01/2017 12:18 PM * Full Code (Latest Code Status on File) Date Activated Date Inactivated Comments 01/01/2025 1:34 PM 01/01/2025 9:36 PM Care Teams Capacity Planning Analyst Relationship Specialty Start Date End Date Oswaldo Potter DO [address] [address] PCP - General Internal Medicine 12/18/24
--- OUTSIDE RECORDS SUMMARY | 2025-01-08 12:07 | XMS_ITS | Clinical Summary ---
Author Organization [facility] Address [address] [place] [address] Care Team Providers Care Falafel Cart Cook Name Role Phone Oswaldo Potter Primary Care Provider [phone] Allergies No known active allergies Medications aspirin [...] 11/08/2024 Assessment & Plan (11/08/2024 7:47 PM QUALITY CONTROL INSPECTOR HEADING): Symmetric edema, so DVT is unlikely. Continue compression stockings and leg elevation. C. difficile colitis 11/08/2024 Assessment & Plan (11/08/2024 7:47 PM QUALITY CONTROL INSPECTOR HEADING): Complete fidaxomicin course. Check labs. Perforated ulcer 11/08/2024 Assessment & Plan (11/08/2024 7:48 PM QUALITY CONTROL INSPECTOR HEADING): S/p surgery. Antibiotics completed. He will follow up with Dr. Corley. Urinary retention 11/08/2024 Assessment & Plan (11/08/2024 7:48 PM QUALITY CONTROL INSPECTOR HEADING): Per urology. Imbalance 03/07/2024 PVD (peripheral vascular disease) 01/11/2023 Assessment & Plan (01/11/2023 1:06 PM CDT): Compression socks Venous duplex Vascular Referral Medicare annual wellness visit, subsequent 06/22 Assessment & Plan (07/07/2024 6:42 PM CDT): Overall excellent health. Colonoscopy is due in 2024. I recommended COVID, flu, RSV, and [id number] vaccinations. Assessment & Plan (07/02/2023 10:27 AM CDT): Overall good health. Check PSA today. Colonoscopy due in 2024. I recommended that he get a COVID shot and [id number] vaccine. He declines a flu shot. Assessment & Plan (06/22/2022 10:00 AM CDT): Overall good health. Chinle due in 2024. Recommended the following vaccines: Shingrix New COVID booster Flu shot [id number] Hyperlipidemia 06/22/2022 Assessment & Plan (07/07/2024 6:40 [...] Type Department Care Team Description 01/04/2025 Telephone [facility] Gastroenterology [address] [place] [address] Medical Office Building [address], [address] [place] [address] Ratna Marquez PA 01/04/2025 Orders Only [facility] Gastroenterology [address] [place] [address] Medical Office Building [address], [address] [place] [phone] Ratna Marquez PA Malignant neoplasm of biliary tract, unspecified (HCC) (Primary Dx); Jaundice 01/03/2025 Results Follow-Up [facility] Gastroenterology [address] [place] [address] Medical Office Building [address], [address] [place] [address] Brook Benítez MD Malignant neoplasm of biliary tract, unspecified (HCC) (Primary Dx) 2025 Telephone [facility] Gastroenterology [address] [place] [address] Medical Office Building [address], [address] [place] [phone] Lili Prasad, NIKOS Dental question 01/01/2025 2:17 PM CDT Anesthesia Event [address] [place] [address] Jean Ibanez MD 01/01/2025 2:00 PM CDT - 01/01/2025 3:00 PM CDT Surgery [address] [place] [address] Brook Benítez MD RAD S AND I BILIARY DUCTAL SYSTEM 01/01/2025 1:03 PM CDT - 01/01/2025 5:30 PM CDT Hospital Encounter [address] [place] [address] Brook Benítez MD Jaundice; Duodenal ulcer Discharge Disposition: Discharge to home or self care 12/28/2024 10:00 AM CDT Lab [facility] [address] [place] [address] Intrahepatic bile duct dilation; Dilated pancreatic duct; Other disorders of bilirubin metabolism; Malignant neoplasm of biliary tract, unspecified (HCC); Carcinoma in situ of digestive organ, unspecified 12/28/2024 9:30 AM CDT Office Visit [facility] Gastroenterology [address] [place] [address] 2nd Floor [address] [place] [address] Ratna Marquez PA Jaundice (Primary Dx); Intrahepatic bile duct dilation; Dilated pancreatic duct; Other disorders of bilirubin metabolism; Carcinoma in situ of digestive organ, unspecified; Malignant neoplasm of biliary tract, unspecified (HCC) 12/28/2024 Results Follow-Up [facility] Gastroenterology [address] [facility] 2nd Floor [address] [place] [address] Gabrielle Grider MD 12/28/2024 Results Follow-Up [facility] Gastroenterology [address] [facility] 2nd Floor [address] [place] [address] Gabrielle Grider MD 12/28/2024 Telephone [facility] G[facility]enterology [address] [facility] Medical Office Building [address], [address] [place] [address] Lili Prasad RN GI Preprocedure 12/26/2024 1:30 PM CDT - 12/26/2024 11:59 PM CDT Hospital Encounter [facility] [address] [place] [address] Diagnosis unknown Discharge Disposition: Discharge to home or self care 12/26/2024 1:28 PM CDT - 12/26/2024 11:59 PM CDT Hospital Encounter [facility] [address] [place] [address] Diagnosis unknown Discharge Disposition: Discharge to home or self care 12/13/2024 9:00 AM CDT Office Visit [facility] Urology [address] [facility] Office Building [address] [place] [phone] Ubaldo Rose MD Retention of urine (Primary Dx) 12/01/2024 Telephone [facility] Urology [address] [facility] Office Building [address] [place] [phone] Dina Benitez CMA 11/30/2024 Orders Only [facility] Otolaryngology [address] [facility], [address] [place] [address] Lili Myrick CMA 11/20/2024 Orders Only [facility] [address] [address] Francesco Barahona MD 11/09/2024 Telephone [facility] Urology [address] [facility] Medical Office Building [address] [place] [phone] Emmanuel DinaWILMER darby 11/08/2024 6:30 PM QUALITY CONTROL INSPECTOR HEADING Lab [facility] [address] [place] [phone] Perforated ulcer (HCC); C. difficile colitis 11/08/2024 2:15 PM QUALITY CONTROL INSPECTOR HEADING Office Visit [facility] [address] [place] [phone] Francesco Barahona MD Perforated ulcer (HCC) (Primary Dx); C. difficile colitis; Localized swelling of lower extremity; Urinary retention 11/08/2024 Results Follow-Up [facility] [address] [place] [phone] Francesco Barahona MD 11/06/2024 Telephone [facility] [address] [place] [phone] Francesco Barahona MD Medical Records Request 10/18/2024 11:00 AM QUALITY CONTROL INSPECTOR HEADING Office Visit [facility] [address] [facility] Medical Office Building [address] [place] [phone] Ubaldo Rose MD Retention of urine from Last 3 Months Immunizations Immunization Administration [...] on file Legal Sex Male 12:31 PM QUALITY CONTROL INSPECTOR HEADING Gender Identity Male 11/09/2022 8:29 PM QUALITY CONTROL INSPECTOR HEADING Sexual Orientation Straight 11/09/2022 8: 29 PM QUALITY CONTROL INSPECTOR HEADING Obstetrics History Last Filed Vital Signs Vital [...] 01/01/2025 1:23 PM CDT Plan of Treatment Health Maintenance Due [...] 07/07/2025 07/07/2024, 06/14, 06/22/2022, Additional history exists Fall Risk Assessment 01/01/2026 01/01/2025, 07/07/2024, 07/02/2023, Additional history exists DTaP/Tdap/Td Vaccine (2 - Td or Tdap) 06/16/2031 06/16/2021 Colon Cancer Screening-CT Colonography Discontinued 07/22/2015 Colon Cancer Screening-Colonoscopy Discontinued 07/22/2015 Colon Cancer Screening-DNA Stool Discontinued 07/22/20 Colon Cancer Screening-FIT Discontinued 07/22/2015 Colon Cancer Screening-FOBT Discontinued 07/22/2015 Colon Cancer Screening-Sigmoidoscopy Discontinued 07/22/2015 Colorectal Cancer Screening Discontinued Medical Devices Implanted Type Area Sand Mixer Machine Device Identifier Shelf Expiration Date Model / Serial / Lot [employer] Cook Zimmon 7fr 10cm Biliary Double Pigtail Stent [id number] - [id number] Implanted:Qty: 1 on 01/01/2025 by Brook Benítez MD at [facility] Stent Left: Bile Duct [employer] 02/22/2027 [id number] / / [id number] [employer] Cook Zimmon 7fr 10cm Biliary Double Pigtail Stent [id number] - [id number] Implanted:Qty: 1 on 01/01/2025 by Brook Benítez MD at [facility] Stent Right: Bile Duct [employer] 05/09/2027 [id number] / / [id number] Procedures Procedure Name Priority Date/Time Associated Diagnosis Comments US ENDOSCOPIC IP Routine 01/01/2025 4:05 PM CDT Jaundice Duodenal ulcer ERCP IP Routine 01/01/2025 4:05 PM CDT Jaundice Duodenal ulcer ERCP IP Routine 01/01/2025 4:05 PM CDT Jaundice Duodenal ulcer FL ERCP BILIARY DUCT IP Routine 01/01/2025 3:51 PM CDT CYTOLOGY Routine 01/01/2025 3:29 PM CDT NE AN PROCEDURE PLACEHOLDER Routine 12/13 2:33 PM CDT NE AN ELECTIVE ENDOTRACHEAL AIRWAY Routine 01/01/2025 2:33 [...] unknown MR BODY OUTSIDE CONSULT Routine 12/27/19 1:28 PM CDT Diagnosis unknown POCT URINALYSIS DIPSTICK Routine 025 9:09 AM CDT Retention of urine GI - RESULT 11/20/2024 10:02 AM CDT EGFR Routine 11/08/2024 3:02 PM QUALITY CONTROL INSPECTOR HEADING Perforated ulcer (HCC) C. difficile colitis DIFFERENTIAL AUTO Routine 11/08/2024 3:02 PM QUALITY CONTROL INSPECTOR HEADING Perforated ulcer (HCC) C. difficile colitis CBC WITH AUTO DIFFERENTIAL Routine 11/08 3:02 PM QUALITY CONTROL INSPECTOR HEADING Perforated ulcer (HCC) C. difficile colitis COMPREHENSIVE METABOLIC PANEL Routine 3:02 PM QUALITY CONTROL INSPECTOR HEADING Perforated ulcer (HCC) C. difficile colitis COLONOSCOPY REPORT 07/22/2015 from Last 3 Months or Most Recently Relevant to Health Maintenance Results * FL ERCP Biliary Duct (01/01/2025 3:51 PM CDT) Narrative [facility] - 01/01/2025 4:01 PM CDT The images from this study are not interpreted by Radiology. Please refer to the physician's procedure / OR operative note. us Brook Benítez MD IMG FLUOROSCOPY PROCED URES Final Result [facility] * Cytology (01/01/2025 3:29 PM CDT) Brushing NOS (Cytology) 01/01/2025 3:29 PM CDT 01/01/2025 5:17 PM CDT Narrative 01/03/2025 3:05 PM CDT EPIC results best viewed via link to PDF [facility] [place] [address] Note to Patients: This report may contain [...] Gender: M : 1945 (Age: 80) Address: [address] [place] [address] Hospital #: [id number] Taken:01/01/2025 Received:01/01/2025 Reported: 01/03/2025 Patient Type: [facility] Service: Gastro Location: Physician(s): Brook Benítez M.D. 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 Pedro St DO Report Electronically Reviewed and Signed Out By Pedro St DO 01/03/2025 15:05:20 GOLDEN Daley(ASCP) Gross Description A. Hilar stricture brushin brush [...] Surgical Pathology and Flow Cytometry Departments at [facility] as part of an ongoing quality control lead program and in compliance with federally mandated [...] Surgical Pathology and Flow Cytometry Departments of [facility]. It has not been cleared or approved by the U. S. Food and Drug Administration. Brook Benítez MD LAB CYTOLOGY ORDERABLE S Final Result * NE AN ELECTIVE ENDOTRACHEAL AIRWAY, NE AN PROCEDURE PLACEHOLDER (01/01/2025 2:33 PM CDT) Narrative Cassandra Grimes CRNA - 01/01/2025 2:33 PM CDT Cassandra [...] Male Attending MD: Brook Benítez M.D. Room: [facility] ENDOSCOPY ROOM 1 Note Status: Finalized [...] The Olympus curved linear array therapeutic endosonoscope [id number] wasintroduced through the mouth, and advanced to the second partof duodenum The GIF [id number] endoscope was introduced through the mouth, and [...] 0 Note Initiated On: 01/01/2025 2:01 PM us Brook Benítez MD ENDOSCOPY PROCEDURES F inal Result * ERCP (01/01/2025 12:19 PM CDT) Anatomical Region Laterality Modality Other Narrative Procedure Note Brook Benítez MD - 01/01/2025 12:19 PM CDT GI ENDOSCOPY [facility] Patient Name: Drew Proctor Procedure Date: 01/01/2025 12:19 PM Date of : 1945 Admit Type: Outpatient Age: 79 Gender: Male Attending MD: Brook Benítez M.D. Room: [facility] ENDOSCOPY ROOM 1 Note Status: Finalized [...] General Anesthesia Ciprofloxacin 400mg IV Indomethacin 100mg NE Complications: No immediate complications. Estimated Blood Loss: [...] were discussed and informed consentwas obtained. The [id number] Duodenoscope wasintroduced through the mouth, and used to inject contrast into and used to inject contrast into the bile duct. The ERCP was technically difficult and complex due to difficulty passing guidewires through biliaryductal stenosis. The patient tolerated the procedurewell. Findings: The senior oracle applications developer film was normal. The esophagus was successfully [...] following this procedure please call my office [phone]). After hours and eveningsplease call [phone] and speak to the GI fellow lopez. Please tell the fellow that Dr. Benítez did your procedure and that you were instructed to have the fellow call me or the physician covering for me to discuss the management of your condition. If youhave an urgent problem, [facility] and have the ER doctor call my office duringthe day or the GI fellow after hours and weekends to arrange admission or transfer to our facility.Please bring this report with you if you [facility] - During your procedure a stent was [...] 0 Note Initiated On: 01/01/2025 12:19 PM Brook Benítez MD ENDOSCOPY PROCEDURES F [...] ORDERABLES F inal Result Performing Organization Address [facility] de Phone Number [facility] [place] [employer] [place] [address] * Cancer antigen 19-9 (12/28/2024 10:12 AM CDT) CA 19-9 ag 16.6 <=35.0 units/mL Comment: Interpretive Data The Calixto CA 19-9 assay procedure was used. Results from different manufacturers or methods may not be comparable. Serial testing should be performed using the same method. Blood 12/28/2024 10:1 2 AM CDT 12/28/2024 1:36 PM CDT Ratna Marquez HI LAB BLOOD ORDERABLES F inal Result Performing Organization Address [facility] [place] [place] [address] * Protime-INR (12/28/2024 10:12 AM CDT) PT 12.0 9.7 - 13.0 sec INR 1.11 0.90 - 1.20 [facility] Comment: Interpretive data Oral anticoagulant therapeutic ranges: Venous thromboembolism prophylaxis or treatment: 2.0-3.0 CARDIOLOGY Standard range: 2.0-3.0 High-intensity range: 2.5-3.5 Refer to indication-specific guidelines for appropriate target ranges for prosthetic heart valve replacement. Current interpretive data was last revised on 2019. Blood 12/28/2024 10:1 2 AM CDT 12/28/2024 1:37 PM CDT Ratna GUAJARDO LAB BLOOD ORDERABLES F inal Result Performing Organization Address [facility] Co de Phone Number [facility] [place] [address] * (ABNORMAL) CBC without differential (12/28/2024 10:12 AM CDT) [facility] WBC 4.85 3.80 - 9.90 K/cumm Hgb 10.8(L) 13.0 - 17.5 g/dL [facility] Hct 32.8(L) 38.9 - 50.3 % [facility] Plt 312 150 - 400 K/cumm [facility] MPV 11.7 9.1 - 12.3 fL [facility] RBC 3.57(L) 4.30 - 5.80 M/cumm [facility] MCV 91.9 81.3 - 96.4 fL [facility] MCH 30.3 27.1 - 33.3 pg [facility] MCHC 32.9 32.3 - 35.7 g/dL [facility] RDW CV 20.5(H) 11.1 - 14.9 % [facility] RDW SD 69.2(H) 35.7 - 48.1 fL [facility] NRBC abs 0.00 0.00 - 0.01 K/cumm [facility] Blood 12/28/2024 10:1 2 AM CDT 12/28/2024 1:35 PM CDT Ratna GUAJARDO LAB BLOOD ORDERABLES F inal Result Performing Organization Address [facility]/ZIP Co de Phone Number [facility] [place] [address] * CEA (12/28/2024 10:12 AM CDT) [facility] CEA 3.6 <=5.0 ng/mL Comment: Interpretive Data: [...] GUAJARDO LAB BLOOD ORDERABLES F inal Result [facility] [place] [address] * (ABNORMAL) Comprehensive metabolic panel (12/28/2024 10:12 AM CDT) Sodium 140 135 - 145 mmol/L Potassium, pl 4.5 3.3 - 4.9 mmol/L [facility] Chloride 105 97 - 110 mmol/L [facility] CO2 27 22 - 32 mmol/L [facility] Anion gap 8 2 - 15 mmol/L [facility] BUN 19 6 - 25 mg/dL [facility] Creatinine 0.96 0.80 - 1.30 mg/dL [facility] Glucose 89 70 - 199 mg/dL [facility] Comment: Interpretive Data Fasting glucose >/= 126 [...] 2022. Calcium 9.0 8.5 - 10.3 mg/dL [facility] Bilirubin, total 12.7(H) 0.1 - 1.2 mg/dL [facility] Protein, pl 6.3(L) 6.5 - 8.5 g/dL [facility] Comment:Icteric; result may be falsely decreased Albumin 3.6 3.5 - 5.0 g/dL [facility] Alk phos 377(H) 40 - 130 Units/L [facility] ALT 65(H) 7 - 55 Units/L [facility] AST 118(H) 10 - 50 Units/L [facility] Blood 12/28/2024 10:1 2 AM CDT 12/28/2024 1:36 PM CDT us Ratna GUAJARDO LAB BLOOD ORDERABLES F inal Result [facility] [place] [address] * CT Body Outside Consult (12/26/2024 1:30 [...] images may or may not represent the [place] source data set and thus may contain changes that may lower the accuracy of this second-opinion interpretation. Electronically signed by: Martine Villasenor M.D. Narrative 12/26/2024 4:41 PM CDT EXAMINATION: RADIOLOGY CONSULTATION ON OUTSIDE IMAGING STUDY STUDY INITIALLY PERFORMED: 11/03/2024 at [facility]. TYPE OF STUDY: Multiple CT images of [...] visualized thoracolumbar spine. Mild anasarca. Procedure Note Martine Villasenor MD - 12/26/2024 EXAMINATION: RADIOLOGY CONSULTATION ON OUTSIDE IMAGING STUDY STUDY INITIALLY PERFORMED: 11/03/2024 at [facility]. TYPE OF STUDY: Multiple CT images of [...] images may or may not represent the [place] source data set and thus may contain [...] images may or may not represent the [place] source data set and thus may contain [...] IMAGING STUDY STUDY INITIALLY PERFORMED: 12/13/2024 at [facility]. TYPE OF STUDY: Multiple MR/MRCP images of [...] L4. Sacral Tarlov cyst. Procedure Note Alcon Gonzalez MD - 12/27/2024 EXAMINATION: RADIOLOGY CONSULTATION ON OUTSIDE IMAGING STUDY STUDY INITIALLY PERFORMED: 12/13/2024 at [facility]. TYPE OF STUDY: Multiple MR/MRCP images of [...] images may or may not represent the [place] source data set and thus may contain [...] R esult * eGFR (11/08/2024 3:02 PM QUALITY CONTROL INSPECTOR HEADING) eGFR 75 >=60 mL/min/1. 73 m2 Comment: [...] last reviewed 2021. Blood 11/08/2024 3:02 PM QUALITY CONTROL INSPECTOR HEADING 11/08/2024 3:25 PM QUALITY CONTROL INSPECTOR HEADING Francesco Barahona MD LAB BLOOD ORDERABLES Fi nal Result [facility] [place] [address] * Differential, auto (11/08/2024 3:02 PM QUALITY CONTROL INSPECTOR HEADING) Neutrophil abs 3.9 1.5 - 6.5 K/cumm Imm gran abs 0.1 0.0 - 0.1 K/cumm [facility] Lymphocyte abs 2.0 0.8 - 3.3 K/cumm [facility] Monocyte abs 0.7 0.2 - 0.8 K/cumm [facility] Eosinophil abs 0.3 0.0 - 0.5 K/cumm [facility] Basophil abs 0.0 0.0 - 0.1 K/cumm [facility] Neutrophil pct 56.2 % [facility] Comment: Interpretive Data Percent cell count reference ranges are not reported, since discordance with absolute values may lead to misinterpretation of CBC data. Current Interpretive Data was last revised on 2017. Imm gran pct 0.7 % [facility] Comment: Interpretive Data Percent cell count reference ranges are not reported, since discordance with absolute values may lead to misinterpretation of CBC data. Current Interpretive Data was last revised on 2017. Lymphocyte pct 28.9 % [facility] Comment: Interpretive Data Percent cell count reference ranges are not reported, since discordance with absolute values may lead to misinterpretation of CBC data. Current Interpretive Data was last revised on 2017. Monocyte pct 9.7 % [facility] Comment: Interpretive Data Percent cell count reference ranges are not reported, since discordance with absolute values may lead to misinterpretation of CBC data. Current Interpretive Data was last revised on 2017. Eosinophil pct 3.9 % [facility] Comment: Interpretive Data Percent cell count reference ranges are not reported, since discordance with absolute values may lead to misinterpretation of CBC data. Current Interpretive Data was last revised on 2017. Basophil pct 0.6 % [facility] Comment: Interpretive Data Percent cell count reference ranges are not reported, since discordance with absolute values may lead to misinterpretation of CBC data. Current Interpretive Data was last revised on 2017. Blood 11/08/2024 3:02 PM QUALITY CONTROL INSPECTOR HEADING 11/08/2024 3:20 PM QUALITY CONTROL INSPECTOR HEADING Francesco Barahona MD LAB BLOOD ORDERABLES Fi nal Result Performing Organization Address [facility]/ZIP Co de Phone Number [facility] [place] [employer] [place] [address] * (ABNORMAL) CBC with auto differential (11/08/2024 3:02 PM QUALITY CONTROL INSPECTOR HEADING) [facility] WBC 6.9 3.8 - 9.9 K/cumm Hgb 11.8(L) 13.0 - 17.5 g/dL [facility] Hct 35.9(L) 38.9 - 50.3 % [facility] Plt 268 150 - 400 K/cumm [facility] MPV 9.4 9.1 - 12.3 fL [facility] RBC 3.98(L) 4.30 - 5.80 M/cumm [facility] MCV 90.2 81.3 - 96.4 fL [facility] MCH 29.6 27.1 - 33.3 pg [facility] MCHC 32.9 32.3 - 35.7 g/dL [facility] RDW CV 13.2 11.1 - 14.9 % [facility] RDW SD 43.9 35.7 - 48.1 fL [facility] NRBC abs 0.00 0.00 - 0.01 K/cumm [facility] Blood 11/08/2024 3:02 PM QUALITY CONTROL INSPECTOR HEADING 11/08/2024 3:20 PM QUALITY CONTROL INSPECTOR HEADING Francesco Barahona MD LAB BLOOD ORDERABLES Fi nal Result [facility] [place] [employer] [address] * Comprehensive metabolic panel (11/08/2024 3:02 PM QUALITY CONTROL INSPECTOR HEADING) [facility] Sodium 143 135 - 145 mmol/L Potassium, pl 4.2 3.3 - 4.9 mmol/L [facility] [facility] Chloride 105 97 - 110 mmol/L [facility] CO2 31 22 - 32 mmol/L [facility] Anion gap 7 2 - 15 mmol/L [facility] BUN 16 6 - 25 mg/dL [facility] Creatinine 1.02 0.80 - 1.30 mg/dL [facility] Glucose 95 70 - 199 mg/dL [facility] Comment: Interpretive Data Fasting glucose >/= 126 [...] 2022. Calcium 8.6 8.5 - 10.3 mg/dL [facility] Bilirubin, total 0.4 0.1 - 1.2 mg/dL [facility] Protein, pl 6.8 6.5 - 8.5 g/dL [facility] Albumin 3.6 3.5 - 5.0 g/dL [facility] Alk phos 107 40 - 130 Units/L [facility] ALT 14 7 - 55 Units/L [facility] AST 32 10 - 50 Units/L [facility] Blood 11/08/2024 3:02 PM QUALITY CONTROL INSPECTOR HEADING 11/08/2024 3:20 PM QUALITY CONTROL INSPECTOR HEADING Francesco Barahona MD LAB BLOOD ORDERABLES Fi nal Result [facility] [place] [address] * COLONOSCOPY REPORT (07/22/2015) Anatomical Region Laterality Modality Other Narrative 07/22/2015 Ordered by an unspecified provider. Historical Provider GI PROCEDURE ORDERABLES F inal Result from Last 3 Months or Most Recently Relevant to Health Maintenance Insurance [facility] MEDICARE [facility] MEDICARE ADVANTAGE MEDICARE [employer] MEDICARE [facility] MEDICARE Advance Directives For more information, please contact: [phone] Documents on File Type Date Recorded Patient Extension Worker Expl anation ADVANCE DIRECTIVE 10/01/2017 12:18 PM * Full Code (Latest Code Status on File) Date Activated Date Inactivated Comments 01/01/2025 1:34 PM 01/01/2025 9:36 PM Care Teams Falafel Cart Cook Relationship Specialty Start Date End Date Oswaldo Potter DO [address] [address] PCP - General Internal Medicine 12/18/24
--- OUTSIDE RECORDS SUMMARY | 2025-01-08 12:07 | XMS_ITS | Encounter Summary ---
Author Organization [facility] Address [address] [place] [address] Phone Care Team Providers Care News Agent Name Role Phone Keanu Anthony MD Primary Care Provider [phone] Francesco Barahona MD Primary Care Provider Oswaldo Potter DO Primary Care Provider [phone] Encounter Details Date Type Department Care Team (Latest Contact Info) Description 05/02/2017 Orders Only [facility] CONVERSION Scanning, Provider Social History Tobacco Use Types Packs/Day Years Used Date Smoking Tobacco: Never Sex and Gender Information Value Date Recorded Sex Assigned at Not on file Legal Sex Male 12:31 PM COMPUTER LANGUAGE CODER Gender Identity Male 11/09/2022 8:29 PM COMPUTER LANGUAGE CODER Sexual Orientation Straight 11/09/2022 8: 29 PM COMPUTER LANGUAGE CODER documented as of this encounter Plan of [...] on filedocumented in this encounter Care Teams News Agent Relationship Specialty Start Date End Date Keanu Anthony MD [address] [address] PCP - General 03/30/17 06/15/21 Francesco Barahona MD [id number] [place] [address] PCP - General Endocrinology Diabetes & Metabolism 06/16/21 12/17/24 Oswaldo Potter DO [address] [place], [place] [id number] PCP - General Internal Medicine 12/18/24 documented as of this encounter
--- OUTSIDE RECORDS SUMMARY | 2025-01-08 12:07 | XMS_ITS | Encounter Summary ---
Author Organization [facility] Address [address] [place] [address] Phone Care Team Providers Care Insurance Claims Processor Name Role Phone Oswaldo Potter DO Primary Care Provider Encounter Details Date Type Department Care Team (Late st Contact Info) Description 12/28/2024 Results Follow-Up [facility] Gastroenterology [address] 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
== END 2025-01-08 10:28 | disposition home or self-care (01) ==
PROVIDERS: PCP Internal Medicine; Visit Provider Plastic Surgery
DX: S62.631D Displaced fracture of distal phalanx of left index finger, subsequent encounter for fracture with routine healing (principal); X58.XXXD Exposure to other specified factors, subsequent encounter
CPT/HCPCS: 73140